=== PATIENT | female | born 1960 | race Caucasian/White ===

== ENCOUNTER → 2019-08-11 13:55 | Outpatient (POV) | payer OTHER, SELFPAY | PROVIDERS: PCP Nurse Practitioner; Referring Provider Surgery; Visit Provider Nurse Practitioner Family | DX: Z00.00 Encounter for general adult medical examination without abnormal findings (principal) ==

== ENCOUNTER 2025-03-25 11:48 | Outpatient (CLI) | payer OTHER, SELFPAY ==
--- NOTE | 2025-03-25 | CA_ITS ---
APPROVED REPORT Exam: Pharmacologic Technologist: Tasha Eaton Stress Test Details Test: Lexiscan HR Resting HR: 73 bpm Max Heart Rate (APMHR): 156 bpm Max HR Achieved: 95 bpm Target HR (85% APMHR): 133 bpm % of APMHR: 61 Recovery HR: 91 bpm BP Resting BP: 181.0/90.0 mmHg Max BP: 182.0/80.0 mmHg Recovery BP: 176.0/77.0 mmHg ECG Stress ECG Conclusion Symptoms: Chest heaviness and shortness of air with Lexiscan. Arrhythmias/Ectopy: PVC noted during Lexiscan ST-T Changes: Unremarkable with Lexiscan Electronically signed by : Jemma Orourke MD 03/26/2025 12:47:51
[2025-03-25] MEDS: SODIUM CHLORIDE 0.9% 10ML SYR (RAD ONLY) 10 ML IV ×2 (12:00→14:00)
--- NOTE | 2025-03-25 12:00 | NM_ITS ---
APPROVED REPORT Exam: Nuclear Stress Test Indication: htn, hyperlipidemia, tob use, sob, palpitations, syncope, abn ekg Patient Location: Outpatient Stress Tech: Tasha Eaton NM Tech:LAURA Terrazas RT (R)(N)(M) Ht: 5 ft 7 in Wt: 220 lbs Bra Size: c HR: 77 bpm BP: 181/90 mmHg BSA: 2.11 m2 TID: 0.93 BMI: 34.4 History: htn, hyperlipidemia, tob use, sob, palpitations, syncope, abn ekg Procedure: Patient received 0.4 mg of intravenous Lexiscan, resting heart rate 77 bpm, resting blood pressure 181/90 mmHg, with Lexiscan maximum heart rate achieved was 98 bpm which is % of the maximum predicted heart rate and blood pressure was 166/78 mmHg. With Lexiscan, patient denied any complaint of chest pain. Cardiac Stress and Resting SPECT Images: Cardiac Stress and Resting SPECT images were obtained using technetium 99m Myoview 29.8 mCi stress and 10.30 mCi at rest. Right imaging demonstrates significant soft tissue overlap with the cardiac borders. This may affect the diagnostic interpretation of the study findings. Resting and stress imaging in supine positions demonstrate a large sized, moderate, fixed perfusion defect in the anterior LV wall. This is no longer visualized with prone stress imaging. Findings are suggestive of soft tissue attenuation. Gated imaging demonstrates normal global and regional LV systolic function. LVEF is calculated at 67%. Conclusion: Soft tissue attenuation is present. There is no evidence of fixed or reversible perfusion defects. Gated imaging demonstrates normal global and regional LV systolic function. LVEF is calculated at 67%. Electronically signed by : Jemma Orourke MD 03/26/2025 12:44:00
--- NOTE | 2025-03-25 12:58 | CA_ITS ---
APPROVED REPORT EXAM: Comprehensive 2D, Doppler, and color-flow Echocardiogram Internet Sales Associate: Alberta Guillory RT(R) Ht: 5 ft 7 in Wt: 219lbs BSA: 2.10 BP: 120/69 mmHg Indications: dyspnea, abn EKG, CAD, hx of CVA, HTN, smoker 2D Dimensions LA Volume 20.00 mL LA Volume Index 9.52 mL/m2 (M/F) 16-34 EF AP2 76.0 % GL Strain -24.5 % M-Mode Dimensions RVDd 2.74 cm (0.9-2.6) LA Diam 3.51 cm (1.9-4.0) LVDd 4.60 cm (3.5-5.7) LVDs 3.53 cm (3.5-5.7) IVSd 1.06 cm (0.6-1.1) PWd 1.06 cm (0.6-1.1) EF (Teich) 46.70% FS 23.30% EDV (Teich) 97.30 mL ESV (Teich) 51.90 mL LV Diastology E Decel Time 150 (160-240 msec) E/A Ratio 0.6 Mitral Valve MV E Max [place]. 65.0 (40-130 cm/s) MV A Velocity 114.0 (40-130 cm/s) E/A Ratio 0.57 MV PHT 44.0 ms Left Ventricle The left ventricle is normal size. The left ventricular systolic function is normal. The left ventricular ejection fraction is within the normal range. There is marked increase in LV wall thickness. IVSD is 1.4 cm. There is no evidence of LVOT obstruction at rest. There is normal LV segmental wall motion. Transmitral Doppler flow pattern suggests impaired LV relaxation. LVEF is 65%. Right Ventricle Right ventricle is mildly dilated. The right ventricular systolic function is normal. Atria Left atrium is mildly dilated. The right atrium size is normal. There is no Doppler evidence of interatrial shunt. Aortic Valve Aortic valve is mildly thickened. There is no aortic valvular stenosis. No aortic regurgitation is present. Mitral Valve The mitral valve is normal in structure. No evidence of mitral valve stenosis. Mild mitral regurgitation. Tricuspid Valve Tricuspid valve is grossly normal in structure and function. Trace tricuspid regurgitation. There is insufficient TR jet to estimate RVSP. Pulmonic Valve The pulmonary valve is normal in structure. Trace pulmonic regurgitation. Great Vessels The aortic root is normal in size. IVC is normal in size and collapses >50% with inspiration. Pericardium There is no pericardial effusion. Other Information Study Quality: Fair Conclusion Normal biventricular systolic function. Marked increase in LV wall thickness. IVSD is 1.4 cm. No evidence of LVOT obstruction at rest. Mild MR. In the setting of marked increased LV wall thickness, further evaluation for infiltrative cardiomyopathy is suggested with cardiac MRI (amyloidosis protocol) + PYP nuclear scan + amyloidosis lab testing. Electronically signed by : Jemma Orourke MD 04/04/2025 00:07:20
[2025-03-25] MEDS: REGADENOSON 0.4MG/5ML SYRINGE 0.4 MG IV (14:00)
[2025-03-25] MEDS: ISOTOPE MYOVIEW (PER STUDY) 1 DOSE IV (14:32)
== END 2025-03-25 23:59 | disposition home or self-care (01) ==
LOC: RAD 11:49
PROVIDERS: PCP Nurse Practitioner Family; Visit Provider Internal Medicine
DX: I25.10 Atherosclerotic heart disease of native coronary artery without angina pectoris (principal); I10 Essential (primary) hypertension; I63.9 Cerebral infarction, unspecified
CPT/HCPCS: 78452; 93017; 93018; 93306; A9502; J2785

== ENCOUNTER 2025-03-27 10:29 | Outpatient (CLI) | payer OTHER, SELFPAY ==
[2025-03-27 10:34] LABS: Anti-Centromere B Antibodies ND; Anti-DNA (DS) Ab Qn ND; Anti-Jo-1 ND; Antichromatin Antibodies ND; Antiscleroderma-70 Antibodies ND; MANUAL DIFFERENTIAL MANUAL DIFFERENTIAL (MANUAL DIFF); RNP Antibodies ND; Sjogren's Anti-SS-A ND; Sjogren's Anti-SS-B ND
[2025-03-27 10:59] LABS: Basophils # 0.1 K/mm3 (0-0.2); Basophils % 1.1 % (0.1-2.0); Eosinophils # 0.1 Kmm3 (0.0-0.4); Eosinophils % 2.1 % (0.1-12.0); Hematocrit 41.6 % (37.0-47.0); Lymphocytes # 1.4 K/mm3 (0.7-4.5); Lymphocytes % 26.6 % (10-50); Mean Corpuscular HGB Conc 33.7 g/dL (31.8-35.4); Mean Corpuscular Hemoglobin 31.3 pg (27.0-31.2); Mean Corpuscular Volume 93.1 fl (81-99); Mean Platelet Volume 9.7 fl (7.4-10.4); Monocytes # 0.4 K/mm3 (0.1-1.0); Monocytes % 7.5 % (1.7-9.3); Neutrophils # 3.3 K/mm3 (1.8-7.8); Neutrophils % 62.5 % (37.0-80.0); Platelet Count 224 K/mm3 (142-424); Red Blood Count 4.47 M/mm3 (4.20-5.40); Red Cell Distribution Width 13.4 % (11.5-17.5); White Blood Count 5.3 K/mm3 (4.8-10.8)
[2025-03-27 11:43] LABS: Alanine Aminotransferase 27 U/L (12-78); Albumin Level 4.6 g/dl (3.5-5.0); Albumin/Globulin Ratio 1.8 (1.1-1.8); Alkaline Phosphatase 139 U/L (38-126); Anion Gap 6.2 mEq/L (5-15); Aspartate Amino Transferase 26 U/L (14-36); Blood Urea Nitrogen 15 mg/dl (7-17); Calcium 9.5 mg/dl (8.4-10.2); Carbon Dioxide 29 mmol/L (22.0-30.0); Chloride 104 mmol/L (98-107); Estimated Glomerular Filt Rate 63 ml/min (>60); GFR (African American) 76 ML/MIN (>60); Globulin 2.5 g/dL (1.3-3.2); Glucose 107 mg/dl (74-100); Potassium 4.2 mmoL/L (3.5-5.1); Sodium 135 mmol/L (136-145); Total Protein,Serum 7.1 g/dl (6.3-8.2)
[2025-03-27 11:50] LABS: Eosinophils % 3 % (0-3); Lymphocytes % 29 % (10-50); Monocytes % 5 % (2-9); Neutrophils % 63 % (42-76); Total Cells Counted 100
[2025-03-27 11:51] LABS: Platelet Estimate Normal; RBC Morphology Normal
[2025-03-27 11:54] LABS: Erythrocyte Sedimentation Rate 14 mm/hr (0-30)
[2025-03-30 14:17] LABS: Antinuclear Antibodies (ANA) Negative (Negative)
== END 2025-03-27 23:59 | disposition home or self-care (01) ==
LOC: LAB 10:29
PROVIDERS: PCP Nurse Practitioner Family; Visit Provider Specialist
DX: I63.9 Cerebral infarction, unspecified (principal); R51.9 Headache, unspecified; G89.29 Other chronic pain
CPT/HCPCS: 36415; 80053; 85007; 85014; 85018; 85048; 85049; 85651

== ENCOUNTER 2025-04-06 12:51 | Outpatient (CLI) | payer OTHER, SELFPAY ==
--- NOTE | 2025-04-06 13:45 | MR_ITS ---
FINAL REPORT CLINICAL HISTORY: stroke 15 yrs ago, new reoccurring headaches COMPARISON: None FINDINGS: Multiplanar MR imaging of the brain was performed without and with contrast. There is no evidence of intracranial hemorrhage or mass. No abnormal extra-axial fluid collection is seen. Nyem-[id number] atrophy. Few tiny scattered foci of abnormal signal in the deep white matter. There is no evidence of shift of the midline structures. No acute ischemia. No area of abnormal restricted diffusion is identified. No abnormal contrast enhancement is seen. Normal major vessel vascular flow voids are noted. 7th and 8th nerve root complexes are intact. There is a lobular mucoperiosteal thickening of the left maxillary sinus. IMPRESSION: Chronic changes without acute intracranial abnormality identified. Reviewed, Interpreted and Dictated by Joey Engle MD Transcribed by Mis Mccoy Authenticated and [facility]
[2025-04-06] MEDS: GADOTERIDOL INJ 20ML SYRINGE 19 ML IV (14:23)
[2025-04-06] MEDS: SODIUM CHLORIDE 0.9% 10ML SYR (RAD ONLY) 10 ML IV (14:23)
== END 2025-04-06 23:59 | disposition home or self-care (01) ==
LOC: RAD 12:51
PROVIDERS: PCP Nurse Practitioner Family; Visit Provider Specialist
DX: R90.89 Other abnormal findings on diagnostic imaging of central nervous system (principal); I25.10 Atherosclerotic heart disease of native coronary artery without angina pectoris; I10 Essential (primary) hypertension; I63.9 Cerebral infarction, unspecified
CPT/HCPCS: 70553; 94762; A9576

== ENCOUNTER 2025-04-14 14:45 | Outpatient (CLI) | payer OTHER, SELFPAY ==
[2025-04-14 15:47] LABS: Anion Gap 10.2 mEq/L (5-15); Blood Urea Nitrogen 17 mg/dl (7-17); Calcium 9.3 mg/dl (8.4-10.2); Carbon Dioxide 29 mmol/L (22.0-30.0); Chloride 102 mmol/L (98-107); Estimated Glomerular Filt Rate 63 ml/min (>60); GFR (African American) 76 ML/MIN (>60); Glucose 107 mg/dl (74-100); Potassium 4.2 mmoL/L (3.5-5.1); Sodium 137 mmol/L (136-145)
[2025-04-15 17:21] LABS: Albumin 3.7 g/dL (2.9-4.4); Alpha-1-Globulin 0.2 g/dL (0.0-0.4); Alpha-2-Globulin 0.9 g/dL (0.4-1.0); Free Kappa Lt Chains 25.9 mg/L (3.3-19.4); Free Lambda Lt Chains 18.8 mg/L (5.7-26.3); Protein, Total 7.1 g/dL (6.0-8.5)
[2025-04-16 17:42] LABS: Albumin, U 22.9 % (.); Alpha-1-Globulin, U 11.6 % (.); Alpha-2-Globulin, U 17.9 % (.); Beta Globulin, U 31.8 % (.); Gamma Globulin, U 15.8 % (.); Immunoglobulin A, Qn 136 mg/dL (87-352); Immunoglobulin G, Qn 1143 mg/dL (586-1602); Immunoglobulin M, Qn 68 mg/dL (26-217); M-Spike, % Not Observed % (Not Observed); Protein,Total,Urine 9.3 mg/dL (Not Estab.)
[2025-04-18 12:31] LABS: PDF SCANNED IMAGE
[2025-04-18 13:44] LABS: PDF: SCANNED IMAGE
== END 2025-04-14 23:59 | disposition home or self-care (01) ==
LOC: LAB 14:45
PROVIDERS: PCP Nurse Practitioner Family; Visit Provider Internal Medicine
DX: I10 Essential (primary) hypertension; I63.9 Cerebral infarction, unspecified; I25.10 Atherosclerotic heart disease of native coronary artery without angina pectoris; R93.1 Abnormal findings on diagnostic imaging of heart and coronary circulation
CPT/HCPCS: 36415; 80048; 82784; 83883; 84155; 84156; 84165; 84166; 86334; 86335

== ENCOUNTER 2025-04-17 11:11 | Outpatient (CLI) | payer OTHER, SELFPAY ==
[2025-04-21 15:17] LABS: Albumin, U 22.8 % (.); Alpha-1-Globulin, U 5.1 % (.); Beta Globulin, U 30.1 % (.); M-Spike, % Not Observed % (Not Observed); Prot,24hr calculated 109 mg/24 hr (30-150); Protein,Total,Urine 10.4 mg/dL (Not Estab.)
== END 2025-04-17 23:59 | disposition home or self-care (01) ==
PROVIDERS: PCP Nurse Practitioner Family; Visit Provider Internal Medicine
DX: I25.10 Atherosclerotic heart disease of native coronary artery without angina pectoris (principal); I10 Essential (primary) hypertension; I63.9 Cerebral infarction, unspecified; R93.1 Abnormal findings on diagnostic imaging of heart and coronary circulation
CPT/HCPCS: 84156; 84166

== ENCOUNTER 2025-04-27 10:01 | Outpatient (CLI) | payer OTHER, SELFPAY ==
--- OUTSIDE RECORDS SUMMARY | 2025-04-27 10:04 | XMS_ITS | Clinical Summary ---
Author Organization [facility] Address [address] [place] [address] Phone Care Team Providers Care Manager Emergency Name Role Phone Unavailable Primary Care Provider Unavailabl e Allergies No known active allergies Medications meloxicam (MOBIC) 15 mg tabletIndication s:Knee strain Take 1 Tab by mouth daily. 30 Tab 0 07/02/2013 Active Active Problems No known active problems Social History Tobacco Use Types Packs/Day Years Used Date Smoking Tobacco: Every Day Smokeless Tobacco: Never Tobacco Cessation:Counseling Given: Yes Alcohol Use Standard Drinks/Week Comments Not Asked 0 (1 standard drink = 0.6 oz pur e alcohol) Comments No Sex and Gender Information Value Date Recorded Sex Assigned at Not on file Legal Sex Female 2:07 AM EDT Gender Identity Not on file Sexual Orientation Not on file Obstetrics History Last Filed Vital Signs Vital Sign Reading Time Taken Comments Blood Pressure 130/84 06/06/2013 11:09 AM EDT Pulse 72 06/06/2013 11:09 AM EDT Temperature 36.8 C (98.2 F) 06/06/2013 11:09 AM EDT Respiratory Rate - - Oxygen Saturation - - Inhaled Oxygen Concentration - - Weight 90.1 kg (198 lb 9.6 oz) 06/06/2013 11:09 AM EDT Height 167.6 cm (5' 6 ) 06/06/2013 11:09 AM EDT Body Mass Index 32.05 06/06/2013 11:09 AM EDT Plan of Treatment Health Maintenance Due Date Last Done Comments Annual Wellness Exam 1963 Hepatitis C Screening 1978 DTaP/TDaP/Td (1 - Tdap) 1979 Cervical Cancer Screening 1981 Pap Smear 1981 HPV/Pap Cotest 1990 Breast Cancer Screening 2000 Cologuard 2005 Colon Cancer Screening 2005 Colonoscopy 2005 FIT 2005 Sigmoidoscopy 2005 Virtual Colonography 2005 Pneumococcal Vaccine 50+ (1 of 1 - PCV) 2010 Zoster (1 of 2) 2010 COVID-19 Vaccine (1 - 2023-2 5 season) 2024 Influenza Vaccine (Season Ended) 2025 Hepatitis B Vaccine Aged Out No longe r eligible based on patient's age to complete this topic Meningococcal B Vaccine Aged Out No l onger eligible based on patient's age to complete this topic Insurance
--- OUTSIDE RECORDS SUMMARY | 2025-04-27 10:04 | XMS_ITS | Encounter Summary ---
Author Organization Healthcare Address [address] [place] [address] Care Team Providers Care Commercial Airplane Pilot Name Role Phone Jessica Mack [employer]W TRUCK DRIVER Primary Care Provider + Reason for Referral * Consultation (Routine) - Authorized Specialty Diagnoses / Procedures Referred By Contac t Referred To Contact Neurology Diagnoses Personal history of TIA (transient ischemic attack) Debra Jackson APRN [address] [place] [address] [place] [address] Phone: tel: fax: Referral ID Status Reason Start Date Expiration Date Visits Requested Visits Authorized [id number] Authorized Specialty Services Required 11/27/2024 05/29/2026 1 1 Encounter Details Date Type Department Care Team (Late st Contact Info) Description 11/27/2024 Community Orders Community [facility] [address] [place] [address] Debra Jackson APRN [address] [place] [address] [place] [address] Personal history of TIA (transient ischemic attack) (Primary Dx) Social History Tobacco Use Types Packs/Day Years Used Date Smoking Tobacco: Never Assessed Comments Unknown Sex and Gender Information Value Date Recorded Sex Assigned at Not on file Legal Sex Female 7:15 PM EDT Gender Identity Not on file Sexual Orientation Not on file documented as of this encounter Plan of Treatment Scheduled Referrals Name Type Priority Associated Diagnoses Order Schedule Ambulatory referral to Neurology Outpatient Referral Routine Personal history of TIA (transient ischemic attack) Ordered: 11/27/2024 documented as of this encounter Visit Diagnoses Diagnosis Personal history of TIA (transient ischemic attack)- Primary Transient ischemic attack (TIA), and cerebral infarction without residual deficits documented in this encounter Care Teams Commercial Airplane Pilot Relationship Specialty Start Date End Date Jessica Mack, CREW TRUCK DRIVER [address] [place] [address] PCP - General 04/01/21 documented as of this encounter
--- OUTSIDE RECORDS SUMMARY | 2025-04-27 10:05 | XMS_ITS | Clinical Summary ---
Author Organization [facility] Address [address] [place] [id number] Care Team Providers Care Planting Material Remover Name Role Phone Unavailable Primary Care Provider Unavailabl e Source Comments This information has been disclosed to you from confidential records protectedfrom disclosure by state law. You shall make no further disclosure of thisinformation without the specific, written, and informed release of theindividual to whom it pertains, or as otherwise permitted by law. A generalauthorization for the release of medical or other information is not sufficientfor the purposes of therelease of HIV test results or diagnoses. [id number] Social History Tobacco Use Types Packs/Day Years Used Date Smoking Tobacco: Never Assessed Comments Unknown Sex and Gender Information Value Date Recorded Sex Assigned at Not on file Legal Sex Female 4:18 PM EST Gender Identity Not on file Sexual Orientation Not on file Plan of Treatment Health Maintenance Due Date Last Done Comments Abnormal Colonoscopy Follow Up 1960 Hepatitis C Screening (MyChart) 1960 Alcohol Misuse Screening 1978 Depression Screening 1978 HIV Screening 1978 Immunization: DTaP/Tdap/Td (1 - Tdap) 1979 Cervical Cancer Screening/Pa p Smear (MyChart) 1990 Mammogram (MyChart) 2000 Cologuard (FIT-DNA) 2005 Colonoscopy 2005 Colorectal Cancer Screening (MyChart) 2005 Stool Testing (gFOBT) 2005 Immunization: Pneumococcal (1 of 1 - PCV) 2010 Immunization: Zoster (1 of 2) 2010 Immunization: COVID-19 ( season) 2024 01/26/2021, 12/24/2020 Immunization: Influenza (MyC brennan) (Season Ended) 2025 Immunization: RSV (Adult) (1 - 1-dose 75+ series) 2035
--- OUTSIDE RECORDS SUMMARY | 2025-04-27 10:05 | XMS_ITS | Continuity of Care Document ---
Author Organization [facility] Address [address] [place] [address] Care Team Providers Care Numerical Control Tool Programmer Name Role Phone ISMAEL GUO Charter Coordinator Unavailable Assessment No assessment recorded. Plan of Treatment Reminders Order Date Submit Date Provider Last Modified By Organization Details Last Modified Time Details Appointments Follow Up 2024 10:00A M Debra Jackson APRN Not available Not available Not available Lab lipid panel, serum 2024 025 [facility], [address], [place], [place], [address], 03/25/2025 09:07:05 CBC w/ auto diff 2024 025 [facility], [address], [place], [place], [address], 03/25/2025 09:07:03 TSH + free T4, serum 2024 025 [facility], [address], [place], [place], [address], 03/25/2025 09:07:02 HbA1c (hemoglob in A1c), blood 2024 025 [facility], [address], [place], [place], [address], 03/25/2025 09:07:07 CMP, serum or plasma 2024 025 [facility], [address], [place], [place], [address], 03/25/2025 09:07:04 vitamin D, 25-hydrox y, total, serum 2024 025 [facility], [address], [place], [place], [address], 03/25/2025 09:07:08 cobalamin and folate panel, serum 2024 025 [facility], [address], [place], [place], [address], 03/25/2025 09:07:06 Referral None recorded. Procedures None recorded. Surgeries None recorded. Imaging MRI, brain, w/wo contrast [email or web address] ([facility]), [address], [place], [address], 04/20/2025 20:02:55 Medication Orders atorvasta tin 80 mg tablet 2024 025 [facility], [address] [place] [address], [place], [address], 03/24/2025 11:42:33 hydrochlo rothiazid e 25 mg tablet 2024 025 [facility], [address] [place] [address], [place], [address], 03/24/2025 11:42:34 isosorbid e mononitra te ER 30 mg tablet,ex tended release 24 hr 2024 025 [facility], [address] [place] [address], [place], [address], 03/24/2025 11:42:34 lisinopri l 20 mg tablet 2024 025 [facility], [address] [place] [address], [place], [address], 03/24/2025 11:42:36 pantopraz ole 40 mg tablet,de layed release [address], [address], 03/24/2025 11:42:32 fluticaso ne propionat e 50 mcg/actua tion nasal spray,du pension [address], [address], 03/24/2025 11:42:35 meclizine 25 mg chewable tablet [address], [address], 03/24/2025 11:42:35 cholecalc iferol (vitamin D3) 50 mcg (2,000 unit) capsule [address], [address], 03/24/2025 11:42:32 melatonin 10 mg tablet [address], [address], 03/24/2025 11:42:35 mirtazapi ne 30 mg tablet [address], [address], 03/24/2025 11:42:33 Patient TargetsNo targets recorded. Patient InstructionsNo instructions recorded. Reason for Referral None Reported. Results Created Date Observation Date Name Description Value Unit Range Abnormal Flag Note LastModifiedBy Organization Detail LastModifiedTime 03/26/20 25 03/25/2025 imagi ng/di agnos tic resul t No observ ation record ed. [email or web address] [facility] [address], [place], [address], 03/26/2025 14:48:22 03/26/20 25 03/25/2025 imagi ng/di agnos tic resul t No observ ation record ed. [email or web address] [place] [address], [place], [address], 03/26/2025 14:48:16 04/04/20 25 03/25/2025 stres s echoc ardio gram No observ ation record ed. [address], [place], [address], 04/08/2025 12:25:16 04/06/20 25 04/06/2025 MRI, brain , w/o contr ast No observ ation record ed. [address], [place], [address], 04/07/2025 15:41:59 Result Notes None recorded. 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 13982662 Active Laurence Vásquez MD [address], [place], [address], [place] - [facility] 12:20:06 Preinfarc tion syndrome 3624859 Active Laurence Vásquez MD [address], [place], [address], [place] - [facility] 12:20:06 Urinary tract infectiou s disease 94215781 Active Laurence Vásquez MD [address], [place], [address], [place] [facility] 12:20:06 Herniated urinary bladder 556795132 Active Laurence Vásquez MD [address], [place], [address], [place] - [facility] 12:20:06 Vaginal hematoma 57908726 Completed 05/07/2019 Laurence Vásquez MD [address], [place], [address], [place] [facility] 12:20:06 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 10910466 Active Laurence Vásquez MD [address], [place], [address], [place] [facility] 12:20:06 Vaginal bleeding 933825297 Completed 05/07/2019 Laurence Vásquez MD [address], [place], [address], [place] [facility] 12:20:06 History of cardiac catheteri zation 451745090995 00 Active Laurence Vásquez MD [address], [place], [address], [place] [facility] 12:20:06 Urinary incontine nce 333800020 Active Laurence Vásquez MD [address], [place], [address], [place] [facility] 12:20:06 Disorder of coronary artery 470696088 Active 2017 Layla Hawth[place] - [facility] 08:37:12 Gastroeso phageal reflux disease 742952625 Active Layla Haw[place] [facility] 08:37:12 Hypertens nicky disorder 85202493 Active Layla [place] [facility] 08:37:12 Vaginal hematoma 33745393 Active Laurence Vásquez MD [address], [place], [address], [place] [facility] 12:20:06 Vaginal bleeding 980238377 Active Laurence Vásquez MD [address], [place], [address], [place] [facility] 12:20:06 Vitamin D deficienc y 54722584 Active 2019 Layla [place] [facility] 08:37:12 Mammogram declined 690996294 Active 2020 Layla [place] [facility] 08:37:12 Prediabet es 351904552 Active 2020 Layla [place] [facility] 08:37:12 Diastolic heart failure 246717414 Active 2020 Layla [place] [facility] 08:37:12 Influenza vaccinati on declined 638559868 Active 2020 Layla Katjash[place]en [place] [facility] 08:37:12 Gastroeso phageal reflux disease without esophagit is 336809042 Active 2020 Layla Hightowershannen [place] [facility] 08:37:12 Disorder of vitamin B12 889575475 Active 2021 Layla [place] [facility] 08:37:12 Mixed hyperlipi demia 488772135 Active 2021 Layla [place] [facility] 08:37:12 History of polyp of colon 792003545 Active 2021 Layla [place] [facility] 08:37:12 Screening for malignant neoplasm of colon Active 2021 Layla [place] [facility] 08:37:12 Internal hemorrhoi ds 44545338 Active 2022 Layla [place] [facility] 08:37:12 Diverticu losis of colon 366470350 Active 2022 Layla Katj[place] [facility] 08:37:12 Heart disease 53755733 Active Layla [place] [facility] 08:37:12 Postmenop ausal state 61111220 Active Layla [place] [facility] 08:37:12 Vitamin deficienc y 28536977 Active Layla [place] [facility] 08:37:12 Persisten t insomnia 759525293 Active 2023 Dbera Jackson, VIDEO OPERATOR [address], [place], [address], [place] [facility] 10:20:01 History of cerebrova scular accident 385427829 Active 2024 Debra Jackson APRN [address], [place], [address], [place] - [facility] 11:04:04 Tinnitus of left ear 258187685190 6 Active 2024 Debra Jackson APRN [address], [place], [address], [place] - [facility] 11:35:22 Problem Notes None recorded. Procedures Surgical History Date Name Laterality Status Provider Name and Address Organization Details Recorded Time 023 Date of Last Colonoscopy completed Jennifer Iverson [place] - [facility] 08/15/2023 13:42:39 019 Colonoscopy completed Renetta Feliciano [place] - [facility] 08/18/2019 10:34:42 018 Cardiac Cath completed Beatriz Dubois [place] - [facility] 05/07/2019 11:40:38 018 Date of Last Mammogram completed Renetta Feliciano [place] - [facility] 03/31/2019 13:16:24 016 Other completed Leigha Stears [place] [facility] 12/04/2016 11:18:33 015 Other completed Leigha Stears [place] [facility] 09/28/2016 10:17:02 015 TVT completed Leigha Stears [place] [facility] 09/28/2016 10:16:50 013 Date of Last Pap Smear completed Leigha Stears [place] [facility] 09/28/2016 10:06:27 Anterior Repair completed Leigha Stears [place] [facility] 09/28/2016 10:14:04 Cystourethroscopy [place] Leigha Ste[place] [facility] 09/28/2016 10:14:44 Unlisted px foot/toes completed Leigha Stears [place] [facility] 09/28/2016 10:15:06 Hysterectomy, Vaginal completed Beatriz Dubois [place] - [facility] 05/07/2019 11:31:05 Imaging Results None recorded. Procedure Notes None recorded. Medical Equipment None Reported. Allergies Allergen ID Allergen Name Allergen Category Reaction Reaction Severity Criticality Documentation Date Start Date Code Code System Note Provider Name and Address Organization Details Recorded Time 29056 Lipitor medicatio n arthralgi a (joint pain) Not available Not available 06/25/2017 [address] 5 [facility] [place] - [facility] 7 13:14:17 Medications Name Sig Start Date Stop Date Status Note LastModified by Organization Details LastModified Time atorvasta tin 80 mg tablet TAKE ONE (1) TABLET BY MOUTH EVERY DAY IN THE EVENING active Not Available Not Available No t Available oxybutyni n chloride ER 15 mg tablet,ex tended release 24 hr 06/25 completed Not Available Not Available Not Available nicotine 14 mg/24 hr daily transderm al patch 08/28 completed DIDN'T PHOTOCOPYING EQUIPMENT MECHANIC Not Available Not Available Not Available nitroglyc joey 400 mcg/spray transling ual aerosol 1 SPRAY UNDER TONGUE AT FIRST SIGN OF AN ATTACK/N O MORE THAN 3 SPRAYS IN [address] 1 spray by translin gual route onto or under the tongue at the first sign of an attack; no more than 3 sprays are recommen ded within a 15 minute period. Not Available Not Available Not Available cetirizin e 10 mg tablet Take 1 tablet every day by oral route for 30 days. 05/24 completed Not Available Not Available Not Available atorvasta tin 10 mg tablet Take 1 tablet every day by oral route. 03/26 completed Not Available Not Available Not Available oxybutyni n chloride ER 10 mg tablet,ex tended release 24 hr Take 1 tablet every day by oral route for 30 days. 07/20 completed Not Available Not Available Not Available azithromy jamal 250 mg tablet 08/14 completed Not Available Not Available Not Available hydrocodo ne 5 mg-acetam inophen 325 mg tablet 10/05 completed Not Available Not Available Not Available lisinopri l 20 mg tablet TAKE ONE (1) TABLET EVERY DAY BY ORAL ROUTE FOR 90 DAYS. active Not Available Not Available No t Available isosorbid e mononitra te ER 30 mg tablet,ex tended release 24 hr TAKE 1 TABLET BY MOUTH EACH MORNING active Not Available Not Available No t Available valsartan 160 mg-hydroc hlorothia zide 12.5 mg tablet TAKE 1 TABLET BY MOUTH EVERY DAY 10/24 completed Not Available Not Available Not Available black cohosh 540 mg capsule take 1 capsule by oral route daily 05/26 completed black cohosh 540 mg oral capsule; Recorded Status: Recorded on: 11/22/19 13 2:07PM;D iscontin ued Status: Disconti nued on: 05/26/20 15 4:42PM;U ser: earlywin ec Not Available Not Available Not Available permethri n 5 % topical cream apply (thoroug hly massage into skin from head to soles of feet) by topical route once leave on for 8-14 hr, then remove by thorough washing 12/18 completed permethr in 5 % topical cream;Re corded Status: Recorded on: 11/22/19 13 2:26PM;D iscontin ued Status: Disconti nued on: 12/18/19 13 2:44PM;U ser: carlee; Printed: 11/22/19 13 Not Available Not Available Not Available Diflucan 150 mg tablet take 1 tablet (150 mg) by oral route for 3 days 12/04 completed Diflucan 150 mg oral tablet;P rescribe Status: Prescrib ed on: 10/26/20 15 10:49AM; Disconti nued Status: Disconti nued on: 12/02/19 16 9:12AM;U ser: [email or web address]; Est. Completi on: 10/28/20 15;Pharm acyVerif ied: 10/26/20 15 10:49AM Not Available Not Available Not Available meclizine 12.5 mg tablet Take 1 tablet 3 times a day by oral route. 08/14 completed Not Available Not Available Not Available amlodipin e 2.5 mg tablet Take 1 tablet PO QD 08/18 completed Not Available Not Available Not Available metronida zole 500 mg tablet take 1 tablet (500 mg) by oral route 2 times per day for 7 days 12/04 completed Not Available Not Available Not Available fexofenad ine 180 mg tablet Take 1 tablet every day by oral route for 30 days. 07/20 completed Not Available Not Available Not Available amlodipin e 5 mg tablet Take 1 tablet every day by oral route. 07/20 completed Not Available Not Available Not Available ciproflox acin 500 mg tablet take 1 tablet (500 mg) by oral route every 12 hours for 10 days 06/20 completed ciproflo xacin HCl 500 mg oral tablet;P rescribe Status: Prescrib ed on: 06/07/20 16 9:21AM;D iscontin ued Status: Disconti nued on: 06/20/20 16 9:10AM;U ser: larsen c;Est. Completi on: 06/17/20 16;Pharm acyVerif ied: 06/07/20 16 9:21AM Not Available Not Available Not Available sulfameth oxazole 800 mg-trimet hoprim 160 mg tablet 10/05 completed Not Available Not Available Not Available aspirin 81 mg tablet,de layed release TAKE ONE (1) TABLET EVERY DAY BY ORAL ROUTE FOR 90 DAYS. active Not Available Not Available No t Available Wellbutri n SR 100 mg tablet, 12 hr sustained -release Take 1 tablet every day by oral route. 03/26 completed Not Available Not Available Not Available triamcino lone acetonide 0.1 % topical cream apply a thin layer to the affected area(s) by topical route 2 times per day 12/18 completed triamcin olone acetonid e 0.1 % topical cream;Re corded Status: Recorded on: 11/25/19 13 5:11PM;D iscontin ued Status: Disconti nued on: 12/18/19 13 2:44PM;U ser: gillisa; Indicati on: Skin Rash - (16.7821 00);Prin juhi: 11/25/19 13 Not Available Not Available Not Available Lipitor 20 mg tablet Take 1 tablet every day by oral route. 10/20 completed Not Available Not Available Not Available oxycodone -acetamin ophen 5 mg-325 mg tablet 12/04 completed Not Available Not Available Not Available Estratest H.S. 0.625 mg-1.25 mg tablet one po qd 05/31 completed Estrates t H.S. 0.625-1. 25 mg oral tablet;R ecorded Status: Recorded on: 05/25/20 10 2:04PM;D iscontin ued Status: Disconti nued on: 05/31/20 11 2:38PM;U ser: oralia;P rinted: 05/25/20 10 Not Available Not Available Not Available amitripty line 10 mg tablet TAKE ONE (1) TABLET BY MOUTH EVERY NIGHT AT BEDTIME FOR 2 WEEKS, MAY INCREASE TO TWO (2) TABLETS IF HEADACHE SYMPTOMS NOT IMPROVED active Not Available Not Available No t Available meclizine 25 mg tablet Take 1 tablet 3 times a day by oral route. 05/07 completed Not Available Not Available Not Available pantopraz ole 40 mg tablet,de layed release TAKE 1 TABLET BY MOUTH EVERY DAY active Not Available Not Available No t Available mirtazapi ne 30 mg tablet TAKE ONE (1) TABLET BY MOUTH EVERY DAY AT BEDTIME active Not Available Not Available No t Available ranitidin e 150 mg tablet Take 1 tablet twice a day by oral route as needed. 05/07 completed Not Available Not Available Not Available lisinopri l 10 mg tablet TAKE ONE (1) TABLET EVERY DAY BY ORAL ROUTE 10/27 completed Not Available Not Available Not Available losartan 25 mg tablet TAKE 1 TABLET BY MOUTH EVERY DAY 04/28 completed Not Available Not Available Not Available metoprolo l tartrate 50 mg tablet TAKE ONE (1) TABLET BY MOUTH TWICE DAILY WITH FOOD 04/28 completed Not Available Not Available Not Available nitroglyc joey 400 mcg/spray transling ual 10/05 completed Not Available Not Available Not Available nitroglyc joey 0.4 mg sublingua l tablet DISSOLVE ONE (1) TABLET UNDER TONGUE EVERY FIVE (5) MINUTES NEEDED FOR CHEST PAIN (DO NOT EXCEED THREE (3) DOSES/EP ISODE) active Not Available Not Available No t Available docusate sodium 100 mg capsule Take 1 capsule twice a day by oral route. 05/07 completed Not Available Not Available Not Available oxybutyni n chloride ER 5 mg tablet,ex tended release 24 hr take 1 tablet (5 mg) by oral route once daily for 30 days 06/07 completed oxybutyn in chloride 5 mg oral tablet extended release 24hr;Pre scribe Status: Prescrib ed on: 10/26/20 15 10:49AM; Disconti nued Status: Disconti nued on: 06/07/20 16 8:54AM;U ser: [email or web address]; Est. Completi on: 12/25/19 16;Indic ation: Urinary Urge Incontin ence - (16.7883 10);Phar Gutierrez fied: 10/26/20 15 10:49AM Not Available Not Available Not Available esterifie d estrogens -methylte stosteron e 1.25 mg-2.5 mg tablet take 1 tablet by oral route daily for 30 days 08/14 completed estrogen s-methyl testoste martha 1.25-2.5 mg oral tablet;R ecorded Status: Recorded on: 02/26/20 15 11:02AM; Disconti nued Status: Disconti nued on: 12/02/19 16 9:12AM;U ser: jose ;Est. Completi on: 08/24/20 15 Not Available Not Available Not Available hydrochlo rothiazid e 25 mg tablet TAKE 1 TABLET BY MOUTH EVERY DAY active Not Available Not Available No t Available furosemid e 20 mg tablet TAKE 1 TABLET BY MOUTH EVERY DAY 10/27 completed Not Available Not Available Not Available mirtazapi ne 15 mg tablet Take 1 tablet every day by oral route. 05/24 completed Not Available Not Available Not Available metoprolo l succinate ER 25 mg tablet,ex tended release 24 hr TAKE ONE (1) TABLET BY MOUTH EVERY DAY active Not Available Not Available No t Available albuterol 90 mcg/actua tion aerosol inhaler 08/14 completed Not Available Not Available Not Available Nasonex 50 mcg/actua tion [place] 2 sprays every day by intranas al route. 05/07 completed Not Available Not Available Not Available ibuprofen 600 mg tablet 12/21 completed Not Available Not Available Not Available Vitamin D2 1,250 mcg (50,000 unit) capsule Take 1 capsule every week by oral route for 84 days. 01/28 completed Not Available Not Available Not Available cefdinir 300 mg capsule TAKE 1 CAPSULE BY MOUTH TWICE DAILY 10/27 completed Not Available Not Available Not Available dexametha sone sodium phosphate 10 mg/mL injection solution Take 1 mL by injectio n route. 2017 active Not Available Not Available Not Avai lable losartan 100 mg tablet TAKE 1 TABLET BY MOUTH EVERY DAY active Not Available Not Available No t Available fluticaso ne propionat e 50 mcg/actua tion nasal spray,du pension INSTILL ONE (1) SPRAY IN EACH NOSTRIL EVERY DAY active Not Available Not Available No t Available Vistaril 50 mg capsule take 1 capsule by oral route 4 times a day as needed 09/09 completed Vistaril 50 mg oral capsule; Recorded Status: Recorded on: 12/18/19 13 3:01PM;D iscontin ued Status: Disconti nued on: 09/09/20 13 1:52PM;U ser: gillisa; Indicati on: Pruritus of Skin - (12.6989 00);Prin juhi: 12/18/19 13 Not Available Not Available Not Available difloraso ne 0.05 % topical ointment 05/07 completed Not Available Not Available Not Available Sudogest 60 mg tablet Take 1 tablet 4 times a day by oral route as needed. 10/20 completed Not Available Not Available Not Available amoxicill in 875 mg-potass ium clavulana te 125 mg tablet TAKE ONE (1) TABLET BY MOUTH TWO (2) TIMES PER DAY 10/27 completed Not Available Not Available Not Available meclizine 25 mg chewable tablet CHEW ONE (1) TABLET(S ) THREE (3) TIMES A DAY BY MOUTH active Not Available Not Available No t Available Fiber-Lax 625 mg tablet TAKE ONE (1) TABLET TWICE A DAY BY ORAL ROUTE FOR 30 DAYS. 10/27 completed Not Available Not Available Not Available Premarin 0.625 mg/gram vaginal cream INSERT 1/2 GRAM VAGINALL Y TWICE WEEKLY 08/14 completed Not Available Not Available Not Available Premarin 0.625 mg tablet take 1 tablet (0.625 mg) by oral route once daily for 30 days 05/25 completed Premarin 0.625 mg oral tablet;R ecorded Status: Recorded on: 10/22/20 08 1:57PM;D iscontin ued Status: Disconti nued on: 05/25/20 10 1:35PM;U ser: oralia;Gio solanoKevan Completi on: 10/17/20 09;Print ed: 10/22/20 08 Not Available Not Available Not Available metoprolo l tartrate 25 mg tablet TAKE 1 TABLET BY MOUTH TWICE DAILY 01/26 completed Not Available Not Available Not Available losartan 100 mg-hydroc hlorothia zide 12.5 mg tablet TAKE ONE (1) TABLET BY MOUTH EVERY DAY 07/11 completed Not Available Not Available Not Available Ventolin HFA 2 PUFFS EVERY 4-6 HOURS NEEDED 05/07 completed Not Available Not Available Not Available ProAir HFA 90 mcg/actua tion aerosol inhaler INHALE ONE PUFF EVERY FOUR (4) HOURS NEEDED active Not Available Not Available No t Available Fish Oil 300 mg-1,000 mg capsule Take 1 capsule every day by oral route. 08/14 completed Not Available Not Available Not Available peg 3350-elec trolytes 236 gram-22.7 4 gram-6.74 gram-5.86 gram solution TAKE DIRECTED 04/28 completed Not Available Not Available Not Available cholecalc iferol (vitamin D3) 50 mcg (2,000 unit) capsule TAKE ONE (1) CAPSULE BY MOUTH EVERY DAY active Not Available Not Available No t Available Gavilax 17 gram/dose oral powder 08/18 completed Not Available Not Available Not Available Citracal Regular 1 tab po qday active Not Available Not Available No t Available Sadaf Back and Body 500 mg-32.5 mg tablet Take 2 tablets every day by oral route. active Not Available Not Available No t Available Chantix Starting Month Box 0.5 mg (11)-1 mg (42) tablets in dose pack Take 1 tablet by oral route. 03/26 completed Not Available Not Available Not Available melatonin 10 mg tablet Take 1 tablet every day by oral route at bedtime for 90 days. 2024 active Not Available Not Available Not Avai lable Myrbetriq 25 mg tablet,ex tended release Take 1 tablet every day by oral route. 01/26 completed Not Available Not Available Not Available melatonin 10 mg capsule TAKE 1 CAPSULE BY MOUTH AT BEDTIME active Not Available Not Available No t Available Nurtec ODT 75 mg disintegr ating tablet DISSOLVE ONE (1) TABLET IN MOUTH ONCE NEEDED FOR HEADACHE active Not Available Not Available No t Available Vitals Date Recorded Body height Body mass index (BMI) Body weight Heart rate Oxygen saturation Oxygen saturation in Arterial blood by Pulse oximetry Respiratory rate Systolic blood pressure Diastolic blood pressure Provider Name and Address Organization Details Last Updated DateTime 5 175.26 cm 32.8 kg/m2 416779. 51 g 82 /min 95 % 95 % 18 /min 136 mm[Hg] 78 mm[Hg] Jaci Cade [place] - [facility] 5 11:29:28 Social History Question Answer Notes LastModified by Organizat ion Details LastModified Time Tobacco Smoking Status Current Every Day Smoker Beatriz [place], [place] - [facility] 10/05/2016 11:02:47 Do You Have An Advance Directive? No Information not available 10/05/2016 Are You Blind Or Do You Have Difficulty Seeing? No Information not available 10/05/2016 Is Blood Transfusion Acceptable In An Emergency? Yes [email or web address] Information not available 10/05/2016 What Is Your Level Of Caffeine Consumption? Occasional [email or web address] Information not available 10/05/2016 How Much Tobacco Do You Chew? None [email or web address] Information not available 10/05/2016 Are You Deaf Or Do You Have Serious Difficulty Hearing? No [email or web address] Information not available 10/05/2016 What Type Of Diet Are You Following? REGULAR [email or web address] Information not available 10/05/2016 Which Illicit Or Recreational Drugs Have You Used? None Information not available 10/05/2016 How Many Days Of Moderate To Strenuous Exercise, Like A Brisk Walk, Did You Do In The Last 7 Days? 1 Information not available 05/07/2019 On Those Days That You Engage In Moderate To Strenuous Exercise, How Many Minutes, On Average, Do You Exercise? 1 [email or web address] Information not available 05/07/2019 How Hard Is It For You To Pay For The Very Basics Like Food, Housing, Medical Care, And Heating? 1 [email or web address] Information not available 05/07/2019 Live Alone Or With Others? With Others [email or web address] Information not available 10/05/2016 Do You Have A Medical Power Of Insurance Application Investigator? No Information not available 04/28/2024 What Was The Date Of Your Most Recent Tobacco Screening? 03/24/2025 [email or web address] Information not available 03/24/2025 How Many Children Do You Have? 3 Information not available 12/21/2016 Performs Monthly Self-breast Exam? Yes Information no t available 10/05/2016 What Is Your Relationship Status? [email or web address] Information not available 10/05/2016 Seat Belts Used Routinely Yes [email or web address] Information not available 10/05/2016 Are You Sexually Active? Yes [email or web address] Information not available 10/05/2016 How Much Tobacco Do You Smoke? 0.5 PPD Information not available 12/21/2016 General Stress Level Medium Information not available 10/05/2016 Do You Use Sunscreen Routinely? Yes [email or web address] Information not available 10/05/2016 Has Tobacco Cessation Counseling Been Provided? Yes Information not available 04/28/2024 On What Date Was Tobacco Cessation Counseling Provided? 04/28/2024 Information not available 04/28/2024 Do You Have Difficulty Walking Or Climbing Stairs? No [email or web address] Information not available 10/05/2016 Sex: Female Functional Status Question Answer Note LastModified by Organizat ion Details LastModified Time Do you use any illicit or recreational drugs? No Information not available 04/28/2024 What is your level of alcohol consumption? None [email or web address] Information not available 10/05/2016 Are you currently employed? No Information not available 12/21/2016 Do you have transportation difficulties? No Information not available 04/28/2024 Are you able to walk? [email or web address] Information not available 05/07/2019 Do you have difficulty doing errands alone? No Information not available 04/28/2024 Are you able to care for yourself? Yes Information not available 12/21/2016 Do you have difficulty dressing or bathing? No [email or web address] Information not available 10/05/2016 What is your exercise level? None [email or web address] Information not available 10/05/2016 Mental Status Question Answer Note LastModified by Organization D etails LastModified Time Do you feel stressed (tense, restless, nervous, or anxious, or unable to sleep at night)? 1 [email or web address] Information not available 05/07/2019 Do you have difficulty concentrating, remembering or making decisions? No [email or web address] Information no t available 10/05/2016 Family History Relationship Description Onset Age of this Age Resolved Age Notes LastModified by Organization Details LastModified Time Father Essential hypertension and uncle [email or web address] Not available 09/28/2016 10:09:03 Father Myocardial infarction and uncle [email or web address] Not available 09/28/2016 10:12:56 Mother Neoplasm of liver 72 [email or web address] Not available 2015 10:12:41 Mother Neoplasm of pancreas 72 [email or web address] Not available 2015 10:13:09 Medical History Condition Response Other Y Hypertension Y Gynecological History Statement/Question Response Last Lipids 06/20/16 Last Annual Exam/Provider 02/25/15 MAR Abnormal Pap N Date of Last Colonoscopy 07/26/2023 Date of Last Mammogram 12/25/2017 Most Recent Bone Density Sexually Active? N Colposcopy Date of Last Pap Smear 09/09/2013 Current Control Method Hysterectom y Hormone Replacement Therapy N Obstetrics History GPAL:G 3 P 3 0 0 3 Type Value Full Term 3 Living 3 Total 3 Immunizations Vaccine Type Date Status Note Provider Nam e and Address Organization Details Recorded Time Tdap 02/17/2017 completed Layla Hawth[place] null, [place] - [facility] 07/27/2023 08:37:23 Hep B, unspecified formulation 01/17/2017 completed Layla Hawth[place] null, [place] - [facility] 07/27/2023 08:37:23 Hep B, unspecified formulation 02/17/2017 completed Layla [place] null, [place] - [facility] 07/27/2023 08:37:23 COVID-19, mRNA, LNP-S, PF, 100 mcg/0.5mL dose or 50 mcg/0.25mL dose 12/24/2020 completed Layla Hawth[place] null, [place] - [facility] 07/27/2023 08:37:23 COVID-19, mRNA, LNP-S, PF, 100 mcg/0.5mL dose or 50 mcg/0.25mL dose 01/26/2021 completed Layla Hightowershannen stinson, [place] - [facility] 07/27/2023 08:37:23 Past Encounters Encounter ID Performer Location Encounter Start Date Encounter Closed Date Diagnosis/Indication Diagnosis SNOMED-CT Code Diagnosis ICD10 Code Diagnosis Note [id number] Debra Jackson APRN [place] [id number] [facility] [place] [id number] 7 03/24/2025 11:16:36 03/24/2025 12:17:50 Gastroesophageal reflux disease 517162309 K21.9 Well-contr olled Mixed hyperlipidemia 267 537843 E78.[address] Carlson History of cerebrovascular accident 633259250 Z86.73 Referred to Neuro previously as requested and has appt. later this month; also new MRI ordered to [facility] also as requested Hypertensive disorder 38 344840 I10 Well-contr olled Vitamin D deficiency 347 47839 E55.9 Well-contr olled Disorder o f vitamin B12 612865158 E53.8 Diastolic heart failure 447475700 I50.30 Follows with Cardiology Prediabetes 835477458 R7 3.03 Will call with results, last A1C 6.3 on 10/27/24 Tinnitus of left ear 702 [id number] 106 H93.12 Well-contr olled Persistent insomnia 1919 11736 G47.09 Well-contr olled Health Concerns Section Related Observation LastModified by Organization Detai ls LastModified Time None Recorded Concern Status LastModified by Organization Details LastModified Time None Recorded Payers Encounter Date Sequence Insurance Name Policy Number Policy Ware Covered Member ID Ware Member ID Guarantor Name 03/24/2025 1 [employer] [facility] (O) Sariah Khloe [id number] 1 Sariah Ledbetter Notes Date Note Type Note Provider Name and Address Organization Details Recorded Time 03/24/2025 text/html Sariah is a 64 year old female who is here for a followup on multiple chronic problems. Chronic conditions reviewed with patient and overall chronic conditions remain stable. She is fasting today. She is scheduled for a stress test tomorrow and has a scheduled appt. with Neurology at a later date this month. She is needing a new order for a MRI to [facility] due to insurance - she states she never got a call from [place] likely due to insurance not accepted there. The continues with dizziness/lighthe adedness, worse with sitting to standing or changing positions quickly, but sometimes happens without cause. She also has persistent headaches and sometimes headaches that come out of nowhere and cause the dizziness, they occur more in back of her head. She is undergoing tests with Cardiology currently and does have upcoming appt. with Neuro to discuss these issues also as well as pending/ordered MRI of brain. Debra Jackson, VIDEO OPERATOR [address], [place], [address], [place] - [facility] 03/24/2025 11:46:17 OBGyn Episode No OBEpisode recorded.
--- OUTSIDE RECORDS SUMMARY | 2025-04-27 10:05 | XMS_ITS | Clinical Summary ---
Author Organization Healthcare Address [address] [place] [address] Care Team Providers Care Grease Monkey Name Role Phone Jessica Mack APRN Primary Care Provider + Encounters Date Type Department Care Team Description 02/06/2025 Telephone [facility] [address] [place] [address] Neurology, Physician, MD from Last 3 Months Social History Tobacco Use Types Packs/Day Years Used Date Smoking Tobacco: Never Assessed Comments Unknown Sex and Gender Information Value Date Recorded Sex Assigned at Not on file Legal Sex Female 7:15 PM EDT Gender Identity Not on file Sexual Orientation Not on file Plan of Treatment Health Maintenance Due Date Last Done Comments [facility]-Depression Screening 1960 [facility]-/Child/Adol SDOH Screenings 1960 [facility]- SDOH Screenings 1978 [facility]-Adult SDOH Screenings 1978 [facility]-DTaP,Tdap,and Td Vaccine s (1 - Tdap) 1979 [facility]-Pap Smear 1981 [facility]-Cervical Cancer Screening 1990 [facility]-HPV/Cotest 1990 CT Colonography 2005 Colonoscopy 2005 FIT-DNA 2005 FIT 2005 FOBT 2005 Sigmoidoscopy 2005 [facility]-Colorectal Cancer Screening 2005 [facility]-Pneumococcal Vaccine: 50 + Years (1 of 1 - PCV) 2010 [facility]-Zoster Vaccines (1 of 2) 2010 [id number] Vaccine (1 - 20 24-25 season) 2024 [facility]-Influenza Vaccine (Seaso n Ended) 2025 [facility]-RSV Vaccine: 60+ Years o r (1 - 1-dose 75+ series) 2035 HPV Vaccines Aged Out No longer eligi ble based on patient's age to complete this topic [facility]-HIB Vaccines Aged Out No longer e ligible based on patient's age to complete this topic [facility]-Hepatitis A Vaccines Aged Out No longer eligible based on patient's age to complete this topic [facility]-IPV Vaccines Aged Out No longer e ligible based on patient's age to complete this topic [facility]-Rotavirus Vaccines Aged Out No lo nger eligible based on patient's age to complete this topic Care Teams Grease Monkey Relationship Specialty Start Date End Date Jessica Mack, BINA [address] [place] [address] PCP - General 04/01/21
--- OUTSIDE RECORDS SUMMARY | 2025-04-27 10:05 | XMS_ITS | Data Portability ---
Author Organization [place] - [facility] - [facility] Address [address] [place] [address] Assessment Encounter Date Assessment Date Assessment LastModified by Organization Details LastModified Time 08/02/2023 08/02/2023 Patient Education was printed, I have reviewed the Past Medical, Family and Social Histories along with ROS and all orders in today's record, and have noted any changes. Medications, charts and records reviewed in full today. blood pressure 120/72, heart rate 64 on examination, weight 204.6 lb. Oxygen saturation is 96% on room air. - LAST ECHO: 12/2020 revealed LVEF of 60% with mild MR. LAST ISCHEMIC EVAL: 01/2020 revealed ischemia. LAST HEART CATH: 02/2020 revealed mild diffuse coronary artery disease. LAST LDL: 07/2020 LDL was 79. LAST CNI: 07/2020 revealed 1% to 39% ICA stenosis bilaterally. CTA neck: 09/2020 revealed 20% stenosis of the bilateral ICAs. - Plan: Echocardiogram. Myoview stress test. Carotid ultrasound. Decrease lisinopril to 10 mg daily. Follow-up in 4 to 6 weeks. - -Continue other current medications. -Continue aggressive risk factor modification. -Recommend LDL less than 70. -Encouraged regular exercise and activity. - This note was dictated using [employer] software. If something is unclear, or does not make sense, please do not hesitate to contact our office at [phone] for clarification. Not available 08/02/2023 15:17:06 09/24/2023 09/24/2023 Patient Education was printed, I have reviewed the Past Medical, Family and Social Histories along with ROS and all orders in today's record, and have noted any changes. Medications, charts and records reviewed in full today. blood pressure 122/80, heart rate 54, weight 202.4 lb. Oxygen saturation 93% on room air. EKG today reveals sinus bradycardia with a rate of 53 beats per minute, poor R-wave progression, nonspecific T-wave abnormality, abnormal EKG. - LAST ECHO: 12/2020 revealed LVEF of 60% with mild MR. LAST ISCHEMIC EVAL: 01/2020 revealed ischemia. LAST HEART CATH: 02/2020 revealed mild diffuse coronary artery disease. LAST LDL: 07/2020 LDL was 79. LAST CNI: 07/2020 revealed 1% to 39% ICA stenosis bilaterally. CTA neck: 09/2020 revealed 20% stenosis of the bilateral ICAs. - Plan: Defer testing due to asymptomatic status and insurance reasons. Patient wishes to defer despite explained risk of delayed evaluation and management. Continue current plan of care. Decrease metoprolol, and switch to succinate ER formulation. Follow-up in three months. - -Continue other current medications. -Continue aggressive risk factor modification. -Recommend LDL less than 70. -Encouraged regular exercise and activity. - This note was dictated using [employer] software. If something is unclear, or does not make sense, please do not hesitate to contact our office at [phone] for clarification. Not available 09/24/2023 18:08:23 01/01/2024 01/01/2024 Patient Education was printed, I have reviewed the Past Medical, Family and Social Histories along with ROS and all orders in today's record, and have noted any changes. Medications, charts and records reviewed in full today. - blood pressure 150/98, repeat blood pressure 142/96, heart rate 89, oxygen saturation 93% on room air. The patient's weight is 209 lb. - LAST ECHO: 12/2020 revealed LVEF of 60% with mild MR. LAST ISCHEMIC EVAL: 01/2020 revealed ischemia. LAST HEART CATH: 02/2020 revealed mild diffuse coronary artery disease. LAST LDL: 07/2020 LDL was 79. LAST CNI: 07/2020 revealed 1% to 39% ICA stenosis bilaterally. CTA neck: 09/2020 revealed 20% stenosis of the bilateral ICAs. - Plan: Continue current plan of care. Follow-up sooner if symptoms recur or worsen. Refill sent to pharmacy. EKG at follow-up. Follow-up in one year. - -Continue other current medications. -Continue aggressive risk factor modification. -Recommend LDL less than 70. -Encouraged regular exercise and activity. - This note was dictated using [employer] software. If something is unclear, or does not make sense, please do not hesitate to contact our office at [phone] for clarification. Not available 01/01/2024 13:08:40 01/05/2025 01/05/2025 Patient Education was printed, I have reviewed the Past Medical, Family and Social Histories along with ROS and all orders in today's record, and have noted any changes. Medications, charts and records reviewed in full today. - blood pressure 158/94, repeat blood pressure 136/82, heart rate 84, weight 125.2 lb. This is an increase of 16 lb since last visit. Oxygen saturation is 95% on room air. EKG today reveals sinus rhythm with a rate of 80 beats per minute, left bundle-branch block, poor R-wave progression, nonspecific T-wave abnormality, abnormal EKG. - LAST ECHO: 12/2020 revealed LVEF of 60% with mild MR. LAST ISCHEMIC EVAL: 01/2020 revealed ischemia. LAST HEART CATH: 02/2020 revealed mild diffuse coronary artery disease. LAST LDL: 07/2020 LDL was 79. LAST CNI: 07/2020 revealed 1% to 39% ICA stenosis bilaterally. CTA neck: 09/2020 revealed 20% stenosis of the bilateral ICAs. - Plan: Carotid ultrasound. Lexiscan nuclear stress test due to left bundle branch block with atypical angina. Echocardiogram. New prescription for nitroglycerin, safety education provided. Follow-up in 4 to 6 weeks. - -Continue other current medications. -Continue aggressive risk factor modification. -Recommend LDL less than 70. -Encouraged regular exercise and activity. - This note was dictated using [employer] software. If something is unclear, or does not make sense, please do not hesitate to contact our office at [phone] for clarification. Not available 01/05/2025 11:17:16 Plan of Treatment Reminders Order Date Submit Date Provider Last Modified By Organization Details Last Modified Time Details Appointments None recorded. Lab None recorded. Referral None recorded. Procedures colonoscop y procedure (PROC) - PHYSICIAN ORDERS1. Ensure patient is NPO and bowel prep complete.0 .9% normal saline @kvo preferably in right arm; IV patent to gravity.3. Verify consent. Colonoscop y with possible biopsy with possible polypectom y.4. On-Call to Endoscopy. 5. If prep not clear, give large volume enema and report results.6. Draw pt/inr if patient on Coumadin Hold 2022 023 [email or web address] Ledbetter (Outpatient Surgery), [address], [place], [address], 3 10:50:59 Surgeries None recorded. Imaging nuclear stress test 2024 025 antonette Ledbetter (Centralized Scheduling), [address], [place], [address], 5 07:56:26 US, duplex, carotid artery 2024 025 antonette Ledbetter (Centralized Scheduling), [address], [place], [address], 5 07:29:45 electrocar diogram 2024 025 [email or web address] [facility], [address], [place], [address], 5 11:02:57 US, echocardio gram, transthora cic, complete, w/ color flow 2024 025 antonette Ledbetter (Centralized Scheduling), [address], [place], [address], 5 07:29:38 electrocar diogram 2022 023 [email or web address] [facility], [address], [place], [address], 3 07:43:10 nuclear stress test 2022 023 [facility] (Centralized Scheduling), [facility], [facility] [address], [place], [address], 3 14:50:35 US, echocardio gram, transthora cic, complete, w/ color flow 2022 023 [facility] (Centralized Scheduling), [facility], [facility] [address], [place], [address], 3 14:50:35 US, duplex, carotid artery 2022 023 [facility] (Centralized Scheduling), [facility], [facility] [address], [place], [address], 3 14:50:35 Medication Orders nitroglyce rin 0.4 mg sublingual tablet 2024 025 [facility], [address] [place] [address], [address], 5 11:04:36 pantoprazo le 40 mg tablet,del ayed release [address], [address], 4 13:08:34 metoprolol succinate ER 25 mg tablet,ext ended release 24 hr [address], [address], 4 13:08:33 lisinopril 10 mg tablet 2023 024 [email or web address] [facility], [address] [place] [address], [address], 5 10:25:52 nitroglyce rin 0.4 mg sublingual tablet [address], [address], 4 13:08:32 isosorbide mononitrat e ER 30 mg tablet,ext ended release 24 hr [address], [address], 4 13:08:36 hydrochlor othiazide 25 mg tablet [address], [address], 4 13:08:31 atorvastat in 80 mg tablet [address], [address], 4 13:08:34 aspirin 81 mg tablet,del ayed release [address], [address], 4 13:08:31 metoprolol succinate ER 25 mg tablet,ext ended release 24 hr [address], [address], 3 18:30:21 lisinopril 10 mg tablet [email or web address], [address], 5 10:25:52 Golytely 236 gram-22.74 gram-6.74 gram-5.86 gram oral solution 2022 023 [email or web address] [facility] [place], [facility], [place], [address], 14:19:40 Patient TargetsNo targets recorded. Patient InstructionsNo instructions recorded. Reason for Referral None Reported. Results Created Date Observation Date Name Description Value Unit Range Abnormal Flag Note LastModifiedBy Organization Detail LastModifiedTime 09/24/2009/24/2023 elect rocar diogr am No observ ation record ed. [email or web address] Not Available 2022 08:47:17 09/24/2009/25/2023 elect rocar diogr am No observ ation record ed. ALFREDITO Perla [address], [place], [address], 09/25/2023 07:43:10 10/16/20 elect rocar diogr am No observ ation record ed. Not Available 2022 08:25:47 05/26/20 24 05/13/2024 LDCT, chest , for lung cance r scree gume No observ ation record ed. [email or web address] [address] [place] [address] , [place], [address], 08/04/2024 08:41:32 01/05/20 elect rocar diogr am No observ ation record ed. ALFREDITO Perla [address], [place], [address], 01/05/2025 10:34:15 01/05/20 25 01/05/2025 elect rocar diogr am No observ ation record ed. [email or web address] Not Available 12:12:03 02/10/20 25 02/09/2025 elect rocar diogr am inter preta tion* No observ ation record ed. [email or web address] Not Available 2024 12:42:56 Result Notes None recorded. Problems Name Problem SNOMED Code Status Onset Date Resolution Date Notes Provider Name and Address Organization Details Recorded Time Left bundle branch block 33819621 Active 2024 BROOKS MORFIN NP, S [address] [place] [address],[address], [address] , [place] - [facility] [place] & [place] 5 11:06:09 Heart disease 38077399 Active Jennifer stinson, [place] [facility] [place] & [place] 3 14:17:57 Disorder of coronary artery 511755266 Active 2017 Jennifer Jimenez null, [place] [facility] [place] 3 14:17:56 Prediabet es 644429517 Active 2020 Jennifer stinson, [place] [facility] [place] & [place] 3 14:17:57 Mixed hyperlipi demia 317901163 Active 2021 Jennifer Jimenez null[place] [facility] [place] 3 14:17:56 Vitamin D deficienc y 09337195 Active 2019 Jennifer Jimenez null[place] [facility] [place] & [place] 3 14:17:56 Disorder of vitamin B12 555986977 Active 2021 Jennifer stinson[place] [facility] [place] 3 14:17:56 Gastroeso phageal reflux disease without esophagit is 031605721 Active 2020 Jennifer Jimenez null[place] [facility] [place] 3 14:17:56 History of cardiac catheteri zation 12531836315 100 Active Jennifer Jimenez null[place] [facility] [place] 3 14:17:57 Palpitati ons 35780865 Active 2017 Palpitati ons Jennifer Jimenez null[place] [facility] [place] 3 14:17:57 Hypertens nicky disorder 46296535 Active 2014 Hypertens ion Hyper tension Jennifer Barbara [place] [facility] [place] /14/202 3 14:17:56 Tobacco user 284279831 Active 2015 Jennifer stinson[place] [facility] [place] & [place] 3 14:17:56 Retention of urine 188750384 Active 2015 Jennifer stinson, [place] [facility] [place] & [place] 3 14:17:56 Diastolic heart failure 041808871 Active 2020 Jennifer stinson, [facility] - [facility] - & [place] 3 14:17:57 Disorder of carotid artery 098559673 Active 2019 Jennifer stinson[place] [facility] [place] & [place] 3 14:17:56 History of surgery 111599460 Active 2015 AJIT Modi - [facility] - & [place] 3 14:17:56 Second degree atriovent ricular block 918942919 Active 2019 Second degree atriovent ricular block Jennifer stinson, [place] [facility] [place] & [place] 3 14:17:56 Preinfarc tion syndrome 7851487 Active 2017 Not Available [facility] 2 23:32:21 Dizziness 883813541 Active 2017 Dizziness Jennifer stinson, [place] [facility] [place] & [place] 3 14:17:56 Centriaci mary emphysema 32283698 Active 2019 Centrilob ular emphysema Jennifer stinson[place] [facility] [place] & [place] 3 14:17:57 Abnormal results of cardiovas cular function studies 995578665 Active 2019 Jennifer stinson[place] [facility] [place] & [place] 3 14:17:56 Tympanosc lerosis involving tympanic membrane only 24824351 Active 2019 Jennifer stinson[place] [facility] [place] & [place] 3 14:17:56 Urinary tract infectiou s disease 38346983 Active 2015 Urinary tract infectiou s disease Not Available [facility] 2 23:32:21 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 34108711 Active 2014 Not Available [facility] 2 23:32:21 Gastroeso phageal reflux disease 772788557 Active 2019 Gastroeso phageal reflux disease Jennifer stinson, [place] [facility] [place] [facility] & [place] 3 14:17:56 Electroca rdiogram abnormal 910320281 Active 2015 Jennifer Barbara [place] [facility] [place] & [place] 3 14:17:56 Mild intermitt ent asthma 885635830 Active 2019 Mild intermitt ent asthma Jennifer Barbara [place] [facility] [place] & [place] 3 14:17:57 Angina pectoris 729032231 Active 2015 Jennifer stinson[place] [facility] [place] & [place] 3 14:17:56 Smoker 82516888 Active 2019 Smoker Jennifer Barbara [place] [facility] [place] & [place] 3 14:17:57 Chest pain 08088425 Active 2017 Chest pain Jennifer Barbara [place] [facility] [place] & [place] 3 14:17:56 Urethral stenosis 331522064 Active 2014 Jennifer stinson[place] [facility] [place] & [place] 3 14:17:56 Bilateral carotid artery occlusion 619022732 Active 2019 Jennifer stinson[place] [facility] [place] & [place] 3 14:17:57 Dyspnea 837781241 Active 2019 Jennifer Jimenez null[place] [facility] [place] 3 14:17:56 Cystocele 218523094 Active 2014 Jennifer stinson[place] [facility] [place] 3 14:17:56 Acute cystitis 03278685 Active 2015 Jennifer [place] [facility] [place] & [place] 3 14:17:57 Ventricul ar premature beats 68320573 Active 2017 Jennifer [place]inson[place] [facility] [place] & [place] 3 14:17:56 Coronary arteriosc lerosis in [employer] artery 84243782472 07 Active 2018 Jennifer stinson[place] [facility] [place] & [place] 3 14:17:56 Ventricul ar tachycard ia 68369260 Active 2019 Ventricul ar tachycard ia Jennifer [place]inson[place] [facility] - & 3 14:17:56 Hyperlipi demia 69510544 Active 2016 Jennifer stinson[place] [facility] [place] & [place] 3 14:17:57 Urge incontine nce of urine 08591679 Active 2014 Jennifer [place] [facility] [place] & [place] 3 14:17:57 Hypertens nicky heart disease 90421304 Active 2019 Jennifer [place]inson[place] [facility] [place] & [place] 3 14:17:57 Rectal hemorrhag e 60897018 Active 2022 Jennifer [place]inson[place] [facility] - & 3 14:17:56 Chronic constipat ion 961788478 Active 2022 Jennifer [place]inson[place] [facility] - & 3 14:17:56 Essential hypertens ion 11865669 Active 2022 Jennifer stinson[place] [facility] [place] & [place] 3 14:17:57 Urinary incontine nce 469642793 Active Jennifer Jimenez null[place] [facility] - & 3 14:17:56 Vaginal bleeding 970108165 Active Jennifer [place]inson[place] [facility] - & 3 14:17:56 Herniated urinary bladder 810261950 Active Jennifer Jimenez null[place] [facility] - & 3 14:17:56 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 Procedures Surgical History Date Name Laterality Status Provider Name and Address Organization Details Recorded Time 023 Colonoscopy completed Mckenna Vergara [place] [facility] [place] 09/24/2023 08:41:04 020 cardiac catheterization completed Beatriz FONG - [facility] - [place] & [place] 07/12/2023 08:22:00 019 Colonoscopy completed Beatriz FONG - [facility] - [place] & [place] 07/11/2023 14:33:56 018 mammography completed Beatriz FONG - [facility] - [place] & [place] 07/11/2023 14:33:01 016 perineorrhaphy completed [facility] - [facility] [place] 07/11/2023 14:26:00 013 sampling of vagina for Papanicolaou smear completed Beatriz FONG - [facility] - [place] & [place] 07/11/2023 14:33:36 002 Other completed bhavna beck [place] - [facility] [place] & [place] 07/11/2023 16:49:54 997 Other completed bhavna FONG - [facility] & [place] 07/11/2023 16:49:54 Cystourethroscopy completed Beatriz FONG - [facility] - [place] & [place] 07/11/2023 14:25:32 hysterectomy completed Marcos FONG - [facility] - [place] & [place] 08/17/2022 15:24:53 Carpal tunnel surgery completed Marcos FONG - [facility] - [place] & [place] 08/17/2022 15:25:02 Imaging Results None recorded. Procedure Notes None recorded. Medical Equipment None Reported. Allergies Allergen ID Allergen Name Allergen Category Reaction Reaction Severity Criticality Documentation Date Start Date Code Code System Note Provider Name and Address Organization Details Recorded Time 45574 Lipitor medicatio n Not available Not available Not available 07/10/2023 15198 5 RxNorm Beatriz Orourke [facility], [place] - [facility] - [place] & [place] 3 12:44:06 Medications Name Sig Start Date Stop Date Status Note LastModified by Organization Details LastModified Time atorvastati n 80 mg tablet TAKE 1 TABLET BY MOUTH EVERY EVENING active Not Available Not Available No t Available prednisone 10 mg tablet 10 mg by oral route. 02/24 completed Not Available Not Available Not Available nicotine 14 mg/24 hr daily transdermal patch 14 mg by transderm . route. 02/24 completed Not Available Not Available Not Available lisinopril 20 mg tablet TAKE ONE (1) TABLET EVERY DAY BY ORAL ROUTE FOR 30 DAYS. active Not Available Not Available No t Available isosorbide mononitrate ER 30 mg tablet,exte nded release 24 hr TAKE 1 TABLET BY MOUTH EACH MORNING active Not Available Not Available No t Available valsartan 160 mg-hydrochl orothiazide 12.5 mg tablet TAKE 1 TABLET BY MOUTH EVERY DAY 02/13 completed Not Available Not Available Not Available metronidazo le 500 mg tablet 500 mg by oral route. 06/21 completed Not Available Not Available Not Available aspirin 81 mg tablet,mariusz yed release TAKE ONE (1) TABLET EVERY DAY BY ORAL ROUTE FOR 90 DAYS. active Not Available Not Available No t Available bupropion HCl SR 100 mg tablet,12 hr sustained-r elease 100 mg by oral route. 07/31 completed Not Available Not Available Not Available oxycodone-a cetaminophe n 5 mg-325 mg tablet 07/31 completed Not Available Not Available Not Available meclizine 25 mg tablet 1 tablet as needed Orally every 8 hours prn for 30 days 02/13 completed Not Available Not Available Not Available pantoprazol e 40 mg tablet,mariusz yed release TAKE 1 TABLET BY MOUTH EVERY DAY active Not Available Not Available No t Available mirtazapine 30 mg tablet TAKE 1 TABLET BY MOUTH AT BEDTIME active Not Available Not Available No t Available lisinopril 10 mg tablet TAKE ONE (1) TABLET EVERY DAY BY ORAL ROUTE 01/05 completed Not Available Not Available Not Available losartan 25 mg tablet Take 1 tablet every day by oral route. 07/12 completed Not Available Not Available Not Available metoprolol tartrate 50 mg tablet TAKE ONE (1) TABLET BY MOUTH TWICE DAILY WITH FOOD 09/24 completed Not Available Not Available Not Available nitroglycer in 0.4 mg sublingual tablet DISSOLVE ONE (1) TABLET UNDER TONGUE EVERY FIVE (5) MINUTES NEEDED FOR CHEST PAIN (DO NOT EXCEED THREE (3) DOSES/EPI SODE) active Not Available Not Available No t Available docusate sodium 100 mg capsule 100 mg by oral route. 02/24 completed Not Available Not Available Not Available esterified estrogens-m ethyltestos terone 1.25 mg-2.5 mg tablet 10/18 completed Not Available Not Available Not Available hydrochloro thiazide 25 mg tablet TAKE ONE (1) TABLET EVERY DAY BY ORAL ROUTE active Not Available Not Available No t Available furosemide 20 mg tablet 1 tablet Orally Once a day as needed for swelling for 90 days 02/13 completed Not Available Not Available Not Available metoprolol succinate ER 25 mg tablet,exte nded release 24 hr TAKE ONE (1) TABLET BY MOUTH EVERY DAY active Not Available Not Available No t Available albuterol 90 mcg/actuati on aerosol inhaler 2017 active Not Available Not Available Not Avai lable ergocalcife rol (vitamin D2) 1,250 mcg (50,000 unit) capsule 07/31 completed Not Available Not Available Not Available cefdinir 300 mg capsule TAKE 1 CAPSULE BY MOUTH TWICE DAILY 01/05 completed Not Available Not Available Not Available fluticasone propionate 50 mcg/actuati on nasal spray,suspe nsion SPRAY ONE (1) SPRAY EVERY DAY BY INTRANASA L ROUTE. active Not Available Not Available No t Available Fiber-Tabs 625 mg tablet Take 1 tablet twice a day by oral route. 07/12 completed Not Available Not Available Not Available amoxicillin 875 mg-potassiu m clavulanate 125 mg tablet TAKE ONE (1) TABLET BY MOUTH TWO (2) TIMES PER DAY 01/05 completed Not Available Not Available Not Available meclizine 25 mg chewable tablet TAKE ONE (1) TABLET ORAL ROUTE EVERY 8 HOURS NEEDED FOR DIZZINESS active Not Available Not Available No t Available losartan 100 mg-hydrochl orothiazide 12.5 mg tablet 07/25 completed Not Available Not Available Not Available ProAir HFA 90 mcg/actuati on aerosol inhaler Inhale 1 puff every 4 hours by inhalatio n route as needed. 08/02 completed Not Available Not Available Not Available cholecalcif janel (vitamin D3) 25 mcg (1,000 unit) tablet 08/02 completed Not Available Not Available Not Available peg 3350-electr olytes 236 gram-22.74 gram-6.74 gram-5.86 gram solution TAKE DIRECTED 08/02 completed Not Available Not Available Not Available cholecalcif janel (vitamin D3) 1,250 mcg (50,000 unit) capsule 07/12 completed Not Available Not Available Not Available melatonin 5 mg tablet Take 5 mg by oral route. 08/02 completed Not Available Not Available Not Available cholecalcif janel (vitamin D3) 50 mcg (2,000 unit) capsule TAKE ONE (1) CAPSULE BY MOUTH EVERY DAY active Not Available Not Available No t Available Sadaf Back and Body 500 mg-32.5 mg tablet Take 2 tablets every day by oral route. active Not Available Not Available No t Available melatonin 10 mg tablet Take 1 tablet every day by oral route at bedtime. active Not Available Not Available No t Available mirabegron ER 25 mg tablet,exte nded release 24 hr 25 mg by oral route. 07/31 completed Not Available Not Available Not Available melatonin 10 mg capsule TAKE 1 CAPSULE BY MOUTH AT BEDTIME 01/05 completed Not Available Not Available Not Available Vitals Date Recorded Body height Body mass index (BMI) Body weight Oxygen saturation Oxygen saturation in Arterial blood by Pulse oximetry Heart rate Systolic blood pressure Diastolic blood pressure Provider Name and Address Organization Details Last Updated DateTime 4 167.64 cm 33.7 kg/m2 19857.8 1 g 93 % 93 % 89 /min 150 mm[Hg] 98 mm[Hg] Mckenna FONG - [place] - [place] & [place] 4 10:14:57 Date Recorded Body height Body mass index (BMI) Body weight Oxygen saturation Oxygen saturation in Arterial blood by Pulse oximetry Heart rate Systolic blood pressure Diastolic blood pressure Provider Name and Address Organization Details Last Updated DateTime 5 167.64 cm 36.3 kg/m2 609060 g 95 % 95 % 84 /min 158 mm[Hg] 94 mm[Hg] Alla [facility] & [place] 5 10:23:00 Date Recorded Body height Body mass index (BMI) Body weight Body temperature Heart rate Respiratory rate Systolic blood pressure Diastolic blood pressure Provider Name and Address Organization Details Last Updated DateTime 3 167.64 cm 33.4 kg/m2 10714.6 2 g 97.6 [degF] 63 /min 20 /min 180 mm[Hg] 104 mm[Hg] Beatriz [facility]our[facility] [place] [facility] [place] 3 12:55:35 Date Recorded Body height Body mass index (BMI) Body weight Oxygen saturation Oxygen saturation in Arterial blood by Pulse oximetry Heart rate Systolic blood pressure Diastolic blood pressure Provider Name and Address Organization Details Last Updated DateTime 3 167.64 cm 33 kg/m2 96254 g 96 % 96 % 57 /min 120 mm[Hg] 72 mm[Hg] Jennifer Barbara [facility] [place] [facility] [place] 3 14:17:17 Date Recorded Body height Body mass index (BMI) Body weight Oxygen saturation Oxygen saturation in Arterial blood by Pulse oximetry Heart rate Systolic blood pressure Diastolic blood pressure Provider Name and Address Organization Details Last Updated DateTime 3 167.64 cm 32.7 kg/m2 11769.1 g 93 % 93 % 54 /min 122 mm[Hg] 80 mm[Hg] Mckenna Vergara [facility] [place] [facility] [place] 3 08:40:35 Social History Question Answer Notes LastModified by Organizat ion Details LastModified Time Tobacco Smoking Status Current Every Day Smoker Not Available [facility] 07/26/2022 23:33:09 Do You Have An Advance Directive? No Information not available 01/01/2024 Are You Blind Or Do You Have Difficulty Seeing? No Information not available 01/01/2024 What Is Your Level Of Caffeine Consumption? Occasional Information not available 01/01/2024 What Type Of Diet Are You Following? REGULAR Information not available 01/01/2024 What Was The Date Of Your Most Recent Tobacco Screening? 07/30/2023 Information not available 09/24/2023 At What Age Did You Start Smoking Tobacco? 18 Information not available 01/01/2024 Are You Passively Exposed To Smoke? Yes [email or web address] Information not available 02/13/2023 How Much Tobacco Do You Smoke? 0.5 PPD [email or web address] Information not available 02/13/2023 How Many Years Have You Smoked Tobacco? 40 Information not available 09/24/2023 Sex: Unknown Functional Status Question Answer Note LastModified by Organizat ion Details LastModified Time Do you use any illicit or recreational drugs? No Information not available 07/11/2023 What is your level of alcohol consumption? None [email or web address] Information not available 07/11/2023 Do you or have you ever used smokeless tobacco? Never used smokeless tobacco Information not available 07/11/2023 What is your exercise level? Occasional Information not available 07/11/2023 Mental Status None recorded. Family History Relationship Description Onset Age of this Age Resolved Age Notes LastModified by Organization Details LastModified Time Father Myocardial infarction pt. added direct ly (08/15) API-13 Not available 08/15/2022 00:57:16 Father Hypercholest erolemia pt. added direct ly (08/15) API-13 Not available 08/15/2022 00:58:14 Father Hypertensive disorder pt. added direct ly (08/15) API-13 Not available 08/15/2022 00:58:57 Father Cerebrovascu lar accident pt. added direct ly (08/15) API-13 Not available 08/15/2022 00:59:51 Daughter Hypertensive disorder pt. added direct ly (08/15) API-13 Not available 08/15/2022 00:58:57 Maternal Grandmother Disorder of endocrine system pt. added direct ly (08/15) API-13 Not available 08/15/2022 01:01:18 Mother Neoplasm of pancreas [email or web address] Not available 2024 10:14:10 Medical History Condition Response Coronary Artery Disease Y Weight loss or gain Y None N Gout N Colon Cancer N Kidney Stones N Hyperthyroidism N Depression N COPD N Hypothyroidism N Swelling Y Osteoporosis/Osteopenia N Anemia Y Chest Pain Y Diverticulitis/Diverticulosis Y Colon Polyps Y Anxiety Disorder N Diabetes N Bleeding Disorder Y Arthritis N Seizures/Epilepsy N Tuberculosis N Hyperlipidemia Y Cancer N Back Problems Y Stroke Y Low Blood Pressure Y Asthma N Shortness of Breath Y Dizziness or Fainting Y Sleep Apnea N GERD/Reflux Y High Cholesterol Y Hepatitis N Cirrhosis N Liver Disease N Heart Disease Y Arrhythmia Y Hypertension Y Kidney Disease N Gynecological History Statement/Question Response Menses Monthly N Abnormal Pap N Sexually Active? N Obstetrics History GPAL:G 0 P 0 0 0 0 Immunizations Vaccine Type Date Status Note Provider Nam e and Address Organization Details Recorded Time COVID-19, mRNA, LNP-S, PF, 100 mcg/0.5mL dose or 50 mcg/0.25mL dose 12/24/2020 completed Jennifer Jimenez null, [place] [facility] [place] [facility] [place] 08/02/2023 14:18:09 COVID-19, mRNA, LNP-S, PF, 100 mcg/0.5mL dose or 50 mcg/0.25mL dose 01/26/2021 completed Jennifer Jimenez null, [place] [facility] [place] [facility] [place] 08/02/2023 14:18:09 Tdap 02/17/2017 completed Jennifer Jimenez null, [place] [facility] [place] [facility] [place] 08/02/2023 14:18:09 Hep B, unspecified formulation 01/17/2017 completed Jennifernorma Jimenez null, [place] [facility] [place] [facility] [place] 08/02/2023 14:18:09 Hep B, unspecified formulation 02/17/2017 completed Jennifer stinson, [place] [facility] [place] [facility] [place] 08/02/2023 14:18:09 Past Encounters Encounter ID Performer Location Encounter Start Date Encounter Closed Date Diagnosis/Indication Diagnosis SNOMED-CT Code Diagnosis ICD10 Code Diagnosis Note [id number] BROOKS MORFIN NP, S [address] CRUZ [address] [place] [address] [id number] 6 08/17/2022 12:56:01 08/17/2022 13:22:35 Coronary arteriosclerosis 29329226 I25.10 Essential hypertension 84125741 I10 Hyperlipidemia 62604929 E78.5 Ventricula r premature complex 525490977 I49.3 Carotid ar alyson stenosis 40599559 I65.23 Mitral clare ve regurgitation 42134379 I34.0 [id number] BROOKS MORFIN, KAYLEIGH, S [address] CRUZ [address] [place] [address] [id number] 6 02/13/2023 12:51:37 02/13/2023 13:40:07 Coronary arteriosclerosis 77357212 I25.10 Essential hypertension 21350380 I10 Hyperlipidemia 44413285 E78.5 Ventricula r premature complex 116961585 I49.3 Carotid ar alyson stenosis 29107020 I65.23 Mitral clare ve regurgitation 01791692 I34.0 Angina pectoris 31520389 0 I20.9 Dyspnea on exertion 6084 5006 R06.09 [id number] Haris Carlson MD [address] CRUZ [address] [place] [address] [id number] 6 03/08/2023 08:27:49 03/08/2023 08:28:21 Essential hypertension 07197981 I10 EKG INTERPRETA TION: EKG dated 02/13/23 revealed sinus bradycardi a with heart rate 58. Nonspecifi c ST abnormalit y. Abnormal ECG. [id number] Micah Figueroa MD [facility] [address] [place] [address],[facility] [address] [place] [address] 07/12/2023 12:19:51 07/12/2023 14:05:55 History of polyp of colon 354433402 Z86.010 Patient with history of colonic polyps, most recent colonoscop y in 2019 [facility] ed poor prep. Clearly overdue for surveillan ce purposes schedule colonoscop y, with GoLYTELY prep given last prep was suboptimal . Rectal hemorrhage 193531 02 K62.5 The patient's rectal bleeding certainly could be associated with the hemorrhoid al disease the patient had described at her last colonoscop y, however given the patient's prep at that time was poor and there was a inflammat ory appearing mass again pathology is not been received yet other source of blood loss certainly can not be excluded. Chronic constipation 236 133215 K59.09 we have instructed the patient to take fiber supplement ation on a scheduled basis we recommend 2 capsules once a day continue on this regimen at till her colonoscop y so we can see how this either helps or does not help with her constipati on [id number] BROOKS MORFIN NP, S [address] CRUZ [address] [place] [address] [id number] 6 08/02/2023 13:41:05 08/02/2023 14:43:59 Essential hypertension 12822781 I10 Coronary arteriosclerosis 60553841 I25.10 Hyperlipidemia 77397836 E78.5 Ventricula r premature complex 837107643 I49.3 Carotid ar alyson stenosis 77977363 I65.23 Mitral clare ve regurgitation 16054979 I34.0 Angina pectoris 26236489 0 I20.9 Dyspnea on exertion 6084 5006 R06.09 [id number] BROOKS MORFIN NP, S [address] CRUZ [address] [place] [address] [id number] 6 09/24/2023 08:18:06 09/24/2023 09:27:18 Essential hypertension 08364476 I10 Coronary arteriosclerosis 53804570 I25.10 Hyperlipidemia 99347252 E78.5 Ventricula r premature complex 348043093 I49.3 Carotid ar alyson stenosis 64071073 I65.23 Mitral clare ve regurgitation 67493086 I34.0 [id number] BROOKS MORFIN NP, S [place] [address] CRUZ [address] [place] [address] [id number] 6 01/01/2024 09:42:47 01/01/2024 10:37:56 Essential hypertension 90636427 I10 Coronary arteriosclerosis 39653037 I25.10 Hyperlipidemia 53223201 E78.5 Ventricula r premature complex 253797528 I49.3 Carotid ar alyson stenosis 14668780 I65.23 Mitral clare ve regurgitation 14188676 I34.0 Gastroesop hageal reflux disease 555093942 K21.9 [id number] BROOKS MORFIN NP, S [place] [address] CRUZ [address] [place] [address] [id number] 6 01/05/2025 10:09:51 01/05/2025 11:04:28 Essential hypertension 76962847 I10 Dyspnea on exertion 6084 5006 R06.09 Atypical angina 07151324 2 I20.89 Left bundl e branch block 00935795 I44.7 Dizziness 509167931 R42 Coronary arteriosclerosis 22006824 I25.10 Cigarette smoker 9462903 7 F17.210 Hyperlipidemia 91273319 E78.5 Ventricula r premature complex 823238819 I49.3 Carotid ar alyson stenosis 16274641 I65.23 Mitral clare ve regurgitation 97733231 I34.0 Gastroesop hageal reflux disease 315588229 K21.9 Health Concerns Section Related Observation LastModified by Organization Detai ls LastModified Time None Recorded Concern Status LastModified by Organization Details LastModified Time None Recorded Advance Directives Directive N: Payers Insurance Date Sequence Insurance Name Policy Number Policy Ware Covered Member ID Ware Member ID Guarantor Name 01/05/2025 1 *SELF PAY* Chris Ledbetter 07/26/2023 1 *SELF PAY* Chris Ledbetter 09/24/2023 1 [employer] HIX[place]IT Ledbetter [id number] Sariah Ledbetter 09/24/2023 1 [facility]ICA[facility] HEALTH CHOICES - FFS/TRADITION AL Sariah Ledbetter [id number] Sariah Ledbetter 09/24/2023 1 [employer] [place] - HMO[place] DIDIER Ledbetter [id number] Sariah Ledbetter 01/05/2025 1 *SELF PAY* Chris Ledbetter 07/26/2023 1 [employer] Ledbetter [id number] Sariah Ledbetter 09/24/2023 1 [facility] (MEDICAID REPLACEMENT - HMO) [id number] Sariah Ledbetter [id number] Sariah Ledbetter 09/24/2023 1 [place] [id number] Sariah Ledbetter [id number] Sariah Ledbetter 01/01/2024 1 [employer] [facility] [id number] Sariah Ledbetter [id number] Sariah Ledbetter 09/24/2023 [place] [facility] HEALTH CHOICES - FFS/TRADITION AL Sariah Ledbetter [id number] Sariah Ledbetter 01/05/2025 1 [place] [id number] Sariah Ledbetter [id number] Sariah Ledbetter 09/24/2023 1 [facility] Sariah Ledbetter [id number] Sariah Ledbetter 01/05/2025 1 [place] [id number] Sariah Ledbetter [id number] Sariah Ledbetter 09/24/2023 2 [facility] Sariah Ledbetter [id number] Sariah Ledbetter 09/24/2023 1 [facility] Sariah Ledbetter [id number] Sariah Ledbetter Notes Date Note Type Note Provider Name and Address Organization Details Recorded Time 07/12/2023 text/html this is a 62-yea r-old female who presents today referred for evaluation of internal hemorrhoids . The patient however reports that she thought she was here to schedule a colonoscopy, the patient notes that she is been having colonoscopies at 5 year intervals, the last colonoscopy however in 2019 was notable for polyps (pathology has not been acquired yet) but also was notable for and inflammatory appearing lesion/mass and a poor prep. The patient notes that she has a tendency towards primarily constipation, she notes perhaps 2 days a month she will have diarrhea the rest of the time her stools are either very hard to pass or she does not go at all she is on a fiber supplement which she is not taking currently, she drinks 1 glass of water a day. She has bleeding on a fairly regular basis several times per week. The patient has had minimal abdominal pain typically crampy proceeding defecation. Has known diverticulosis. Micah Figueroa MD [address] [place] [address],[address], [place], [address], [place] [facility] [place] [facility] [place] 07/12/2023 13:25:29 08/02/2023 text/html Mame is a 62-year -old female who presents today in follow-up. The patient has a history significant for coronary artery disease, hypertension, hyperlipidemia, ventricular ectopy, seasonal allergies, anemia, gastroesophageal reflux disease, carotid artery stenosis, anxiety, and past CVA. Since our last visit, the patient reports that she is been experiencing stabbing, intermittent, substernal and left-sided chest pains which are moderate to severe in severity, and progressively worsening in frequency. The patient reports that these have worsened with exertion and generally improved with rest. The patient has had associated shortness of breath, worsened with exertion, and improved with rest. The patient has also had some dizziness at times. The patient did not complete her echocardiogram, Myoview stress test, or carotid ultrasound earlier this year. The prior authorizations and orders have , the patient needs new testing orders. The patient was also recently started on lisinopril 20 mg once daily. Her home blood pressures have ranged from 104 to 138 systolic, 56 to 80 diastolic. BROOKS MORFIN NP, S [address] [place] [address],[address], [place], [address], [facility] 08/02/2023 15:17:40 09/24/2023 text/html Mame is a 63-year -old female who presents today in follow-up. The patient has a history significant for coronary artery disease, hypertension, hyperlipidemia, ventricular ectopy, seasonal allergies, anemia, gastroesophageal reflux disease, carotid artery stenosis, anxiety, and past CVA. At our last visit, we had ordered a carotid ultrasound, Myoview stress test, and echocardiogram. The patient was unable to complete these tests for insurance reasons. The patient is now entirely asymptomatic apart from some mild fatigue that she experiences is chronically. The patient still has rare, mild, intermittent dizziness. Otherwise she is completely asymptomatic. The patient feels well overall. The patient feels better than she did at our last visit. BROOKS MORFIN NP, S [address] [place] [address],[address], [place], [address], [facility] 09/24/2023 18:30:39 01/01/2024 text/html Mame is a 63-year -old female who presents today in follow-up. The patient has a history significant for coronary artery disease, hypertension, hyperlipidemia, ventricular ectopy, seasonal allergies, anemia, gastroesophageal reflux disease, carotid artery stenosis, anxiety, and past CVA. Since our last visit, the patient reports that she has been doing reasonably well. The patient recently lost her job and subsequently lost her insurance. The patient is working to get new insurance. The patient has no cardiovascular or cardiopulmonary complaints. The patient did not take her blood pressure today. The patient's home blood pressure readings have been less than 140/90 generally speaking per her report. No complaints or concerns. BROOKS MORFIN NP, S [address] [place] [address],[address], [place], [address], [place] [facility] [place] 01/01/2024 13:10:37 01/05/2025 text/html Mame is a 64-year -old female who presents today in follow-up. The patient has a history significant for coronary artery disease, hypertension, hyperlipidemia, ventricular ectopy, seasonal allergies, anemia, gastroesophageal reflux disease, carotid artery stenosis, anxiety, and past CVA. - Palpitations: intermittent, worse with stress/excitement- Shortness of breath with exertion- Orthopnea: reports episodes of waking at night, having to sit up- Neck pain with associated headaches- Reports feeling hot and flushed- Dizziness - Neck Pain and Headaches Ongoing neck pain with associated headaches MRI scan planned Neurologist referral previously arranged with PCP. BROOKS MORFIN NP, S [address] [place] [address],[address], [place], [address], [place] [facility] [place] 01/05/2025 16:39:25 OBGyn Episode No OBEpisode recorded.
--- OUTSIDE RECORDS SUMMARY | 2025-04-27 10:05 | XMS_ITS | Data Portability ---
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 Plan of Treatment Reminders Order Date Submit Date Provider Last Modified By Organization Details Last Modified Time Details Appointments Follow Up 2024 10:00A M Debra Jackson APRN Not available Not available Not available Lab lipid panel, serum 2024 025 ALFR[facility]O [facility], [address], [place] [address], [place], [address], 03/25/2025 09:07:05 CBC w/ auto diff 2024 025 ALFREDITO [facility], [address], [address], [place], [address], 03/25/2025 09:07:03 TSH + free T4, serum 2024 025 ALFREDITO [facility], [address], [address], [place], [address], 03/25/2025 09:07:02 HbA1c (hemoglob in A1c), blood 2024 025 ALFREDITO [facility], [address], [place] [address], [place], [address], 03/25/2025 09:07:07 CMP, serum or plasma 2024 025 [facility]O [facility], [address], [place] [address], [place], [address], 03/25/2025 09:07:04 vitamin D, 25-hydrox y, total, serum 2024 025 ALFREDITO [facility], [address], [place] [address], [place], [address], 03/25/2025 09:07:08 cobalamin and folate panel, serum 2024 025 ALFREDITO [facility], [address], [address], [place], [address], 03/25/2025 09:07:06 lipid panel, serum 2023 024 ALFREDITO [facility], [address], [place] [address], [place], [address], 10/28/2024 07:14:28 CMP, serum or plasma 2023 024 ALFREDITO [facility], [address], [place] [address], [place], [address], 10/28/2024 07:14:27 HbA1c (hemoglob in A1c), blood 2023 024 ALFREDITO [facility], [address], [address], [place], [address], 10/28/2024 07:14:30 vitamin D, 25-hydrox y, total, serum 2023 024 ALFREDITO [facility], [address], [place] [address], [place], [address], 10/28/2024 07:14:31 cobalamin and folate panel, serum 2023 024 ALFREDITO [facility], [address], [place] [address], [place], [address], 10/28/2024 07:14:29 HbA1c (hemoglob in A1c), blood 2023 024 ALFREDITO [facility], [address], [address], [place], [address], 04/29/2024 08:23:04 CMP, serum or plasma 2023 024 ALFREDITO [facility], [address], [place] [address], [place], [address], 04/29/2024 08:23:01 CBC w/ auto diff 2023 024 ALFREDITO [facility], [address], [place] [address], [place], [address], 04/29/2024 08:23:00 TSH + free T4, serum 2023 024 ALFREDITO [facility], [address], [place] [address], [place], [address], 04/29/2024 08:22:59 lipid panel, serum 2023 024 ALFREDITO Smith, [address], [address], [place], [address], 04/29/2024 08:23:02 vitamin D, 25-hydrox y, total, serum 2023 024 ALFREDITO Smith, [address], [address], [place], [address], 04/29/2024 08:23:05 vitamin B12 + folate, serum or blood 2023 024 ALFREDITO mSith, [address], [place], [place], [address], 04/29/2024 08:23:03 lipid panel, serum 2022 023 AL[facility]O [facility], [address], [address], [place], [address], 03/07/2023 06:16:18 TSH + free T4, serum 2022 023 ALFR[facility]O [facility], [address], [place] [address], [place], [address], 03/07/2023 06:16:16 CBC w/ auto diff 2022 023 [facility]O [facility], [address], [address], [place], [address], 03/07/2023 06:16:17 CMP, serum or plasma 2022 023 [facility]O [facility], [address], [address], [place], [address], 03/07/2023 06:16:18 HbA1c (hemoglob in A1c), blood 2022 023 [facility]O [facility], [address], [address], [place], [address], 03/07/2023 06:16:[address] [facility] [address] [facility], [address] [facility] [place], [address], 04/02/2025 07:51:42 podiatris t referral 2023 024 ALFREDITO Louie DP, [address] [place], [address], 05/21/2024 12:29:32 gastroent erologist referral 2022 023 ALFRDEITO Figueroa MD, [address] [place] [address] , [address], [address], 10/26/2023 13:52:34 Procedures None recorded. Surgeries None recorded. Imaging MRI, brain, w/wo contrast 2024 025 abbi [facility] ([facility]), [address], [place], [address], 04/20/2025 20:02:55 MRI, brain, w/o contrast - approved auth # [id number] [facility] 12/09/24- 01/07/252024 025 [facility], [address] [place], [address], 03/09/2025 01:02:17 MAMMO, screening , digital, bilateral 2023 024 FLORENCE Anatoly (Centralized Scheduling), [address] [place], [address], 12/12/2024 08:31:02 LDCT, chest, for lung cancer screening - Pa is done and loaded in chart approved 2023 024 [facility], [address] [facility], [place], [address], 05/14/2024 08:01:11 Medication Orders atorvasta tin 80 mg tablet [address], [address], 03/24/2025 11:42:33 hydrochlo rothiazid e 25 mg tablet [address], [address], 03/24/2025 11:42:34 isosorbid e mononitra te ER 30 mg tablet,ex tended release 24 hr [address], [address], 03/24/2025 11:42:34 lisinopri l 20 mg tablet [address], [address], 03/24/2025 11:42:36 pantopraz ole 40 mg tablet,de layed release [address], [place], [address], 03/24/2025 11:42:32 fluticaso ne propionat e 50 mcg/actua tion nasal spray,du pension [address], [place], [address], 03/24/2025 11:42:35 meclizine 25 mg chewable tablet [address], [place], [address], 03/24/2025 11:42:35 cholecalc iferol (vitamin D3) 50 mcg (2,000 unit) capsule [address], [address], 03/24/2025 11:42:32 melatonin 10 mg tablet [address], [place], [address], 03/24/2025 11:42:35 mirtazapi ne 30 mg tablet [address], [address], 03/24/2025 11:42:33 atorvasta tin 80 mg tablet [address], [address], 10/27/2024 11:51:28 isosorbid e mononitra te ER 30 mg tablet,ex tended release 24 hr [address], [place], [address], 10/27/2024 11:51:29 hydrochlo rothiazid e 25 mg tablet 2023 024 [facility], [address] [place] [address], [place], [address], 10/27/2024 11:51:25 lisinopri l 20 mg tablet [address], [place], [address], 10/27/2024 11:51:29 pantopraz ole 40 mg tablet,de layed release [address], [place], [address], 10/27/2024 11:51:28 fluticaso ne propionat e 50 mcg/actua tion nasal spray,du pension [address], [place], [address], 10/27/2024 11:51:27 cholecalc iferol (vitamin D3) 50 mcg (2,000 unit) capsule [address], [place], [address], 10/27/2024 11:51:26 melatonin 10 mg tablet [address], [place], [address], 10/27/2024 11:51:25 mirtazapi ne 30 mg tablet [address], [address], 10/27/2024 11:51:27 cholecalc iferol (vitamin D3) 50 mcg (2,000 unit) capsule [address], [address], 04/28/2024 10:21:18 mirtazapi ne 30 mg tablet [address], [place], [address], 04/28/2024 10:21:18 Fiber-Tab s 625 mg tablet 2022 [email or web address], [address], 10/27/2024 11:31:54 Patient TargetsNo targets recorded. Patient Instructions Encounter Date Encounter Id Patient Instructions Last Modified By Organization Details Last Modified Time 04/28/2024 [id number] learning about healthy weight Not available 04/28/2024 10:31:40 body mass index: care instructions Not available 04/28/2024 10:31:41 learning about lung cancer screening Not available 04/28/2024 10:21:16 eating healthy foods: care instructions Not available 04/28/2024 10:31:14 smoking cessatio n counseling, greater than 3 minutes up to 10 minutes Not available 04/28/2024 10:21:16 walking for exercise: care instructions Not available 04/28/2024 10:31:14 10/27/2024 [id number] learning about healthy weight Not available 10/27/2024 11:52:20 body mass index: care instructions Not available 10/27/2024 11:52:20 Reason for Referral 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 Referral for Internal hemorrhoids Referring Physician: Laurence Vásquez, Family Medicine, Encounter Date: 03/06/2023 [employer] Referral for Abno rmality of nail of toe Referring Physician: Debra Jackson [facility], Encounter Date: 04/28/2024 Neurologist Referral for His tory of cerebrovascular accident Referring Physician: Debra Jackson [facility], Encounter Date: 11/27/2024 Results Created Date Observation Date Name Description Value Unit Range Abnormal Flag Note LastModifiedBy Organization Detail LastModifiedTime 03/06/2003/07/2023 TSH+F REE T4 TSH 1.630 uIU/m L 0.450- 4.500 Not Available [facility] ([facility]) [address] [place], [address], 03/07/2023 06:16:16 03/06/2003/07/2023 TSH+F REE T4 T4,free(dire ct) 1.38 NG/dL 0.82-1 .77 Not Available [facility] ([facility]) [address] [place], [address], 03/07/2023 06:16:16 03/06/2003/07/2023 CBC WITH DIFFE RENTI AL/PL ATELE T WBC 6.3 x10e3 /uL 3.4-10 .8 Not Available [facility] ([facility]) [address] [place], [address], 03/07/2023 06:16:17 03/06/2003/07/2023 CBC WITH DIFFE RENTI AL/PL ATELE T RBC 4.23 x10e6 /uL 3.77-5 .28 Not Available [facility] ([facility]) [address] [place], [address], 03/07/2023 06:16:17 03/06/2003/07/2023 CBC WITH DIFFE RENTI AL/PL ATELE T hemoglobin 13.4 g/dL 11.1-1 5.9 Not Available [facility] ([facility]) [address] [place], [address], 03/07/2023 06:16:17 03/06/20 23 03/07/2023 CBC WITH DIFFE RENTI AL/PL ATELE T hematocrit 38.9 % 34.0-4 6.6 Not Available [facility] ([facility]) [address] [facility], [place], [address], 03/07/2023 06:16:17 03/06/20 23 03/07/2023 CBC WITH DIFFE RENTI AL/PL ATELE T MCV 92 fL 79-97 Not Available [facility] ([facility]) [address] [place], [address], 03/07/2023 06:16:17 03/06/20 23 03/07/2023 CBC WITH DIFFE RENTI AL/PL ATELE T MCH 31.7 pg 26.6-3 3.0 Not Available [facility] ([facility]) [address] [facility], [place], [address], 03/07/2023 06:16:17 03/06/20 23 03/07/2023 CBC WITH DIFFE RENTI AL/PL ATELE T MCHC 34.4 g/dL 31.5-3 5.7 Not Available [facility] ([facility]) [address] [place], [address], 03/07/2023 06:16:17 03/06/2003/07/2023 CBC WITH DIFFE RENTI AL/PL ATELE T RDW 13.3 % 11.7-1 5.4 Not Available [facility] ([facility]) [address] [place], [address], 03/07/2023 06:16:17 03/06/2003/07/2023 CBC WITH DIFFE RENTI AL/PL ATELE T platelets 230 x10e3 /uL 150-45 0 Not Available [facility] ([facility]) [address] [place], [address], 03/07/2023 06:16:17 03/06/20 23 03/07/2023 CBC WITH DIFFE RENTI AL/PL ATELE T neutrophils 69 % not estab. Not Available [facility] ([facility]) [address] [facility], [place], [address], 03/07/2023 06:16:17 03/06/20 23 03/07/2023 CBC WITH DIFFE RENTI AL/PL ATELE T lymphs 21 % not estab. Not Available [facility] ([facility]) [address] [facility], [place], [address], 03/07/2023 06:16:17 03/06/20 23 03/07/2023 CBC WITH DIFFE RENTI AL/PL ATELE T monocytes 7 % not estab. Not Available [facility] ([facility]) [address] [facility], [place], [address], 03/07/2023 06:16:17 03/06/20 23 03/07/2023 CBC WITH DIFFE RENTI AL/PL ATELE T eos 2 % not estab. Not Available [facility] ([facility]) [address] [facility], [place], [address], 03/07/2023 06:16:17 03/06/20 23 03/07/2023 CBC WITH DIFFE RENTI AL/PL ATELE T basos 1 % not estab. Not Available [facility] ([facility]) [address] [facility], [place], [address], 03/07/2023 06:16:17 03/06/20 23 03/07/2023 CBC WITH DIFFE RENTI AL/PL ATELE T immature cells TERRAZZO LABORER Not Available [facility] ([facility]) [address] [facility], [place], [address], 03/07/2023 06:16:17 03/06/20 23 03/07/2023 CBC WITH DIFFE RENTI AL/PL ATELE T neutrophils (absolute) 4.4 x10e3 /uL 1.4-7. 0 Not Available [facility] ([facility]) [address] [facility], [place], [address], 03/07/2023 06:16:17 03/06/20 23 03/07/2023 CBC WITH DIFFE RENTI AL/PL ATELE T lymphs (absolute) 1.3 x10e3 /uL 0.7-3. 1 Not Available [facility] ([facility]) [address] [facility], [place], [address], 03/07/2023 06:16:17 03/06/2003/07/2023 CBC WITH DIFFE RENTI AL/PL ATELE T monocytes(ab solute) 0.5 x10e3 /uL 0.1-0. 9 Not Available [facility] ([facility]) [address] [facility], [place], [address], 03/07/2023 06:16:17 03/06/20 23 03/07/2023 CBC WITH DIFFE RENTI AL/PL ATELE T eos (absolute) 0.1 x10e3 /uL 0.0-0. 4 Not Available [facility] ([facility]) [address] [facility], [place], [address], 03/07/2023 06:16:17 03/06/2003/07/2023 CBC WITH DIFFE RENTI AL/PL ATELE T baso (absolute) 0.1 x10e3 /uL 0.0-0. 2 Not Available [facility] ([facility]) [address] [place], [address], 03/07/2023 06:16:17 03/06/2003/07/2023 CBC WITH DIFFE RENTI AL/PL ATELE T immature granulocytes 0 % not estab. Not Available [facility] ([facility]) [address] [place], [address], 03/07/2023 06:16:17 03/06/20 23 03/07/2023 CBC WITH DIFFE RENTI AL/PL ATELE T immature grans (abs) 0.0 x10e3 /uL 0.0-0. 1 Not Available [facility] ([facility]) [address] [facility], [place], [address], 03/07/2023 06:16:17 03/06/20 23 03/07/2023 CBC WITH DIFFE RENTI AL/PL ATELE T NRBC TERRAZZO LABORER Not Available [facility] ([facility]) [address] [facility], [place], [address], 03/07/2023 06:16:17 03/06/20 23 03/07/2023 CBC WITH DIFFE RENTI AL/PL ATELE T hematology comments: TERRAZZO LABORER Not Available [facility] ([facility]) [address] [facility], [place], [address], 03/07/2023 06:16:17 03/06/20 23 03/07/2023 COMP. METAB OLIC PANEL (14) glucose 106 mg/dL 70-99 above high normal Not Available [facility] ([facility]) [address] [facility], [place], [address], 03/07/2023 06:16:18 03/06/20 23 03/07/2023 COMP. METAB OLIC PANEL (14) BUN 15 mg/dL 8-27 Not Available [facility] ([facility]) [address] [facility], [place], [address], 03/07/2023 06:16:18 03/06/20 23 03/07/2023 COMP. METAB OLIC PANEL (14) creatinine 0.79 mg/dL 0.57-1 .00 Not Available [facility] ([facility]) [address] [place], [address], 03/07/2023 06:16:18 03/06/20 23 03/07/2023 COMP. METAB OLIC PANEL (14) eGFR 85 mL/mi n/1.7 3 >59 Not Available [facility] ([facility]) [address] [facility], [place], [address], 03/07/2023 06:16:18 03/06/20 23 03/07/2023 COMP. METAB OLIC PANEL (14) BUN/creatini ne ratio 19 12-28 Not Available [facility] ([facility]) [address] [facility], [place], [address], 03/07/2023 06:16:18 03/06/20 23 03/07/2023 COMP. METAB OLIC PANEL (14) sodium 140 mmol/ L 134-14 4 Not Available [facility] ([facility]) [address] [facility], [place], [address], 03/07/2023 06:16:18 03/06/20 23 03/07/2023 COMP. METAB OLIC PANEL (14) potassium 3.8 mmol/ L 3.5-5. 2 Not Available [facility] ([facility]) [address] [facility], [place], [address], 03/07/2023 06:16:18 03/06/20 23 03/07/2023 COMP. METAB OLIC PANEL (14) chloride 98 mmol/ L 96-106 Not Available [facility] ([facility]) [address] [facility] [place], [address], 03/07/2023 06:16:18 03/06/20 23 03/07/2023 COMP. METAB OLIC PANEL (14) carbon dioxide, total 26 mmol/ L 20-29 Not Available [facility] ([facility]) [address] [facility] [place], [address], 03/07/2023 06:16:18 03/06/20 23 03/07/2023 COMP. METAB OLIC PANEL (14) calcium 9.3 mg/dL 8.7-10 .3 Not Available [facility] ([facility]) [address] [place], [address], 03/07/2023 06:16:18 03/06/20 23 03/07/2023 COMP. METAB OLIC PANEL (14) protein, total 6.7 g/dL 6.0-8. 5 Not Available [facility] ([facility]) [address] [place], [address], 03/07/2023 06:16:18 03/06/20 23 03/07/2023 COMP. METAB OLIC PANEL (14) albumin 4.1 g/dL 3.8-4. 8 Not Available [facility] ([facility]) [address] [place], [address], 03/07/2023 06:16:18 03/06/20 23 03/07/2023 COMP. METAB OLIC PANEL (14) globulin, total 2.6 g/dL 1.5-4. 5 Not Available [facility] ([facility]) [address] [place], [address], 03/07/2023 06:16:18 03/06/20 23 03/07/2023 COMP. METAB OLIC PANEL (14) A/G ratio 1.6 1.2-2. 2 Not Available [facility] ([facility]) [address] [place], [address], 03/07/2023 06:16:18 03/06/20 23 03/07/2023 COMP. METAB OLIC PANEL (14) bilirubin, total 0.4 mg/dL 0.0-1. 2 Not Available [facility] ([facility]) [address] [place], [address], 03/07/2023 06:16:18 03/06/20 23 03/07/2023 COMP. METAB OLIC PANEL (14) alkaline phosphatase 141 IU/L 44-121 above high normal Not Available [facility] ([facility]) [address] [place], [address], 03/07/2023 06:16:18 03/06/20 23 03/07/2023 COMP. METAB OLIC PANEL (14) AST (SGOT) 20 IU/L 0-40 Not Available [facility] ([facility]) [address] [place], [address], 03/07/2023 06:16:18 03/06/20 23 03/07/2023 COMP. METAB OLIC PANEL (14) ALT (SGPT) 19 IU/L 0-32 Not Available [facility] ([facility]) [address] [place], [address], 03/07/2023 06:16:18 03/06/20 23 03/07/2023 LIPID PANEL cholesterol, total 159 mg/dL 100-19 9 Not Available [facility] ([facility]) [address] [place], [address], 03/07/2023 06:16:18 03/06/20 23 03/07/2023 LIPID PANEL triglyceride s 185 mg/dL 0-149 above high normal Not Available [facility] ([facility]) [address] [place], [address], 03/07/2023 06:16:18 03/06/20 23 03/07/2023 LIPID PANEL HDL cholesterol 40 mg/dL >39 Not Available [facility] ([facility]) [address] [place], [address], 03/07/2023 06:16:18 03/06/20 23 03/07/2023 LIPID PANEL VLDL cholesterol mark 32 mg/dL 5-40 Not Available [facility] ([facility]) [address] [place], [address], 03/07/2023 06:16:18 03/06/20 23 03/07/2023 LIPID PANEL LDL chol calc (nih) 87 mg/dL 0-99 Not Available [facility] ([facility]) [address] [place], [address], 03/07/2023 06:16:18 03/06/20 23 03/07/2023 LIPID PANEL comment: TERRAZZO LABORER Not Available [facility] ([facility]) [address] [place], [address], 03/07/2023 06:16:18 03/06/20 23 03/07/2023 HEMOG LOBIN A1C hemoglobin A1C 6.2 % 4.8-5. 6 above high normal Predi abete s: 5.7 - 6.4 Diabe nigel: >6.4 Glyce judy contr ol for adult s with diabe nigel: <7.0 Not Available [facility] ([facility]) [address] [facility], [place], [address], 03/07/2023 06:16:19 04/28/20 24 04/29/2024 TSH+F REE T4 TSH 1.820 uIU/m L 0.450- 4.500 Not Available [facility] ([facility]) [address] [place], [address], 04/29/2024 08:22:59 04/28/20 24 04/29/2024 TSH+F REE T4 T4,free(dire ct) 1.32 NG/dL 0.82-1 .77 Not Available [facility] ([facility]) [address] [place], [address], 04/29/2024 08:22:59 04/28/20 24 04/29/2024 CBC WITH DIFFE RENTI AL/PL ATELE T WBC 5.3 x10e3 /uL 3.4-10 .8 Not Available [facility] ([facility]) [address] [place], [address], 04/29/2024 08:23:00 04/28/20 24 04/29/2024 CBC WITH DIFFE RENTI AL/PL ATELE T RBC 4.68 x10e6 /uL 3.77-5 .28 Not Available [facility] ([facility]) [address] [facility], [place], [address], 04/29/2024 08:23:00 04/28/20 24 04/29/2024 CBC WITH DIFFE RENTI AL/PL ATELE T hemoglobin 14.8 g/dL 11.1-1 5.9 Not Available [facility] ([facility]) [address] [facility], [place], [address], 04/29/2024 08:23:00 04/28/20 24 04/29/2024 CBC WITH DIFFE RENTI AL/PL ATELE T hematocrit 43.4 % 34.0-4 6.6 Not Available [facility] ([facility]) [address] [facility], [place], [address], 04/29/2024 08:23:00 04/28/20 24 04/29/2024 CBC WITH DIFFE RENTI AL/PL ATELE T MCV 93 fL 79-97 Not Available [facility] ([facility]) [address] [facility], [place], [address], 04/29/2024 08:23:00 04/28/20 24 04/29/2024 CBC WITH DIFFE RENTI AL/PL ATELE T MCH 31.6 pg 26.6-3 3.0 Not Available [facility] ([facility]) [address] [place], [address], 04/29/2024 08:23:00 04/28/20 24 04/29/2024 CBC WITH DIFFE RENTI AL/PL ATELE T MCHC 34.1 g/dL 31.5-3 5.7 Not Available [facility] ([facility]) [address] [place], [address], 04/29/2024 08:23:00 04/28/20 24 04/29/2024 CBC WITH DIFFE RENTI AL/PL ATELE T RDW 13.3 % 11.7-1 5.4 Not Available [facility] ([facility]) [address] [facility], [place], [address], 04/29/2024 08:23:00 04/28/20 24 04/29/2024 CBC WITH DIFFE RENTI AL/PL ATELE T platelets 221 x10e3 /uL 150-45 0 Not Available [facility] ([facility]) [address] [facility], [place], [address], 04/29/2024 08:23:00 04/28/20 24 04/29/2024 CBC WITH DIFFE RENTI AL/PL ATELE T neutrophils 67 % not estab. Not Available [facility] ([facility]) [address] [facility], [place], [address], 04/29/2024 08:23:00 04/28/20 24 04/29/2024 CBC WITH DIFFE RENTI AL/PL ATELE T lymphs 24 % not estab. Not Available [facility] ([facility]) [address] [facility], [place], [address], 04/29/2024 08:23:00 04/28/20 24 04/29/2024 CBC WITH DIFFE RENTI AL/PL ATELE T monocytes 6 % not estab. Not Available [facility] ([facility]) [address] [facility], [place], [address], 04/29/2024 08:23:00 04/28/20 24 04/29/2024 CBC WITH DIFFE RENTI AL/PL ATELE T eos 2 % not estab. Not Available [facility] ([facility]) [address] [facility], [place], [address], 04/29/2024 08:23:00 04/28/20 24 04/29/2024 CBC WITH DIFFE RENTI AL/PL ATELE T basos 1 % not estab. Not Available [facility] ([facility]) [address] [facility], [place], [address], 04/29/2024 08:23:00 04/28/20 24 04/29/2024 CBC WITH DIFFE RENTI AL/PL ATELE T immature cells TERRAZZO LABORER Not Available [facility] ([facility]) [address] [place], [address], 04/29/2024 08:23:00 04/28/20 24 04/29/2024 CBC WITH DIFFE RENTI AL/PL ATELE T neutrophils (absolute) 3.5 x10e3 /uL 1.4-7. 0 Not Available [facility] ([facility]) [address] [place], [address], 04/29/2024 08:23:00 04/28/20 24 04/29/2024 CBC WITH DIFFE RENTI AL/PL ATELE T lymphs (absolute) 1.3 x10e3 /uL 0.7-3. 1 Not Available [facility] ([facility]) [address] [place], [address], 04/29/2024 08:23:00 04/28/20 24 04/29/2024 CBC WITH DIFFE RENTI AL/PL ATELE T monocytes(ab solute) 0.3 x10e3 /uL 0.1-0. 9 Not Available [facility] ([facility]) [address] [place], [address], 04/29/2024 08:23:00 04/28/20 24 04/29/2024 CBC WITH DIFFE RENTI AL/PL ATELE T eos (absolute) 0.1 x10e3 /uL 0.0-0. 4 Not Available [facility] ([facility]) [address] [place], [address], 04/29/2024 08:23:00 04/28/20 24 04/29/2024 CBC WITH DIFFE RENTI AL/PL ATELE T baso (absolute) 0.1 x10e3 /uL 0.0-0. 2 Not Available [facility] ([facility]) [address] [place], [address], 04/29/2024 08:23:00 04/28/20 24 04/29/2024 CBC WITH DIFFE RENTI AL/PL ATELE T immature granulocytes 0 % not estab. Not Available [facility] ([facility]) [address] [facility], [place], [address], 04/29/2024 08:23:00 04/28/20 24 04/29/2024 CBC WITH DIFFE RENTI AL/PL ATELE T immature grans (abs) 0.0 x10e3 /uL 0.0-0. 1 Not Available [facility] ([facility]) [address] [facility], [place], [address], 04/29/2024 08:23:00 04/28/20 24 04/29/2024 CBC WITH DIFFE RENTI AL/PL ATELE T NRBC [employer] Not Available [facility] ([facility]) [address] [facility], [place], [address], 04/29/2024 08:23:00 04/28/20 24 04/29/2024 CBC WITH DIFFE RENTI AL/PL ATELE T hematology comments: TER[employer]ER Not Available [facility] ([facility]) [address] [facility], [place], [address], 04/29/2024 08:23:00 04/28/20 24 04/29/2024 COMP. METAB OLIC PANEL (14) glucose 110 mg/dL 70-99 above high normal Not Available [facility] ([facility]) [address] [facility], [place], [address], 04/29/2024 08:23:01 04/28/20 24 04/29/2024 COMP. METAB OLIC PANEL (14) BUN 20 mg/dL 8-27 Not Available [facility] ([facility]) [address] [facility], [place], [address], 04/29/2024 08:23:01 04/28/20 24 04/29/2024 COMP. METAB OLIC PANEL (14) creatinine 1.01 mg/dL 0.57-1 .00 above high normal Not Available [facility] ([facility]) [address] [facility], [place], [address], 04/29/2024 08:23:01 04/28/20 24 04/29/2024 COMP. METAB OLIC PANEL (14) eGFR 63 mL/mi n/1.7 3 >59 Not Available [facility] ([facility]) [address] [facility], [place], [address], 04/29/2024 08:23:01 04/28/20 24 04/29/2024 COMP. METAB OLIC PANEL (14) BUN/creatini ne ratio 20 12-28 Not Available [facility] ([facility]) [address] [facility], [place], [address], 04/29/2024 08:23:01 04/28/20 24 04/29/2024 COMP. METAB OLIC PANEL (14) sodium 137 mmol/ L 134-14 4 Not Available [facility] ([facility]) [address] [place], [address], 04/29/2024 08:23:01 04/28/20 24 04/29/2024 COMP. METAB OLIC PANEL (14) potassium 4.6 mmol/ L 3.5-5. 2 Not Available [facility] ([facility]) [address] [facility], [place], [address], 04/29/2024 08:23:01 04/28/20 24 04/29/2024 COMP. METAB OLIC PANEL (14) chloride 97 mmol/ L 96-106 Not Available [facility] ([facility]) [address] [place], [address], 04/29/2024 08:23:01 04/28/20 24 04/29/2024 COMP. METAB OLIC PANEL (14) carbon dioxide, total 25 mmol/ L 20-29 Not Available [facility] ([facility]) [address] [place], [id number], 04/29/2024 08:23:01 04/28/20 24 04/29/2024 COMP. METAB OLIC PANEL (14) calcium 10.0 mg/dL 8.7-10 .3 Not Available [facility] ([facility]) [address] [place], [id number], 04/29/2024 08:23:01 04/28/20 24 04/29/2024 COMP. METAB OLIC PANEL (14) protein, total 7.2 g/dL 6.0-8. 5 Not Available [facility] ([facility]) [address] [place], [id number], 04/29/2024 08:23:01 04/28/20 24 04/29/2024 COMP. METAB OLIC PANEL (14) albumin 4.5 g/dL 3.9-4. 9 Not Available [facility] ([facility]) [address] [place], [id number], 04/29/2024 08:23:01 04/28/20 24 04/29/2024 COMP. METAB OLIC PANEL (14) globulin, total 2.7 g/dL 1.5-4. 5 Not Available [facility] ([facility]) [address] [facility] [place], [id number], 04/29/2024 08:23:01 04/28/20 24 04/29/2024 COMP. METAB OLIC PANEL (14) A/G ratio 1.7 Not Available [facility] ([facility]) [address] [facility] [place], [id number], 04/29/2024 08:23:01 04/28/20 24 04/29/2024 COMP. METAB OLIC PANEL (14) bilirubin, total 0.4 mg/dL 0.0-1. 2 Not Available [facility] ([facility]) [address] [facility] [place], [id number], 04/29/2024 08:23:01 04/28/20 24 04/29/2024 COMP. METAB OLIC PANEL (14) alkaline phosphatase 153 IU/L 44-121 above high normal Not Available [facility] ([facility]) [address] [place], [id number], 04/29/2024 08:23:01 04/28/20 24 04/29/2024 COMP. METAB OLIC PANEL (14) AST (SGOT) 16 IU/L 0-40 Not Available [facility] ([facility]) [address] [facility] [place], [id number], 04/29/2024 08:23:01 04/28/20 24 04/29/2024 COMP. METAB OLIC PANEL (14) ALT (SGPT) 20 IU/L 0-32 Not Available [facility] ([facility]) [address] [facility] [place], [address], 04/29/2024 08:23:01 04/28/20 24 04/29/2024 LIPID PANEL cholesterol, total 170 mg/dL 100-19 9 Not Available [facility] ([facility]) [address] [facility] [place], [address], 04/29/2024 08:23:02 04/28/20 24 04/29/2024 LIPID PANEL triglyceride s 194 mg/dL 0-149 above high normal Not Available [facility] ([facility]) [address] [facility] [place], [address], 04/29/2024 08:23:02 04/28/20 24 04/29/2024 LIPID PANEL HDL cholesterol 43 mg/dL >39 Not Available [facility] ([facility]) [address] [facility] [place], [address], 04/29/2024 08:23:02 04/28/20 24 04/29/2024 LIPID PANEL VLDL cholesterol mark 33 mg/dL 5-40 Not Available [facility] ([facility]) [address] [place], [address], 04/29/2024 08:23:02 04/28/20 24 04/29/2024 LIPID PANEL LDL chol calc ([facility]) 94 mg/dL 0-99 Not Available [facility] ([facility]) [address] [facility], [place], [address], 04/29/2024 08:23:02 04/28/20 24 04/29/2024 LIPID PANEL LDL calc comment: TNP Test not perfo rmed Not Available [facility] ([facility]) [address] [facility], [place], [address], 04/29/2024 08:23:02 04/28/20 24 04/29/2024 VITAM IN B12 AND FOLAT E vitamin B12 482 pg/mL 232-12 45 Not Available [facility] ([facility]) [address] [facility], [place], [address], 04/29/2024 08:23:03 04/28/20 24 04/29/2024 VITAM IN B12 AND FOLAT E folate (folic acid), serum 4.6 NG/mL >3.0 A serum folat e becky ntrat ion of less than 3.1 ng/mL is consi dered to repre sent clini mark defic iency . Not Available [facility] ([facility]) [address] [facility], [place], [address], 04/29/2024 08:23:03 04/28/20 24 04/29/2024 HEMOG LOBIN A1C hemoglobin A1C 6.2 % 4.8-5. 6 above high normal Predi abete s: 5.7 - 6.4 Diabe nigel: >6.4 Glyce judy contr ol for adult s with diabe nigel: <7.0 Not Available [facility] ([facility]) [address] [facility], [place], [address], 04/29/2024 08:23:04 04/28/20 24 04/29/2024 VITAM IN D, 25-HY DROXY vitamin D, 25-hydroxy 47.9 NG/mL 30.0-1 00.0 Vitam in D defic iency has been defin ed by the Insti tute of Medic ine and an Endoc rine Socie ty pract ice guide line as a level of serum 25-OH vitam in D less than 20 ng/mL (1,2) . The Endoc rine Socie ty went on to furth er defin e vitam in D insuf ficie ncy as a level betwe en 21 and 29 ng/mL (2). 1. IOM (Inst itute of Medic ine). 2009. Jea ry refer ence caron es for calci um and D. Daniela brooks [place]: [facility] . 2. Ulises kaminski MF, Tahir camacho [place], Shakila off-F errar i JOE, et al. Evalu ation , treat ment, and preve ntion of vitam in D defic iency : an Endoc rine Socie ty clini mark pract ice guide line. JCEM. 2010; 96(7) :1911 -30. Not Available [facility] ([facility]) [address] [place], [address], 04/29/2024 08:23:05 10/27/20 24 10/28/2024 COMP. METAB OLIC PANEL (14) glucose 104 mg/dL 70-99 above high normal Not Available [facility] ([facility]) [address] [place], [address], 10/28/2024 07:14:27 10/27/20 24 10/28/2024 COMP. METAB OLIC PANEL (14) BUN 15 mg/dL 8-27 normal Not Available [facility] ([facility]) [address] [place], [address], 10/28/2024 07:14:27 10/27/20 24 10/28/2024 COMP. METAB OLIC PANEL (14) creatinine 0.72 mg/dL 0.57-1 .00 normal Not Available [facility] ([facility]) [address] [facility] [place], [address], 10/28/2024 07:14:27 10/27/20 24 10/28/2024 COMP. METAB OLIC PANEL (14) eGFR 93 mL/mi n/1.7 3 >59 normal Not Available [facility] ([facility]) [address] [facility] [place], [address], 10/28/2024 07:14:27 10/27/20 24 10/28/2024 COMP. METAB OLIC PANEL (14) BUN/creatini ne ratio 21 12-28 normal Not Available [facility] ([facility]) [address] [facility] [place], [address], 10/28/2024 07:14:27 10/27/20 24 10/28/2024 COMP. METAB OLIC PANEL (14) sodium 140 mmol/ L 134-14 4 normal Not Available [facility] ([facility]) [address] [facility] [place], [address], 10/28/2024 07:14:27 10/27/20 24 10/28/2024 COMP. METAB OLIC PANEL (14) potassium 4.0 mmol/ L 3.5-5. 2 normal Not Available [facility] ([facility]) [address] [facility] [place], [address], 10/28/2024 07:14:27 10/27/20 24 10/28/2024 COMP. METAB OLIC PANEL (14) chloride 103 mmol/ L 96-106 normal Not Available [facility] ([facility]) [address] [facility] [place], [address], 10/28/2024 07:14:27 10/27/20 24 10/28/2024 COMP. METAB OLIC PANEL (14) carbon dioxide, total 23 mmol/ L 20-29 normal Not Available [facility] ([facility]) [address] [place], [id number], 10/28/2024 07:14:27 10/27/20 24 10/28/2024 COMP. METAB OLIC PANEL (14) calcium 8.9 mg/dL 8.7-10 .3 normal Not Available [facility] ([facility]) [address] [place], [id number], 10/28/2024 07:14:27 10/27/20 24 10/28/2024 COMP. METAB OLIC PANEL (14) protein, total 6.6 g/dL 6.0-8. 5 normal Not Available [facility] ([facility]) [address] [place], [id number], 10/28/2024 07:14:27 10/27/20 24 10/28/2024 COMP. METAB OLIC PANEL (14) albumin 4.0 g/dL 3.9-4. 9 normal Not Available [facility] ([facility]) [address] [place], [id number], 10/28/2024 07:14:27 10/27/20 24 10/28/2024 COMP. METAB OLIC PANEL (14) globulin, total 2.6 g/dL 1.5-4. 5 Not Available [facility] ([facility]) [address] [facility] [place], [id number], 10/28/2024 07:14:27 10/27/20 24 10/28/2024 COMP. METAB OLIC PANEL (14) bilirubin, total 0.5 mg/dL 0.0-1. 2 normal Not Available [facility] ([facility]) [address] [facility] [place], [id number], 10/28/2024 07:14:27 10/27/20 24 10/28/2024 COMP. METAB OLIC PANEL (14) alkaline phosphatase 152 IU/L 44-121 above high normal Not Available [facility] ([facility]) [address] [facility], [place], [address], 10/28/2024 07:14:27 10/27/20 24 10/28/2024 COMP. METAB OLIC PANEL (14) AST (SGOT) 16 IU/L 0-40 normal Not Available [facility] ([facility]) [address] [facility], [place], [address], 10/28/2024 07:14:27 10/27/20 24 10/28/2024 COMP. METAB OLIC PANEL (14) ALT (SGPT) 19 IU/L 0-32 normal Not Available [facility] ([facility]) [address] [facility] [place], [address], 10/28/2024 07:14:27 10/27/20 24 10/28/2024 LIPID PANEL cholesterol, total 156 mg/dL 100-19 9 normal Not Available [facility] ([facility]) [address] [place], [address], 10/28/2024 07:14:28 10/27/20 24 10/28/2024 LIPID PANEL triglyceride s 160 mg/dL 0-149 above high normal Not Available [facility] ([facility]) [address] [facility], [place], [address], 10/28/2024 07:14:28 10/27/20 24 10/28/2024 LIPID PANEL HDL cholesterol 42 mg/dL >39 normal Not Available [facility] ([facility]) [address] [place], [address], 10/28/2024 07:14:28 10/27/20 24 10/28/2024 LIPID PANEL VLDL cholesterol mark 28 mg/dL 5-40 Not Available [facility] ([facility]) [address] [place], [address], 10/28/2024 07:14:28 10/27/20 24 10/28/2024 LIPID PANEL LDL chol calc ([facility]) 86 mg/dL 0-99 Not Available [facility] ([facility]) [address] [facility], [place], [address], 10/28/2024 07:14:28 10/27/2010/28/2024 LIPID PANEL LDL calc comment: TERRAZZO LABORER Not Available [facility] ([facility]) [address] [facility], [place], [address], 10/28/2024 07:14:28 10/27/20 24 10/28/2024 VITAM IN B12 AND FOLAT E vitamin B12 399 pg/mL 232-12 45 normal Not Available [facility] ([facility]) [address] [facility] [place], [address], 10/28/2024 07:14:29 10/27/2010/28/2024 VITAM IN B12 AND FOLAT E folate (folic acid), serum 6.5 NG/mL >3.0 normal A serum folat e becky ntrat ion of less than 3.1 ng/mL is consi dered to repre sent clini mark defic iency . Not Available [facility] ([facility]) [address] [facility], [place], [address], 10/28/2024 07:14:29 10/27/20 24 10/28/2024 HEMOG LOBIN A1C hemoglobin A1C 6.3 % 4.8-5. 6 above high normal Predi abete s: 5.7 - 6.4 Diabe nigel: >6.4 Glyce judy contr ol for adult s with diabe nigel: <7.0 Not Available [facility] ([facility]) [address] [facility], [place], [address], 10/28/2024 07:14:30 10/27/20 24 10/28/2024 VITAM IN D, 25-HY DROXY vitamin D, 25-hydroxy 43.2 NG/mL 30.0-1 00.0 Vitam in D defic iency has been defin ed by the Insti tute of Medic ine and an Endoc rine Socie ty pract ice guide line as a level of serum 25-OH vitam in D less than 20 ng/mL (1,2) . The Endoc rine Socie ty went on to furth er defin e vitam in D insuf ficie ncy as a level betwe en 21 and 29 ng/mL (2). 1. IOM (Inst itute of Medic ine). 2010. Dieta ry refer ence intak es for calci um and D. Daniela brooks [place]: [facility] . 2. Ulises kaminski MF, Tahir camacho [place], Shakila off-F errar i JOE, et al. Evalu ation , treat ment, and preve ntion of vitam in D defic iency : an Endoc rine Socie ty clini mark pract ice guide line. JCEM. 2010; 96(7) :1911 -30. Not Available [facility] ([facility]) [address] [place], [address], 10/28/2024 07:14:31 03/24/20 25 03/25/2025 TSH+F REE T4 TSH 1.800 uIU/m L 0.450- 4.500 normal Not Available [facility] ([facility]) [address] [place], [address], 03/25/2025 09:07:02 03/24/20 25 03/25/2025 TSH+F REE T4 T4,free(dire ct) 1.28 NG/dL 0.82-1 .77 normal Not Available [facility] ([facility]) [address] [place], [address], 03/25/2025 09:07:02 03/24/20 25 03/25/2025 CBC WITH DIFFE RENTI AL/PL ATELE T WBC 5.5 x10e3 /uL 3.4-10 .8 normal Not Available [facility] ([facility]) [address] [place], [address], 03/25/2025 09:07:03 03/24/20 25 03/25/2025 CBC WITH DIFFE RENTI AL/PL ATELE T RBC 4.51 x10e6 /uL 3.77-5 .28 normal Not Available [facility] ([facility]) [address] [place], [address], 03/25/2025 09:07:03 03/24/20 25 03/25/2025 CBC WITH DIFFE RENTI AL/PL ATELE T hemoglobin 14.4 g/dL 11.1-1 5.9 normal Not Available [facility] ([facility]) [address] [place], [address], 03/25/2025 09:07:03 03/24/2003/25/2025 CBC WITH DIFFE RENTI AL/PL ATELE T hematocrit 42.3 % 34.0-4 6.6 normal Not Available [facility] ([facility]) [address] [place], [address], 03/25/2025 09:07:03 03/24/2003/25/2025 CBC WITH DIFFE RENTI AL/PL ATELE T MCV 94 fL 79-97 normal Not Available [facility] ([facility]) [address] [place], [address], 03/25/2025 09:07:03 03/24/20 25 03/25/2025 CBC WITH DIFFE RENTI AL/PL ATELE T MCH 31.9 pg 26.6-3 3.0 normal Not Available [facility] ([facility]) [address] [place], [address], 03/25/2025 09:07:03 03/24/20 25 03/25/2025 CBC WITH DIFFE RENTI AL/PL ATELE T MCHC 34.0 g/dL 31.5-3 5.7 normal Not Available [facility] ([facility]) [address] [place], [address], 03/25/2025 09:07:03 03/24/20 25 03/25/2025 CBC WITH DIFFE RENTI AL/PL ATELE T RDW 13.4 % 11.7-1 5.4 Not Available [facility] ([facility]) [address] [facility], [place], [address], 03/25/2025 09:07:03 03/24/20 25 03/25/2025 CBC WITH DIFFE RENTI AL/PL ATELE T platelets 234 x10e3 /uL 150-45 0 normal Not Available [facility] ([facility]) [address] [facility], [place], [address], 03/25/2025 09:07:03 03/24/20 25 03/25/2025 CBC WITH DIFFE RENTI AL/PL ATELE T neutrophils 62 % not estab. normal Not Available [facility] ([facility]) [address] [facility], [place], [address], 03/25/2025 09:07:03 03/24/20 25 03/25/2025 CBC WITH DIFFE RENTI AL/PL ATELE T lymphs 28 % not estab. normal Not Available [facility] ([facility]) [address] [facility], [place], [address], 03/25/2025 09:07:03 03/24/20 25 03/25/2025 CBC WITH DIFFE RENTI AL/PL ATELE T monocytes 7 % not estab. normal Not Available [facility] ([facility]) [address] [facility], [place], [address], 03/25/2025 09:07:03 03/24/20 25 03/25/2025 CBC WITH DIFFE RENTI AL/PL ATELE T eos 2 % not estab. normal Not Available [facility] ([facility]) [address] [facility], [place], [address], 03/25/2025 09:07:03 03/24/20 25 03/25/2025 CBC WITH DIFFE RENTI AL/PL ATELE T basos 1 % not estab. normal Not Available [facility] ([facility]) [address] [facility], [place], [address], 03/25/2025 09:07:03 03/24/20 25 03/25/2025 CBC WITH DIFFE RENTI AL/PL ATELE T immature cells TERRAZZO LABORER Not Available [facility] ([facility]) [address] [facility], [place], [address], 03/25/2025 09:07:03 03/24/20 25 03/25/2025 CBC WITH DIFFE RENTI AL/PL ATELE T neutrophils (absolute) 3.4 x10e3 /uL 1.4-7. 0 normal Not Available [facility] ([facility]) [address] [facility], [place], [address], 03/25/2025 09:07:03 03/24/20 25 03/25/2025 CBC WITH DIFFE RENTI AL/PL ATELE T lymphs (absolute) 1.5 x10e3 /uL 0.7-3. 1 normal Not Available [facility] ([facility]) [address] [facility], [place], [address], 03/25/2025 09:07:03 03/24/20 25 03/25/2025 CBC WITH DIFFE RENTI AL/PL ATELE T monocytes(ab solute) 0.4 x10e3 /uL 0.1-0. 9 normal Not Available [facility] ([facility]) [address] [facility], [place], [address], 03/25/2025 09:07:03 03/24/20 25 03/25/2025 CBC WITH DIFFE RENTI AL/PL ATELE T eos (absolute) 0.1 x10e3 /uL 0.0-0. 4 normal Not Available [facility] ([facility]) [address] [facility], [place], [address], 03/25/2025 09:07:03 03/24/20 25 03/25/2025 CBC WITH DIFFE RENTI AL/PL ATELE T baso (absolute) 0.1 x10e3 /uL 0.0-0. 2 normal Not Available [facility] ([facility]) [address] [facility], [place], [address], 03/25/2025 09:07:03 03/24/20 25 03/25/2025 CBC WITH DIFFE RENTI AL/PL ATELE T immature granulocytes 0 % not estab. Not Available [facility] ([facility]) [address] [facility], [place], [address], 03/25/2025 09:07:03 03/24/20 25 03/25/2025 CBC WITH DIFFE RENTI AL/PL ATELE T immature grans (abs) 0.0 x10e3 /uL 0.0-0. 1 Not Available [facility] ([facility]) [address] [facility], [place], [address], 03/25/2025 09:07:03 03/24/20 25 03/25/2025 CBC WITH DIFFE RENTI AL/PL ATELE T NRBC TERRAZZO LABORER Not Available [facility] ([facility]) [address] [facility], [place], [address], 03/25/2025 09:07:03 03/24/20 25 03/25/2025 CBC WITH DIFFE RENTI AL/PL ATELE T hematology comments: TERRAZZO LABORER Not Available [facility] ([facility]) [address] [facility], [place], [address], 03/25/2025 09:07:03 03/24/20 25 03/25/2025 COMP. METAB OLIC PANEL (14) glucose 100 mg/dL 70-99 above high normal Not Available [facility] ([facility]) [address] [place], [address], 03/25/2025 09:07:04 03/24/20 25 03/25/2025 COMP. METAB OLIC PANEL (14) BUN 14 mg/dL 8-27 normal Not Available [facility] ([facility]) [address] [place], [id number], 03/25/2025 09:07:04 03/24/20 25 03/25/2025 COMP. METAB OLIC PANEL (14) creatinine 0.87 mg/dL 0.57-1 .00 normal Not Available [facility] ([facility]) [address] [place], [id number], 03/25/2025 09:07:04 03/24/20 25 03/25/2025 COMP. METAB OLIC PANEL (14) eGFR 74 mL/mi n/1.7 3 >59 normal Not Available [facility] ([facility]) [address] [place], [id number], 03/25/2025 09:07:04 03/24/20 25 03/25/2025 COMP. METAB OLIC PANEL (14) BUN/creatini ne ratio 16 12-28 normal Not Available [facility] ([facility]) [address] [place], [id number], 03/25/2025 09:07:04 03/24/20 25 03/25/2025 COMP. METAB OLIC PANEL (14) sodium 137 mmol/ L 134-14 4 normal Not Available [facility] ([facility]) [address] [place], [id number], 03/25/2025 09:07:04 03/24/20 25 03/25/2025 COMP. METAB OLIC PANEL (14) potassium 4.5 mmol/ L 3.5-5. 2 normal Not Available [facility] ([facility]) [address] [place], [id number], 03/25/2025 09:07:04 03/24/20 25 03/25/2025 COMP. METAB OLIC PANEL (14) chloride 101 mmol/ L 96-106 normal Not Available [facility] ([facility]) [address] [place], [id number], 03/25/2025 09:07:04 03/24/20 25 03/25/2025 COMP. METAB OLIC PANEL (14) carbon dioxide, total 22 mmol/ L 20-29 normal Not Available [facility] ([facility]) [address] [place], [id number], 03/25/2025 09:07:04 03/24/20 25 03/25/2025 COMP. METAB OLIC PANEL (14) calcium 9.2 mg/dL 8.7-10 .3 normal Not Available [facility] ([facility]) [address] [place], [id number], 03/25/2025 09:07:04 03/24/20 25 03/25/2025 COMP. METAB OLIC PANEL (14) protein, total 6.9 g/dL 6.0-8. 5 normal Not Available [facility] ([facility]) [address] [place], [id number], 03/25/2025 09:07:04 03/24/20 25 03/25/2025 COMP. METAB OLIC PANEL (14) albumin 4.4 g/dL 3.9-4. 9 normal Not Available [facility] ([facility] [address] [facility] [place], [id number], 03/25/2025 09:07:04 03/24/20 25 03/25/2025 COMP. METAB OLIC PANEL (14) globulin, total 2.5 g/dL 1.5-4. 5 Not Available [facility] ([facility]) [address] [facility] [place], [id number], 03/25/2025 09:07:04 03/24/20 25 03/25/2025 COMP. METAB OLIC PANEL (14) bilirubin, total 0.5 mg/dL 0.0-1. 2 normal Not Available [facility] ([facility] [address] [facility] [place], [id number], 03/25/2025 09:07:04 03/24/20 25 03/25/2025 COMP. METAB OLIC PANEL (14) alkaline phosphatase 154 IU/L 44-121 above high normal Not Available [facility] ([facility]) [address] [place], [address], 03/25/2025 09:07:04 03/24/20 25 03/25/2025 COMP. METAB OLIC PANEL (14) AST (SGOT) 17 IU/L 0-40 normal Not Available [facility] ([facility]) [address] [place], [address], 03/25/2025 09:07:04 03/24/20 25 03/25/2025 COMP. METAB OLIC PANEL (14) ALT (SGPT) 22 IU/L 0-32 normal Not Available [facility] ([facility]) [address] [place], [address], 03/25/2025 09:07:04 03/24/20 25 03/25/2025 LIPID PANEL cholesterol, total 156 mg/dL 100-19 9 normal Not Available [facility] ([facility]) [address] [place], [address], 03/25/2025 09:07:05 03/24/20 25 03/25/2025 LIPID PANEL triglyceride s 182 mg/dL 0-149 above high normal Not Available [facility] ([facility]) [address] [place], [address], 03/25/2025 09:07:05 03/24/20 25 03/25/2025 LIPID PANEL HDL cholesterol 41 mg/dL >39 normal Not Available [facility] ([facility]) [address] [place], [address], 03/25/2025 09:07:05 03/24/20 25 03/25/2025 LIPID PANEL VLDL cholesterol mark 31 mg/dL 5-40 Not Available [facility] ([facility]) [address] [facility] [place], [address], 03/25/2025 09:07:05 03/24/20 25 03/25/2025 LIPID PANEL LDL chol calc ([facility]) 84 mg/dL 0-99 Not Available [facility] ([facility]) [address] [facility] [place], [address], 03/25/2025 09:07:05 03/24/20 25 03/25/2025 LIPID PANEL LDL calc comment: TERRAZZO LABORER Not Available [facility] ([facility]) [address] [facility], [place], [address], 03/25/2025 09:07:05 03/24/20 25 03/25/2025 VITAM IN B12 AND FOLAT E vitamin B12 413 pg/mL 232-12 45 normal Not Available [facility] ([facility]) [address] [place], [address], 03/25/2025 09:07:06 03/24/20 25 03/25/2025 VITAM IN B12 AND FOLAT E folate (folic acid), serum 5.4 NG/mL >3.0 normal A serum folat e becky ntrat ion of less than 3.1 ng/mL is consi dered to repre sent clini mark defic iency . Not Available [facility] ([facility]) [address] [facility], [place], [address], 03/25/2025 09:07:06 03/24/20 25 03/25/2025 HEMOG LOBIN A1C hemoglobin A1C 6.2 % 4.8-5. 6 above high normal Predi abete s: 5.7 - 6.4 Diabe nigel: >6.4 Glyce judy contr ol for adult s with diabe nigel: <7.0 Not Available [facility] ([facility]) [address] [place], [address], 03/25/2025 09:07:07 03/24/20 25 03/25/2025 VITAM IN D, 25-HY DROXY vitamin D, 25-hydroxy 41.3 NG/mL 30.0-1 00.0 Vitam in D defic iency has been defin ed by the [facility] and an [facility] r[facility] ty pract ice guide line as a level of serum 25-OH vitam in D less than 20 ng/mL (1,2) . The [facility] rine Socie ty went on to furth er defin e vitam in D insuf ficie ncy as a level betwe en 21 and 29 ng/mL (2). 1. [facility] (Inst itute of Medic ine). 2010. Dieta ry refer ence intak es for calci um and D. Daniela brooks [place]: [facility] . 2. Ulises kaminski MF, Tahir camacho NC, Shakila off-F errar i JOE, et al. Evalu ation , treat ment, and preve ntion of vitam in D defic iency : an Endoc rine Socie ty clini mark pract ice guide line. JCEM. 2010; 96(7) :1911 -30. Not Available [facility] ([facility]) [address] [facility], [place], [address], 03/25/2025 09:07:08 05/14/20 24 LDCT, chest , for lung cance r scree gume No observ ation record ed. [email or web address] [facility] [address] [facility], [place], [address], 05/26/2024 17:00:55 12/12/19 25 12/11/2024 MAMMO , scree gume, digit al, bilat eral No observ ation record ed. [email or web address] , [place], [address], 12/16/2024 15:33:28 12/12/19 25 12/12/2024 - scn dig breas t tomos yn nicki [facility] Medica l Ce Name: ANTON LEDBETTER [address] [place] [address] [facility] Phys: [place] [address] : 1959 Age: 64 Sex: F Acct: [id number] Loc: Gayatri.MAMM PHONE #: Exam Date: 2024 Status : DEP CLI FAX #: Rad# [id number] Unit# [id number] Admit Date: 2024 EXAMS: CPT CODE: [id number] SCN DIG BREAST TOMOSY N NICKI 57637 BILATE RAL DIGITA L SCREEN ING MAMMOG YESSY WITH CAD AND 3 D Tomosy nthesi s Person al histor y of Breast Cancer : None Family histor y of Breast Cancer : None Compla ints: None Compar marbella: Multip le prior studie s, the most recent of which is from 018 TECHNI QUE: Bilate ral digita l mammog sybil and CAD screen ing were perfor med by Tatianna cullen RTM. 3-D Tomosy nthesi s imagin g was also perfor med. FINDIN GS: These images demons trate a type III breast parenc hymal patter n indica ting the breast s are hetero geneou sly dense which may lower the sensit ivity of mammog sybil. No worris ome lesion s are identi fied in either breast . IMPRES DMITRI: Negati ve. Recomm end annual screen ing, regula r self breast examin ation and regula r clinic al breast exam. (CAT1) - CATEGO RY 1, NEGATI VE (1 YR) -1 YEAR -In the patien t with a palpab le abnorm ality, unexpl ained by breast imagin g, the palpab le abnorm ality should be manage d on a clinic al basis by the attend ing clinic amanda. -Karlos cullen imagin g as a false negati ve rate of approx imatel y 15%. -Patie nt was notifi ed by mail of the result s of this examin ation. Patien t may be called if furthe r workup is indica juhi. -The patien t's inform ation was entere d into a remind er system with a target due date for the next mammog yessy. -This mammog yessy was review ed by a radiol ogist and CAD. This report is genera juhi using voice recogn ition comput er softwa re. Inadve rtent errors may have occurr ed while dictat ing report . Common sense approa ch is apprec iated and do not hesita te to call for murphy cortes n when necess vijaya. PAGE 1 Signed Report (MARY NUED) [facility]: [facility] LED[facility] [address] [place] [address] Phys: Landre th CLINICAL QUALITY ASSURANCE SPECIALIST, [place] [address] : 1959 Age: 64 Sex: F Acct: [id number] Loc: Gayatri.MAMM PHONE #: Exam Date: 2024 Status : DEP CLI FAX #: [phone] Rad# [id number] Unit# [id number] Admit Date: 2024 EXAMS: CPT CODE: [id number] [id number] SCN DIG BREAST TOMOSY N NICKI 10762 Electr onical ly Signed by Perla Avalos on 2024 at 0827 Report ed and signed by: DEB Avalos M.D. CC: Clemente avalos Landre th CLINICAL QUALITY ASSURANCE SPECIALIST Dictat ed Date/T ezekiel: 2024 (826) Techno logist : TATIANNA BECKET T Transc ribed Date/T ezekiel: 2024 (826) Transc riptio nist: DR.HAR MIKALA Duckworth onic Signat ure Date/T ezekiel: 2024 (826) Printe d Date/T ezekiel: 2024 (0829) BATCH NO: N/A PAGE 2 Signed Report CC'ed Logic: Orderi ng Provid er: LANDRE TH ALLISO N Attend ing Provid er: LANDRE TH ALLISO N Referr ing Provid er: LANDRE TH ALLISO N Consul ting Provid er: LANDRE TH ALLISO N [email or web address] [address] [place], [address], 12/17/2024 09:43:49 03/26/20 25 03/25/2025 imagi ng/di agnos tic resul t No observ ation record ed. [address], [place], [address], 03/26/2025 14:48:22 03/26/20 25 03/25/2025 imagi ng/di agnos tic resul t No observ ation record ed. [address], [place], [address], 03/26/2025 14:48:16 04/04/20 25 03/25/2025 stres s echoc ardio gram No observ ation record ed. [address], [place], [address], 04/08/2025 12:25:16 04/06/20 25 04/06/2025 MRI, brain , w/o contr ast No observ ation record ed. [address], [place], [address], 04/07/2025 15:41:59 Result Notes Documentation Provider Name and Address Organization Details Recorded Time Mammo, Screening, Digital, Bilateral : Mammogram Mammogram Context: mammogram date: (12/11/24) Right: normal Left: normal Conclusion: Conclusions: Bi-Rads 1 - Negative Debra Jackson APRN [address], [place], [address], [place] [facility] 12/16/2024 15:33:28 Problems Name Problem SNOMED Code Status Onset Date Resolution Date Notes Provider Name and Address Organization Details Recorded Time Hyperlipi demia 65919718 Active 2016 Layla stinson, [place] - [facility] 3 08:37:12 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 84406294 Active Laurence Vásquez MD [address], [place], [address], [place] - [facility] 2 12:20:06 Preinfarc tion syndrome 4363157 Active Laurence Vásquez MD [address], [place], [address], [place] - [facility] 2 12:20:06 Urinary tract infectiou s disease 26435337 Active Laurence Vásquez MD [address], [place], [address], [place] [facility] 2 12:20:06 Herniated urinary bladder 481125834 Active Laurence Vásquez MD [address], [place], [address], [place] [facility] 2 12:20:06 Vaginal hematoma 47066148 Completed 05/07/2019 Laurence Vásquez MD [address], [place], [address], [place] [facility] 2 12:20:06 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 95777297 Active Laurence Vásquez MD [address], [place], [address], [place] [facility] 2 12:20:06 Vaginal bleeding 146486775 Completed 05/07/2019 Laurence Vásquez MD [address], [place], [address], [place] [facility] 2 12:20:06 History of cardiac catheteri zation 866104471676 00 Active Laurence Vásquez MD [address], [place], [address], [place] [facility] 2 12:20:06 Urinary incontine nce 697671405 Active Laurence Vásquez MD [address], [place], [address], [place] [facility] 2 12:20:06 Disorder of coronary artery 240500118 Active 2017 Layla Hawthorne null, [place] - [facility] 3 08:37:12 Gastroeso phageal reflux disease 498050771 Active Layla [place] - [facility] 3 08:37:12 Hypertens nicky disorder 98852574 Active Layla [place] - [facility] 3 08:37:12 Vaginal hematoma 40400405 Active Laurence Vásquez MD [address], [place], [address], [place] [facility] 2 12:20:06 Vaginal bleeding 936613386 Active Laurence Vásquez MD [address], [place], [address], [place] [facility] 2 12:20:06 Vitamin D deficienc y 59330065 Active 2019 Layla Hawth[place] - [facility] 3 08:37:12 Mammogram declined 143973304 Active 2020 Layla [place] - [facility] 3 08:37:12 Prediabet es 166946069 Active 2020 Layla [place] - [facility] 3 08:37:12 Diastolic heart failure 347090108 Active 2020 Layla [place] - [facility] 3 08:37:12 Influenza vaccinati on declined 003276729 Active 2020 Layla [place] - [facility] 3 08:37:12 Gastroeso phageal reflux disease without esophagit is 312954384 Active 2020 Layla [place] [facility] 3 08:37:12 Disorder of vitamin B12 467599615 Active 2021 Layla [place] - [facility] 3 08:37:12 Mixed hyperlipi demia 562038923 Active 2021 Layla [place] [facility] 3 08:37:12 History of polyp of colon 703932812 Active 2021 Layla [place] - [facility] 3 08:37:12 Screening for malignant neoplasm of colon Active 2021 Layla [place] [facility] 3 08:37:12 Internal hemorrhoi ds 78091334 Active 2022 Layla [place] [facility] 3 08:37:12 Diverticu losis of colon 427536517 Active 2022 Layla [place] [facility] 3 08:37:12 Heart disease 71398334 Active Layla [place] [facility] 3 08:37:12 Postmenop ausmo state 65589998 Active Layla [place] [facility] 3 08:37:12 Vitamin deficienc y 89953555 Active Layla [place] - [facility] 3 08:37:12 Persisten t insomnia 511084949 Active 2023 Debra Jackson, CLINICAL QUALITY ASSURANCE SPECIALIST [address], [place], [address], [place] [facility] 4 10:20:01 History of cerebrova scular accident 309811588 Active 2024 Debra Jackson, CLINICAL QUALITY ASSURANCE SPECIALIST [address], [place], [address], [place] [facility] 5 11:04:04 Tinnitus of left ear 756285647739 6 Active 2024 Debra Jackson, CLINICAL QUALITY ASSURANCE SPECIALIST [address], [place], [address], [place] [facility] 5 11:35:22 Problem Notes [...] Date of Last Pap Smear completed Leigha Angeles [place] - [facility] 09/28/2016 10:06:27 Anterior Repair completed Leigha [place] [facility] 09/28/2016 10:14:04 Cystourethroscopy completed Leigha [place] [facility] 09/28/2016 10:14:44 Unlisted px foot/toes completed Leigha [place] [facility] 09/28/2016 10:15:06 Hysterectomy, Vaginal completed Beatriz Dubois [place] - [facility] 05/07/2019 11:31:05 Imaging Results None recorded. Procedure Notes None recorded. Medical Equipment None Reported. 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 Completi on: 10/28/20 15;Pharm acyVerif ied: [...] Disconti nued on: 06/20/20 16 9:10AM;U ser: suzie peterson;Est. Completi on: 06/17/20 16;Pharm acCele ied: 06/07/20 16 9:21AM Not Available Not [...] ser: gillisa; Indicati on: Skin Rash - (71.2415 92);Prin juhi: 11/25/19 13 Not Available Not Available [...] Disconti nued on: 05/31/20 11 2:38PM;U ser: [email or web address];P rinted: 05/25/20 10 Not Available Not Available [...] Urinary Urge Incontin ence - (16.7883 10);Phar [email or web address] fied: 10/26/20 15 10:49AM Not Available Not [...] Available Not Available Nasonex 50 mcg/actua tion [place] 2 sprays every day by intranas al [...] Disconti nued on: 05/25/20 10 1:35PM;U ser: oralia;E st. Completi on: 10/17/20 09;Print ed: 10/22/20 08 [...] Details Last Updated DateTime 5 175.26 cm 32.5 kg/m2 88974.3 2 g 82 /min 98 % 98 % 16 /min 142 mm[Hg] 76 mm[Hg] Jaci Cade [facility] 5 10:58:58 Date Recorded Body height Body mass index (BMI) Body weight Heart rate Oxygen saturation Oxygen saturation in Arterial blood by Pulse oximetry Respiratory rate Systolic blood pressure Diastolic blood pressure Provider Name and Address Organization Details Last Updated DateTime 3 175.26 cm 30.4 kg/m2 72107.0 3 g 60 /min 95 % 95 % 18 /min 140 mm[Hg] 78 mm[Hg] Aarti Lees in [facility] 3 12:16:07 Date Recorded Body height Body mass index (BMI) Body weight Heart rate Oxygen saturation Oxygen saturation in Arterial blood by Pulse oximetry Respiratory rate Systolic blood pressure Diastolic blood pressure Provider Name and Address Organization Details Last Updated DateTime 5 175.26 cm 32.8 kg/m2 859716. 51 g 82 /min 95 % 95 % 18 /min 136 mm[Hg] 78 mm[Hg] Jaci FONG - [facility] 5 11:29:28 Date Recorded Body height Body mass index (BMI) Body weight Body temperature Heart rate Oxygen saturation Oxygen saturation in Arterial blood by Pulse oximetry Respiratory rate Provider Name and Address Organization Details Last Updated DateTime 4 175.26 cm 31.6 kg/m2 06747.7 7 g 98.1 [degF] 76 /min 93 % 93 % 20 /min Vonnie FONG - [facility] 4 10:07:17 Date Recorded Body height Body mass index (BMI) Body weight Heart rate Oxygen saturation Oxygen saturation in Arterial blood by Pulse oximetry Respiratory rate Systolic blood pressure Diastolic blood pressure Provider Name and Address Organization Details Last Updated DateTime 4 175.26 cm 32 kg/m2 56190.5 4 g 80 /min 96 % 96 % 18 /min 144 mm[Hg] 80 mm[Hg] Jaci FONG - [facility] 4 11:35:17 Social History Question Answer Notes LastModified by Organizat ion Details LastModified Time Tobacco Smoking Status Current Every Day Smoker Beatriz stinson [place] - [facility] 10/05/2016 11:02:47 Do You Have An Advance Directive? No [email or web address] Information not available 10/05/2016 Are You Blind Or Do You Have Difficulty Seeing? No [email or web address] Information not available 10/05/2016 Is Blood Transfusion Acceptable In An Emergency? Yes [email or web address] Information not available 10/05/2016 What Is Your Level Of Caffeine Consumption? Occasional [email or web address] Information not available 10/05/2016 How Much Tobacco Do You Chew? None [email or web address] Information not available 10/05/2016 Are You Deaf Or Do You Have Serious Difficulty Hearing? No [email or web address] Information not available 10/05/2016 What Type Of Diet Are You Following? REGULAR [email or web address] Information not available 10/05/2016 Which Illicit Or Recreational Drugs Have You Used? None [email or web address] Information not available 10/05/2016 How Many Days Of Moderate To Strenuous Exercise, Like A Brisk Walk, Did You Do In The Last 7 Days? 1 [email or web address] Information not available 05/07/2019 On Those Days That You Engage In Moderate To Strenuous Exercise, How Many Minutes, On Average, Do You Exercise? 1 [email or web address] Information not available 05/07/2019 How Hard Is It For You To Pay For The Very Basics Like Food, Housing, Medical Care, And Heating? 1 [email or web address] Information not available 05/07/2019 Live Alone Or With Others? With Others [email or web address] Information not available 10/05/2016 Do You Have A Medical Power Of Messenger Copy? No Information not available 04/28/2024 What Was The Date Of Your Most Recent Tobacco Screening? 03/24/2025 [email or web address] Information not available 03/24/2025 How Many Children Do You Have? 3 Information not available 12/21/2016 Performs Monthly Self-breast Exam? Yes [email or web address] Information no t available 10/05/2016 What Is Your Relationship Status? [email or web address] Information not available 10/05/2016 Seat Belts Used Routinely Yes [email or web address] Information not available 10/05/2016 Are You Sexually Active? Yes Information not available 10/05/2016 How Much Tobacco Do You Smoke? 0.5 PPD Information not available 12/21/2016 General Stress Level Medium [email or web address] Information not available 10/05/2016 Do You Use Sunscreen Routinely? Yes Information not available 10/05/2016 Has Tobacco Cessation Counseling Been Provided? Yes Information not available 04/28/2024 On What Date Was Tobacco Cessation Counseling Provided? 04/28/2024 Information not available 04/28/2024 Do You Have Difficulty Walking Or Climbing Stairs? No [email or web address] Information not available 10/05/2016 Sex: Female Functional Status Question Answer Note LastModified by Organizat ion Details LastModified Time Do you use any illicit or recreational drugs? No Information not available 04/28/2024 What is your level of alcohol consumption? None [email or web address] Information not available 10/05/2016 Are you currently employed? No Information not available 12/21/2016 Do you have transportation difficulties? No Information not available 04/28/2024 Are you able to walk? YESWOREST [email or web address] Information not available 05/07/2019 Do you have difficulty doing errands alone? No Information not available 04/28/2024 Are you able to care for yourself? Yes Information not available 12/21/2016 Do you have difficulty dressing or bathing? No [email or web address] Information not available 10/05/2016 What is your exercise level? None Information not available 10/05/2016 Mental Status Question Answer Note LastModified by Organization D etails LastModified Time Do you feel stressed (tense, restless, nervous, or anxious, or unable to sleep at night)? 1 Information not available 05/07/2019 Do you have difficulty concentrating, remembering or making decisions? No Information no t available 10/05/2016 Family History [...] or 50 mcg/0.25mL dose 12/24/2020 completed Layla Katjashannen st[place], [place] - [facility] 07/27/2023 08:37:23 COVID-19, mRNA, LNP-S, PF, 100 mcg/0.5mL dose or 50 mcg/0.25mL dose 01/26/2021 completed Layla Katjashannen stinson, [place] - [facility] 07/27/2023 08:37:23 Past Encounters Encounter ID Performer Location Encounter Start Date Encounter Closed Date Diagnosis/Indication Diagnosis SNOMED-CT Code Diagnosis ICD10 Code Diagnosis Note [id number] [facility] [address] [place] [address] 08/20/2007 00:00:00 [id number] [facility] [address] [place] [address] 10/22/2008 00:00:00 [id number] [facility] [address] [place] [address] 05/25/2010 00:00:00 [id number] [facility] [address] [place] [address] 05/25/2010 00:00:00 [id number] [facility] [address] [place] [address] 05/31/2011 00:00:00 [id number] [facility] [address] [place] [address] 09/21/2011 00:00:00 [id number] [facility] [address] [place] [address] 07/12/2012 00:00:00 [id number] [facility] [address] [place] [address] 11/22/2012 00:00:00 [id number] [facility] [address] [place] [address] 12/18/2012 00:00:00 [id number] [facility] [address] [place] [address] 09/29/2015 00:00:00 [id number] [facility] [address] [place] [address] 10/11/2015 00:00:00 [id number] [facility] [address] [place] [address] 10/26/2015 00:00:00 [id number] [facility] [address] [place] [address] 12/02/2015 00:00:00 [id number] [facility] [address] [place] [address] 06/07/2016 00:00:00 [id number] [facility] [address] [place] [address] 06/20/2016 00:00:00 [id number] [facility] [address] [place] [address] 09/09/2013 00:00:00 [id number] [facility] [address] [place] [address] 02/25/2015 00:00:00 [id number] [facility] [address] [place] [address] 05/26/2015 00:00:00 [id number] [facility] [address] [place] [address] 06/16/2015 00:00:00 [id number] [facility] [address] [place] [address] 07/21/2015 00:00:00 [id number] [facility] [address] [place] [address] 09/08/2015 00:00:00 [id number] [facility] [address] [place] [address] 2015 00:00:00 [id number] [facility] [address] [place] [address] 09/27/2015 00:00:00 [id number] [facility] [address] [place] [address] 09/29/2015 00:00:00 [id number] DO Itz Nguyễn LOW PRESSURE KETTLE OPERATOR [address] [place] [address] [place] [address] 10/05/2016 10:25:47 10/05/2016 11:19:22 Midline cystocele 189842320 N81.11 Urge incon tinence of urine 61278546 N39.41 Smoker 56363107 F17.102 [id number] DO Itz Nguyễn LOW PRESSURE KETTLE OPERATOR [address] [place] [address] [place] [address] 10/26/2016 09:04:55 10/26/2016 09:47:57 Postoperative visit 157021443 Z09 Body mass index 25-29 - overweight 681338347 Z68.27 Postoperat nicky retention of urine 498629974 R33.8 [id number] DO Itz Nguyễn LOW PRESSURE KETTLE OPERATOR [address] [place] [address] [place] [address] 10/30/2016 09:51:00 10/30/2016 10:29:27 Postoperative retention of urine 863257478 R33.8 [id number] DO Itz Nguyễn LOW PRESSURE KETTLE OPERATOR [address] [place] [address] [place] [address] 11/09/2016 13:51:08 11/09/2016 15:19:04 Surgical follow-up 799979543 Z09 Body mass index 25-29 - overweight 188141383 Z68.27 Vaginal discharge 140796 006 N89.8 [id number] DO Itz Nguyễn LOW PRESSURE KETTLE OPERATOR [address] [place] [address] [place] [address] 11/15/2016 10:24:55 11/15/2016 11:44:29 Surgical follow-up 687326449 Z09 Body mass index 25-29 - overweight 468679339 Z68.27 [id number] DO Itz Nguyễn LOW PRESSURE KETTLE OPERATOR [address] [place] [address] [place] [address] 12/04/2016 10:59:13 12/04/2016 11:44:48 Surgical follow-up 331264962 Z09 released from pelvic rest Body mass index 25-29 - overweight 818338905 Z68.27 [id number] Jessica Mack [address] [place] [address] 12/21/2016 09:03:24 12/21/2016 10:45:42 Vitamin deficiency 85045594 E56.9 Heart disease 54229807 I 51.9 Tobacco user 073215822 Z 72.0 Vitamin D deficiency 347 95443 E55.9 Fatigue 75003797 R53.83 [id number] Jessica Mack CLINICAL QUALITY ASSURANCE SPECIALIST [address] [place] [address] 03/26/2017 09:27:44 03/26/2017 10:22:33 Vitamin deficiency 50795022 E56.9 Body mass index 25-29 - overweight 389090688 Z68.29 Long-term drug therapy 731904649 Z79.899 Postmenopausal state 764 50710 Z78.0 Heart disease 19568113 I 51.9 Fatigue 40437000 R53.83 [id number] Jessica Mack CLINICAL QUALITY ASSURANCE SPECIALIST [address] [place] [address] 06/25/2017 13:03:56 06/25/2017 13:23:29 Heart disease 12454575 I51.9 Vitamin D deficiency 347 87191 E55.9 Nicotine dependence 5629 4008 F17.200 Vitamin deficiency 84311 002 E56.9 Hyperlipidemia 11033642 E78.5 Essential hypertension 85832400 I10 [id number] Jessica Mack APRN [address] [place] [address] 09/25/2017 08:54:48 09/25/2017 10:26:01 Heart disease 49983781 I51.9 Screening for malignant neoplasm of breast 005970806 Z12.31 Hypothyroidism 38756657 E03.9 Vitamin D deficiency 347 44989 E55.9 [id number] Jessica Mack CLINICAL QUALITY ASSURANCE SPECIALIST [address] [place] [address] 07/03/2018 13:19:36 07/03/2018 14:23:31 Vitamin D deficiency 71500982 E55.9 Essential hypertension 60426456 I10 Fatigue 15310253 R53.83 Dysfunctio n of eustachian tube 87308174 H69.90 [id number] Jessica Mack APRN [address] [place] [address] 08/14/2018 12:37:47 08/14/2018 13:36:42 Essential hypertension 85361353 I10 [id number] Jessica Mack CLINICAL QUALITY ASSURANCE SPECIALIST [address] [place] [address] 08/28/2018 13:25:54 08/28/2018 14:32:17 Essential hypertension 48301179 I10 Dysfunctio n of eustachian tube 12291939 H69.90 [id number] Jessica Mack APRN [address] [place] [address] 09/16/2018 09:57:48 09/16/2018 12:22:55 Vertigo 150131996 R42 Headache 05712195 R51 Lightheadedness 58104373 8 R42 Numbness of hand 3959913 04 R20.0 Dizzy spells 516133424 R 42 [id number] Jessica Mack APRN [address] [place] [address] 02/04/2019 15:25:52 02/04/2019 16:19:17 Hyperlipidemia 88440115 E78.5 Essential hypertension 61764231 I10 Vertigo 571911154 R42 Disorder o f coronary artery 937963392 I77.9 Heart disease 56436315 I 51.9 Gastroesop hageal reflux disease 118814041 K21.9 [id number] Jessica Mack APRN [address] [place] [address] 03/31/2019 13:01:21 03/31/2019 13:38:58 Basal ganglia degeneration with calcification 731783544 G23.8 Essential hypertension 61241604 I10 [id number] Avis Pollock DO [place] LOW PRESSURE KETTLE OPERATOR [address] [place] [address] [place] [address] 05/07/2019 11:25:15 05/07/2019 12:08:45 Routine gynecologic examination done 2795106704 9101 Z01.419 Depression screening 171 058079 Z13.89 Diet education 53204593 Z71.3 Counseling 833706015 Z71 .82 Exercise counselerendira gallo Patient encouraged to exercise 30 minutes 5 days a week. Examinatio n of blood pressure 689101582 Z01.30 History of total hysterectomy 409948264 Z90.710 Body mass index 25-29 - overweight 679171830 Z68.29 [id number] Jessica Mack APRN [address] [place] [address] 08/18/2019 10:24:45 08/18/2019 11:17:41 Persistent insomnia 850879905 G47.09 Heart disease 36933213 I 51.9 Hypertensive disorder 38 417562 I10 Hyperlipidemia 11684160 E78.5 [id number] Jessica Mack APRN [address] [place] [address] 09/02/2019 11:35:28 09/02/2019 14:05:08 Disorder of coronary artery 226574411 I77.9 Heart disease 52516198 I 51.9 [id number] Jessica Mack APRN [address] [place] [address] 12/08/2019 15:27:36 12/08/2019 15:51:36 Essential hypertension 93774445 I10 Hyperlipidemia 30979521 E78.5 Persistent insomnia 1919 87513 G47.09 Finger joint locking 299 001851 M24.487 [id number] Laurence Vásquez MD [address] [place] [address] 03/01/2020 09:45:29 03/01/2020 10:20:03 Dysfunction of bilateral eustachian tubes 1631074103 642066 H69.93 [id number] Laurence Vásquez MD [address] [place] [address] 03/15/2020 14:22:58 03/15/2020 15:12:52 Dysfunction of bilateral eustachian tubes 5419433337 425055 H69.93 [id number] DO [place] LOW PRESSURE KETTLE OPERATOR [address] [place] [address] [place] [address] 05/24/2020 14:47:24 05/24/2020 15:40:13 Routine gynecologic examination done 0885646729 9101 Z01.419 Depression screening 171 972395 Z13.89 Diet education 80454327 Z71.3 Counseling 167986576 Z71 .82 Exercise counselerendira gallo Patient encouraged to exercise 30 minutes 5 days a week. Examinatio n of blood pressure 370551654 Z01.30 Vaccine de clined by patient 3003657772 02 Z28.21 Screening mammography 24 759869 Z12.31 Mixed urin vijaya incontinence 800618877 N39.46 Discussed possible side effects of medication , questions answered. [id number] DO [place] LOW PRESSURE KETTLE OPERATOR [address] [place] [address] [place] [address] 07/20/2020 11:48:01 07/20/2020 12:17:05 Increased frequency of urination 780281473 R35.0 Nocturia 700217416 R35.1 [id number] Laurence Vásquez MD [address] [place] [address] 10/20/2020 15:54:43 10/20/2020 17:26:44 Persistent insomnia 761287223 G47.09 Unintentio nal weight gain 6655768731 77091 R63.5 Fatigue 76458499 R53.83 Vitamin D deficiency 347 91526 E55.9 [id number] Laurence Vásquez MD [address] [place] [address] 01/26/2021 13:37:58 01/26/2021 14:23:58 Mammogram declined 555652114 Z53.20 Vitamin D deficiency 347 81722 E55.9 Blood gluc ose outside reference range 113178488 R73.09 [id number] Laurence Vásquez MD [address] [place] [address] 04/27/2021 13:51:49 04/27/2021 14:21:38 Gastroesophageal reflux disease 544262833 K21.9 Vitamin D deficiency 347 53882 E55.9 Hypertensive disorder 38 652785 I10 Hyperlipidemia 18003003 E78.5 Mammogram declined 60060 5004 Z53.20 Prediabetes 788446274 R7 3.03 Hypertensi ve heart disease 50278550 I11.9 Persistent insomnia 1919 25324 G47.09 Body mass index 30+ - obesity 576313196 Z68.31 [id number] Laurence Vásquez MD [address] [place] [address] 08/10/2021 11:23:41 08/10/2021 12:16:06 Diastolic heart failure 853875821 I50.30 Hypertensive disorder 38 540416 I10 Disorder o f coronary artery 870975616 I77.9 Hyperlipidemia 39985472 E78.5 Prediabetes 161686733 R7 3.03 Influenza vaccination declined 746412108 Z28.21 Blood gluc ose outside reference range 909947892 R73.09 Vitamin D deficiency 347 76267 E55.9 Gastroesop hageal reflux disease without esophagitis 646426530 K21.9 [id number] Laurence Vásquez MD [address] [place] [address] 07/11/2022 11:37:52 07/11/2022 12:45:30 Vitamin D deficiency 16358117 E55.9 Persistent insomnia 1919 11715 G47.09 Blood gluc ose outside reference range 247247612 R73.09 Mixed hyperlipidemia 267 777358 E78.2 Disorder o f vitamin B12 534260821 E53.8 Prediabetes 703517921 R7 3.03 Gastroesop hageal reflux disease without esophagitis 466001175 K21.9 Hypertensive disorder 38 958173 I10 Hemorrhoids 96922384 K64 .9 discussed fiber and hydration History of polyp of colon 745767140 Z86.061 [id number] Laurence Vásquez MD [address] [place] [address] 03/06/2023 11:56:17 03/06/2023 12:50:53 Internal hemorrhoids 77969539 K64.8 Diverticul osis of colon 607148328 K57.30 Painless r ectal bleeding 084651620 K62.5 Hypertensive disorder 38 643954 I10 Mixed hyperlipidemia 267 591559 E78.2 Vitamin D deficiency 347 74309 E55.9 Blood gluc ose outside reference range 461445001 R73.09 Prediabetes 640622776 R7 3.03 [id number] Debra Jackson APRN [address] [place] [address] 04/28/2024 09:51:23 04/28/2024 10:36:07 Persistent insomnia 613918825 G47.09 Well-contr olled Vitamin D deficiency 347 91551 E55.9 Well-contr olled Gastroesop hageal reflux disease 759199536 K21.9 Well-contr olled Hypertensive disorder 38 947535 I10 Well-contr olled Disorder o f vitamin B12 853684026 E53.8 Hyperlipidemia 74386948 E78.5 Prediabetes 314122703 R7 3.03 Screening for malignant neoplasm of respiratory tract 441416164 Z12.2 30+ pack year history Nicotine d ependence with current use 614450497 F17.210 Current tobacco user Screening mammography 24 223133 Z12.31 Abnormalit y of nail of toe 388181799 L60.8 Referred General ex amination of patient 707152871 Z00.00 Exercises education, guidance, and counseling 047418905 Z71.82 The patient was advised to continue a healthy diet and exercise regularly. Dietary ma nagement surveillance 437591206 Z71.3 Body mass index 30+ - obesity 256696112 Z68.31 Obesity 103711335 E66.9 [id number] Debra Jackson APRN [address] [place] [address] 10/27/2024 11:22:18 10/27/2024 13:05:57 Gastroesophageal reflux disease 137099700 K21.9 Well-contr olled Mixed hyperlipidemia 267 409933 E78.[address] Carlson Vitamin D deficiency 347 40701 E55.9 Well-contr olled Hypertensive disorder 38 828625 I10 Uncontroll ed, increase Lisinopril to 20mg until gets in to see Cardiology . Disorder o f vitamin B12 023599670 E53.8 History of polyp of colon 694999480 Z86.0100 Heart disease 65850371 I 51.9 Persistent insomnia 1919 04969 G47.09 Well-contr olled Tinnitus of left ear 920 2338205 106 H93.12 Try Flonase - discussed referral to Audiologis t for hearing test or ENT if no improvemen t Prediabetes 107465897 R7 3.03 Will call with results, last A1C 6.2 Body mass index 30+ - obesity 210461164 Z68.32 Obesity 034104272 E66.9 [id number] Debra Jackson APRN [address] [place] [address] 11/27/2024 10:50:38 11/27/2024 11:09:26 History of cerebrovascular accident 972101927 Z86.73 Referred to Neuro as requested Headache 53790482 G44.52 MRI ordered for further evaluation due to previous CVA and new onset of daily headaches [id number] Debra Jackson APRN [address] [place] [address] 03/24/2025 11:16:36 03/24/2025 12:17:50 Gastroesophageal reflux disease 638853497 K21.9 Well-contr olled Mixed hyperlipidemia 267 229942 E78[address] Carlson History of cerebrovascular accident 614222893 Z86.73 Referred to Neuro previously as requested and has appt. later this month; also new MRI ordered to [facility] also as requested Hypertensive disorder 38 431439 I10 Well-contr olled Vitamin D deficiency 347 44301 E55.9 Well-contr olled Disorder o f vitamin B12 116120996 E53.8 Diastolic heart failure 374217175 I50.30 Follows with Cardiology Prediabetes 850931846 R7 3.03 Will call with results, last A1C 6.3 on 10/27/24 Tinnitus of left ear 482 5716908 106 H93.12 Well-contr olled Persistent insomnia 1919 43160 G47.09 Well-contr olled Health Concerns Section Related Observation LastModified by Organization Detai ls LastModified Time None Recorded Concern Status LastModified by Organization Details LastModified Time None Recorded Advance Directives Directive N: Payers Insurance Date Sequence Insurance Name Policy Number Policy Ware Covered Member ID Ware Member ID Guarantor Name 04/24/2025 [place] DIDIER Ledbetter [id number] Sariah Ledbetter 04/28/2024 1 [place] [id number] Sariah Ledbetter [id number] Sariah Ledbetter 11/01/2016 1 [place] [id number] Inder Ledbetter [id number] Sariah Ledbetter 07/02/2018 1 [place] [id number] Inder Ledbetter [id number] Sariah Ledbetter 04/28/2024 1 [employer] [facility] Sariah Ledbetter [id number] Sariah Ledbetter 08/12/2018 1 [employer] (POS) Inder Ledbetter [id number] Sariah Ledbetter 04/28/2024 1 [employer] [place] [employer] [place]MEDICA[place] - HMO[place] DIDIER Ledbetter [id number] Sariah Ledbetter 04/24/2025 1 [employer] [place] Sariah Ledbetter [id number] Sariah Ledbetter 04/28/2024 1 [employer] DIDIER Ledbetter [id number] Sariah Ledbetter 01/23/2025 1 [place] [id number] Sariah Ledbetter [id number] Sariah Ledbetter 03/04/2021 1 [employer] DIDIER Ledbetter [id number] Sariah Ledbetter 04/28/2024 2 [place] [id number] Sariah Ledbetter [id number] Sariah Ledbetter 04/28/2024 1 [employer] [facility] (PPO) Sariah Ledbetter [id number] Sariah Ledbetter 08/28/2018 1 *SELF PAY* Chris Ledbetter 04/24/2025 [place] LORENZO Ledbetter [id number] Sariah Ledbetter 04/28/2024 1 [facility] [facility] LORENZO Ledbetter [id number] Sariah Ledbetter Notes Date Note Type Note Provider Name and Address Organization Details Recorded Time 03/06/2023 text/html problem with hemorrhoidshas 6-10 bm's in a row sometimes and then her internal hemorrhoids start bleedinglast colonoscopy may 2019, Dr Alex Nesbitt diverticulosisgave up corn, popcorn, and beans when she found out used to take fiber tabsdoes not like citrucel hypertensioncardiolo gy visit dr carlson february 13, 2023ordered echo, myoview, carotid uswill follow up after testingshe did not hear from scheduling yet smoker last a1c was 6.3 Laurence Vásquez MD [address], [place], [address], [email or web address] - [facility] 03/08/2023 14:12:36 04/28/2024 text/html Sariah is a 63 y ear old female who presents today as a new patient to me for annual wellness exam and follow-up on multiple chronic conditions. Chronic conditions reviewed with patient and chronic conditions remain stable. She is needing some medication refills. She is fasting for labs and is due (has been over 1 year). Last A1C was 6.2 - she does not check glucose regularly. She is seeking a referral to podiatry as she states her toenails are hard/brittle and she is having difficulty cutting them on her own. She states there is some yellowing/discolorat ion also. She is due for Mammo and LDCT - has been over 1 year since she has had either (last Mammo 2017). Debra Jackson APRN [address], [place], [address], [place] [facility] 04/28/2024 10:32:43 10/27/2024 text/html Sariah is a 64 y ear old female who is here for a 6 month follow-up on multiple chronic problems. She does have slightly elevated BP in office today - states she had ER visit for this in May 2024 but they told her it was arthritis in her neck and treated her for dizziness with meclizine. She has not been checking BP at home to see if it's been elevated. She admits to headache when she went to ER in May but none recently - if she does have one states it is dull and doesn't last long. She denies chest pain or shortness of breath or edema. She does continue to follow-up with Cardiology and has appt. next month. She is not fasting today. She complains of ringing in her left ear. She states it is intermittent. She reports it has been ongoing for several months. She states it is not painful and doesn't last long when she does have the episodes. She states it does not cause dizziness. Debra Jackson, CLINICAL QUALITY ASSURANCE SPECIALIST [address], [place], [address], [place] [facility] 10/27/2024 11:52:56 11/27/2024 text/html Sariah is a 64 y ear old female who is here for a referral to Neurology. She had CVA approx 20 yrs ago. She is needing a MRI since it has been several years - she called Neuro to make appt. but they said she needs new referral. She complains of frequent headaches and pain in the back of her head. Debra Jackson, BINA [address], [place], [address], [place] [facility] 11/27/2024 11:07:58 03/24/2025 text/html Sariah is a 64 y ear old female who is here for a followup on multiple chronic problems. Chronic conditions reviewed with patient and overall chronic conditions remain stable. She is fasting today. She is scheduled for a stress test tomorrow and has a scheduled appt. with Neurology at a later date this month. She is needing a new order for a MRI to [facility] due to insurance - she states she never got a call from [facility] likely due to insurance not accepted there. The continues with dizziness/lightheade dness, worse with sitting to standing or changing [...] as pending/ordered MRI of brain. Debra Jackson, CLINICAL QUALITY ASSURANCE SPECIALIST [address], [place], [address], [facility] - [facility] 03/24/2025 11:46:17 OBGyn Episode No OBEpisode recorded.
--- NOTE | 2025-04-27 10:30 | MR_ITS ---
APPROVED REPORT Press Department Manager: CLINICAL INDICATION Increased LV wall thickness, evaluation for infiltrative cardiomyopathy TECHNIQUE Image Acquisition: Cardiac magnetic resonance (CMR) was performed on Siemens Espree MRI 1.5T scanner. Software platform sequences were performed using the Siemens letsmote.com MR B19 platform. A set of three-plane, low-resolution, large [id number] localizers were initially acquired. Then axial, coronal, sagittal TrueFISP, as well as axial HASTE images, were obtained. These were followed by gated TrueFISP breathold cinematic sequences obtained in the short axis with 8 mm slices and 2 mm gaps, 2-chamber (vertical long axis), 3-chamber, 4-chamber (horizontal long axis). A bolus of contrast was injected intravenously with first-pass sequences obtained in the short axis and four-chamber planes. After approximately 10 minutes, a TI flap maker sequence was performed to determine the optimal TI time. Using the optimized TI time, delayed contrast enhancement segmented inversion???recovery TurboFLASH sequences were obtained in the short axis, 2-chamber, 3-chamber, and 4-chamber projections. 2D-velocity phase mapping was performed. Functional parameters were calculated by offline analysis on an independent workstation ([employer] Imaging Platform, [employer]). Contrast: ProHance??? (Gadoteridol) FINDINGS MORPHOLOGY AND FUNCTION Left ventricle: The left ventricle is normal in size. The indexed left ventricular end-diastolic volume (LVEDVi) is 60 ml/m2 (reference range 57-105 ml/m2 in males, 56-96 ml/m2 in females). Normal left ventricular systolic function is present. There is mild increase in left ventricular wall thickness, up to 11.2 mm. The septum is asynchronous. There are no regional wall motion abnormalities noted. LVEF is calculated at 55.4% (reference range 52-77%). Right ventricle: The right ventricle is normal in size. The indexed right ventricular end-diastolic volume (RVEDVi) is 44 ml/m2 (reference range 61-121 ml/m2 in males, 48-112 ml/m2 in females). Normal right ventricular systolic function is present. RVEF is calculated at 52.4% (reference range 52-72% in males, 51-71% in females). Atria: The left atrium is normal in size. The maximum indexed left atrial volume is 32 ml/m2 (reference range 26-52 ml/m2 in males, 27-53 ml/m2 in females). The right atrium is normal in size. The maximum indexed right atrial volume is 18 ml/m2 (reference range 18-90 ml/m2). Aorta: The diameter of the aortic annulus is normal, measuring 23 mm (coronal view reference range 21-30 mm in males, 19-27 mm in females). The diameter of the aortic sinus is normal, measuring 28 mm (coronal view reference range 25-42 mm in males, 24-36 mm in females). The diameter of the sinotubular junction is normal, measuring 23 mm (coronal view reference range 18-32 mm in males, 18-28 mm in females). The diameters of the ascending and descending thoracic aorta are normal. Main pulmonary artery: The main pulmonary artery diameter is mildly increased, measuring 31 mm in diameter. Pericardium: The pericardial thickness is normal. The pericardial thickness measures 1.7 mm (normal < 4.0 mm). There is no pericardial effusion. VALVES Mild mitral regurgitation is present. Systolic anterior motion of the mitral valve is not visualized. Ratio of pulmonary to systemic flow, Qp:Qs ratio = 1.3 (normal < or = 1.2, hemodynamically significant shunt > 1.5), demonstrating no evidence of hemodynamically significant shunt. TISSUE CHARACTERIZATION Resting Perfusion: Normal myocardial blood flow at rest. No evidence of resting hypoperfusion. Myocardial Fibrosis and/or edema: Normal gadolinium kinetics are present. No evidence of late gadolinium enhancement is noted, consistent with absence of myocardial scarring, infarction, or necrosis. T2-weighted imaging demonstrates no evidence of myocardial edema or inflammation. OTHER No other significant findings are noted. However, this exam is focused on the cardiac structure and function. IMPRESSION Normal LV size with normal LV systolic function. LVEDVi= 60 ml/m2 and LVEF= 55.4%. Mild increase in left ventricular wall thickness, up to 11.2 mm. Asynchronous septum. Normal RV size with normal RV systolic function. RVEDVi= 44 ml/m2 and RVEF= 52.4%. No atrial enlargement. No CMR evidence of myocardial scarring, infarction, or necrosis. No evidence of myocardial edema or inflammation. Perfusion analysis demonstrates normal blood flow at rest with no evidence of resting hypoperfusion. Ratio of pulmonary to systemic flow, Qp:Qs ratio = 1.3 (normal < or = 1.2, hemodynamically significant shunt > 1.5), demonstrating no evidence of hemodynamically significant shunt. The main pulmonary artery diameter is mildly increased, measuring 31 mm in diameter. The above findings demonstrate normal biventricular size and systolic function. There is no evidence of myocardial scarring, necrosis, or prior infarct. No CMR evidence of infiltrative or hypertrophic cardiomyopathy. COMPARISON None CRITICAL RESULT None COMMUNICATION Per this report. The findings of this cardiac MR were reviewed, reported, and signed by Sam Orourke MD (Broaching Machine Operator). Conclusion Electronically signed by : Jemma Orourke MD 05/11/2025 23:48:14
[2025-04-27] MEDS: 0.9 % SODIUM CHLORIDE 50 ML VIAL IV (12:35)
[2025-04-27] MEDS: GADOTERIDOL INJ 20ML SYRINGE 21 ML IV (12:35)
== END 2025-04-27 23:59 | disposition home or self-care (01) ==
LOC: RAD 10:02
PROVIDERS: PCP Nurse Practitioner Family; Visit Provider Internal Medicine
DX: I34.0 Nonrheumatic mitral (valve) insufficiency (principal); I28.1 Aneurysm of pulmonary artery; I11.9 Hypertensive heart disease without heart failure; I63.9 Cerebral infarction, unspecified; I25.10 Atherosclerotic heart disease of native coronary artery without angina pectoris
CPT/HCPCS: 75561; A9576

== ENCOUNTER → 2025-05-13 19:52 | Outpatient (CLI) | payer OTHER, SELFPAY ==
--- OUTSIDE RECORDS SUMMARY | 2025-05-13 19:56 | XMS_ITS | Data Portability ---
Author Organization [facility] Address [address] [place] [address] Care Team Providers Care Reporting Lead Name Role Phone ISMAEL GUO Casino Controller Unavailable TITA AVILA Regulatory Assistant Assessment Encounter Date Assessment Date Assessment LastModified by Organization Details LastModified Time 04/28/2025 04/28/2025 The patient was advised to continue a healthy diet and exercise regularly. Labs will be sent to evaluate blood count, renal function lipids and vitamin D. [email or web address] Not available 04/28/2025 10:21:39 Plan of Treatment Reminders Order Date Submit Date Provider Last Modified By Organization Details Last Modified Time Details Appointments None recorded. Lab lipid panel, serum 2024 025 ALFREDITO [facility], [address], Anthony F, [place], [address], 09:07:05 CBC w/ auto diff 2024 025 ALFREDITO [facility], [address], [place] [address], [place], [address], 5 09:07:03 TSH + free T4, serum 2024 025 ALFREDITO [facility], [address], [place] [address], [place], [address], 5 09:07:02 HbA1c (hemoglobin A1c), blood 2024 025 ALFREDITO [facility], [address], [place] [address], [place], [address], 5 09:07:07 CMP, serum or plasma 2024 025 ALFREDITO [facility], [address], [place] [address], [place], [address], 5 09:07:04 vitamin D, 25-hydroxy, total, serum 2024 025 ALFREDITO [facility], [address], [place], [place], [address], 5 09:07:08 cobalamin and folate panel, serum 2024 025 ALFREDITO [facility], [address], [place] [address], [place], [address], 5 09:07:06 lipid panel, serum 2023 024 ALFREDITO [facility], [address], [place] [address], [place], [address], 4 07:14:28 CMP, serum or plasma 2023 024 AL[facility]EDITO [facility], [address], [place] [address], [place], [address], 4 07:14:27 HbA1c (hemoglobin A1c), blood 2023 024 AL[facility]EDITO [facility], [address], [place] [address], [place], [address], 4 07:14:30 vitamin D, 25-hydroxy, total, serum 2023 024 ALFREDITO [facility], [address], [place] [address], [place], [address], 4 07:14:31 cobalamin and folate panel, serum 2023 024 AL[facility]EDITO [facility], [address], [place] [address], [place], [address], 4 07:14:29 HbA1c (hemoglobin A1c), blood 2023 024 AL[facility]EDITO [facility], [address], [place] [address], [place], [address], 4 08:23:04 CMP, serum or plasma 2023 024 AL[facility]EDITO [facility], [address], [place] [address], [place], [address], 4 08:23:01 CBC w/ auto diff 2023 024 ALFREDITO [facility], [address], [place] [address], [place], [address], 4 08:23:00 TSH + free T4, serum 2023 024 AL[facility]EDITO [facility], [address], [place] [address], [place], [address], 4 08:22:59 lipid panel, serum 2023 024 ALFREDITO [facility], [address], [place] [address], [place], [address], 4 08:23:02 vitamin D, 25-hydroxy, total, serum 2023 024 AL[facility]O [facility], [address], [place] [address], [place], [address], 4 08:23:05 vitamin B12 + folate, serum or blood 2023 024 AL[facility]EDITO [facility], [address], [place] [address], [place], [address], 4 08:23:03 Referral neurologist referral 2024 025 [email or web address] Neurology Updated, [address] [facility], [address] [facility], [place], [address], 5 08:38:07 pot maker referral 2023 024 ALFREDITO Louie DPM, [address] [place], [address], 4 12:29:32 Procedures None recorded. Surgeries None recorded. Imaging LDCT, chest, for lung cancer screening [email or web address] [place] [address], [address] [place] [address], [id number], 5 07:31:06 MRI, brain, w/wo contrast [address] (Scheduling), [address], [place], [address], 5 20:02:55 MRI, brain, w/o contrast - approved auth # [id number] good 12/09/24-[email or web address] [facility], [address] [facility] [place], [address], 5 01:02:17 MAMMO, screening, digital, bilateral 2023 024 ALFREDITO Ledbetter (Centralized Scheduling), [address] [place] [address] [place], [address], 5 08:31:02 LDCT, chest, for lung cancer screening - Pa is done and loaded in chart approved 2023 024 [facility] hospital, [address] [place] [address], [id number], 4 08:01:11 Medication Orders Symbicort 160 mcg-4.5 mcg/actuati on HFA aerosol inhaler 2024 025 ALFREDITO [facility], [address] [place] [address], [address], 5 10:28:24 atorvastati n 80 mg tablet 2024 025 [facility], [address] [place] [address], [address], 5 11:42:33 hydrochloro thiazide 25 mg tablet 2024 025 [facility], [address] [place] [address], [address], 5 11:42:34 isosorbide mononitrate ER 30 mg tablet,exte nded release 24 hr [address], [address], 5 11:42:34 lisinopril 20 mg tablet 2024 025 [facility], [address] [place] [address], [address], 5 14:37:16 pantoprazol e 40 mg tablet,mariusz yed release [address], [address], 5 11:42:32 fluticasone propionate 50 mcg/actuati on nasal spray,suspe nsion [address], [address], 5 11:42:35 meclizine 25 mg chewable tablet [address], [address], 5 10:44:14 cholecalcif janel (vitamin D3) 50 mcg (2,000 unit) capsule 2024 025 [facility], [address] [place] [address], [place], [address], 5 11:42:32 melatonin 10 mg tablet 2024 025 [facility], [address] [place] [address], [address], 5 11:42:35 mirtazapine 30 mg tablet 2024 025 [facility], [address] [place] [address], [address], 5 11:42:33 atorvastati n 80 mg tablet 2023 024 [facility], [address] [place] [address], [place], [address], 4 11:51:28 isosorbide mononitrate ER 30 mg tablet,exte nded release 24 hr [address], [place], [address], 4 11:51:29 hydrochloro thiazide 25 mg tablet [address], [place], [address], 4 11:51:25 lisinopril 20 mg tablet 2023 [email or web address], [place], [address], 5 09:59:57 pantoprazol e 40 mg tablet,mariusz yed release 2023 [facility], [address] [place] [address], [address], 4 11:51:28 fluticasone propionate 50 mcg/actuati on nasal spray,suspe nsion [address], [place], [address], 4 11:51:27 cholecalcif janel (vitamin D3) 50 mcg (2,000 unit) capsule [address], [address], 4 11:51:26 melatonin 10 mg tablet [address], [address], 4 11:51:25 mirtazapine 30 mg tablet [address], [address], 4 11:51:27 cholecalcif janel (vitamin D3) 50 mcg (2,000 unit) capsule [address], [address], 4 10:21:18 mirtazapine 30 mg tablet [address], [address], 4 10:21:18 Patient TargetsNo targets recorded. Patient Instructions Encounter Date Encounter Id Patient Instructions Last Modified By Organization Details Last Modified Time 04/28/2024 [id number] learning about healthy weight Not available 04/28/2024 10:31:40 body mass index: care instructions Not available 04/28/2024 10:31:41 learning about lung cancer screening Not available 04/28/2024 10:21:16 eating healthy foods: care instructions Not available 04/28/2024 10:31:14 smoking cessatio n counseling, greater than 3 minutes up to 10 minutes Not available 04/28/2024 10:21:16 walking for exercise: care instructions Not available 04/28/2024 10:31:14 10/27/2024 [id number] learning about healthy weight Not available 10/27/2024 11:52:20 body mass index: care instructions Not available 10/27/2024 11:52:20 04/28/2025 [id number] Well Visit, Ages 18 to 65: Care Instructions Not available 04/28/2025 10:28:22 eating healthy foods: care instructions Not available 04/28/2025 10:28:23 smoking cessatio n counseling, greater than 3 minutes up to 10 minutes Not available 04/28/2025 10:31:01 learning about healthy weight Not available 04/28/2025 10:29:06 body mass index: care instructions Not available 04/28/2025 10:29:06 walking for exercise: care instructions Not available 04/28/2025 10:28:22 learning about lung cancer screening Not available 04/28/2025 10:31:01 Reason for Referral Registered Nurse Ambulatory Referral for Abno rmality of nail of toe Referring Physician: Family Paige Medicine, Encounter Date: 04/28/2024 Neurologist Referral for His tory of cerebrovascular accident Referring Physician: Family Ian Gibson, Encounter Date: 11/27/2024 Results Created Date Observation Date Name Description Value Unit Range Abnormal Flag Note LastModifiedBy Organization Detail LastModifiedTime 04/28/20 24 04/29/2024 TSH+F REE T4 TSH 1.820 uIU/m L 0.450- 4.500 Not Available [facility] ([facility]) [address] [facility], [place], [address], 04/29/2024 08:22:59 04/28/20 24 04/29/2024 TSH+F REE T4 T4,free(dire ct) 1.32 NG/dL 0.82-1 .77 Not Available [facility] ([facility]) [address] [place], [address], 04/29/2024 08:22:59 04/28/20 24 04/29/2024 CBC WITH DIFFE RENTI AL/PL ATELE T WBC 5.3 x10e3 /uL 3.4-10 .8 Not Available [facility] ([facility]) [address] [place], [address], 04/29/2024 08:23:00 04/28/20 24 04/29/2024 CBC WITH DIFFE RENTI AL/PL ATELE T RBC 4.68 x10e6 /uL 3.77-5 .28 Not Available [facility] ([facility]) [address] [place], [address], 04/29/2024 08:23:00 04/28/20 24 04/29/2024 CBC WITH DIFFE RENTI AL/PL ATELE T hemoglobin 14.8 g/dL 11.1-1 5.9 Not Available [facility] ([facility]) [address] [place], [address], 04/29/2024 08:23:00 04/28/20 24 04/29/2024 CBC WITH DIFFE RENTI AL/PL ATELE T hematocrit 43.4 % 34.0-4 6.6 Not Available [facility] ([facility]) [address] [place], [address], 04/29/2024 08:23:00 04/28/20 24 04/29/2024 CBC WITH DIFFE RENTI AL/PL ATELE T MCV 93 fL 79-97 Not Available [facility] ([facility]) [address] [facility], [place], [address], 04/29/2024 08:23:00 04/28/20 24 04/29/2024 CBC WITH DIFFE RENTI AL/PL ATELE T MCH 31.6 pg 26.6-3 3.0 Not Available [facility] ([facility]) [address] [facility], [place], [address], 04/29/2024 08:23:00 04/28/20 24 04/29/2024 CBC WITH DIFFE RENTI AL/PL ATELE T MCHC 34.1 g/dL 31.5-3 5.7 Not Available [facility] ([facility]) [address] [facility], [place], [address], 04/29/2024 08:23:00 04/28/20 24 04/29/2024 CBC WITH DIFFE RENTI AL/PL ATELE T RDW 13.3 % 11.7-1 5.4 Not Available [facility] ([facility]) [address] [facility], [place], [address], 04/29/2024 08:23:00 04/28/20 24 04/29/2024 CBC WITH DIFFE RENTI AL/PL ATELE T platelets 221 x10e3 /uL 150-45 0 Not Available [facility] ([facility]) [address] [facility], [place], [address], 04/29/2024 08:23:00 04/28/20 24 04/29/2024 CBC WITH DIFFE RENTI AL/PL ATELE T neutrophils 67 % not estab. Not Available [facility] ([facility]) [address] [place], [address], 04/29/2024 08:23:00 04/28/20 24 04/29/2024 CBC WITH DIFFE RENTI AL/PL ATELE T lymphs 24 % not estab. Not Available [facility] ([facility]) [address] [place], [address], 04/29/2024 08:23:00 04/28/20 24 04/29/2024 CBC WITH DIFFE RENTI AL/PL ATELE T monocytes 6 % not estab. Not Available [facility] ([facility]) [address] [facility], [place], [address], 04/29/2024 08:23:00 04/28/20 24 04/29/2024 CBC WITH DIFFE RENTI AL/PL ATELE T eos 2 % not estab. Not Available [facility] ([facility]) [address] [facility], [place], [address], 04/29/2024 08:23:00 04/28/20 24 04/29/2024 CBC WITH DIFFE RENTI AL/PL ATELE T basos 1 % not estab. Not Available [facility] ([facility]) [address] [place], [address], 04/29/2024 08:23:00 04/28/20 24 04/29/2024 CBC WITH DIFFE RENTI AL/PL ATELE T immature cells HEALTH ADMINISTRATION TEACHER Not Available [facility] ([facility]) [address] [place], [address], 04/29/2024 08:23:00 04/28/20 24 04/29/2024 CBC WITH DIFFE RENTI AL/PL ATELE T neutrophils (absolute) 3.5 x10e3 /uL 1.4-7. 0 Not Available [facility] ([facility]) [address] [place], [address], 04/29/2024 08:23:00 04/28/20 24 04/29/2024 CBC WITH DIFFE RENTI AL/PL ATELE T lymphs (absolute) 1.3 x10e3 /uL 0.7-3. 1 Not Available [facility] ([facility]) [address] [facility], [place], [address], 04/29/2024 08:23:00 04/28/20 24 04/29/2024 CBC WITH DIFFE RENTI AL/PL ATELE T monocytes(ab solute) 0.3 x10e3 /uL 0.1-0. 9 Not Available [facility] ([facility]) [address] [facility], [place], [address], 04/29/2024 08:23:00 04/28/20 24 04/29/2024 CBC WITH DIFFE RENTI AL/PL ATELE T eos (absolute) 0.1 x10e3 /uL 0.0-0. 4 Not Available [facility] ([facility]) [address] [facility], [place], [address], 04/29/2024 08:23:00 04/28/20 24 04/29/2024 CBC WITH DIFFE RENTI AL/PL ATELE T baso (absolute) 0.1 x10e3 /uL 0.0-0. 2 Not Available [facility] ([facility]) [address] [facility], [place], [address], 04/29/2024 08:23:00 04/28/20 24 04/29/2024 CBC WITH DIFFE RENTI AL/PL ATELE T immature granulocytes 0 % not estab. Not Available [facility] ([facility]) [address] [facility], [place], [address], 04/29/2024 08:23:00 04/28/20 24 04/29/2024 CBC WITH DIFFE RENTI AL/PL ATELE T immature grans (abs) 0.0 x10e3 /uL 0.0-0. 1 Not Available [facility] ([facility]) [address] [facility], [place], [address], 04/29/2024 08:23:00 04/28/20 24 04/29/2024 CBC WITH DIFFE RENTI AL/PL ATELE T NRBC HEALTH ADMINISTRATION TEACHER Not Available [facility] ([facility]) [address] [facility], [place], [address], 04/29/2024 08:23:00 04/28/20 24 04/29/2024 CBC WITH DIFFE RENTI AL/PL ATELE T hematology comments: HEALTH ADMINISTRATION TEACHER Not Available [facility] ([facility]) [address] [facility], [place], [address], 04/29/2024 08:23:00 04/28/20 24 04/29/2024 COMP. METAB OLIC PANEL (14) glucose 110 mg/dL 70-99 above high normal Not Available [facility] ([facility]) [address] [facility], [place], [address], 04/29/2024 08:23:01 04/28/20 24 04/29/2024 COMP. METAB OLIC PANEL (14) BUN 20 mg/dL 8-27 Not Available [facility] ([facility]) [address] [facility] [place], [address], 04/29/2024 08:23:01 04/28/20 24 04/29/2024 COMP. METAB OLIC PANEL (14) creatinine 1.01 mg/dL 0.57-1 .00 above high normal Not Available [facility] ([facility]) [address] [facility], [place], [address], 04/29/2024 08:23:01 04/28/20 24 04/29/2024 COMP. METAB OLIC PANEL (14) eGFR 63 mL/mi n/1.7 3 >59 Not Available [facility] ([facility]) [address] [facility] [place], [address], 04/29/2024 08:23:01 04/28/20 24 04/29/2024 COMP. METAB OLIC PANEL (14) BUN/creatini ne ratio 20 12-28 Not Available [facility] ([facility]) [address], [place], [address], 04/29/2024 08:23:01 04/28/20 24 04/29/2024 COMP. METAB OLIC PANEL (14) sodium 137 mmol/ L 134-14 4 Not Available [facility] ([facility]) [address] [place], [address], 04/29/2024 08:23:01 04/28/20 24 04/29/2024 COMP. METAB OLIC PANEL (14) potassium 4.6 mmol/ L 3.5-5. 2 Not Available [facility] ([facility]) [address] [place], [address], 04/29/2024 08:23:01 04/28/20 24 04/29/2024 COMP. METAB OLIC PANEL (14) chloride 97 mmol/ L 96-106 Not Available [facility] ([facility]) [address] [place], [address], 04/29/2024 08:23:01 04/28/20 24 04/29/2024 COMP. METAB OLIC PANEL (14) carbon dioxide, total 25 mmol/ L 20-29 Not Available [facility] ([facility]) [address] [place], [address], 04/29/2024 08:23:01 04/28/20 24 04/29/2024 COMP. METAB OLIC PANEL (14) calcium 10.0 mg/dL 8.7-10 .3 Not Available [facility] ([facility]) [address] [place], [address], 04/29/2024 08:23:01 04/28/20 24 04/29/2024 COMP. METAB OLIC PANEL (14) protein, total 7.2 g/dL 6.0-8. 5 Not Available [facility] ([facility]) [address] [place], [address], 04/29/2024 08:23:01 04/28/20 24 04/29/2024 COMP. METAB OLIC PANEL (14) albumin 4.5 g/dL 3.9-4. 9 Not Available [facility] ([facility]) [address] [place], [address], 04/29/2024 08:23:01 04/28/20 24 04/29/2024 COMP. METAB OLIC PANEL (14) globulin, total 2.7 g/dL 1.5-4. 5 Not Available [facility] ([facility]) [address] [place], [address], 04/29/2024 08:23:01 04/28/20 24 04/29/2024 COMP. METAB OLIC PANEL (14) A/G ratio 1.7 Not Available [facility] ([facility]) [address] [facility] [place], [address], 04/29/2024 08:23:01 04/28/20 24 04/29/2024 COMP. METAB OLIC PANEL (14) bilirubin, total 0.4 mg/dL 0.0-1. 2 Not Available [facility] ([facility]) [address] [facility] [place], [address], 04/29/2024 08:23:01 04/28/20 24 04/29/2024 COMP. METAB OLIC PANEL (14) alkaline phosphatase 153 IU/L 44-121 above high normal Not Available [facility] ([facility]) [address] [facility] [place], [address], 04/29/2024 08:23:01 04/28/20 24 04/29/2024 COMP. METAB OLIC PANEL (14) AST (SGOT) 16 IU/L 0-40 Not Available [facility] ([facility]) [address] [facility] [place], [address], 04/29/2024 08:23:01 04/28/20 24 04/29/2024 COMP. METAB OLIC PANEL (14) ALT (SGPT) 20 IU/L 0-32 Not Available [facility] ([facility]) [address] [facility], [place], [address], 04/29/2024 08:23:01 04/28/20 24 04/29/2024 LIPID PANEL cholesterol, total 170 mg/dL 100-19 9 Not Available [facility] ([facility]) [address] [place], [address], 04/29/2024 08:23:02 04/28/20 24 04/29/2024 LIPID PANEL triglyceride s 194 mg/dL 0-149 above high normal Not Available [facility] ([facility]) [address] [place], [address], 04/29/2024 08:23:02 04/28/20 24 04/29/2024 LIPID PANEL HDL cholesterol 43 mg/dL >39 Not Available [facility] ([facility]) [address] [place], [address], 04/29/2024 08:23:02 04/28/20 24 04/29/2024 LIPID PANEL VLDL cholesterol mark 33 mg/dL 5-40 Not Available [facility] ([facility]) [address] [place], [address], 04/29/2024 08:23:02 04/28/20 24 04/29/2024 LIPID PANEL LDL chol calc ([facility]) 94 mg/dL 0-99 Not Available [facility] ([facility]) [address] [facility], [place], [address], 04/29/2024 08:23:02 04/28/20 24 04/29/2024 LIPID PANEL LDL calc comment: TNP Test not perfo rmed Not Available [facility] ([facility]) [address] [place], [address], 04/29/2024 08:23:02 04/28/20 24 04/29/2024 VITAM IN B12 AND FOLAT E vitamin B12 482 pg/mL 232-12 45 Not Available [facility] ([facility]) [address] [facility], [place], [address], 04/29/2024 08:23:03 04/28/20 24 04/29/2024 VITAM IN B12 AND FOLAT E folate (folic acid), serum 4.6 NG/mL >3.0 A serum folat e becky ntrat ion of less than 3.1 ng/mL is consi dered to repre sent clini mark defic iency . Not Available [facility] ([facility]) [address] [facility], [place], [address], 04/29/2024 08:23:03 04/28/20 24 04/29/2024 HEMOG LOBIN A1C hemoglobin A1C 6.2 % 4.8-5. 6 above high normal Predi abete s: 5.7 - 6.4 Diabe nigel: >6.4 Glyce judy contr ol for adult s with diabe nigel: <7.0 Not Available [facility] ([facility]) [address] [facility], [place], [address], 04/29/2024 08:23:04 04/28/20 24 04/29/2024 VITAM IN [...] Medic ine). 2010. Dieta ry refer ence caron es for calci um and D. Daniela brooks [place]: [employer] . 2. Ulises kaminski MF, Tahir camacho [place], Shakila off-F errar i JOE, et al. Evalu ation , treat ment, and preve ntion of vitam in D defic iency : an Endoc rine Socie ty clini mark pract ice guide line. JCEM. 2010; 96(7) :1911 -30. Not Available [facility] ([facility]) [address] [place], [address], 04/29/2024 08:23:05 10/27/20 24 10/28/2024 COMP. METAB OLIC PANEL (14) glucose 104 mg/dL 70-99 above high normal Not Available [facility] ([facility]) [address] [place], [address], 10/28/2024 07:14:27 10/27/20 24 10/28/2024 COMP. METAB OLIC PANEL (14) BUN 15 mg/dL 8-27 normal Not Available [facility] ([facility]) [address] [facility], [place], [address], 10/28/2024 07:14:27 10/27/20 24 10/28/2024 COMP. METAB OLIC PANEL (14) creatinine 0.72 mg/dL 0.57-1 .00 normal Not Available [facility] ([facility]) [address] [place], [address], 10/28/2024 07:14:27 10/27/20 24 10/28/2024 COMP. METAB OLIC PANEL (14) eGFR 93 mL/mi n/1.7 3 >59 normal Not Available [facility] ([facility]) [address] [place], [address], 10/28/2024 07:14:27 10/27/20 24 10/28/2024 COMP. METAB OLIC PANEL (14) BUN/creatini ne ratio 21 12-28 normal Not Available [facility] ([facility]) [address] [place], [address], 10/28/2024 07:14:27 10/27/20 24 10/28/2024 COMP. METAB OLIC PANEL (14) sodium 140 mmol/ L 134-14 4 normal Not Available [facility] ([facility]) [address] [facility] [place], [address], 10/28/2024 07:14:27 10/27/20 24 10/28/2024 COMP. METAB OLIC PANEL (14) potassium 4.0 mmol/ L 3.5-5. 2 normal Not Available [facility] ([facility]) [address] [facility] [place], [address], 10/28/2024 07:14:27 10/27/20 24 10/28/2024 COMP. METAB OLIC PANEL (14) chloride 103 mmol/ L 96-106 normal Not Available [facility] ([facility]) [address] [facility] [place], [address], 10/28/2024 07:14:27 10/27/20 24 10/28/2024 COMP. METAB OLIC PANEL (14) carbon dioxide, total 23 mmol/ L 20-29 normal Not Available [facility] ([facility]) [address] [facility] [place], [address], 10/28/2024 07:14:27 10/27/20 24 10/28/2024 COMP. METAB OLIC PANEL (14) calcium 8.9 mg/dL 8.7-10 .3 normal Not Available [facility] ([facility]) [address] [facility] [place], [address], 10/28/2024 07:14:27 10/27/20 24 10/28/2024 COMP. METAB OLIC PANEL (14) protein, total 6.6 g/dL 6.0-8. 5 normal Not Available [facility] ([facility]) [address] [facility] [place], [address], 10/28/2024 07:14:27 10/27/20 24 10/28/2024 COMP. METAB OLIC PANEL (14) albumin 4.0 g/dL 3.9-4. 9 normal Not Available [facility] ([facility]) [address] [facility] [place], [address], 10/28/2024 07:14:27 10/27/20 24 10/28/2024 COMP. METAB OLIC PANEL (14) globulin, total 2.6 g/dL 1.5-4. 5 Not Available [facility] ([facility]) [address] [facility] [place], [address], 10/28/2024 07:14:27 10/27/20 24 10/28/2024 COMP. METAB OLIC PANEL (14) bilirubin, total 0.5 mg/dL 0.0-1. 2 normal Not Available [facility] ([facility]) [address] [facility] [place], [address], 10/28/2024 07:14:27 10/27/20 24 10/28/2024 COMP. METAB OLIC PANEL (14) alkaline phosphatase 152 IU/L 44-121 above high normal Not Available [facility] ([facility]) [address] [facility] [place], [address], 10/28/2024 07:14:27 10/27/20 24 10/28/2024 COMP. METAB OLIC PANEL (14) AST (SGOT) 16 IU/L 0-40 normal Not Available [facility] ([facility]) [address] [facility] [place], [address], 10/28/2024 07:14:27 10/27/20 24 10/28/2024 COMP. METAB OLIC PANEL (14) ALT (SGPT) 19 IU/L 0-32 normal Not Available [facility] ([facility]) [address] [facility] [place], [address], 10/28/2024 07:14:27 10/27/20 24 10/28/2024 LIPID PANEL cholesterol, total 156 mg/dL 100-19 9 normal Not Available [facility] ([facility]) [address] [facility], [place], [address], 10/28/2024 07:14:28 10/27/20 24 10/28/2024 LIPID PANEL triglyceride s 160 mg/dL 0-149 above high normal Not Available [facility] ([facility]) [address] [facility], [place], [address], 10/28/2024 07:14:28 10/27/20 24 10/28/2024 LIPID PANEL HDL cholesterol 42 mg/dL >39 normal Not Available [facility] ([facility]) [address] [facility], [place], [address], 10/28/2024 07:14:28 10/27/20 24 10/28/2024 LIPID PANEL VLDL cholesterol mark 28 mg/dL 5-40 Not Available [facility] ([facility]) [address] [facility], [place], [address], 10/28/2024 07:14:28 10/27/20 24 10/28/2024 LIPID PANEL LDL chol calc ([facility]) 86 mg/dL 0-99 Not Available [facility] ([facility]) [address] [facility], [place], [address], 10/28/2024 07:14:28 10/27/20 24 10/28/2024 LIPID PANEL LDL calc comment: HEALTH ADMINISTRATION TEACHER Not Available [facility] ([facility]) [address] [facility], [place], [address], 10/28/2024 07:14:28 10/27/20 24 10/28/2024 VITAM IN B12 AND FOLAT E vitamin B12 399 pg/mL 232-12 45 normal Not Available [facility] ([facility]) [address] [facility], [place], [address], 10/28/2024 07:14:29 10/27/20 24 10/28/2024 VITAM IN B12 AND FOLAT E folate (folic acid), serum 6.5 NG/mL >3.0 normal A serum folat e becky ntrat ion of less than 3.1 ng/mL is consi dered to repre sent clini mark defic iency . Not Available [facility] ([facility]) [address] [facility], [place], [address], 10/28/2024 07:14:29 10/27/20 24 10/28/2024 HEMOG LOBIN A1C hemoglobin A1C 6.3 % 4.8-5. 6 above high normal Predi abete s: 5.7 - 6.4 Diabe nigel: >6.4 Glyce judy contr ol for adult s with diabe nigel: <7.0 Not Available [facility] ([facility]) [address] [facility], [place], [address], 10/28/2024 07:14:30 10/27/20 24 10/28/2024 VITAM IN [...] Endoc rine Socie ty went on to [facility] defin e vitam in D insuf ficie ncy as a level betwe en 21 and 29 ng/mL (2). 1. IOM (Inst itute of Medic ine). 2009. Dieta ry refer ence intak es for calci um and D. Daniela brooks DC: The Natio nal [facility] Press . 2. Ulises kaminski MF, Tahir camacho NC, Shakila off-F arlene i JOE, et al. Evalu ation , treat ment, and preve ntion of vitam in D defic iency : an Endoc rine Socie ty clini mark pract ice guide line. JCEM. 2010; 96(7) :1911 -30. Not Available [facility] ([facility]) [address] [place], [address], 10/28/2024 07:14:31 03/24/2003/25/2025 TSH+F REE T4 TSH 1.800 uIU/m L 0.450- 4.500 normal Not Available [facility] ([facility]) [address] [place], [address], 03/25/2025 09:07:02 03/24/2003/25/2025 TSH+F REE T4 T4,free(dire ct) 1.28 NG/dL 0.82-1 .77 normal Not Available [facility] ([facility]) [address] [place], [address], 03/25/2025 09:07:02 03/24/20 25 03/25/2025 CBC WITH DIFFE RENTI AL/PL ATELE T WBC 5.5 x10e3 /uL 3.4-10 .8 normal Not Available [facility] ([facility]) [address] [place], [address], 03/25/2025 09:07:03 03/24/2003/25/2025 CBC WITH DIFFE RENTI AL/PL ATELE T RBC 4.51 x10e6 /uL 3.77-5 .28 normal Not Available [facility] ([facility]) [address] [place], [address], 03/25/2025 09:07:03 03/24/2003/25/2025 CBC WITH DIFFE RENTI AL/PL ATELE T hemoglobin 14.4 g/dL 11.1-1 5.9 normal Not Available [facility] ([facility]) [address] [place], [address], 03/25/2025 09:07:03 03/24/20 25 03/25/2025 CBC WITH DIFFE RENTI AL/PL ATELE T hematocrit 42.3 % 34.0-4 6.6 normal Not Available [facility] ([facility]) [address] [facility], [place], [address], 03/25/2025 09:07:03 03/24/2003/25/2025 CBC WITH DIFFE RENTI AL/PL ATELE T MCV 94 fL 79-97 normal Not Available [facility] ([facility]) [address] [facility], [place], [address], 03/25/2025 09:07:03 03/24/20 25 03/25/2025 CBC WITH DIFFE RENTI AL/PL ATELE T MCH 31.9 pg 26.6-3 3.0 normal Not Available [facility] ([facility]) [address] [facility], [place], [address], 03/25/2025 09:07:03 03/24/20 25 03/25/2025 CBC WITH DIFFE RENTI AL/PL ATELE T MCHC 34.0 g/dL 31.5-3 5.7 normal Not Available [facility] ([facility]) [address] [facility], [place], [address], 03/25/2025 09:07:03 03/24/20 25 03/25/2025 CBC WITH DIFFE RENTI AL/PL ATELE T RDW 13.4 % 11.7-1 5.4 Not Available [facility] ([facility]) [address] [place], [address], 03/25/2025 09:07:03 03/24/2003/25/2025 CBC WITH DIFFE RENTI AL/PL ATELE T platelets 234 x10e3 /uL 150-45 0 normal Not Available [facility] ([facility]) [address] [facility], [place], [address], 03/25/2025 09:07:03 03/24/20 25 03/25/2025 CBC WITH DIFFE RENTI AL/PL ATELE T neutrophils 62 % not estab. normal Not Available [facility] ([facility]) [address] [facility], [place], [address], 03/25/2025 09:07:03 03/24/20 25 03/25/2025 CBC WITH DIFFE RENTI AL/PL ATELE T lymphs 28 % not estab. normal Not Available [facility] ([facility]) [address] [facility], [place], [address], 03/25/2025 09:07:03 03/24/20 25 03/25/2025 CBC WITH DIFFE RENTI AL/PL ATELE T monocytes 7 % not estab. normal Not Available [facility] ([facility]) [address] [facility], [place], [address], 03/25/2025 09:07:03 03/24/20 25 03/25/2025 CBC WITH DIFFE RENTI AL/PL ATELE T eos 2 % not estab. normal Not Available [facility] ([facility]) [address] [facility], [place], [address], 03/25/2025 09:07:03 03/24/20 25 03/25/2025 CBC WITH DIFFE RENTI AL/PL ATELE T basos 1 % not estab. 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 0 normal Not Available [facility] ([facility]) [address] [place], [address], 03/25/2025 09:07:03 03/24/20 25 03/25/2025 CBC WITH DIFFE RENTI AL/PL ATELE T lymphs (absolute) 1.5 x10e3 /uL 0.7-3. 1 normal Not Available [facility] ([facility]) [address] [facility], [place], [address], 03/25/2025 09:07:03 03/24/20 25 03/25/2025 CBC WITH DIFFE RENTI AL/PL ATELE T monocytes(ab solute) 0.4 x10e3 /uL 0.1-0. 9 normal Not Available [facility] ([facility]) [address] [facility], [place], [address], 03/25/2025 09:07:03 03/24/20 25 03/25/2025 CBC WITH DIFFE RENTI AL/PL ATELE T eos (absolute) 0.1 x10e3 /uL 0.0-0. 4 normal Not Available [facility] ([facility]) [address] [facility], [place], [address], 03/25/2025 09:07:03 03/24/2003/25/2025 CBC WITH DIFFE RENTI AL/PL ATELE T baso (absolute) 0.1 x10e3 /uL 0.0-0. 2 normal Not Available [facility] ([facility]) [address] [facility], [place], [address], 03/25/2025 09:07:03 03/24/2003/25/2025 CBC WITH DIFFE RENTI AL/PL ATELE T immature granulocytes 0 % not estab. Not Available [facility] ([facility]) [address] [facility], [place], [address], 03/25/2025 09:07:03 03/24/20 25 03/25/2025 CBC WITH DIFFE RENTI AL/PL ATELE T immature grans (abs) 0.0 x10e3 /uL 0.0-0. 1 Not Available [facility] ([facility]) [address], [place], [address], 03/25/2025 09:07:03 03/24/20 25 03/25/2025 CBC WITH DIFFE RENTI AL/PL ATELE T NRBC HEALTH ADMINISTRATION TEACHER Not Available [facility] ([facility]) [address], [place], [address], 03/25/2025 09:07:03 03/24/20 25 03/25/2025 CBC WITH DIFFE RENTI AL/PL ATELE T hematology comments: HEALTH ADMINISTRATION TEACHER Not Available [facility] ([facility]) [address], [place], [address], 03/25/2025 09:07:03 03/24/20 25 03/25/2025 COMP. METAB OLIC PANEL (14) glucose 100 mg/dL 70-99 above high normal Not Available [facility] ([facility]) [address], [place], [address], 03/25/2025 09:07:04 03/24/20 25 03/25/2025 COMP. METAB OLIC PANEL (14) BUN 14 mg/dL 8-27 normal Not Available [facility] ([facility]) [address] [place], [address], 03/25/2025 09:07:04 03/24/20 25 03/25/2025 COMP. METAB OLIC PANEL (14) creatinine 0.87 mg/dL 0.57-1 .00 normal Not Available [facility] ([facility]) [address] [place], [address], 03/25/2025 09:07:04 03/24/20 25 03/25/2025 COMP. METAB OLIC PANEL (14) eGFR 74 mL/mi n/1.7 3 >59 normal Not Available [facility] ([facility]) [address] [place], [address], 03/25/2025 09:07:04 03/24/20 25 03/25/2025 COMP. METAB OLIC PANEL (14) BUN/creatini ne ratio 16 12-28 normal Not Available [facility] ([facility]) [address] [facility] [place], [address], 03/25/2025 09:07:04 03/24/20 25 03/25/2025 COMP. METAB OLIC PANEL (14) sodium 137 mmol/ L 134-14 4 normal Not Available [facility] ([facility]) [address] [facility] [place], [address], 03/25/2025 09:07:04 03/24/20 25 03/25/2025 COMP. METAB OLIC PANEL (14) potassium 4.5 mmol/ L 3.5-5. 2 normal Not Available [facility] ([facility]) [address] [facility] [place], [address], 03/25/2025 09:07:04 03/24/20 25 03/25/2025 COMP. METAB OLIC PANEL (14) chloride 101 mmol/ L 96-106 normal Not Available [facility] ([facility]) [address] [facility] [place], [address], 03/25/2025 09:07:04 03/24/20 25 03/25/2025 COMP. METAB OLIC PANEL (14) carbon dioxide, total 22 mmol/ L 20-29 normal Not Available [facility] ([facility]) [address] [facility] [place], [address], 03/25/2025 09:07:04 03/24/20 25 03/25/2025 COMP. METAB OLIC PANEL (14) calcium 9.2 mg/dL 8.7-10 .3 normal Not Available [facility] ([facility]) [address] [facility] [place], [address], 03/25/2025 09:07:04 03/24/20 25 03/25/2025 COMP. METAB OLIC PANEL (14) protein, total 6.9 g/dL 6.0-8. 5 normal Not Available [facility] ([facility]) [address] [facility] [place], [address], 03/25/2025 09:07:04 03/24/20 25 03/25/2025 COMP. METAB OLIC PANEL (14) albumin 4.4 g/dL 3.9-4. 9 normal Not Available [facility] ([facility]) [address] [facility] [place], [address], 03/25/2025 09:07:04 03/24/20 25 03/25/2025 COMP. METAB OLIC PANEL (14) globulin, total 2.5 g/dL 1.5-4. 5 Not Available [facility] ([facility]) [address] [facility] [place], [address], 03/25/2025 09:07:04 03/24/20 25 03/25/2025 COMP. METAB OLIC PANEL (14) bilirubin, total 0.5 mg/dL 0.0-1. 2 normal Not Available [facility] ([facility]) [address] [facility] [place], [address], 03/25/2025 09:07:04 03/24/20 25 03/25/2025 COMP. METAB OLIC PANEL (14) alkaline phosphatase 154 IU/L 44-121 above high normal Not Available [facility] ([facility]) [address] [facility] [place], [address], 03/25/2025 09:07:04 03/24/20 25 03/25/2025 COMP. METAB OLIC PANEL (14) AST (SGOT) 17 IU/L 0-40 normal Not Available [facility] ([facility]) [address] [facility] [place], [address], 03/25/2025 09:07:04 03/24/20 25 03/25/2025 COMP. METAB OLIC PANEL (14) ALT (SGPT) 22 IU/L 0-32 normal Not Available [facility] ([facility]) [address] [facility] [place], [address], 03/25/2025 09:07:04 03/24/20 25 03/25/2025 LIPID PANEL cholesterol, total 156 mg/dL 100-19 9 normal Not Available [facility] ([facility]) [address] [facility] [place], [address], 03/25/2025 09:07:05 03/24/20 25 03/25/2025 LIPID PANEL triglyceride s 182 mg/dL 0-149 above high normal Not Available [facility] ([facility]) [address] [facility] [place], [address], 03/25/2025 09:07:05 03/24/20 25 03/25/2025 LIPID PANEL HDL cholesterol 41 mg/dL >39 normal Not Available [facility] ([facility]) [address] [place], [address], 03/25/2025 09:07:05 03/24/20 25 03/25/2025 LIPID PANEL VLDL cholesterol mark 31 mg/dL 5-40 Not Available [facility] ([facility]) [address] [place], [address], 03/25/2025 09:07:05 03/24/20 25 03/25/2025 LIPID PANEL LDL chol calc ([facility]) 84 mg/dL 0-99 Not Available [facility] ([facility]) [address] [place], [address], 03/25/2025 09:07:05 03/24/20 25 03/25/2025 LIPID PANEL LDL calc comment: 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 Not Available [facility] ([facility]) [address] [facility], [place], [address], 03/25/2025 09:07:06 03/24/2003/25/2025 HEMOG LOBIN A1C hemoglobin A1C 6.2 % 4.8-5. 6 above high normal Predi abete s: 5.7 - 6.4 Diabe nigel: >6.4 Glyce judy contr ol for adult s with diabe nigel: <7.0 Not Available [facility] ([facility]) [address] [facility], [place], [address], 03/25/2025 09:07:07 03/24/20 25 03/25/2025 VITAM IN [...] um and D. Daniela brooks DC: The Natio formerly [facility] [facility] . 2. Ulises MARTEL, Tahir camacho [place], Shakila off-F errar i JOE, et al. Evalu ation , treat ment, and preve ntion of vitam in D defic iency : an Endoc rine Socie ty clini mark pract ice guide line. JCEM. 2010; 96(7) :1911 -30. Not Available [facility] ([facility]) [address], [place], [address], 03/25/2025 09:07:08 05/14/20 24 LDCT, chest , for lung cance r scree gume No observ ation record ed. [email or web address] [facility] [address] [facility], [place], [address], 05/26/2024 17:00:55 12/12/19 25 12/11/2024 MAMMO , scree gume, digit al, bilat eral No observ ation record ed. [email or web address], [place], [address], 12/16/2024 15:33:28 12/12/19 25 12/12/2024 - scn dig breas t tomos yn nicki [facility] Name: ANTON LEDBETTER [address] [place], [place] [address]a [facility] Phys: Iveth lima APRN, [place] [address] : 1959 Age: 64 Sex: F Acct: [id number] Loc: G.MAMM PHONE #: [phone] Exam Date: 2024 Status : DEP CLI FAX #: Rad# [id number] Unit# [id number] Admit Date: 2024 EXAMS: CPT CODE: [id number] SCN DIG BREAST TOMOSY N NICKI 33369 BILATE RAL DIGITA L SCREEN ING MAMMOG [...] basis by the attend ing clinic amanda. -Breas t imagin g as a false negati ve [...] do not hesita te to call for clarif icatio n when necess vijaya. PAGE 1 Signed Report (MARY NUED) [facility] Name: ANTON LEDBETTER [employer] Phys: Iveth lima APRN, [place] [address] : 1959 Age: 64 Sex: F Acct: [id number] Loc: G.MAMM PHONE #: [phone] Exam Date: 2024 Status : DEP CLI FAX #: [phone] Rad# [id number] Unit# [id number] Admit Date: 2024 EXAMS: CPT CODE: [id number] SCN DIG BREAST TOMOSY N NICKI 06313 Electr onical ly Signed by Perla Small on 2024 at 0827 Report ed and signed by: DEB Small M.D. CC: Alliso n Landre th [employer] Dictat ed Date/T ezekiel: 2024 (826) Techno logist : TATIANNA BECKET T Transc ribed Date/T ezekiel: 2024 (826) Transc riptio nist: DR.HAR MIKALA Duckworth onic Signat ure Date/T ezekiel: 2024 (826) Printe d Date/T ezekiel: 2024 (828) BATCH NO: N/A PAGE 2 Signed Report CC'ed Logic: Orderi ng Provid er: LANDRE TH ALLISO N Attend ing Provid er: LANDRE TH ALLISO N Referr ing Provid er: LANDRE TH ALLISO N Consul ting Provid er: LANDRE TH ALLISO N [email or web address] , [place], [address], 12/17/2024 09:43:49 03/26/20 25 03/25/2025 imagi ng/di agnos tic resul t No observ ation record ed. [address], [place], [address], 03/26/2025 14:48:22 03/26/20 25 03/25/2025 imagi ng/di agnos tic resul t No observ ation record ed. [address], [place], [address], 03/26/2025 14:48:16 04/04/20 25 03/25/2025 stres s echoc ardio gram No observ ation record ed. [email or web address], [place], [address], 04/08/2025 12:25:16 04/06/20 25 04/06/2025 MRI, brain , w/o contr ast No observ ation record ed. [address], [place], [address], 04/07/2025 15:41:59 05/11/20 25 04/27/2025 MRI, heart funct ion and morph ology , w/wo contr ast No observ ation record ed. [address], [place], [address], 05/12/2025 14:04:08 Result Notes Documentation Provider Name and Address Organization Details Recorded Time Mammo, Screening, Digital, Bilateral : Mammogram Mammogram Context: mammogram date: (12/11/24) Right: normal Left: normal Conclusion: Conclusions: Bi-Rads 1 - Negative Debra Jackson, BINA [address], [place], [address], [place] - [facility] 12/16/2024 15:33:28 Problems Name Problem SNOMED Code Status Onset Date Resolution Date Notes Provider Name and Address Organization Details Recorded Time Hyperlipi demia 19886316 Active 2016 Layla stinson, [place] - [facility] 3 08:37:12 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 70854893 Active Laurence Vásquez MD [address], [place], [address], [place] - [facility] 2 12:20:06 Preinfarc tion syndrome 9484100 Active Laurence Vásquez MD [address], [place], [address], [place] [facility] 2 12:20:06 Urinary tract infectiou s disease 66485577 Active Laurence Vásquez MD [address], [place], [address], [place] [facility] 2 12:20:06 Herniated urinary bladder 011187769 Active Laurence Vásquez MD [address], [place], [address], [place] [facility] 2 12:20:06 Vaginal hematoma 35278650 Completed 05/07/2019 Laurence Vásquez MD [address], [place], [address], [place] [facility] 2 12:20:06 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 20205543 Active Laurence Vásquez MD [address], [place], [address], [place] [facility] 2 12:20:06 Vaginal bleeding 938135273 Completed 05/07/2019 Laurence Vásquze MD [address], [place], [address], [place] [facility] 2 12:20:06 History of cardiac catheteri zation 166403697836 00 Active Laurence Vásquez MD [address], [place], [address], [place] [facility] 2 12:20:06 Urinary incontine nce 450467694 Active Laurence Vásquez MD [address], [place], [address], [place] [facility] 2 12:20:06 Disorder of coronary artery 607039840 Active 2017 Layla Hawthorne null, [place] - [facility] 3 08:37:12 Gastroeso phageal reflux disease 397814101 Active Layla Hawthorne [place], [place] - [facility] 3 08:37:12 Hypertens nicky disorder 66570761 Active Layla Dummitt null, [place] - [facility] 3 08:37:12 Vaginal hematoma 60015480 Active Laurence Vásquez MD [address], [place], [address], [place] [facility] 2 12:20:06 Vaginal bleeding 919299708 Active Laurence Vásquez MD [address], [place], [address], [place] [facility] 2 12:20:06 Vitamin D deficienc y 75906494 Active 2019 Layla Hawthorne null, [place] - [facility] 3 08:37:12 Mammogram declined 437906597 Active 2020 Layla Hawthorne null, [place] - [facility] 3 08:37:12 Prediabet es 744164112 Active 2020 Layla Hawthorne null, [place] - [facility] 3 08:37:12 Diastolic heart failure 315986851 Active 2020 Layla Hawthorne null, [place] - [facility] 3 08:37:12 Influenza vaccinati on declined 441328198 Active 2020 Layla Hawthorne null, [place] - [facility] 3 08:37:12 Gastroeso phageal reflux disease without esophagit is 777367146 Active 2020 Layla Hawthorne null, [place] - [facility] 3 08:37:12 Disorder of vitamin B12 036514207 Active 2021 Layla Hawthorne [place] - [facility] 3 08:37:12 Mixed hyperlipi demia 604422175 Active 2021 Layla Hawthorne [place] - [facility] 3 08:37:12 History of polyp of colon 009570505 Active 2021 Layla Hawthorne [place] - [facility] 3 08:37:12 Screening for malignant neoplasm of colon Active 2021 Layla Hawthorne [place] - [facility] 3 08:37:12 Internal hemorrhoi ds 76033262 Active 2022 Layla Hawthorne [place] - [facility] 3 08:37:12 Diverticu losis of colon 124208508 Active 2022 Layla Hawthorne [place] - [facility] 3 08:37:12 Heart disease 91846902 Active Layla Hawthorne [place] - [facility] 3 08:37:12 Postmenop ausal state 55826670 Active Layla Hawthorne [place] - [facility] 3 08:37:12 Vitamin deficienc y 73997959 Active Layla Hawthorne [place] - [facility] 3 08:37:12 Persisten t insomnia 236753516 Active 2023 Debra Jackson, [employer] [address], [place], [address], [place] [facility] 4 10:20:01 History of cerebrova scular accident 547285640 Active 2024 Debra Jackson, [employer] [address], [place], [address], [place] [facility] 5 11:04:04 Tinnitus of left ear 954076964260 6 Active 2024 Debra Jackson, [employer] [address], [place], [address], [place] - [facility] 5 11:35:22 Problem Notes None recorded. Procedures Surgical History Date Name Laterality Status Provider Name and Address Organization Details Recorded Time 023 Date of Last Colonoscopy completed Jennifer Iverson [place] - [facility] 08/15/2023 13:42:39 019 Colonoscopy completed Renetta Wiggins [place] - [facility] 08/18/2019 10:34:42 018 Cardiac [...] Name and Address Organization Details Recorded Time 21507 Lipitor medicatio n arthralgi a (joint pain) Not available Not available 06/25/2017 [address]67 5 RxNorm Renetta Kenyonp null, [place] - [facility] 7 13:14:17 Medications Name [...] daily transderm al patch 08/28 completed DIDN'T [employer] Not Available Not Available Not Available nitroglyc joey 400 mcg/spray transling ual aerosol 1 SPRAY UNDER TONGUE AT FIRST SIGN OF AN ATTACK/N O MORE THAN 3 SPRAYS IN 15 MINUTES 04/[address] 1 spray by translin gual route [...] DAY BY ORAL ROUTE FOR 90 DAYS. 04/28 completed cardiolo gist Not Available Not Available Not Available isosorbid e mononitra te ER 30 [...] ser: suzie peterson;Est. Completi on: 06/17/20 16;Pharm acyVerif ied: 06/07/20 [...] Disconti nued on: 12/18/19 13 2:44PM;U ser: patricia Sagastumeti on: Skin Rash - ([phone]);Prin juhi: [...] Disconti nued on: 05/31/20 11 2:38PM;U ser: [facility];P rinted: 05/25/20 10 Not Available Not Available [...] Disconti nued on: 06/07/20 16 8:54AM;U ser: [email or web address]; Est. Completi on: 12/25/19 16;Indic ation: Urinary Urge Incontin ence - ([phone] 10);Phar Veronaeri fied: 10/26/20 15 10:49AM Not Available Not [...] hr TAKE ONE (1) TABLET BY MOUTH ONCE DAILY active Not Available Not Available No t Available albuterol 90 mcg/actua tion aerosol inhaler 08/14 completed Not Available Not Available Not Available Nasonex 50 mcg/actua tion [facility] 2 sprays every day by intranas al [...] THREE (3) TIMES A DAY BY MOUTH 04/28 completed Not Available Not Available Not Available Fiber-Lax 625 mg tablet TAKE ONE [...] Disconti nued on: 05/25/20 10 1:35PM;U ser: [facility];E st. Completi on: 10/17/20 09;Print ed: 10/22/20 [...] completed Not Available Not Available Not Available budesonid e-formote rol HFA 160 mcg-4.5 mcg/actua tion aerosol inhaler INHALE TWO (2) PUFFS TWICE A DAY BY INHALATI ON ROUTE. active Not Available Not Available No t Available peg 3350-elec trolytes 236 gram-22.7 4 [...] 2 tablets every day by oral route. 04/28 completed cardiolo gist stopped Not Available Not Available Not Available Chantix Starting Month Box 0.5 mg [...] TAKE 1 CAPSULE BY MOUTH AT BEDTIME 04/28 completed Not Available Not Available Not Available Nurtec ODT 75 mg disintegr ating [...] Updated DateTime 5 175.26 cm 32.5 kg/m2 65788.3 2 g 82 /min 98 % 98 % 16 /min 142 mm[Hg] 76 mm[Hg] [facility] 10:58:58 Date Recorded Body height Body mass index (BMI) Body weight Heart rate Oxygen saturation Oxygen saturation in Arterial blood by Pulse oximetry Respiratory rate Systolic blood pressure Diastolic blood pressure Provider Name and Address Organization Details Last Updated DateTime 5 175.26 cm 32.8 kg/m2 009254. 51 g 82 /min 95 % 95 % 18 /min 136 mm[Hg] 78 mm[Hg] [facility] 5 11:29:28 Date Recorded Body height Body mass index (BMI) Body weight Body temperature Heart rate Oxygen saturation Oxygen saturation in Arterial blood by Pulse oximetry Respiratory rate Provider Name and Address Organization Details Last Updated DateTime 4 175.26 cm 31.6 kg/m2 13115.7 7 g 98.1 [degF] 76 /min 93 % 93 % 20 /min Vonnie Luke [place] - [facility] 4 10:07:17 Date Recorded Body height Body mass index (BMI) Body weight Heart rate Oxygen saturation Oxygen saturation in Arterial blood by Pulse oximetry Respiratory rate Systolic blood pressure Diastolic blood pressure Provider Name and Address Organization Details Last Updated DateTime 5 175.26 cm 33.4 kg/m2 006520. 88 g 80 /min 95 % 95 % 18 /min 164 mm[Hg] 90 mm[Hg] Jaci FONG - [facility] 5 10:07:49 Date Recorded Body height Body mass index (BMI) Body weight Heart rate Oxygen saturation Oxygen saturation in Arterial blood by Pulse oximetry Respiratory rate Systolic blood pressure Diastolic blood pressure Provider Name and Address Organization Details Last Updated DateTime 4 175.26 cm 32 kg/m2 23426.5 4 g 80 /min 96 % 96 % 18 /min 144 mm[Hg] 80 mm[Hg] Jaci FONG - [facility] 4 11:35:17 Social History Question Answer Notes LastModified by Organizat ion Details LastModified Time Tobacco Smoking Status Current Every Day Smoker Beatriz stinson [facility] 10/05/2016 11:02:47 Do You Have An Advance Directive? No [email or web address] Information not available 10/05/2016 Are You Blind Or Do You Have Difficulty Seeing? No [email or web address] Information not available 10/05/2016 Is Blood Transfusion Acceptable In An Emergency? Yes [email or web address] Information not available 10/05/2016 What Is Your Level Of Caffeine Consumption? Occasional [email or web address] Information not available 10/05/2016 How Much Tobacco Do You Chew? None [email or web address] Information not available 10/05/2016 Are You Deaf Or Do You Have Serious Difficulty Hearing? No [email or web address] Information not available 10/05/2016 What Type Of Diet Are You Following? REGULAR [email or web address] Information not available 10/05/2016 Which Illicit Or Recreational Drugs Have You Used? None [email or web address] Information not available 10/05/2016 How Many Days Of Moderate To Strenuous Exercise, Like A Brisk Walk, Did You Do In The Last 7 Days? 1 Information not available 05/07/2019 On Those Days That You Engage In Moderate To Strenuous Exercise, How Many Minutes, On Average, Do You Exercise? 1 [email or web address] Information not available 05/07/2019 How Hard Is It For You To Pay For The Very Basics Like Food, Housing, Medical Care, And Heating? 1 [email or web address] Information not available 05/07/2019 Live Alone Or With Others? 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 04/28/2025 [email or web address] Information not available 04/28/2025 How Many Children Do You Have? 3 Information not available 12/21/2016 Performs Monthly Self-breast Exam? Yes [email or web address] Information no t available 10/05/2016 What Is Your Relationship Status? [email or web address] Information not available 10/05/2016 Seat Belts Used Routinely Yes [email or web address] Information not available 10/05/2016 Are You Sexually Active? Yes [email or web address] Information not available 10/05/2016 How Much Tobacco Do You Smoke? 0.5 PPD Information not available 12/21/2016 General Stress Level Medium [email or web address] Information not available 10/05/2016 Do You Use Sunscreen Routinely? Yes [email or web address] Information not available 10/05/2016 Has Tobacco Cessation Counseling Been Provided? Yes Information not available 04/28/2024 On What Date Was Tobacco Cessation Counseling Provided? 04/28/2024 Information not available 04/28/2024 Do You Have Difficulty Walking Or Climbing Stairs? No [email or web address] Information not available 10/05/2016 Sex: Female Functional Status Question Answer Note LastModified by Organizat ion Details LastModified Time Do you use any illicit or recreational drugs? No Information not available 04/28/2024 What is your level of alcohol consumption? None [email or web address] Information not available 10/05/2016 Are you currently employed? No Information not available 12/21/2016 Do you have transportation difficulties? No Information not available 04/28/2024 Are you able to walk? YESWOREST [email or web address] Information not available 05/07/2019 Do you have difficulty doing errands alone? No Information not available 04/28/2024 Are you able to care for yourself? Yes Information not available 12/21/2016 Do you have difficulty dressing or bathing? No [email or web address] Information not available 10/05/2016 What is your exercise level? None [email or web address] Information not available 10/05/2016 Mental Status Question Answer Note LastModified by Organization D etails LastModified Time Do you feel stressed (tense, restless, nervous, or anxious, or unable to sleep at night)? 1 Information not available 05/07/2019 Do you have difficulty concentrating, remembering or making decisions? No [email or web address] Information no t available 10/05/2016 Family History [...] Vaccine Type Date Status Note Provider Nam rupesh and Address Organization Details Recorded Time Tdap [...] or 50 mcg/0.25mL dose 01/26/2021 completed Layla Hawthorne [facility] st[facility] - [facility] 07/27/2023 08:37:23 Past Encounters Encounter ID Performer Location Encounter Start Date Encounter Closed Date Diagnosis/Indication Diagnosis SNOMED-CT Code Diagnosis ICD10 Code Diagnosis Note [id number] [facility] [address] [place] [address] 08/20/2007 00:00:00 [id number] [facility] [address] [place] [address] 10/22/2008 00:00:00 [id number] [facility] [address] [place] [address] 05/25/2010 00:00:00 [id number] [facility] [address] [address] 05/25/2010 00:00:00 [id number] [facility] [address] [place] [address] 05/31/2011 00:00:00 [id number] [facility] [address] [place] [address] 09/21/2011 00:00:00 [id number] [facility] [address] [place] [address] 07/12/2012 00:00:00 [id number] [facility] [address] [place] [address] 11/22/2012 00:00:00 [id number] [facility] [address] [place] [address] 12/18/2012 00:00:00 [id number] [facility] [address] [place] [address] 09/29/2015 00:00:00 [id number] [facility] [address] [place] [address] 10/11/2015 00:00:00 [id number] [facility] [address] [place] [address] 10/26/2015 00:00:00 [id number] [facility] [address] [place] [address] 12/02/2015 00:00:00 [id number] [facility] [address] [place] [address] 06/07/2016 00:00:00 [id number] [facility] [address] [place] [address] 06/20/2016 00:00:00 [id number] [facility] [address] [address] 09/09/2013 00:00:00 [id number] [facility] [address] [place] [address] 02/25/2015 00:00:00 [id number] [facility] [address] [place] [address] 05/26/2015 00:00:00 [id number] [facility] [address] [place] [address] 06/16/2015 00:00:00 [id number] [facility] [address] [address] 07/21/2015 00:00:00 [id number] [facility] [address] [address] 09/08/2015 00:00:00 [id number] [facility] [address] [place] [address] 2015 00:00:00 [id number] [facility] [address] [place] [address] 09/27/2015 00:00:00 [id number] [facility] [address] [place] [address] 09/29/2015 00:00:00 [id number] DO Itz Nguyễn [employer] [address] [place] [address] AJ[facility] Swann [address] 10/05/2016 10:25:47 10/05/2016 11:19:22 Midline cystocele 851320818 N81.11 Urge incon tinence of urine 85183555 N39.41 Smoker 55237299 F17.570 [id number] DO Itz Nguyễn [employer] [address] [place] [address] [facility] [place] [address] 10/26/2016 09:04:55 10/26/2016 09:47:57 Postoperative visit 591555253 Z09 Body mass index 25-29 - overweight 741204300 Z68.27 Postoperat nicky retention of urine 853846716 R33.8 [id number] DO Grecia [place] [employer] [address] [place] [address] [facility] [address] 10/30/2016 09:51:00 10/30/2016 10:29:27 Postoperative retention of urine 989648943 R33.8 [id number] DO Itz Nguyễn [employer] [address] [place] [address] [facility] [place] [address] 11/09/2016 13:51:08 11/09/2016 15:19:04 Surgical follow-up 794716115 Z09 Body mass index 25-29 - overweight 389523005 Z68.27 Vaginal discharge 970495 006 N89.8 [id number] DO Itz Nguyễn [employer] [address] [place] [address] [facility] [address] 11/15/2016 10:24:55 11/15/2016 11:44:29 Surgical follow-up 335607468 Z09 Body mass index 25-29 - overweight 247760351 Z68.27 [id number] DO Itz Nguyễn [employer] [address] [place] [address] [facility] [place] [address] 12/04/2016 10:59:13 12/04/2016 11:44:48 Surgical follow-up 560136789 Z09 released from pelvic rest Body mass index 25-29 - overweight 335911948 Z68.27 [id number] Jessica Mack [address] [place] [address] 12/21/2016 09:03:24 12/21/2016 10:45:42 Vitamin deficiency 15712388 E56.9 Heart disease 58059402 I 51.9 Tobacco user 825921649 Z 72.0 Vitamin D deficiency 347 30401 E55.9 Fatigue 03881762 R53.83 [id number] Jessica Mack [address] [place] [address] 03/26/2017 09:27:44 03/26/2017 10:22:33 Vitamin deficiency 81020255 E56.9 Body mass index 25-29 - overweight 001409388 Z68.29 Long-term drug therapy 276162165 Z79.899 Postmenopausal state 764 17057 Z78.0 Heart disease 87198933 I 51.9 Fatigue 10103219 R53.83 [id number] Jessica Mack [employer] [address] [place] [address] 06/25/2017 13:03:56 06/25/2017 13:23:29 Heart disease 11748354 I51.9 Vitamin D deficiency 347 73967 E55.9 Nicotine dependence 5629 4008 F17.200 Vitamin deficiency 61694 002 E56.9 Hyperlipidemia 74756022 E78.5 Essential hypertension 53422113 I10 [id number] Jessica Mack [employer] [address] [place] [address] 09/25/2017 08:54:48 09/25/2017 10:26:01 Heart disease 12520723 I51.9 Screening for malignant neoplasm of breast 739353500 Z12.31 Hypothyroidism 86971797 E03.9 Vitamin D deficiency 347 90801 E55.9 [id number] Jessica Mack [address] [place] [address] 07/03/2018 13:19:36 07/03/2018 14:23:31 Vitamin D deficiency 86917349 E55.9 Essential hypertension 94277053 I10 Fatigue 29397974 R53.83 Dysfunctio n of eustachian tube 98081066 H69.90 [id number] Jessica Mack APRN [address] [place] [address] 08/14/2018 12:37:47 08/14/2018 13:36:42 Essential hypertension 07874732 I10 [id number] Jessica Mack APRN [address] [place] [address] 08/28/2018 13:25:54 08/28/2018 14:32:17 Essential hypertension 32688375 I10 Dysfunctio n of eustachian tube 13889813 H69.90 [id number] Jessica Mack APRN [address] [place] [address] 09/16/2018 09:57:48 09/16/2018 12:22:55 Vertigo 501724208 R42 Headache 68427025 R51 Lightheadedness 32777750 8 R42 Numbness of hand 1155153 04 R20.0 Dizzy spells 079110698 R 42 [id number] Jessica Mack APRN [address] [place] [address] 02/04/2019 15:25:52 02/04/2019 16:19:17 Hyperlipidemia 45280298 E78.5 Essential hypertension 93543050 I10 Vertigo 276714799 R42 Disorder o f coronary artery 274404663 I77.9 Heart disease 67794529 I 51.9 Gastroesop hageal reflux disease 832118835 K21.9 [id number] Jessica Mack APRN [address] [place] [address] 03/31/2019 13:01:21 03/31/2019 13:38:58 Basal ganglia degeneration with calcification 563402116 G23.8 Essential hypertension 04901377 I10 [id number] DO Grecia [place] [employer] [address] [place] [address] [facility] [address] 05/07/2019 11:25:15 05/07/2019 12:08:45 Routine gynecologic examination done 4014136544 9101 Z01.419 Depression screening 171 519465 Z13.89 Diet education 78826951 Z71.3 Counseling 073616710 Z71 .82 Exercise counselerendira gallo Patient encouraged to exercise 30 minutes 5 days a week. Examinatio n of blood pressure 213966731 Z01.30 History of total hysterectomy 406974337 Z90.710 Body mass index 25-29 - overweight 917853899 Z68.29 [id number] Jessica Mack [address] [place] [address] 08/18/2019 10:24:45 08/18/2019 11:17:41 Persistent insomnia 737340958 G47.09 Heart disease 43955732 I 51.9 Hypertensive disorder 38 268850 I10 Hyperlipidemia 04443313 E78.5 [id number] Jessica Mack [employer] [address] [place] [address] 09/02/2019 11:35:28 09/02/2019 14:05:08 Disorder of coronary artery 145381390 I77.9 Heart disease 20341316 I 51.9 [id number] Jessica Mack [employer] [address] [place] [address] 12/08/2019 15:27:36 12/08/2019 15:51:36 Essential hypertension 47196285 I10 Hyperlipidemia 04142699 E78.5 Persistent insomnia 1919 06687 G47.09 Finger joint locking 299 536698 M24.429 [id number] Laurence Vásquez MD [place] [address] [place] [address] 03/01/2020 09:45:29 03/01/2020 10:20:03 Dysfunction of bilateral eustachian tubes 1457113061 012775 H69.93 [id number] Laurence Vásquez MD [address] [place] [address] 03/15/2020 14:22:58 03/15/2020 15:12:52 Dysfunction of bilateral eustachian tubes 5090966140 994545 H69.93 [id number] DO Itz Nguyễn [employer] [address] [place] [address] [facility] [address] 05/24/2020 14:47:24 05/24/2020 15:40:13 Routine gynecologic examination done 5937378267 9101 Z01.419 Depression screening 171 361396 Z13.89 Diet education 44430466 Z71.3 Counseling 210097009 Z71 .82 Exercise counselerendira gallo Patient encouraged to exercise 30 minutes 5 days a week. Examinatio n of blood pressure 912404010 Z01.30 Vaccine de clined by patient 8669052674 02 Z28.21 Screening mammography 24 613205 Z12.31 Mixed urin ivjaya incontinence 284399877 N39.46 Discussed possible side effects of medication , questions answered. [id number] DO Itz Nguyễn [employer] [address] [place] [address] [facility] [address] 07/20/2020 11:48:01 07/20/2020 12:17:05 Increased frequency of urination 193884188 R35.0 Nocturia 128694884 R35.1 [id number] Laurence Vásquez MD [address] [place] [address] 10/20/2020 15:54:43 10/20/2020 17:26:44 Persistent insomnia 448654910 G47.09 Unintentio nal weight gain 7837088428 26568 R63.5 Fatigue 26668939 R53.83 Vitamin D deficiency 347 72748 E55.9 [id number] Laurence Vásquez MD [address] [place] [address] 01/26/2021 13:37:58 01/26/2021 14:23:58 Mammogram declined 322036293 Z53.20 Vitamin D deficiency 347 83526 E55.9 Blood gluc ose outside reference range 407964528 R73.09 [id number] Laurence Vásquez MD [address] [place] [address] 04/27/2021 13:51:49 04/27/2021 14:21:38 Gastroesophageal reflux disease 665561485 K21.9 Vitamin D deficiency 347 37588 E55.9 Hypertensive disorder 38 459292 I10 Hyperlipidemia 96855361 E78.5 Mammogram declined 29004 5004 Z53.20 Prediabetes 881287075 R7 3.03 Hypertensi ve heart disease 37739255 I11.9 Persistent insomnia 1919 41606 G47.09 Body mass index 30+ - obesity 863905546 Z68.31 [id number] Laurence Vásquez MD [address] [place] [address] 08/10/2021 11:23:41 08/10/2021 12:16:06 Diastolic heart failure 401867465 I50.30 Hypertensive disorder 38 504666 I10 Disorder o f coronary artery 698402403 I77.9 Hyperlipidemia 75686229 E78.5 Prediabetes 773411026 R7 3.03 Influenza vaccination declined 404007331 Z28.21 Blood gluc ose outside reference range 555978188 R73.09 Vitamin D deficiency 347 71140 E55.9 Gastroesop hageal reflux disease without esophagitis 369046364 K21.9 [id number] Laurence Vásquez MD [address] [place] [address] 07/11/2022 11:37:52 07/11/2022 12:45:30 Vitamin D deficiency 34886172 E55.9 Persistent insomnia 1919 23392 G47.09 Blood gluc ose outside reference range 611047530 R73.09 Mixed hyperlipidemia 267 937901 E78.2 Disorder o f vitamin B12 197263766 E53.8 Prediabetes 873607856 R7 3.03 Gastroesop hageal reflux disease without esophagitis 303931018 K21.9 Hypertensive disorder 38 767978 I10 Hemorrhoids 04678304 K64 .9 discussed fiber and hydration History of polyp of colon 695427045 Z86.872 [id number] Laurence Vásquez MD [address] [place] [address] 03/06/2023 11:56:17 03/06/2023 12:50:53 Internal hemorrhoids 46030810 K64.8 Diverticul osis of colon 098606756 K57.30 Painless r ectal bleeding 109402413 K62.5 Hypertensive disorder 38 502679 I10 Mixed hyperlipidemia 267 427323 E78.2 Vitamin D deficiency 347 10350 E55.9 Blood gluc ose outside reference range 045149822 R73.09 Prediabetes 922738308 R7 3.03 [id number] Debra Jackson APRN [address] [place] [address] 04/28/2024 09:51:23 04/28/2024 10:36:07 Persistent insomnia 369931386 G47.09 Well-contr olled Vitamin D deficiency 347 53670 E55.9 Well-contr olled Gastroesop hageal reflux disease 128002772 K21.9 Well-contr olled Hypertensive disorder 38 161238 I10 Well-contr olled Disorder o f vitamin B12 173942387 E53.8 Hyperlipidemia 41707926 E78.5 Prediabetes 957527823 R7 3.03 Screening for malignant neoplasm of respiratory tract 487752146 Z12.2 30+ pack year history Nicotine d ependence with current use 457510380 F17.210 Current tobacco user Screening mammography 24 755973 Z12.31 Abnormalit y of nail of toe 626509618 L60.8 Referred General ex amination of patient 928513875 Z00.00 Exercises education, guidance, and counseling 656652144 Z71.82 The patient was advised to continue a healthy diet and exercise regularly. Dietary ma nagement surveillance 852839823 Z71.3 Body mass index 30+ - obesity 253878311 Z68.31 Obesity 870445228 E66.9 [id number] Debra Jackson APRN [address] [place] [address] 10/27/2024 11:22:18 10/27/2024 13:05:57 Gastroesophageal reflux disease 698383050 K21.9 Well-contr olled Mixed hyperlipidemia 267 761727 E78.[address] Carlson Vitamin D deficiency 347 51990 E55.9 Well-contr olled Hypertensive disorder 38 087512 I10 Uncontroll ed, increase Lisinopril to 20mg until gets in to see Cardiology . Disorder o f vitamin B12 023119361 E53.8 History of polyp of colon 959834749 Z86.0100 Heart disease 33330769 I 51.9 Persistent insomnia 1918 14526 G47.09 Well-contr olled Tinnitus of left ear 498 8650446 106 H93.12 Try Flonase - discussed referral to Audiologis t for hearing test or ENT if no improvemen t Prediabetes 264192411 R7 3.03 Will call with results, last A1C 6.2 Body mass index 30+ - obesity 374052289 Z68.32 Obesity 173009734 E66.9 [id number] Debra Jackson APRN [address] [place] [address] 11/27/2024 10:50:38 11/27/2024 11:09:26 History of cerebrovascular accident 557916817 Z86.73 Referred to Neuro as requested Headache 89538232 G44.52 MRI ordered for further evaluation due to previous CVA and new onset of daily headaches [id number] Debra Jackson APRN [address] [place] [address] 03/24/2025 11:16:36 03/24/2025 12:17:50 Gastroesophageal reflux disease 474661332 K21.9 Well-contr olled Mixed hyperlipidemia 267 927789 E78[address] Carlson History of cerebrovascular accident 078989685 Z86.73 Referred to Neuro previously as requested and has appt. later this month; also new MRI ordered to [facility] also as requested Hypertensive disorder 38 148487 I10 Well-contr olled Vitamin D deficiency 347 13087 E55.9 Well-contr olled Disorder o f vitamin B12 425956624 E53.8 Diastolic heart failure 398805103 I50.30 Follows with Cardiology Prediabetes 757743755 R7 3.03 Will call with results, last A1C 6.3 on 10/27/24 Tinnitus of left ear 556 8078172 106 H93.12 Well-contr olled Persistent insomnia 1918 31440 G47.09 Well-contr olled [id number] BINA Gibson [place] [id number] [facility] [place] [address] 04/28/2025 09:44:40 04/28/2025 10:44:52 General examination of patient 797989047 Z00.00 Screening for cardiovascular system disease 353107908 Z13.6 Endocrine/ metabolic screening 006279708 Z13.228 Well-contr olled Screening mammography 24 293228 Z12.31 Last Mammo 12/11/24 Exercises education, guidance, and counseling 612962691 Z71.82 The patient was advised to continue a healthy diet and exercise regularly. Dietary ma nagement surveillance 952251941 Z71.3 Chronic cough 60204770 R 05.3 Discussed needs CXR/PFT to evaluate for COPD - refuses both at this time but willing to trial using inhaler and have LDCT that is due end of April 2025 Chronic ob structive pulmonary disease 32461491 J44.9 Start Symbicort for maintenanc e - refuses PFT - advised due for LDCT 05/14/25 - will order LDCT today Hypertensive disorder 38 888499 I10 Uncontroll ed, advised on trying 1/2 of Losartan 50mg until follow-up with Cardiology Body mass index 30+ - obesity 291305908 Z68.33 Obesity 631531536 E66.9 Screening for malignant neoplasm of respiratory tract 860963924 Z12.2 30+ pack year history Nicotine d ependence with current use 186826439 F17.210 Current tobacco user Health Concerns Section Related Observation LastModified by Organization Detai ls LastModified Time None Recorded Concern Status LastModified by Organization Details LastModified Time None Recorded Advance Directives Directive N: Payers Insurance Date Sequence Insurance Name Policy Number Policy Ware Covered Member ID Ware Member ID Guarantor Name 04/28/2025 [place] [id number] Sariah Ledbetter [id number] Sariah Ledbetter 04/28/2025 1 [place] [id number] Sariah Ledbetter [id number] Sariah Ledbetter 11/01/2016 1 [place] [id number] Inder Ledbetter [id number] Sariah Ledbetter 07/02/2018 1 [place] [id number] Inder Ledbetter [id number] Sariah Ledbetter 04/28/2025 1 [employer] [facility] Sariah Ledbetter [id number] Sariah Ledbetter 08/12/2018 1 HUMANA (POS) Inder Ledbetter [id number] Sariah Ledbetter 04/28/2025 1 [employer] [employer] [place] (MED[place]PLAC[place] - HMO) HIXAJIT Ledbetter [id number] Sariah Ledbetter 05/05/2025 1 [place] [employer] [facility] [employer] [place] (H[place]) Sariah Ledbetter [id number] Sariah Ledbetter 04/28/2025 1 [place] [id number] Sariah Ledbetter 04/28/2025 1 [place] [id number] Sariah Ledbetter [id number] Sariah Ledbetter 03/04/2021 1 [place] [id number] Sariah Ledbetter 04/28/2025 2 [place] [id number] Sariah Ledbetter [id number] Sariah Ledbetter 04/28/2025 1 [facility] (PPO) Sariah Ledbetter [id number] Sariah Ledbetter 08/28/2018 1 *SELF PAY* Chris Ledbetter 04/28/2025 [id number] Sariah Ledbetter [id number] Sariah Ledbetter 04/28/[address] [facility] [id number] Sariah Ledbetter [id number] Sariah Ledbetter Notes Date Note Type Note Provider Name and Address Organization Details Recorded Time 04/28/2024 text/html Sariah is a 63 y [...] her own. She states there is some yellowing/discoloratio n also. She is due for Mammo and LDCT - has been over 1 year since she has had either (last Mammo 2017). Debra Jackson APRN [address], [place], [address], [place] [facility] 04/28/2024 10:32:43 10/27/2024 text/html [...] states it does not cause dizziness. Debra Jackson APRN [address], [place], [address], [facility] - [facility] 10/27/2024 11:52:56 11/27/2024 text/html Sariah [...] in the back of her head. Debra Jackson BINA [address], [place], [address], [facility] - [facility] 11/27/2024 11:07:58 03/24/2025 text/html Sariah [...] a new order for a MRI to [facility] due to insurance - she states she never got a call from [facility] likely due to insurance not accepted there. The continues with dizziness/lightheadedn ess, worse with sitting to standing or changing [...] as pending/ordered MRI of brain. Debra Jackson, BINA [address], [place], [address], [facility] - [facility] 03/24/2025 11:46:17 04/28/2025 text/html Annual WellnessReported bypatient.Diet and Nutrition:healthy diet Fracture Risk:no history of fractures; no recent explained fracture; no sudden unexplained fractures; no previous musculoskeletal injuries Physical Activity:good physical condition Additional Lifestyle Factors:no alcohol intake;tobacco use Depression Risk:never feels sad, empty, or tearful; no loss of interest in activities; no significant changes in weight; no sleep disturbances or insomnia; no agitation; no loss of energy; no feelings of worthlessness or guilt; no thoughts of suicide; no history of depression; no history of mood disorders Hearing:no loss of hearing Vision:wears corrective lens- last eye exam 4-5 years ago Sariah is a 64 year old female who is here for a routine check up and fasting labs. She reports that she had a Cardiac MRI yesterday with a follow-up with Cardiology on 05/14/25. Previously, she had MRI of head with Neurology and has been placed on medications for migraines as she feels that is what her headaches are related to. She has also been ordered sleep study by Neurology. She reports she is not taking the Losartan at this time and will discuss this with the Regulatory Assistant at that appt. She states she did take it once and got very lightheaded/dizzy feels the dose may be too high. She complains of a cough. The Regulatory Assistant stopped the Lisinopril due to the cough. She is a smoker. Her BP is high in the office today - discussed risks of cardiac event (heart attack/stroke) due to this. She states she continues with a cough even with being off the Lisinopril. She states when she smokes a cigarette it will cause her to cough. Debra Jackson, [employer] SAWYER [address], [place], [address], [facility] - [facility] 04/28/2025 10:31:57 OBGyn Episode No OBEpisode recorded.
--- OUTSIDE RECORDS SUMMARY | 2025-05-13 19:56 | XMS_ITS | Encounter Summary ---
Author Organization Healthcare Address [address] [place] [address] Care Team Providers Care Ski Top Trimmer Name Role Phone Jessica Mack UNIVERSITY COUNSELOR Primary Care Provider + Reason for Referral * Consultation (Routine) - Authorized Specialty Diagnoses / Procedures Referred By Contac t Referred To Contact Neurology Diagnoses Personal history of TIA (transient ischemic attack) Debra Jackson APRN [address] [place] [address] [place] [address] Phone: tel: fax: Referral ID Status Reason Start Date Expiration Date Visits Requested Visits Authorized [id number] Authorized Specialty Services Required 11/27/2024 05/29/2026 1 1 Encounter Details Date Type Department Care Team (Late st Contact Info) Description 11/27/2024 Community Orders Community Practice [address] [place] [address] Debra Jackson APRN [address] [place] [address] [place] [address] Personal history of TIA (transient [...] deficits documented in this encounter Care Teams Ski Top Trimmer Relationship Specialty Start Date End Date Jessica Mack, UNIVERSITY COUNSELOR [address] [place] [address] PCP - General 04/01/21 documented as of this encounter
--- OUTSIDE RECORDS SUMMARY | 2025-05-13 19:56 | XMS_ITS | Clinical Summary ---
Author Organization Healthcare Address [address] [id number] Care Team Providers Care Bench Molder Name Role Phone Jessica Mack APRN Primary Care Provider + Social History Tobacco Use Types Packs/Day Years [...] 2010 UKY-Zoster Vaccines (1 of 2) 2010 [id number] Vaccine (1 - 20 24-25 season) 2024 [...] age to complete this topic Care Teams Bench Molder Relationship Specialty Start Date End Date Jessica Mack, WRINGER AND SETTER [address] [place] [address] PCP - General 04/01/21
--- OUTSIDE RECORDS SUMMARY | 2025-05-13 19:56 | XMS_ITS | Continuity of Care Document ---
Author Organization [facility] Address [address] [place] [address] Care Team Providers Care Nuclear Plant Instrument Technician Name Role Phone ISMAEL GUO Heat Treating Bluer Unavailable TITA AVILA Associate Artistic Director Assessment No assessment recorded. Plan of Treatment Reminders Order Date Submit Date Provider Last Modified By Organization Details Last Modified Time Details Appointments None recorded. Lab lipid panel, serum 2024 025 ALFREDITO [facility], [address], [place], [place], [address], 5 09:07:05 CBC w/ auto diff 2024 025 ALFREDITO [facility], [address], [place], [place], [address], 5 09:07:03 TSH + free T4, serum 2024 025 ALFREDITO [facility], [address], [place] [address], [place], [address], 5 09:07:02 HbA1c (hemoglobin A1c), blood 2024 025 ALFREDITO [facility], [address], [place] [address], [place], [address], 5 09:07:07 CMP, serum or plasma 2024 025 ALFREDITO [facility], [address], [place] [address], [place], [address], 5 09:07:04 vitamin D, 25-hydroxy, total, serum 2024 025 ALFREDITO [facility], [address], [place] [address], [place], [address], 5 09:07:08 cobalamin and folate panel, serum 2024 025 ALFREDITO [facility], [address], [address], [place], [address], 5 09:07:06 Referral None recorded. Procedures None recorded. Surgeries None recorded. Imaging MRI, brain, w/wo contrast [email or web address] ([facility]), [address], [place], [address], 5 20:02:55 Medication Orders atorvastati n 80 mg tablet 2024 025 [facility], [address] [place] [address], [place], [address], 5 11:42:33 hydrochloro thiazide 25 mg tablet 2024 025 [facility], [address] [place] [address], [place], [address], 5 11:42:34 isosorbide mononitrate ER 30 mg tablet,exte nded release 24 hr [address], [place], [address], 5 11:42:34 lisinopril 20 mg tablet [address], [place], [address], 5 14:37:16 pantoprazol e 40 mg tablet,mariusz yed release [address], [place], [address], 5 11:42:32 fluticasone propionate 50 mcg/actuati on nasal spray,suspe nsion [address], [place], [address], 5 11:42:35 meclizine 25 mg chewable tablet [address], [place], [address], 5 10:44:14 cholecalcif janel (vitamin D3) 50 mcg (2,000 unit) capsule [address], [place], [address], 5 11:42:32 melatonin 10 mg tablet [address], [place], [address], 5 11:42:35 mirtazapine 30 mg tablet [address], [place], [address], 5 11:42:33 Patient TargetsNo targets recorded. Patient InstructionsNo instructions recorded. Reason for Referral None Reported. Results Created Date Observation Date Name Description Value Unit Range Abnormal Flag Note LastModifiedBy Organization Detail LastModifiedTime 03/26/20 25 03/25/2025 imagi ng/thiago agnos tic resul t No observ ation record ed. [email or web address] [facility] [address], [place], [address], 03/26/2025 14:48:22 03/26/20 25 03/25/2025 imagi ng/di agnos tic resul t No observ ation record ed. [email or web address] [facility] [address], [place], [address], 03/26/2025 14:48:16 04/04/20 25 03/25/2025 stres s echoc ardio gram No observ ation record ed. [address], [place], [address], 04/08/2025 12:25:16 04/06/20 25 04/06/2025 MRI, brain , w/o contr ast No observ ation record ed. [address], [place], [address], 04/07/2025 15:41:59 05/11/20 25 04/27/2025 MRI, heart funct ion and morph ology , w/wo contr ast No observ ation record ed. [address], [place], [address], 05/12/2025 14:04:08 Result Notes None recorded. 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 55811409 Active Laurence Vásquez MD [address], [place], [address], [place] [facility] 2 12:20:06 Preinfarc tion syndrome 8815967 Active Laurence Vásquez MD [address], [place], [address], [place] [facility] 2 12:20:06 Urinary tract infectiou s disease 95333087 Active Laurence Vásquez MD [address], [place], [address], [place] - [facility] 2 12:20:06 Herniated urinary bladder 418469429 Active Laurence Vásquez MD [address], [place], [address], [place] [facility] 2 12:20:06 Vaginal hematoma 47212613 Completed 05/07/2019 Laurence Vásquez MD [address], [place], [address], [place] [facility] 2 12:20:06 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 67601381 Active Laurence Vásquez MD [address], [place], [address], [place] [facility] 2 12:20:06 Vaginal bleeding 531144974 Completed 05/07/2019 Laurence Vásquez MD [address], [place], [address], [place] [facility] 2 12:20:06 History of cardiac catheteri zation 028406586872 00 Active Laurence Vásquez MD [address], [place], [address], [place] [facility] 2 12:20:06 Urinary incontine nce 577340855 Active Laurence Vásquez MD [address], [place], [address], [place] [facility] 2 12:20:06 Disorder of coronary artery 873272779 Active 2017 Layla Dummitt [place], [place] - [facility] 3 08:37:12 Gastroeso phageal reflux disease 727578351 Active Layla Dumshannen [place] - [facility] 3 08:37:12 Hypertens nicky disorder 88449339 Active Layla Dumshannen [place] - [facility] 3 08:37:12 Vaginal hematoma 69492855 Active Laurence Vásquez MD [address], [place], [address], [place] [facility] 2 12:20:06 Vaginal bleeding 272779681 Active Laurence Vásquez MD [address], [place], [address], [place] [facility] 2 12:20:06 Vitamin D deficienc y 40804387 Active 2019 Layla Hawthorne [place], [place] - [facility] 3 08:37:12 Mammogram declined 626838185 Active 2020 Layla Hawthorne [place] - [facility] 3 08:37:12 Prediabet es 680819191 Active 2020 Layla Hawthorne [place] - [facility] 3 08:37:12 Diastolic heart failure 451103975 Active 2020 Layla Hawthorne [place] - [facility] 3 08:37:12 Influenza vaccinati on declined 311412042 Active 2020 Layla Hawthorne [place] - [facility] 3 08:37:12 Gastroeso phageal reflux disease without esophagit is 851417367 Active 2020 Layla Hawthorne [place] - [facility] 3 08:37:12 Disorder of vitamin B12 768094461 Active 2021 Layla Hawthorne [place] - [facility] 3 08:37:12 Mixed hyperlipi demia 785604829 Active 2021 Layla Hawthorne [place] - [facility] 3 08:37:12 History of polyp of colon 415155321 Active 2021 Layla Hawthorne [place] - [facility] 3 08:37:12 Screening for malignant neoplasm of colon Active 2021 Layla Hawthorne [place] [facility] 3 08:37:12 Internal hemorrhoi ds 34537103 Active 2022 Layla Hawthorne [place] - [facility] 3 08:37:12 Diverticu losis of colon 630324607 Active 2022 Layla Hawthorne [place] [facility] 3 08:37:12 Heart disease 95508663 Active Layla Hawthorne [place] [facility] 3 08:37:12 Postmenop ausal state 33408572 Active Layla Hawthorne [place] [facility] 3 08:37:12 Vitamin deficienc y 48046279 Active Layla stinson, [place] - [facility] 3 08:37:12 Persisten t insomnia 929757983 Active 2023 Debra Jackson, AUTOMOBILE CLUB TRAVEL COUNSELOR [address], [place], [address], [place] [facility] 4 10:20:01 History of cerebrova scular accident 327402792 Active 2024 Debra Jackson, AUTOMOBILE CLUB TRAVEL COUNSELOR [address], [place], [address], [place] - [facility] 5 11:04:04 Tinnitus of left ear 239403969444 6 Active 2024 Debra Jackson APRN [address], [place], [address], [place] [facility] 5 11:35:22 Problem [...] Name and Address Organization Details Recorded Time 53363 Lipitor medicatio n arthralgi a (joint pain) Not available Not available 06/25/2017 45720 5 RxNorm Renetta Feliciano null, [place] - [facility] 7 13:14:17 Medications [...] daily transderm al patch 08/28 completed DIDN'T API PRODUCT MANAGER Not Available Not Available Not Available nitroglyc [...] nued on: 12/18/19 13 2:44PM;U ser: carlee; Miteshti on: Skin Rash - (16.7821 00);Prin juhi: [...] Disconti nued on: 05/31/20 11 2:38PM;U ser: [facility];P rinted: 05/25/20 10 Not Available Not Available [...] Disconti nued on: 12/02/19 16 9:12AM;U ser: [email or web address] ;Est. Completi on: 08/24/20 15 Not Available [...] Available Not Available Nasonex 50 mcg/actua tion [place] 2 sprays every day by intranas al [...] Disconti nued on: 05/25/20 10 1:35PM;U ser: grant;E st. Completi on: 10/17/20 09;Print ed: 10/22/20 [...] Updated DateTime 5 175.26 cm 32.8 kg/m2 268318. 51 g 82 /min 95 % 95 % 18 /min 136 mm[Hg] 78 mm[Hg] Jaci Cade [place] - [facility] 5 11:29:28 Social History Question Answer Notes LastModified by Organizat ion Details LastModified Time Tobacco Smoking Status Current Every Day Smoker Beatriz Dubois null, [place] - [facility] 10/05/2016 11:02:47 Do You Have An Advance Directive? No [email or web address] Information not available 10/05/2016 Are You Blind Or Do You Have Difficulty Seeing? No [email or web address] Information not available 10/05/2016 Is Blood Transfusion Acceptable In An Emergency? Yes Information not available 10/05/2016 What Is Your Level Of Caffeine Consumption? Occasional [email or web address] Information not available 10/05/2016 How Much Tobacco Do You Chew? None Information not available 10/05/2016 Are You Deaf Or Do You Have Serious Difficulty Hearing? No [email or web address] Information not available 10/05/2016 What Type Of Diet Are You Following? REGULAR [email or web address] Information not available 10/05/2016 Which Illicit Or Recreational Drugs Have You Used? None [email or web address] Information not available 10/05/2016 How Many Days Of Moderate To Strenuous Exercise, Like A Brisk Walk, Did You Do In The Last 7 Days? 1 [email or web address] Information not available 05/07/2019 On Those Days That You Engage In Moderate To Strenuous Exercise, How Many Minutes, On Average, Do You Exercise? 1 [email or web address] Information not available 05/07/2019 How Hard Is It For You To Pay For The Very Basics Like Food, Housing, Medical Care, And Heating? 1 [email or web address] Information not available 05/07/2019 Live Alone Or With Others? With Others [email or web address] Information not available 10/05/2016 Do You Have A Medical Power Of Child Care Coordinator? No Information not available 04/28/2024 What Was The Date Of Your Most Recent Tobacco Screening? 04/28/2025 [email or web address] Information not available 04/28/2025 How Many Children Do You Have? 3 Information not available 12/21/2016 Performs Monthly Self-breast Exam? Yes [email or web address] Information no t available 10/05/2016 What Is Your Relationship Status? [email or web address] Information not available 10/05/2016 Seat Belts Used Routinely Yes [email or web address] Information not available 10/05/2016 Are You Sexually Active? Yes Information not available 10/05/2016 How Much Tobacco Do You Smoke? 0.5 PPD Information not available 12/21/2016 General Stress Level Medium [email or web address] Information not available 10/05/2016 Do You Use Sunscreen Routinely? Yes [email or web address] Information not available 10/05/2016 Has Tobacco Cessation Counseling Been Provided? Yes Information not available 04/28/2024 On What Date Was Tobacco Cessation Counseling Provided? 04/28/2024 Information not available 04/28/2024 Do You Have Difficulty Walking Or Climbing Stairs? No Information not available 10/05/2016 Sex: Female Functional Status Question Answer Note LastModified by Organizat ion Details LastModified Time Do you use any illicit or recreational drugs? No Information not available 04/28/2024 What is your level of alcohol consumption? None [email or web address] Information not available 10/05/2016 Are you currently employed? No Information not available 12/21/2016 Do you have transportation difficulties? No Information not available 04/28/2024 Are you able to walk? YESWOREST [email or web address] Information not available 05/07/2019 Do you have difficulty doing errands alone? No Information not available 04/28/2024 Are you able to care for yourself? Yes Information not available 12/21/2016 Do you have difficulty dressing or bathing? No [email or web address] Information not available 10/05/2016 What is your exercise level? None [email or web address] Information not available 10/05/2016 Mental Status Question Answer Note LastModified by Organization D etails LastModified Time Do you feel stressed (tense, restless, nervous, or anxious, or unable to sleep at night)? 1 [email or web address] Information not available 05/07/2019 Do you have difficulty concentrating, remembering or making decisions? No [email or web address] Information no t available 10/05/2016 Family History [...] Immunizations Vaccine Type Date Status Note Provider Frankie goddard and Address Organization Details Recorded Time Tdap 02/17/2017 completed Layla [place], [place] - [facility] 07/27/2023 08:37:23 Hep B, unspecified formulation 01/17/2017 completed Layla Hawthorne [place], [place] - [facility] 07/27/2023 08:37:23 Hep B, unspecified formulation 02/17/2017 completed Layla Hawthorne [place], [place] - [facility] 07/27/2023 08:37:23 COVID-19, mRNA, LNP-S, PF, 100 mcg/0.5mL dose or 50 mcg/0.25mL dose 12/24/2020 completed Layla Hawthorne null, [place] - [facility] 07/27/2023 08:37:23 COVID-19, mRNA, LNP-S, PF, 100 mcg/0.5mL dose or 50 mcg/0.25mL dose 01/26/2021 completed Layla [place], [place] - [facility] 07/27/2023 08:37:23 Past Encounters Encounter ID Performer Location Encounter Start Date Encounter Closed Date Diagnosis/Indication Diagnosis SNOMED-CT Code Diagnosis ICD10 Code Diagnosis Note [id number] Debra Jackson APRN [address] [place] [address] 03/24/2025 11:16:36 03/24/2025 12:17:50 Gastroesophageal reflux disease 415467634 K21.9 Well-contr olled Mixed hyperlipidemia 267 557384 E78.[address] Carlson History of cerebrovascular accident 588473998 Z86.73 Referred to Neuro previously as requested and has appt. later this month; also new MRI ordered to [facility] also as requested Hypertensive disorder 38 312189 I10 Well-contr olled Vitamin D deficiency 347 33868 E55.9 Well-contr olled Disorder o f vitamin B12 712901578 E53.8 Diastolic heart failure 896989185 I50.30 Follows with Cardiology Prediabetes 368309413 R7 3.03 Will call with results, last A1C 6.3 on 10/27/24 Tinnitus of left ear 546 2216270 106 H93.12 Well-contr olled Persistent insomnia 1919 82568 G47.09 Well-contr olled Health Concerns Section Related Observation LastModified by Organization Detai ls LastModified Time None Recorded Concern Status LastModified by Organization Details LastModified Time None Recorded Payers Encounter Date Sequence Insurance Name Policy Number Policy Ware Covered Member ID Ware Member ID Guarantor Name 03/24/2025 1 [employer] [facility] [employer] [facility] (O) Sariah Ledbetter [id number] Sariah Ledbetter Notes Date Note Type [...] a new order for a MRI to [facility] due to insurance - she states she never got a call from [facility] likely due to insurance not accepted there. [...] as pending/ordered MRI of brain. Debra Jackson, AUTOMOBILE CLUB TRAVEL COUNSELOR [address], [place], [address], [facility] - [facility] 03/24/2025 11:46:17 OBGyn Episode No OBEpisode recorded.
--- OUTSIDE RECORDS SUMMARY | 2025-05-13 19:56 | XMS_ITS | Continuity of Care Document ---
Author Organization [facility] Address [address] [place] [address] Care Team Providers Care Tin Roofer Name Role Phone ISMAEL GUO Moth Proofer Unavailable TITA AVILA Health Counselor Assessment Encounter Date Assessment Date Assessment LastModified by Organization Details LastModified Time 04/28/2025 04/28/2025 The patient was advised to continue a healthy diet and exercise regularly. Labs will be sent to evaluate blood count, renal function lipids and vitamin D. [email or web address] Not available 04/28/2025 10:21:39 Plan of Treatment Reminders Order Date Submit Date Provider Last Modified By Organization Details Last Modified Time Details Appointments None recorded. Lab None recorded. Referral None recorded. Procedures None recorded. Surgeries None recorded. Imaging LDCT, chest, for lung cancer screening 2024 025 [email or web address] [facility], [address] [place] [address], [id number], 07:31:06 Medication Orders Symbicort 160 mcg-4.5 mcg/actuat ion HFA aerosol inhaler 2024 025 [facility] [place], [address] [place] [address], [place], [address], 10:28:24 Patient TargetsNo targets recorded. Patient Instructions Encounter Date Encounter Id Patient Instructions Last Modified By Organization Details Last Modified Time 04/28/2025 [id number] Well Visit, Ages 18 to 65: Care Instructions Not available 04/28/2025 10:28:22 eating healthy foods: care [email or web address] Not available 04/28/2025 10:28:23 smoking cessatio n counseling, greater than 3 minutes up to 10 minutes Not available 04/28/2025 10:31:01 learning about healthy weight Not available 04/28/2025 10:29:06 body mass index: care instructions Not available 04/28/2025 10:29:06 walking for exercise: care instructions Not available 04/28/2025 10:28:22 learning about lung cancer screening Not available 04/28/2025 10:31:01 Reason for Referral None Reported. Results Created Date Observation Date Name Description Value Unit Range Abnormal Flag Note LastModifiedBy Organization Detail LastModifiedTime 04/04/20 25 03/25/2025 stres s echoc ardio gram No observ ation record ed. [address], [place], [id number], 04/08/2025 12:25:16 04/06/20 25 04/06/2025 MRI, brain , w/o contr ast No observ ation record ed. [address], [place], [id number], 04/07/2025 15:41:59 05/11/20 25 04/27/2025 MRI, heart funct ion and morph ology , w/wo contr ast No observ ation record ed. [address], [place], [id number], 05/12/2025 14:04:08 Result Notes None recorded. Problems Name Problem SNOMED Code Status Onset Date Resolution Date Notes Provider Name and Address Organization Details Recorded Time Hyperlipi demia 64996086 Active 2016 Layla stinson, [place] - [facility] 08:37:12 Female stress incontine dee 86485419 Active Laurence Vásquez MD [address], [place], [address], [place] - [facility] 12:20:06 Preinfarc tion syndrome 5575957 Active Laurence Vásquez MD [address], [place], [address], [place] [facility] 12:20:06 Urinary tract infectiou s disease 40775783 Active Laurence Vásquez MD [address], [place], [address], [place] [facility] 12:20:06 Herniated urinary bladder 451110655 Active Laurence Vásquez MD [address], [place], [address], [place] [facility] 12:20:06 Vaginal hematoma 16505014 Completed 05/07/2019 Laurence Vásquez MD [address], [place], [address], [place] [facility] 12:20:06 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 31185761 Active Laurence Vásquez MD [address], [place], [address], [place] [facility] 12:20:06 Vaginal bleeding 133204660 Completed 05/07/2019 Laurence Vásquez MD [address], [place], [address], [place] [facility] 12:20:06 History of cardiac catheteri zation 688518414219 00 Active Laurence Vásquez MD [address], [place], [address], [place] [facility] 12:20:06 Urinary incontine nce 037643513 Active Laurence Vásquez MD [address], [place], [address], [place] [facility] 12:20:06 Disorder of coronary artery 914063121 Active 2017 Layla Hawthorne [place] - [facility] 08:37:12 Gastroeso phageal reflux disease 471866796 Active Layla Hawth[place] - [facility] 08:37:12 Hypertens nicky disorder 56905771 Active Layla Hawth[place] - [facility] 08:37:12 Vaginal hematoma 27590269 Active Laurence Vásquez MD [address], [place], [address], [place] [facility] 12:20:06 Vaginal bleeding 093436047 Active Laurence Vásquez MD [address], [place], [address], [place] [facility] 12:20:06 Vitamin D deficienc y 66670861 Active 2019 Layla Hawth[place] - [facility] 08:37:12 Mammogram declined 691264749 Active 2020 Layla Hawth[place] [facility] 08:37:12 Prediabet es 094391998 Active 2020 Layla [place]th[place] - [facility] 08:37:12 Diastolic heart failure 336783006 Active 2020 Layla [place]th[place] - [facility] 08:37:12 Influenza vaccinati on declined 635811084 Active 2020 Layla [place] - [facility] 08:37:12 Gastroeso phageal reflux disease without esophagit is 012514253 Active 2020 Layla [place]th[place] [facility] 08:37:12 Disorder of vitamin B12 209705956 Active 2021 Layla Hawth[place] [facility] 08:37:12 Mixed hyperlipi demia 287620700 Active 2021 Layla [place]th[place] [facility] 08:37:12 History of polyp of colon 849081617 Active 2021 Layla [place] [facility] 08:37:12 Screening for malignant neoplasm of colon Active 2021 Layla [place] [facility] 08:37:12 Internal hemorrhoi ds 11913954 Active 2022 Layla [place] [facility] 08:37:12 Diverticu losis of colon 236851352 Active 2022 Layla [place] [facility] 08:37:12 Heart disease 79852615 Active Layla [place] [facility] 08:37:12 Postmenop auspa state 87078822 Active Layla [place] [facility] 08:37:12 Vitamin deficienc y 13709141 Active Layla [place]th[place] - [facility] 08:37:12 Persisten t insomnia 418693281 Active 2023 Debra Jackson, INJECTION SPECIALIST [address], [place], [address], [place] [facility] 10:20:01 History of cerebrova scular accident 664685545 Active 2024 Debra Jackson, INJECTION SPECIALIST [address], [place], [address], [place] [facility] 11:04:04 Tinnitus of left ear 182029804051 6 Active 2024 Debra Jackson, INJECTION SPECIALIST [address], [place], [address], [place] [facility] 11:35:22 [...] Name and Address Organization Details Recorded Time 90049 Lipitor medicatio n arthralgi a (joint pain) Not available Not available 06/25/2017 [address] 5 RxNorm Renetta stinson [place] - [facility] 13:14:17 Medications Name [...] daily transderm al patch 08/28 completed 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 Completi on: 10/28/20 15;Pharm acyVerif ied: [...] ser: carlee; Miteshti on: Skin Rash - ([id number]);Prin juhi: 11/25/19 13 Not Available Not [...] Available Not Available Nasonex 50 mcg/actua tion Cameron Cameron 2 sprays every day by intranas al [...] Disconti nued on: 05/25/20 10 1:35PM;U ser: [facility];E st. Completi on: 10/17/20 09;Print ed: 10/22/20 [...] completed Not Available Not Available Not Available Nurte ODT 75 mg disintegr ating tablet DISSOLVE [...] Updated DateTime 5 175.26 cm 33.4 kg/m2 602030. 88 g 80 /min 95 % 95 % 18 /min 164 mm[Hg] 90 mm[Hg] Jaci Cade [place] - [facility] 10:07:49 Social History Question Answer Notes LastModified by Organizat ion Details LastModified Time Tobacco Smoking Status Current Every Day Smoker Beatriz stinson [place] - [facility] 10/05/2016 11:02:47 Do You Have An Advance Directive? No [email or web address] Information not available 10/05/2016 Are You Blind Or Do You Have Difficulty Seeing? No [email or web address] Information not available 10/05/2016 Is Blood Transfusion Acceptable In An Emergency? Yes [email or web address] Information not available 10/05/2016 What Is Your Level Of Caffeine Consumption? Occasional [email or web address] Information not available 10/05/2016 How Much Tobacco Do You Chew? None [email or web address] Information not available 10/05/2016 Are You Deaf Or Do You Have Serious Difficulty Hearing? No [email or web address] Information not available 10/05/2016 What Type Of Diet Are You Following? REGULAR [email or web address] Information not available 10/05/2016 Which Illicit Or Recreational Drugs Have You Used? None [email or web address] Information not available 10/05/2016 How Many Days Of Moderate To Strenuous Exercise, Like A Brisk Walk, Did You Do In The Last 7 Days? 1 [email or web address] Information not available 05/07/2019 On Those Days That You Engage In Moderate To Strenuous Exercise, How Many Minutes, On Average, Do You Exercise? 1 [email or web address] Information not available 05/07/2019 How Hard Is It For You To Pay For The Very Basics Like Food, Housing, Medical Care, And Heating? 1 [email or web address] Information not available 05/07/2019 Live Alone Or With Others? With Others [email or web address] Information not available 10/05/2016 Do You Have A Medical Power Of Take Down Sorter? No Information not available 04/28/2024 What Was The Date Of Your Most Recent Tobacco Screening? 04/28/2025 [email or web address] Information not available 04/28/2025 How Many Children Do You Have? 3 Information not available 12/21/2016 Performs Monthly Self-breast Exam? Yes [email or web address] Information no t available 10/05/2016 What Is Your Relationship Status? [email or web address] Information not available 10/05/2016 Seat Belts Used Routinely Yes [email or web address] Information not available 10/05/2016 Are You Sexually Active? Yes [email or web address] Information not available 10/05/2016 How Much Tobacco Do You Smoke? 0.5 PPD Information not available 12/21/2016 General Stress Level Medium [email or web address] Information not available 10/05/2016 Do You Use [...] is your level of alcohol consumption? None [email or web address] Information not available 10/05/2016 Are you currently employed? No Information not available 12/21/2016 Do you have transportation difficulties? No Information not available 04/28/2024 Are you able to walk? YESWOREST [email or web address] Information not available 05/07/2019 Do you have difficulty doing errands alone? No Information not available 04/28/2024 Are you able to care for yourself? Yes Information not available 12/21/2016 Do you have difficulty dressing or bathing? No Information not available 10/05/2016 What is your exercise level? None [email or web address] Information not available 10/05/2016 Mental Status Question Answer Note LastModified by Organization D etails LastModified Time Do you feel stressed (tense, restless, nervous, or anxious, or unable to sleep at night)? 1 [email or web address] Information not available 05/07/2019 Do you have difficulty concentrating, remembering or making decisions? No [email or web address] Information no t available 10/05/2016 Family History [...] Recorded Time Tdap 02/17/2017 completed Layla Hawthorne [place], [place] - [facility] 07/27/2023 08:37:23 Hep B, unspecified formulation 01/17/2017 completed Layla Hawthorne null, [place] - [facility] 07/27/2023 08:37:23 Hep B, unspecified formulation 02/17/2017 completed Layla Hawthorne null, [place] - [facility] 07/27/2023 08:37:23 COVID-19, mRNA, LNP-S, PF, 100 mcg/0.5mL dose or 50 mcg/0.25mL dose 12/24/2020 completed Layla Hawthorne [place], [place] - [facility] 07/27/2023 08:37:23 COVID-19, mRNA, LNP-S, PF, 100 mcg/0.5mL dose or 50 mcg/0.25mL dose 01/26/2021 completed Layla Hawthorne [place], [place] - [facility] 07/27/2023 08:37:23 Past Encounters Encounter ID Performer Location Encounter Start Date Encounter Closed Date Diagnosis/Indication Diagnosis SNOMED-CT Code Diagnosis ICD10 Code Diagnosis Note [id number] Debra Jackson APRN [address] [place] [address] 04/28/2025 09:44:40 04/28/2025 10:44:52 General examination of patient 772160657 Z00.00 Screening for cardiovascular system disease 580531633 Z13.6 Endocrine/ metabolic screening 679138823 Z13.228 Well-contr olled Screening mammography 24 776850 Z12.31 Last Mammo 12/11/24 Exercises education, guidance, and counseling 528927985 Z71.82 The patient was advised to continue a healthy diet and exercise regularly. Dietary sue hercules surveillance 447305550 Z71.3 Chronic cough 89666504 R 05.3 Discussed needs CXR/PFT to evaluate for COPD - refuses both at this time but willing to trial using inhaler and have LDCT that is due end of April 2025 Chronic ob structive pulmonary disease 38576544 J44.9 Start Symbicort for maintenanc e - refuses PFT - advised due for LDCT 05/14/25 - will order LDCT today Hypertensive disorder 38 125325 I10 Uncontroll ed, advised on trying 1/2 of Losartan 50mg until follow-up with Cardiology Body mass index 30+ - obesity 438883578 Z68.33 Obesity 591433256 E66.9 Screening for malignant neoplasm of respiratory tract 483434249 Z12.2 30+ pack year history Nicotine d ependence with current use 068313649 F17.210 Current tobacco user Health Concerns Section Related Observation LastModified by Organization Detai ls LastModified Time None Recorded Concern Status LastModified by Organization Details LastModified Time None Recorded Payers Encounter Date Sequence Insurance Name Policy Number Policy Ware Covered Member ID Ware Member ID Guarantor Name 04/28/2025 1 [place] - [place] [employer]: turn off [place] lights [facility] [place] [place] Sariah Ledbetter [id number] Sariah Ledbetter Notes Date Note Type Note Provider Name and Address Organization Details Recorded Time 04/28/2025 text/html Annual WellnessReported bypatient.Diet and Nutrition:healthy [...] time and will discuss this with the Health Counselor at that appt. She states she did take it once and got very lightheaded/dizzy feels the dose may be too high. She complains of a cough. The Health Counselor stopped the Lisinopril due to the cough. She is a smoker. Her BP is high in the office today - discussed risks of cardiac event (heart attack/stroke) due to this. She states she continues with a cough even with being off the Lisinopril. She states when she smokes a cigarette it will cause her to cough. Debra Jackson, INJECTION SPECIALIST [address], [place], [address], [facility] - [facility] 04/28/2025 10:31:57 OBGyn Episode No OBEpisode recorded.
--- OUTSIDE RECORDS SUMMARY | 2025-05-13 19:56 | XMS_ITS | Clinical Summary ---
Author Organization [facility] Address [address] [place] [address] Care Team Providers Care Foster Care Worker Name Role Phone Unavailable Primary Care Provider [...] therelease of HIV test results or diagnoses. [id number] Social History Tobacco Use Types Packs/Day [...] (1 of 2) 2010 Immunization: COVID-19 ( - season) 2024 01/26/2021, 12/24/2020 Immunization: Influenza (MyC brennan) (Season Ended) 2025 Immunization: RSV (Adult) (1 - 1-dose 75+ series) 2035
--- OUTSIDE RECORDS SUMMARY | 2025-05-13 19:56 | XMS_ITS | Clinical Summary ---
Author Organization [facility] Address [address] [place] [address] Phone Care Team Providers Care Sheep Clipper Name Role Phone Unavailable Primary Care Provider [...]
--- OUTSIDE RECORDS SUMMARY | 2025-05-13 19:56 | XMS_ITS | Data Portability ---
Author Organization [place] - [facility] Address [address] [place] [address] Assessment Encounter Date Assessment Date Assessment LastModified [...] activity. - This note was dictated using Black Drumm software. If something is unclear, or does not make sense, please do not hesitate to contact our office at [phone] for clarification. Not available 08/02/2023 15:17:06 09/24/2023 [...] activity. - This note was dictated using Black Drumm software. If something is unclear, or does not make sense, please do not hesitate to contact our office at [phone] for clarification. Not available 09/24/2023 18:08:23 01/01/2024 [...] activity. - This note was dictated using Black Drumm software. If something is unclear, or does not make sense, please do not hesitate to contact our office at [phone] for clarification. Not available 01/01/2024 13:08:40 01/05/2025 [...] activity. - This note was dictated using Black Drumm software. If something is unclear, or does not make sense, please do not hesitate to contact our office at [phone] for clarification. Not available 01/05/2025 11:17:16 Plan [...] if patient on Coumadin Hold 2022 023 erin Ledbetter (Outpatient Surgery), [address], [place], [address], 3 10:50:59 Surgeries None recorded. Imaging nuclear stress test 2024 025 antonette Ledbetter (Centralized Scheduling), [address], [place], [address], 5 07:56:26 US, duplex, carotid artery 2024 025 antonette Ledbetter (Centralized Scheduling), [address], [place], [address], 5 07:29:45 electrocar diogram 2024 025 [email or web address] [facility], [address], [place], [address], 5 11:02:57 US, echocardio gram, transthora cic, complete, w/ color flow 2024 025 antonette Ledbetter (Centralized Scheduling), [address], [place], [address], 5 07:29:38 electrocar diogram 2022 023 ALFREDITO [facility], [address], [place], [address], 3 07:43:10 nuclear stress test 2022 023 [facility] (Centralized Scheduling), [address] [place] [address] Gabrielle Arteaga, [place], [address], 3 14:50:35 US, echocardio gram, transthora cic, complete, w/ color flow 2022 023 [facility] (Centralized Scheduling), [address] [place] [address] Gabrielle Arteaga, [place], [address], 3 14:50:35 US, duplex, carotid artery 2022 023 [facility] (Centralized Scheduling), [address] [place] [address] Gabrielle Arteaga, [place], [address], 3 14:50:35 Medication Orders nitroglyce rin 0.4 mg sublingual tablet [address] [facility] [place], [address] [place] [address], [address], 5 11:04:36 pantoprazo le 40 mg tablet,del ayed release [address] [facility] - [address], [address], 4 13:08:34 metoprolol succinate ER 25 mg tablet,ext ended release [address] [facility], [address] [place] [address], [address], 4 13:08:33 lisinopril 10 mg tablet 2023 024 [email or web address] - [address], [address], 17/202 5 10:25:52 nitroglyce rin 0.4 mg sublingual tablet 2023 024 [facility], [address] [place] [address], [address], 4 13:08:32 isosorbide mononitrat e ER 30 mg tablet,ext ended release 24 hr [address], [address], 4 13:08:36 hydrochlor othiazide 25 mg tablet [address], [address], 4 13:08:31 atorvastat in 80 mg tablet [address], [address], 4 13:08:34 aspirin 81 mg tablet,del ayed release [address], [address], 4 13:08:31 metoprolol succinate ER 25 mg tablet,ext ended release 24 hr [address], [address], 3 18:30:21 lisinopril 10 mg tablet [email or web address] [place] [address], [address], 5 10:25:52 Golytely 236 gram-22.74 gram-6.74 gram-5.86 gram oral solution 2022 023 [email or web address] [facility] [place], [address] [place] [address], [place], [address], 14:19:40 Patient TargetsNo targets recorded. Patient InstructionsNo instructions recorded. Reason for Referral None Reported. Results Created Date Observation Date Name Description Value Unit Range Abnormal Flag Note LastModifiedBy Organization Detail LastModifiedTime 09/24/2009/24/2023 elect rocar diogr am No observ ation record ed. [email or web address] Not Available 2022 08:47:17 09/24/2009/25/2023 elect rocar diogr am No observ ation record ed. ALFREDITO Perla [address] [place], [place], [address], 09/25/2023 07:43:10 10/16/20 elect rocar diogr am No observ ation record ed. Not Available 2022 08:25:47 05/26/20 24 05/13/2024 LDCT, chest , for lung cance r scree gume No observ ation record ed. [facility]) [address] [place] [address] , [place], [address], 08/04/2024 08:41:32 01/05/20 elect rocar diogr am No observ ation record ed. ALFREDITO Perla [address], [place], [address], 01/05/2025 10:34:15 01/05/20 25 01/05/2025 elect rocar diogr am No observ ation record ed. [email or web address] Not Available 12:12:03 02/10/20 25 02/09/2025 elect rocar diogr am inter preta tion* No observ ation record ed. [email or web address] Not Available 2024 12:42:56 Result Notes None recorded. Problems Name Problem SNOMED Code Status Onset Date Resolution Date Notes Provider Name and Address Organization Details Recorded Time Left bundle branch block 19451717 Active 2024 BROOKS MORFIN NP, S [address] [place] [address],[address], [address] , [place] - [place] - & [place] 5 11:06:09 Heart disease 29807539 Active Jennifer stinson, [place] & [place] 3 14:17:57 Disorder of coronary artery 046188366 Active 2017 Jennifer stinson[place] & [place] 3 14:17:56 Prediabet es 283879420 Active 2020 Jennifer stinson[place] 3 14:17:57 Mixed hyperlipi demia 661491431 Active 2021 Jennifer stinson[place] & [place] 3 14:17:56 Vitamin D deficienc y 13978643 Active 2019 Jennifer stinson[place] 3 14:17:56 Disorder of vitamin B12 350762148 Active 2021 Jennifer stinson[place] 3 14:17:56 Gastroeso phageal reflux disease without esophagit is 199957760 Active 2020 Jennifer stinson[place] & [place] 3 14:17:56 History of cardiac catheteri zation 62429526435 100 Active Jennifer stinson[place] & [place] 3 14:17:57 Palpitati ons 97200130 Active 2017 Palpitati ons Jennifer stinson[place] & [place] 3 14:17:57 Hypertens nicky disorder 39431536 Active 2014 Hypertens ion Hyper tension Jennifer stinson, [place] [facility] & [place] 3 14:17:56 Tobacco user 774440989 Active 2015 Jennifer stinson, [place] - [facility] - [facility] & [place] 3 14:17:56 Retention of urine 319793960 Active 2015 Jennifer stinson, [place] - [place] - & [place] 3 14:17:56 Diastolic heart failure 117298083 Active 2020 Jennifer stinson, [place] - [facility] - & [place] 3 14:17:57 Disorder of carotid artery 917624977 Active 2019 Jennifer stinson, [place] - [facility] - & [place] 3 14:17:56 History of surgery 050640099 Active 2015 Jennifer stinson, [place] - [facility] - [facility] & [place] 3 14:17:56 Second degree atriovent ricular block 235575470 Active 2019 Second degree atriovent ricular block Jennifer stinson[place] 3 14:17:56 Preinfarc tion syndrome 7768081 Active 2017 Not Available [facility] 2 23:32:21 Dizziness 250131978 Active 2017 Dizziness Jennifer stinson, [place] - [facility] - [facility] & [place] 3 14:17:56 Centriaci mary emphysema 82399413 Active 2019 Centrilob ular emphysema Jennifer stinson, [place] [facility] & [place] 3 14:17:57 Abnormal results of cardiovas cular function studies 954212807 Active 2019 Jennifer stinson, [place] [facility] & [place] 3 14:17:56 Tympanosc lerosis involving tympanic membrane only 25296184 Active 2019 Jennifer stinson[place] 3 14:17:56 Urinary tract infectiou s disease 23632753 Active 2015 Urinary tract infectiou s disease Not Available [facility] 2 23:32:21 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 28491370 Active 2014 Not Available [facility] 2 23:32:21 Gastroeso phageal reflux disease 164698359 Active 2019 Gastroeso phageal reflux disease Jennifer stinson, [place] [facility] & [place] 3 14:17:56 Electroca rdiogram abnormal 378397015 Active 2015 Jennifer stinson, [place] [facility] & [place] 3 14:17:56 Mild intermitt ent asthma 222648253 Active 2019 Mild intermitt ent asthma Jennifer stinson, [place] [facility] & [place] 3 14:17:57 Angina pectoris 118183468 Active 2015 Jennifer stinson[place] [facility] & [place] 3 14:17:56 Smoker 35149304 Active 2019 Smoker Jennifer stinson[place] [facility] & [place] 3 14:17:57 Chest pain 59301656 Active 2017 Chest pain Jennifer stinson, [place] [facility] & [place] 3 14:17:56 Urethral stenosis 936903217 Active 2014 Jennifer stinson[place] [facility] & [place] 3 14:17:56 Bilateral carotid artery occlusion 872204796 Active 2019 Jennifer stinson[place] [facility] & [place] 3 14:17:57 Dyspnea 186095658 Active 2019 Jennifer Jimenez null, [place] [facility] & [place] 3 14:17:56 Cystocele 143203351 Active 2014 Jennifer Barbara stinson[place] [facility] & [place] 3 14:17:56 Acute cystitis 80880352 Active 2015 Jennifer stinson[place] [facility] & [place] 3 14:17:57 Ventricul ar premature beats 91083771 Active 2017 Jennifer stinson[place] & 3 14:17:56 Coronary arteriosc lerosis in [place] artery 87228111272 07 Active 2018 Jennifer stinson[place] 3 14:17:56 Ventricul ar tachycard ia 16300677 Active 2019 Ventricul ar tachycard ia Jennifer stinson[place] & [place] 3 14:17:56 Hyperlipi demia 74494717 Active 2016 Jennifer stinson[place] 3 14:17:57 Urge incontine nce of urine 18765884 Active 2014 Jennifer stinson[place] 3 14:17:57 Hypertens nicky heart disease 37363044 Active 2019 Jennifer stinson[place] & [place] 3 14:17:57 Rectal hemorrhag e 84272493 Active 2022 Jennifer stinson[place] 3 14:17:56 Chronic constipat ion 336714814 Active 2022 Jennifer sitnson[place] 3 14:17:56 Essential hypertens ion 93775733 Active 2022 Jennifer stinson[place] 3 14:17:57 Urinary incontine nce 068708571 Active [place]inson[place] & 3 14:17:56 Vaginal bleeding 315729429 Active Jennifer stinson[place] & [place] 3 14:17:56 Herniated urinary bladder 147964448 Active Jennifer stinson[place] 3 14:17:56 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 Procedures Surgical History Date Name Laterality Status Provider Name and Address Organization Details Recorded Time 023 Colonoscopy completed Mckenna Vergara [place] & [place] 09/24/2023 08:41:04 020 cardiac catheterization completed Beatriz Orourke [place] & [place] 07/12/2023 08:22:00 019 Colonoscopy completed Beatriz Oorurke [place] - [place] & [place] 07/11/2023 14:33:56 018 mammography completed Beatriz FONG - [facility] - [place] & [place] 07/11/2023 14:33:01 016 perineorrhaphy completed Beatriz FONG - [facility] - [place] & [place] 07/11/2023 14:26:00 013 sampling of vagina for Papanicolaou smear completed Beatriz FONG - [facility] - [place] & [place] 07/11/2023 14:33:36 002 Other completed bhavna beck [place] & [place] 07/11/2023 16:49:54 997 Other completed bhavna beck [place] & [place] 07/11/2023 16:49:54 Cystourethroscopy completed Beatriz FONG - [facility] - [place] & [place] 07/11/2023 14:25:32 hysterectomy completed Marcos FONG - [facility] - [place] & [place] 08/17/2022 15:24:53 Carpal tunnel surgery completed Marcos FONG - [facility] - [place] & [place] 08/17/2022 15:25:02 Imaging Results None recorded. Procedure Notes None recorded. Medical Equipment None Reported. Allergies Allergen ID Allergen Name Allergen Category Reaction Reaction Severity Criticality Documentation Date Start Date Code Code System Note Provider Name and Address Organization Details Recorded Time 44736 Lipitor medicatio n Not available Not available Not available 07/10/2023 60766 5 RxNorm Beatriz Orourke [facility], [place] - [facility] - [place] & [place] 3 12:44:06 Medications Name Sig Start Date [...] Updated DateTime 4 167.64 cm 33.7 kg/m2 13520.8 1 g 93 % 93 % 89 /min 150 mm[Hg] 98 mm[Hg] [facility] [place] [facility] [place] 4 10:14:57 Date Recorded Body height Body mass index (BMI) Body weight Oxygen saturation Oxygen saturation in Arterial blood by Pulse oximetry Heart rate Systolic blood pressure Diastolic blood pressure Provider Name and Address Organization Details Last Updated DateTime 5 167.64 cm 36.3 kg/m2 057038 g 95 % 95 % 84 /min 158 mm[Hg] 94 mm[Hg] Alla Witt [facility] & [place] 5 10:23:00 Date Recorded Body height Body mass index (BMI) Body weight Body temperature Heart rate Respiratory rate Systolic blood pressure Diastolic blood pressure Provider Name and Address Organization Details Last Updated DateTime 3 167.64 cm 33.4 kg/m2 98630.6 2 g 97.6 [degF] 63 /min 20 /min 180 mm[Hg] 104 mm[Hg] Beatriz Orourke [facility] & [place] 3 12:55:35 Date Recorded Body height Body mass index (BMI) Body weight Oxygen saturation Oxygen saturation in Arterial blood by Pulse oximetry Heart rate Systolic blood pressure Diastolic blood pressure Provider Name and Address Organization Details Last Updated DateTime 3 167.64 cm 33 kg/m2 80003 g 96 % 96 % 57 /min 120 mm[Hg] 72 mm[Hg] Jennifer Barbara [facility] & [place] 3 14:17:17 Date Recorded Body height Body mass index (BMI) Body weight Oxygen saturation Oxygen saturation in Arterial blood by Pulse oximetry Heart rate Systolic blood pressure Diastolic blood pressure Provider Name and Address Organization Details Last Updated DateTime 3 167.64 cm 32.7 kg/m2 52823.1 g 93 % 93 % 54 /min 122 mm[Hg] 80 mm[Hg] Mckenna Jai [facility] & [place] 3 08:40:35 Social History Question Answer Notes LastModified by Organizat ion Details LastModified Time Tobacco Smoking Status Current Every Day Smoker Not Available [facility] 07/26/2022 23:33:09 Do You Have An Advance [...] Are You Passively Exposed To Smoke? Yes [email or web address] Information not available 02/13/2023 How Much Tobacco Do You Smoke? 0.5 PPD [email or web address] Information not available 02/13/2023 How Many Years Have You Smoked Tobacco? 40 Information not available 09/24/2023 Sex: Unknown Functional Status Question Answer Note LastModified by Organizat ion Details LastModified Time Do you use any illicit or recreational drugs? No Information not available 07/11/2023 What is your level of alcohol consumption? None [email or web address] Information not available 07/11/2023 Do you or [...] History Condition Response Coronary Artery Disease Y Gout N None N Weight loss or gain Y Colon Cancer N Kidney Stones N Hyperthyroidism [...] Jennifer Jimenez null, [place] & [place] 08/02/2023 14:18:09 COVID-19, mRNA, LNP-S, PF, 100 mcg/0.5mL dose or 50 mcg/0.25mL dose 01/26/2021 completed Jennifer Jimenez null, [place] & [place] 08/02/2023 14:18:09 Tdap 02/17/2017 completed Jennifer Jimenez null[place] 08/02/2023 14:18:09 Hep B, unspecified formulation 01/17/2017 completed Jennifer Jimenez null[place] 08/02/2023 14:18:09 Hep B, unspecified formulation 02/17/2017 completed Jennifer Jimenez null[place] & [place] 08/02/2023 14:18:09 Past Encounters Encounter ID Performer Location Encounter Start Date Encounter Closed Date Diagnosis/Indication Diagnosis SNOMED-CT Code Diagnosis ICD10 Code Diagnosis Note [id number] BROOKS MORFIN NP, S [place] [address] [place] [id number] 08/17/2022 12:56:01 08/17/2022 13:22:35 Coronary arteriosclerosis 77798292 I25.10 Essential hypertension 57379032 I10 Hyperlipidemia 45429366 E78.5 Ventricula r premature complex 331681877 I49.3 Carotid ar alyson stenosis 61739443 I65.23 Mitral clare ve regurgitation 16149022 I34.0 [id number] BROOKS MORFIN NP, S [address]Z [address] [place] [id number] 02/13/2023 12:51:37 02/13/2023 13:40:07 Coronary arteriosclerosis 96959066 I25.10 Essential hypertension 04785702 I10 Hyperlipidemia 50851259 E78.5 Ventricula r premature complex 506200641 I49.3 Carotid ar alyson stenosis 71213809 I65.23 Mitral clare ve regurgitation 29517588 I34.0 Angina pectoris 33575333 0 I20.9 Dyspnea on exertion 6084 5006 R06.09 [id number] Haris Carlson MD [address]Z [address] [place] [id number] 03/08/2023 08:27:49 03/08/2023 08:28:21 Essential hypertension 14785748 I10 EKG INTERPRETA TION: EKG dated 02/13/23 revealed sinus bradycardi a with heart rate 58. Nonspecifi c ST abnormalit y. Abnormal ECG. [id number] Micah Figueroa MD [facility] [address] [place] [address],[facility] [address] [place] [address] 07/12/2023 12:19:51 07/12/2023 14:05:55 History of polyp of colon 824793724 Z86.010 Patient with history of colonic polyps, most recent colonoscop y in 2019 demonstrat ed poor prep. Clearly overdue for surveillan ce purposes schedule colonoscop y, with GoLYTELY prep given last prep was suboptimal . Rectal hemorrhage 284471 02 K62.5 The patient's rectal bleeding certainly could be associated with the hemorrhoid al disease the patient had described at her last colonoscop y, however given the patient's prep at that time was poor and there was a inflammat ory appearing mass again pathology is not been received yet other source of blood loss certainly can not be excluded. Chronic constipation 236 690497 K59.09 we have instructed the patient to take fiber supplement ation on a scheduled basis we recommend 2 capsules once a day continue on this regimen at till her colonoscop y so we can see how this either helps or does not help with her constipati on [id number] BROOKS MORFIN NP, S [address]Z [address] [place] [id number] 08/02/2023 13:41:05 08/02/2023 14:43:59 Essential hypertension 73536916 I10 Coronary arteriosclerosis 41773555 I25.10 Hyperlipidemia 92981232 E78.5 Ventricula r premature complex 485817322 I49.3 Carotid ar alyson stenosis 86765157 I65.23 Mitral clare ve regurgitation 64206609 I34.0 Angina pectoris 33812566 0 I20.9 Dyspnea on exertion 6084 5006 R06.09 [id number] BROOKS MORFIN NP, S [place] [address]Z [address] [place] [id number] 09/24/2023 08:18:06 09/24/2023 09:27:18 Essential hypertension 60829822 I10 Coronary arteriosclerosis 04792754 I25.10 Hyperlipidemia 17542464 E78.5 Ventricula r premature complex 753101751 I49.3 Carotid ar alyson stenosis 47188900 I65.23 Mitral clare ve regurgitation 03096252 I34.0 [id number] BROOKS MORFIN NP, S [address]Z [address] [place] [id number] 01/01/2024 09:42:47 01/01/2024 10:37:56 Essential hypertension 33686350 I10 Coronary arteriosclerosis 05003535 I25.10 Hyperlipidemia 16343846 E78.5 Ventricula r premature complex 192147187 I49.3 Carotid ar alyson stenosis 90911424 I65.23 Mitral clare ve regurgitation 00681692 I34.0 Gastroesop hageal reflux disease 786455991 K21.9 [id number] BROOKS MORFIN NP, S [place] [address]Z [address] [place] [id number] 01/05/2025 10:09:51 01/05/2025 11:04:28 Essential hypertension 93123445 I10 Dyspnea on exertion 6084 5006 R06.09 Atypical angina 24495537 2 I20.89 Left bundl e branch block 16726162 I44.7 Dizziness 999459412 R42 Coronary arteriosclerosis 29198510 I25.10 Cigarette smoker 8800484 7 F17.210 Hyperlipidemia 05792401 E78.5 Ventricula r premature complex 703300768 I49.3 Carotid ar alyson stenosis 31646291 I65.23 Mitral clare ve regurgitation 63238613 I34.0 Gastroesop hageal reflux disease 473532181 K21.9 Health Concerns Section Related Observation LastModified [...] Ledbetter 09/24/2023 1 [employer] HIX[place] Ledbetter [id number] Sariah Ledbetter 09/24/2023 1 [place] [facility] HEALTH CHOICES - FFS/TRADITION AL Sariah Ledbetter [id number] Sariah Ledbetter 09/24/2023 1 [employer] [place] [employer] [place] (MEDICA[place]AC[place] - HMO) DIDIER Ledbetter [id number] Sariah Ledbetter 01/05/2025 1 *SELF PAY* Chris Ledbetter 07/26/2023 1 [employer] DIDIER Ledbetter [id number] Sariah Ledbetter 09/24/2023 1 [facility] PLAN (MEDICAID REPLACEMENT - HMO) [id number] Sariah Ledbetter [id number] Sariah Ledbetter 09/24/2023 1 [place] [id number] Sariah Ledbetter [id number] Sariah Ledbetter 01/01/2024 1 [employer] [facility] HEALTH NETWORK [id number] Sariah Ledbetter [id number] Sariah Ledbetter 09/24/2023 [place] [facility] HEALTH CHOICES - FFS/TRADITION AL Sariah Ledbetter [id number] Sariah Ledbetter 01/05/2025 1 [place] [id number] Sariah Ledbetter [id number] Sariah Ledbetter 09/24/2023 1 [facility] Sariah Ledbetter [id number] Sariah Ledbetter 01/05/2025 1 [place] [id number] Sariah Ledbetter [id number] Sariah Ledbetter 09/24/2023 2 [facility] Sariah Ledbetter [id number] Sariah Ledbetter 09/24/2023 1 [facility] ([facility]) Sariah Ledbetter [id number] Sariah Ledbetter Notes Date Note Type Note [...] defecation. Has known diverticulosis. Micah Figueroa MD [address] [place] [address],[address], [place], [address], [facility] - [place] - [place] & [place] 07/12/2023 13:25:29 08/02/2023 text/html Mame is a [...] to 80 diastolic. BROOKS MORFIN NP, S [address] [place] [address],[address], [place], [address], [facility] 08/02/2023 15:17:40 09/24/2023 text/html Mame is [...] our last visit. BROOKS MORFIN NP, S [address] [place] [address],[address], [place], [address], [facility] & [place] 09/24/2023 18:30:39 01/01/2024 text/html Mame is a [...] complaints or concerns. BROOKS MORFIN NP, S [address] [place] [address],[address], [place], [address], [place] [facility] [facility] & [place] 01/01/2024 13:10:37 01/05/2025 text/html Mame is a [...] arranged with PCP. BROOKS MORFIN NP, S [address] [facility],[address], [place], [address], [place] [facility] & [place] 01/05/2025 16:39:25 OBGyn Episode No OBEpisode recorded.
== END ==
LOC: SL 19:54
PROVIDERS: PCP Nurse Practitioner Family; Visit Provider Specialist
DX: G47.33 Obstructive sleep apnea (adult) (pediatric) (principal); G47.34 Idiopathic sleep related nonobstructive alveolar hypoventilation; G47.36 Sleep related hypoventilation in conditions classified elsewhere
CPT/HCPCS: 95810

== ENCOUNTER 2025-05-18 07:44 | Outpatient (CLI) | payer OTHER, SELFPAY ==
--- OUTSIDE RECORDS SUMMARY | 2025-05-18 07:47 | XMS_ITS | Data Portability ---
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 Assessment Encounter Date Assessment Date Assessment LastModified [...] ALFREDITO [facility], [address], [place] [address], [place], [address], 09:07:05 CBC w/ auto diff 2024 025 ALFREDITO [facility], [address], [place] [address], [place], [address], 5 09:07:03 TSH + free T4, serum 2024 025 ALFREDITO [facility], [address], [place] [address], [place], [address], 5 09:07:02 HbA1c (hemoglobin A1c), blood 2024 025 ALFREDITO [facility], [address], [place] [address], [place], [address], 5 09:07:07 CMP, serum or plasma 2024 025 ALFREDITO [facility], [address], [place] [address], [place], [address], 5 09:07:04 vitamin D, 25-hydroxy, total, serum 2024 025 ALFREDITO [facility], [address], [place] [address], [place], [address], 5 09:07:08 cobalamin and folate panel, serum 2024 025 ALFREDITO [facility], [address], [place] [address], [place], [address], 5 09:07:06 lipid panel, serum 2023 024 ALFREDITO [facility], [address], [place] [address], [place], [address], 4 07:14:28 CMP, serum or plasma 2023 024 ALFREDITO [facility], [address], [place] [address], [place], [address], 4 07:14:27 HbA1c (hemoglobin A1c), blood 2023 024 ALFREDITO [facility], [address], [place] [address], [place], [address], 4 07:14:30 vitamin D, 25-hydroxy, total, serum 2023 024 ALFREDITO [facility], [address], [place] [address], [place], [address], 4 07:14:31 cobalamin and folate panel, serum 2023 024 ALFREDITO [facility], [address], [place] [address], [place], [address], 4 07:14:29 HbA1c (hemoglobin A1c), blood 2023 024 ALFREDITO [facility], [address], [place] [address], [place], [address], 4 08:23:04 CMP, serum or plasma 2023 024 ALFREDITO [facility], [address], [place] [address], [place], [address], 4 08:23:01 CBC w/ auto diff 2023 024 ALFREDITO [facility], [address], [place] [address], [place], [address], 4 08:23:00 TSH + free T4, serum 2023 024 ALFREDITO [facility], [address], [place] [address], [place], [address], 4 08:22:59 lipid panel, serum 2023 024 ALFREDITO [facility], [address], [place] [address], [place], [address], 4 08:23:02 vitamin D, 25-hydroxy, total, serum 2023 024 ALFREDITO [facility], [address], [place] [address], [place], [address], 4 08:23:05 vitamin B12 + folate, serum or blood 2023 024 ALFREDITO [facility], [address], [place] [address], [place], [address], 4 08:23:03 Referral neurologist referral 2024 025 [email or web address] Neurology Updated, [address] [facility], [address] [facility], [place], [address], 5 08:38:07 screening specialist referral 2023 024 ALFREDITO Louie DPM, [address] [place], [address], 4 12:29:32 Procedures None recorded. Surgeries None recorded. Imaging LDCT, chest, for lung cancer screening [email or web address] [place] [address], [address] [place] [address], [id number], 5 07:31:06 MRI, brain, w/wo contrast [address] (Scheduling), [address], [place], [address], 5 20:02:55 MRI, brain, w/o contrast - approved auth # [id number] good 12/09/24-[email or web address] - Imaging, [address] [facility] [place], [address], 5 01:02:17 MAMMO, screening, digital, bilateral 2023 024 ALFREDITO Ledbetter (Centralized Scheduling), [address] [place] [address] [place], [address], 5 08:31:02 LDCT, chest, for lung cancer screening - Pa is done and loaded in chart approved 2023 024 [facility], [address] [place] [address], [id number], 4 08:01:11 Medication Orders Symbicort 160 mcg-4.5 mcg/actuati on HFA aerosol inhaler 2024 025 ALFREDITO [facility], [address] [place] [address], [address], 5 10:28:24 atorvastati n 80 mg tablet 2024 025 [facility], [address] [place] [address], [address], 5 11:42:33 hydrochloro thiazide 25 mg tablet 2024 025 [facility], [address] [place] [address], [address], 5 11:42:34 isosorbide mononitrate ER 30 mg tablet,exte nded release 24 hr [address], [address], 5 11:42:34 lisinopril 20 mg tablet 2024 025 [facility], [address] [place] [address], [address], 5 14:37:16 pantoprazol e 40 mg tablet,mariusz yed release [address], [address], 5 11:42:32 fluticasone propionate 50 mcg/actuati on nasal spray,suspe nsion [address], [address], 5 11:42:35 meclizine 25 mg chewable tablet [address], [address], 5 10:44:14 cholecalcif janel (vitamin D3) 50 mcg (2,000 unit) capsule 2024 025 [facility], [address] [place] [address], [place], [address], 5 11:42:32 melatonin 10 mg tablet 2024 025 [facility], [address] [place] [address], [address], 5 11:42:35 mirtazapine 30 mg tablet 2024 025 [facility], [address] [place] [address], [address], 5 11:42:33 atorvastati n 80 mg tablet 2023 024 [facility], [address] [place] [address], [place], [address], 4 11:51:28 isosorbide mononitrate ER 30 mg tablet,exte nded release 24 hr [address], [place], [address], 4 11:51:29 hydrochloro thiazide 25 mg tablet [address], [place], [address], 4 11:51:25 lisinopril 20 mg tablet 2023 [email or web address], [place], [address], 5 09:59:57 pantoprazol e 40 mg tablet,mariusz yed release 2023 [facility], [address] [place] [address], [address], 4 11:51:28 fluticasone propionate 50 mcg/actuati on nasal spray,suspe nsion [address], [place], [address], 4 11:51:27 cholecalcif janel (vitamin D3) 50 mcg (2,000 unit) capsule [address], [address], 4 11:51:26 melatonin 10 mg tablet [address], [address], 4 11:51:25 mirtazapine 30 mg tablet [address], [address], 4 11:51:27 cholecalcif janel (vitamin D3) 50 mcg (2,000 unit) capsule [address], [address], 4 10:21:18 mirtazapine 30 mg tablet [address], [address], 4 10:21:18 Patient TargetsNo targets recorded. Patient Instructions Encounter Date Encounter Id Patient Instructions Last Modified By Organization Details Last Modified Time 04/28/2024 [id number] learning about healthy weight Not available 04/28/2024 10:31:40 body mass index: care instructions Not available 04/28/2024 10:31:41 learning about lung cancer screening Not available 04/28/2024 10:21:16 eating healthy foods: care instructions Not available 04/28/2024 10:31:14 smoking cessatio n counseling, greater than 3 minutes up to 10 minutes Not available 04/28/2024 10:21:16 walking for exercise: care instructions Not available 04/28/2024 10:31:14 10/27/2024 [id number] learning about healthy weight Not available 10/27/2024 11:52:20 body mass index: care instructions Not available 10/27/2024 11:52:20 04/28/2025 [id number] Well Visit, Ages 18 to 65: Care [...] Not available 04/28/2025 10:31:01 Reason for Referral Systems Analysis Manager Referral for Abno rmality of nail of [...] uIU/m L 0.450- 4.500 Not Available [facility] ([facility]) [address] [facility], [place], [address], 04/29/2024 08:22:59 04/28/20 24 04/29/2024 TSH+F REE T4 T4,free(dire ct) 1.32 NG/dL 0.82-1 .77 Not Available [facility] ([facility]) [address] [place], [address], 04/29/2024 08:22:59 04/28/20 24 04/29/2024 CBC WITH DIFFE RENTI AL/PL ATELE T WBC 5.3 x10e3 /uL 3.4-10 .8 Not Available [facility] ([facility]) [address] [place], [address], 04/29/2024 08:23:00 04/28/20 24 04/29/2024 CBC WITH DIFFE RENTI AL/PL ATELE T RBC 4.68 x10e6 /uL 3.77-5 .28 Not Available [facility] ([facility]) [address] [place], [address], 04/29/2024 08:23:00 04/28/20 24 04/29/2024 CBC WITH DIFFE RENTI AL/PL ATELE T hemoglobin 14.8 g/dL 11.1-1 5.9 Not Available [facility] ([facility]) [address] [place], [address], 04/29/2024 08:23:00 04/28/20 24 04/29/2024 CBC WITH DIFFE RENTI AL/PL ATELE T hematocrit 43.4 % 34.0-4 6.6 Not Available [facility] ([facility]) [address] [place], [address], 04/29/2024 08:23:00 04/28/20 24 04/29/2024 CBC WITH DIFFE RENTI AL/PL ATELE T MCV 93 fL 79-97 Not Available [facility] ([facility]) [address] [facility], [place], [address], 04/29/2024 08:23:00 04/28/20 24 04/29/2024 CBC WITH DIFFE RENTI AL/PL ATELE T MCH 31.6 pg 26.6-3 3.0 Not Available [facility] ([facility]) [address] [facility], [place], [address], 04/29/2024 08:23:00 04/28/20 24 04/29/2024 CBC WITH DIFFE RENTI AL/PL ATELE T MCHC 34.1 g/dL 31.5-3 5.7 Not Available [facility] ([facility]) [address] [facility], [place], [address], 04/29/2024 08:23:00 04/28/20 24 04/29/2024 CBC WITH DIFFE RENTI AL/PL ATELE T RDW 13.3 % 11.7-1 5.4 Not Available [facility] ([facility]) [address] [facility], [place], [address], 04/29/2024 08:23:00 04/28/20 24 04/29/2024 CBC WITH DIFFE RENTI AL/PL ATELE T platelets 221 x10e3 /uL 150-45 0 Not Available [facility] ([facility]) [address] [facility], [place], [address], 04/29/2024 08:23:00 04/28/20 24 04/29/2024 CBC WITH DIFFE RENTI AL/PL ATELE T neutrophils 67 % not estab. Not Available [facility] ([facility]) [address] [place], [address], 04/29/2024 08:23:00 04/28/20 24 04/29/2024 CBC WITH DIFFE RENTI AL/PL ATELE T lymphs 24 % not estab. Not Available [facility] ([facility]) [address] [place], [address], 04/29/2024 08:23:00 04/28/20 24 04/29/2024 CBC WITH DIFFE RENTI AL/PL ATELE T monocytes 6 % not estab. Not Available [facility] ([facility]) [address] [facility], [place], [address], 04/29/2024 08:23:00 04/28/20 24 04/29/2024 CBC WITH DIFFE RENTI AL/PL ATELE T eos 2 % not estab. Not Available [facility] ([facility]) [address] [facility], [place], [address], 04/29/2024 08:23:00 04/28/20 24 04/29/2024 CBC WITH DIFFE RENTI AL/PL ATELE T basos 1 % not estab. Not Available [facility] ([facility]) [address] [place], [address], 04/29/2024 08:23:00 04/28/20 24 04/29/2024 CBC WITH DIFFE RENTI AL/PL ATELE T immature cells B2B SALES PROFESSIONAL Not Available [facility] ([facility]) [address] [place], [address], 04/29/2024 08:23:00 04/28/20 24 04/29/2024 CBC WITH DIFFE RENTI AL/PL ATELE T neutrophils (absolute) 3.5 x10e3 /uL 1.4-7. 0 Not Available [facility] ([facility]) [address] [place], [address], 04/29/2024 08:23:00 04/28/20 24 04/29/2024 CBC WITH DIFFE RENTI AL/PL ATELE T lymphs (absolute) 1.3 x10e3 /uL 0.7-3. 1 Not Available [facility] ([facility]) [address] [facility], [place], [address], 04/29/2024 08:23:00 04/28/20 24 04/29/2024 CBC WITH DIFFE RENTI AL/PL ATELE T monocytes(ab solute) 0.3 x10e3 /uL 0.1-0. 9 Not Available [facility] ([facility]) [address] [facility], [place], [address], 04/29/2024 08:23:00 04/28/20 24 04/29/2024 CBC WITH DIFFE RENTI AL/PL ATELE T eos (absolute) 0.1 x10e3 /uL 0.0-0. 4 Not Available [facility] ([facility]) [address] [facility], [place], [address], 04/29/2024 08:23:00 04/28/20 24 04/29/2024 CBC WITH DIFFE RENTI AL/PL ATELE T baso (absolute) 0.1 x10e3 /uL 0.0-0. 2 Not Available [facility] ([facility]) [address] [facility], [place], [address], 04/29/2024 08:23:00 04/28/20 24 04/29/2024 CBC WITH DIFFE RENTI AL/PL ATELE T immature granulocytes 0 % not estab. Not Available [facility] ([facility]) [address] [facility], [place], [address], 04/29/2024 08:23:00 04/28/20 24 04/29/2024 CBC WITH DIFFE RENTI AL/PL ATELE T immature grans (abs) 0.0 x10e3 /uL 0.0-0. 1 Not Available [facility] ([facility]) [address] [facility], [place], [address], 04/29/2024 08:23:00 04/28/20 24 04/29/2024 CBC WITH DIFFE RENTI AL/PL ATELE T NRBC B2B SALES PROFESSIONAL Not Available [facility] ([facility]) [address] [facility], [place], [address], 04/29/2024 08:23:00 04/28/20 24 04/29/2024 CBC WITH DIFFE RENTI AL/PL ATELE T hematology comments: B2B SALES PROFESSIONAL Not Available [facility] ([facility]) [address] [facility], [place], [address], 04/29/2024 08:23:00 04/28/20 24 04/29/2024 COMP. METAB OLIC PANEL (14) glucose 110 mg/dL 70-99 above high normal Not Available [facility] ([facility]) [address] [facility], [place], [address], 04/29/2024 08:23:01 04/28/20 24 04/29/2024 COMP. METAB OLIC PANEL (14) BUN 20 mg/dL 8-27 Not Available [facility] ([facility]) [address] [place], [address], 04/29/2024 08:23:01 04/28/20 24 04/29/2024 COMP. METAB OLIC PANEL (14) creatinine 1.01 mg/dL 0.57-1 .00 above high normal Not Available [facility] ([facility]) [address] [facility], [place], [address], 04/29/2024 08:23:01 04/28/20 24 04/29/2024 COMP. METAB OLIC PANEL (14) eGFR 63 mL/mi n/1.7 3 >59 Not Available [facility] ([facility]) [address] [place], [address], 04/29/2024 08:23:01 04/28/20 24 04/29/2024 COMP. METAB OLIC PANEL (14) BUN/creatini ne ratio 20 12-28 Not Available [facility] ([facility]) [address], [place], [address], 04/29/2024 08:23:01 04/28/20 24 04/29/2024 COMP. METAB OLIC PANEL (14) sodium 137 mmol/ L 134-14 4 Not Available [facility] ([facility]) [address] [place], [address], 04/29/2024 08:23:01 04/28/20 24 04/29/2024 COMP. METAB OLIC PANEL (14) potassium 4.6 mmol/ L 3.5-5. 2 Not Available [facility] ([facility]) [address] [place], [address], 04/29/2024 08:23:01 04/28/20 24 04/29/2024 COMP. METAB OLIC PANEL (14) chloride 97 mmol/ L 96-106 Not Available [facility] ([facility]) [address] [place], [address], 04/29/2024 08:23:01 04/28/20 24 04/29/2024 COMP. METAB OLIC PANEL (14) carbon dioxide, total 25 mmol/ L 20-29 Not Available [facility] ([facility]) [address] [place], [address], 04/29/2024 08:23:01 04/28/20 24 04/29/2024 COMP. METAB OLIC PANEL (14) calcium 10.0 mg/dL 8.7-10 .3 Not Available [facility] ([facility]) [address] [place], [address], 04/29/2024 08:23:01 04/28/20 24 04/29/2024 COMP. METAB OLIC PANEL (14) protein, total 7.2 g/dL 6.0-8. 5 Not Available [facility] ([facility]) [address] [place], [address], 04/29/2024 08:23:01 04/28/20 24 04/29/2024 COMP. METAB OLIC PANEL (14) albumin 4.5 g/dL 3.9-4. 9 Not Available [facility] ([facility]) [address] [place], [address], 04/29/2024 08:23:01 04/28/20 24 04/29/2024 COMP. METAB OLIC PANEL (14) globulin, total 2.7 g/dL 1.5-4. 5 Not Available [facility] ([facility]) [address] [place], [address], 04/29/2024 08:23:01 04/28/20 24 04/29/2024 COMP. METAB OLIC PANEL (14) A/G ratio 1.7 Not Available [facility] ([facility]) [address] [place], [address], 04/29/2024 08:23:01 04/28/20 24 04/29/2024 COMP. METAB OLIC PANEL (14) bilirubin, total 0.4 mg/dL 0.0-1. 2 Not Available [facility] ([facility]) [address] [place], [address], 04/29/2024 08:23:01 04/28/20 24 04/29/2024 COMP. METAB OLIC PANEL (14) alkaline phosphatase 153 IU/L 44-121 above high normal Not Available [facility] ([facility]) [address] [place], [address], 04/29/2024 08:23:01 04/28/20 24 04/29/2024 COMP. METAB OLIC PANEL (14) AST (SGOT) 16 IU/L 0-40 Not Available [facility] ([facility]) [address] [place], [address], 04/29/2024 08:23:01 04/28/20 24 04/29/2024 COMP. METAB OLIC PANEL (14) ALT (SGPT) 20 IU/L 0-32 Not Available [facility] ([facility]) [address] [facility], [place], [address], 04/29/2024 08:23:01 04/28/20 24 04/29/2024 LIPID PANEL cholesterol, total 170 mg/dL 100-19 9 Not Available [facility] ([facility]) [address] [place], [address], 04/29/2024 08:23:02 04/28/20 24 04/29/2024 LIPID PANEL triglyceride s 194 mg/dL 0-149 above high normal Not Available [facility] ([facility]) [address] [place], [address], 04/29/2024 08:23:02 04/28/20 24 04/29/2024 LIPID PANEL HDL cholesterol 43 mg/dL >39 Not Available [facility]) [address] [place], [address], 04/29/2024 08:23:02 04/28/20 24 04/29/2024 LIPID PANEL VLDL cholesterol mark 33 mg/dL 5-40 Not Available [facility] ([facility]) [address] [place], [address], 04/29/2024 08:23:02 04/28/20 24 04/29/2024 LIPID PANEL LDL chol calc ([facility]) 94 mg/dL 0-99 Not Available [facility] ([facility]) [address] [facility], [place], [address], 04/29/2024 08:23:02 04/28/20 24 04/29/2024 LIPID PANEL LDL calc comment: TNP Test not perfo rmed Not Available [facility] ([facility]) [address] [place], [address], 04/29/2024 08:23:02 04/28/20 24 04/29/2024 VITAM IN B12 AND FOLAT E vitamin B12 482 pg/mL 232-12 45 Not Available [facility] ([facility]) [address] [facility], [place], [address], 04/29/2024 08:23:03 04/28/20 24 04/29/2024 VITAM IN B12 AND FOLAT E folate (folic acid), serum 4.6 NG/mL >3.0 A serum folat e becky ntrat ion of less than 3.1 ng/mL is consi dered to repre sent clini mark defic iency . Not Available [facility] ([facility]) [address] [facility], [place], [address], 04/29/2024 08:23:03 04/28/20 24 04/29/2024 HEMOG LOBIN A1C hemoglobin A1C 6.2 % 4.8-5. 6 above high normal Predi abete s: 5.7 - 6.4 Diabe nigel: >6.4 Glyce judy contr ol for adult s with diabe nigel: <7.0 Not Available [facility] ([facility]) [address] [facility], [place], [address], 04/29/2024 08:23:04 04/28/20 24 04/29/2024 VITAM IN [...] 2010; 96(7) :1911 -30. Not Available [facility] ([facility]) [address] [place], [address], 04/29/2024 08:23:05 10/27/20 24 10/28/2024 COMP. METAB OLIC PANEL (14) glucose 104 mg/dL 70-99 above high normal Not Available [facility] ([facility]) [address] [place], [address], 10/28/2024 07:14:27 10/27/20 24 10/28/2024 COMP. METAB OLIC PANEL (14) BUN 15 mg/dL 8-27 normal Not Available [facility] ([facility]) [address] [facility], [place], [address], 10/28/2024 07:14:27 10/27/20 24 10/28/2024 COMP. METAB OLIC PANEL (14) creatinine 0.72 mg/dL 0.57-1 .00 normal Not Available [facility] ([facility]) [address] [place], [address], 10/28/2024 07:14:27 10/27/20 24 10/28/2024 COMP. METAB OLIC PANEL (14) eGFR 93 mL/mi n/1.7 3 >59 normal Not Available [facility] ([facility]) [address] [place], [address], 10/28/2024 07:14:27 10/27/20 24 10/28/2024 COMP. METAB OLIC PANEL (14) BUN/creatini ne ratio 21 12-28 normal Not Available [facility] ([facility]) [address] [place], [address], 10/28/2024 07:14:27 10/27/20 24 10/28/2024 COMP. METAB OLIC PANEL (14) sodium 140 mmol/ L 134-14 4 normal Not Available [facility] ([facility]) [address] [place], [address], 10/28/2024 07:14:27 10/27/20 24 10/28/2024 COMP. METAB OLIC PANEL (14) potassium 4.0 mmol/ L 3.5-5. 2 normal Not Available [facility] ([facility]) [address] [place], [address], 10/28/2024 07:14:27 10/27/20 24 10/28/2024 COMP. METAB OLIC PANEL (14) chloride 103 mmol/ L 96-106 normal Not Available [facility] ([facility]) [address] [place], [address], 10/28/2024 07:14:27 10/27/20 24 10/28/2024 COMP. METAB OLIC PANEL (14) carbon dioxide, total 23 mmol/ L 20-29 normal Not Available [facility] ([facility]) [address] [place], [address], 10/28/2024 07:14:27 10/27/20 24 10/28/2024 COMP. METAB OLIC PANEL (14) calcium 8.9 mg/dL 8.7-10 .3 normal Not Available [facility] ([facility]) [address] [place], [address], 10/28/2024 07:14:27 10/27/20 24 10/28/2024 COMP. METAB OLIC PANEL (14) protein, total 6.6 g/dL 6.0-8. 5 normal Not Available [facility] ([facility]) [address] [place], [address], 10/28/2024 07:14:27 10/27/20 24 10/28/2024 COMP. METAB OLIC PANEL (14) albumin 4.0 g/dL 3.9-4. 9 normal Not Available [facility] ([facility]) [address] [place], [address], 10/28/2024 07:14:27 10/27/20 24 10/28/2024 COMP. METAB OLIC PANEL (14) globulin, total 2.6 g/dL 1.5-4. 5 Not Available [facility] ([facility]) [address] [place], [address], 10/28/2024 07:14:27 10/27/20 24 10/28/2024 COMP. METAB OLIC PANEL (14) bilirubin, total 0.5 mg/dL 0.0-1. 2 normal Not Available [facility] ([facility]) [address] [place], [address], 10/28/2024 07:14:27 10/27/20 24 10/28/2024 COMP. METAB OLIC PANEL (14) alkaline phosphatase 152 IU/L 44-121 above high normal Not Available [facility] ([facility]) [address] [place], [address], 10/28/2024 07:14:27 10/27/20 24 10/28/2024 COMP. METAB OLIC PANEL (14) AST (SGOT) 16 IU/L 0-40 normal Not Available [facility] ([facility]) [address] [place], [address], 10/28/2024 07:14:27 10/27/20 24 10/28/2024 COMP. METAB OLIC PANEL (14) ALT (SGPT) 19 IU/L 0-32 normal Not Available [facility] ([facility]) [address] [place], [address], 10/28/2024 07:14:27 10/27/20 24 10/28/2024 LIPID PANEL cholesterol, total 156 mg/dL 100-19 9 normal Not Available [facility] ([facility]) [address] [facility], [place], [address], 10/28/2024 07:14:28 10/27/20 24 10/28/2024 LIPID PANEL triglyceride s 160 mg/dL 0-149 above high normal Not Available [facility] ([facility]) [address] [facility], [place], [address], 10/28/2024 07:14:28 10/27/20 24 10/28/2024 LIPID PANEL HDL cholesterol 42 mg/dL >39 normal Not Available [facility] ([facility]) [address] [facility], [place], [address], 10/28/2024 07:14:28 10/27/20 24 10/28/2024 LIPID PANEL VLDL cholesterol mark 28 mg/dL 5-40 Not Available [facility] ([facility]) [address] [facility], [place], [address], 10/28/2024 07:14:28 10/27/20 24 10/28/2024 LIPID PANEL LDL chol calc ([facility]) 86 mg/dL 0-99 Not Available [facility] ([facility]) [address] [facility], [place], [address], 10/28/2024 07:14:28 10/27/20 24 10/28/2024 LIPID PANEL LDL calc comment: B2B SALES PROFESSIONAL Not Available [facility] ([facility]) [address] [facility], [place], [address], 10/28/2024 07:14:28 10/27/20 24 10/28/2024 VITAM IN B12 AND FOLAT E vitamin B12 399 pg/mL 232-12 45 normal Not Available [facility] ([facility]) [address] [facility], [place], [address], 10/28/2024 07:14:29 10/27/20 24 10/28/2024 VITAM IN B12 AND FOLAT E folate (folic acid), serum 6.5 NG/mL >3.0 normal A serum folat e becky ntrat ion of less than 3.1 ng/mL is consi dered to repre sent clini mark defic iency . Not Available [facility] ([facility]) [address], [place], [address], 10/28/2024 07:14:29 10/27/20 24 10/28/2024 HEMOG LOBIN A1C hemoglobin A1C 6.3 % 4.8-5. 6 above high normal Predi abete s: 5.7 - 6.4 Diabe nigel: >6.4 Glyce judy contr ol for adult s with diabe nigel: <7.0 Not Available [facility] ([facility]) [address], [place], [address], 10/28/2024 07:14:30 10/27/20 24 10/28/2024 VITAM IN [...] Endoc rine Socie ty went on to [facility] er defin e vitam in D insuf ficie ncy as a level betwe en 21 and 29 ng/mL (2). 1. IOM (Inst itute of Medic ine). 2009. Dieta ry refer ence intak es for calci um and D. Daniela brooks [place]: [facility] . 2. Ulises kaminski MF, Tahir camacho [place], [place] off-F arlene i JOE, et al. Evalu ation , treat ment, and preve ntion of vitam in D defic iency : an Endoc rine Socie ty clini mark pract ice guide line. JCEM. 2010; 96(7) :1911 -30. Not Available [facility] [facility] [address] [place], [address], 10/28/2024 07:14:31 03/24/2003/25/2025 TSH+F REE T4 TSH 1.800 uIU/m L 0.450- 4.500 normal Not Available [facility] ([facility]) [address] [place], [address], 03/25/2025 09:07:02 03/24/2003/25/2025 TSH+F REE T4 T4,free(dire ct) 1.28 NG/dL 0.82-1 .77 normal Not Available [facility] ([facility]) [address] [place], [address], 03/25/2025 09:07:02 03/24/20 25 03/25/2025 CBC WITH DIFFE RENTI AL/PL ATELE T WBC 5.5 x10e3 /uL 3.4-10 .8 normal Not Available [facility] ([facility]) [address] [place], [address], 03/25/2025 09:07:03 03/24/2003/25/2025 CBC WITH DIFFE RENTI AL/PL ATELE T RBC 4.51 x10e6 /uL 3.77-5 .28 normal Not Available [facility] ([facility]) [address] [place], [address], 03/25/2025 09:07:03 03/24/2003/25/2025 CBC WITH DIFFE RENTI AL/PL ATELE T hemoglobin 14.4 g/dL 11.1-1 5.9 normal Not Available [facility] ([facility]) [address] [place], [address], 03/25/2025 09:07:03 03/24/20 25 03/25/2025 CBC WITH DIFFE RENTI AL/PL ATELE T hematocrit 42.3 % 34.0-4 6.6 normal Not Available [facility] ([facility]) [address] [facility], [place], [address], 03/25/2025 09:07:03 03/24/2003/25/2025 CBC WITH DIFFE RENTI AL/PL ATELE T MCV 94 fL 79-97 normal Not Available [facility] ([facility]) [address] [facility], [place], [address], 03/25/2025 09:07:03 03/24/20 25 03/25/2025 CBC WITH DIFFE RENTI AL/PL ATELE T MCH 31.9 pg 26.6-3 3.0 normal Not Available [facility] ([facility]) [address] [facility], [place], [address], 03/25/2025 09:07:03 03/24/20 25 03/25/2025 CBC WITH DIFFE RENTI AL/PL ATELE T MCHC 34.0 g/dL 31.5-3 5.7 normal Not Available [facility] ([facility]) [address] [facility], [place], [address], 03/25/2025 09:07:03 03/24/20 25 03/25/2025 CBC WITH DIFFE RENTI AL/PL ATELE T RDW 13.4 % 11.7-1 5.4 Not Available [facility] ([facility]) [address] [place], [address], 03/25/2025 09:07:03 03/24/2003/25/2025 CBC WITH DIFFE RENTI AL/PL ATELE T platelets 234 x10e3 /uL 150-45 0 normal Not Available [facility] ([facility]) [address] [facility], [place], [address], 03/25/2025 09:07:03 03/24/20 25 03/25/2025 CBC WITH DIFFE RENTI AL/PL ATELE T neutrophils 62 % not estab. normal Not Available [facility] ([facility]) [address] [facility], [place], [address], 03/25/2025 09:07:03 03/24/20 25 03/25/2025 CBC WITH DIFFE RENTI AL/PL ATELE T lymphs 28 % not estab. normal Not Available [facility] ([facility]) [address] [facility], [place], [address], 03/25/2025 09:07:03 03/24/20 25 03/25/2025 CBC WITH DIFFE RENTI AL/PL ATELE T monocytes 7 % not estab. normal Not Available [facility] ([facility]) [address] [facility], [place], [address], 03/25/2025 09:07:03 03/24/20 25 03/25/2025 CBC WITH DIFFE RENTI AL/PL ATELE T eos 2 % not estab. normal Not Available [facility] ([facility]) [address] [facility], [place], [address], 03/25/2025 09:07:03 03/24/20 25 03/25/2025 CBC WITH DIFFE RENTI AL/PL ATELE T basos 1 % not estab. normal Not Available [facility] ([facility]) [address] [facility], [place], [address], 03/25/2025 09:07:03 03/24/20 25 03/25/2025 CBC WITH DIFFE RENTI AL/PL ATELE T immature cells B2B SALES PROFESSIONAL Not Available [facility] ([facility]) [address] [place], [address], 03/25/2025 09:07:03 03/24/20 25 03/25/2025 CBC WITH DIFFE RENTI AL/PL ATELE T neutrophils (absolute) 3.4 x10e3 /uL 1.4-7. 0 normal Not Available [facility] ([facility]) [address] [place], [address], 03/25/2025 09:07:03 03/24/20 25 03/25/2025 CBC WITH DIFFE RENTI AL/PL ATELE T lymphs (absolute) 1.5 x10e3 /uL 0.7-3. 1 normal Not Available [facility] ([facility]) [address] [facility], [place], [address], 03/25/2025 09:07:03 03/24/20 25 03/25/2025 CBC WITH DIFFE RENTI AL/PL ATELE T monocytes(ab solute) 0.4 x10e3 /uL 0.1-0. 9 normal Not Available [facility] ([facility]) [address] [facility], [place], [address], 03/25/2025 09:07:03 03/24/20 25 03/25/2025 CBC WITH DIFFE RENTI AL/PL ATELE T eos (absolute) 0.1 x10e3 /uL 0.0-0. 4 normal Not Available [facility] ([facility]) [address] [facility], [place], [address], 03/25/2025 09:07:03 03/24/2003/25/2025 CBC WITH DIFFE RENTI AL/PL ATELE T baso (absolute) 0.1 x10e3 /uL 0.0-0. 2 normal Not Available [facility] ([facility]) [address] [facility], [place], [address], 03/25/2025 09:07:03 03/24/2003/25/2025 CBC WITH DIFFE RENTI AL/PL ATELE T immature granulocytes 0 % not estab. Not Available [facility] ([facility]) [address] [facility], [place], [address], 03/25/2025 09:07:03 03/24/20 25 03/25/2025 CBC WITH DIFFE RENTI AL/PL ATELE T immature grans (abs) 0.0 x10e3 /uL 0.0-0. 1 Not Available [facility] ([facility]) [address], [place], [address], 03/25/2025 09:07:03 03/24/20 25 03/25/2025 CBC WITH DIFFE RENTI AL/PL ATELE T NRBC B2B SALES PROFESSIONAL Not Available [facility] ([facility]) [address], [place], [address], 03/25/2025 09:07:03 03/24/20 25 03/25/2025 CBC WITH DIFFE RENTI AL/PL ATELE T hematology comments: B2B SALES PROFESSIONAL Not Available [facility] ([facility]) [address], [place], [address], 03/25/2025 09:07:03 03/24/20 25 03/25/2025 COMP. METAB OLIC PANEL (14) glucose 100 mg/dL 70-99 above high normal Not Available [facility] ([facility]) [address], [place], [address], 03/25/2025 09:07:04 03/24/20 25 03/25/2025 COMP. METAB OLIC PANEL (14) BUN 14 mg/dL 8-27 normal Not Available [facility] ([facility]) [address] [place], [address], 03/25/2025 09:07:04 03/24/20 25 03/25/2025 COMP. METAB OLIC PANEL (14) creatinine 0.87 mg/dL 0.57-1 .00 normal Not Available [facility] ([facility]) [address] [place], [address], 03/25/2025 09:07:04 03/24/20 25 03/25/2025 COMP. METAB OLIC PANEL (14) eGFR 74 mL/mi n/1.7 3 >59 normal Not Available [facility] ([facility]) [address] [place], [address], 03/25/2025 09:07:04 03/24/20 25 03/25/2025 COMP. METAB OLIC PANEL (14) BUN/creatini ne ratio 16 12-28 normal Not Available [facility] ([facility]) [address] [place], [address], 03/25/2025 09:07:04 03/24/20 25 03/25/2025 COMP. METAB OLIC PANEL (14) sodium 137 mmol/ L 134-14 4 normal Not Available [facility] ([facility]) [address] [place], [address], 03/25/2025 09:07:04 03/24/20 25 03/25/2025 COMP. METAB OLIC PANEL (14) potassium 4.5 mmol/ L 3.5-5. 2 normal Not Available [facility] ([facility]) [address] [place], [address], 03/25/2025 09:07:04 03/24/20 25 03/25/2025 COMP. METAB OLIC PANEL (14) chloride 101 mmol/ L 96-106 normal Not Available [facility] ([facility]) [address] [place], [address], 03/25/2025 09:07:04 03/24/20 25 03/25/2025 COMP. METAB OLIC PANEL (14) carbon dioxide, total 22 mmol/ L 20-29 normal Not Available [facility] ([facility]) [address] [place], [address], 03/25/2025 09:07:04 03/24/20 25 03/25/2025 COMP. METAB OLIC PANEL (14) calcium 9.2 mg/dL 8.7-10 .3 normal Not Available [facility] ([facility]) [address] [place], [address], 03/25/2025 09:07:04 03/24/20 25 03/25/2025 COMP. METAB OLIC PANEL (14) protein, total 6.9 g/dL 6.0-8. 5 normal Not Available [facility] ([facility]) [address] [place], [address], 03/25/2025 09:07:04 03/24/20 25 03/25/2025 COMP. METAB OLIC PANEL (14) albumin 4.4 g/dL 3.9-4. 9 normal Not Available [facility] ([facility]) [address] [place], [address], 03/25/2025 09:07:04 03/24/20 25 03/25/2025 COMP. METAB OLIC PANEL (14) globulin, total 2.5 g/dL 1.5-4. 5 Not Available [facility] ([facility]) [address] [place], [address], 03/25/2025 09:07:04 03/24/20 25 03/25/2025 COMP. METAB OLIC PANEL (14) bilirubin, total 0.5 mg/dL 0.0-1. 2 normal Not Available [facility] ([facility]) [address] [place], [address], 03/25/2025 09:07:04 03/24/20 25 03/25/2025 COMP. METAB OLIC PANEL (14) alkaline phosphatase 154 IU/L 44-121 above high normal Not Available [facility] ([facility]) [address] [place], [address], 03/25/2025 09:07:04 03/24/20 25 03/25/2025 COMP. METAB OLIC PANEL (14) AST (SGOT) 17 IU/L 0-40 normal Not Available [facility] ([facility]) [address] [place], [address], 03/25/2025 09:07:04 03/24/20 25 03/25/2025 COMP. METAB OLIC PANEL (14) ALT (SGPT) 22 IU/L 0-32 normal Not Available [facility] ([facility]) [address] [place], [address], 03/25/2025 09:07:04 03/24/20 25 03/25/2025 LIPID PANEL cholesterol, total 156 mg/dL 100-19 9 normal Not Available [facility] ([facility]) [address] [place], [address], 03/25/2025 09:07:05 03/24/20 25 03/25/2025 LIPID PANEL triglyceride s 182 mg/dL 0-149 above high normal Not Available [facility] ([facility]) [address] [place], [address], 03/25/2025 09:07:05 03/24/20 25 03/25/2025 LIPID PANEL HDL cholesterol 41 mg/dL >39 normal Not Available [facility] ([facility]) [address] [place], [address], 03/25/2025 09:07:05 03/24/20 25 03/25/2025 LIPID PANEL VLDL cholesterol mark 31 mg/dL 5-40 Not Available [facility] ([facility]) [address] [place], [address], 03/25/2025 09:07:05 03/24/20 25 03/25/2025 LIPID PANEL LDL chol calc ([facility]) 84 mg/dL 0-99 Not Available [facility] ([facility]) [address] [place], [address], 03/25/2025 09:07:05 03/24/20 25 03/25/2025 LIPID PANEL LDL calc comment: B2B SALES PROFESSIONAL Not Available [facility] ([facility]) [address] [place], [address], 03/25/2025 09:07:05 03/24/20 25 03/25/2025 VITAM IN B12 AND FOLAT E vitamin B12 413 pg/mL 232-12 45 normal Not Available [facility] ([facility]) [address] [facility], [place], [address], 03/25/2025 09:07:06 03/24/20 25 03/25/2025 VITAM IN B12 AND FOLAT E folate (folic acid), serum 5.4 NG/mL >3.0 normal A serum folat e becky ntrat ion of less than 3.1 ng/mL is consi dered to repre sent clini mark defic iency . Not Available [facility] ([facility]) [address] [facility], [place], [address], 03/25/2025 09:07:06 03/24/2003/25/2025 HEMOG LOBIN A1C hemoglobin A1C 6.2 % 4.8-5. 6 above high normal Predi abete s: 5.7 - 6.4 Diabe nigel: >6.4 Glyce judy contr ol for adult s with diabe nigel: <7.0 Not Available [facility] ([facility]) [address] [facility], [place], [address], 03/25/2025 09:07:07 03/24/20 25 03/25/2025 VITAM IN [...] and D. Daniela brooks [place]: [facility] . 2. Ulises MARTEL, Tahir camacho [place], Shakila off-F errar i JOE, et al. Evalu ation , treat ment, and preve ntion of vitam in D defic iency : an Endoc rine Socie ty clini mark pract ice guide line. JCEM. 2010; 96(7) :1911 -30. Not Available [facility] ([facility]) [address], [place], [address], 03/25/2025 09:07:08 05/14/20 24 LDCT, chest , for lung cance r scree gume No observ ation record ed. [email or web address] [facility] [address] [facility] [address], [place], [address], 05/26/2024 17:00:55 12/12/19 25 12/11/2024 MAMMO , scree gume, digit al, bilat eral No observ ation record ed. [email or web address], [place], [address], 12/16/2024 15:33:28 12/12/19 25 12/12/2024 - scn dig breas t tomos yn nicki [facility] Name: ANTON LEDBETTER [address] [place], [place] [address]a [facility] Phys: Iveth lima APRN, [place] [address] : 1959 Age: 64 Sex: F Acct: [id number] Loc: G.MAMM PHONE #: Exam Date: 2024 Status : DEP CLI FAX #: Rad# [id number] Unit# [id number] Admit Date: 2024 EXAMS: CPT CODE: [id number] SCN DIG BREAST TOMOSY N NICKI [id number] BILATE RAL DIGITA L SCREEN ING MAMMOG [...] vijaya. PAGE 1 Signed Report (MARY NUED) [facility] Name: ANTON LEDBETTER [facility] Phys: Iveth lima APRN, [place] [address] : 1959 Age: 64 Sex: F Acct: [id number] Loc: G.MAMM PHONE #: Exam Date: 2024 Status : DEP CLI FAX #: Rad# [id number] Unit# [id number] Admit Date: 2024 EXAMS: CPT CODE: [id number] SCN DIG BREAST TOMOSY N NICKI 10601 Electr onical ly Signed by Perla Small on 2024 at 0827 Report ed and signed by: DEB Small M.D. CC: Alliso n Landre th FINANCE OFFICER Dictat ed Date/T ezekiel: 2024 (826) Techno [...] Provid er: LANDRE TH ALLISO N [email or web address] [address] , [place], [address], 12/17/2024 09:43:49 03/26/20 25 03/25/2025 imagi ng/di agnos tic resul t No observ ation record ed. [address], [place], [address], 03/26/2025 14:48:22 03/26/20 25 03/25/2025 imagi ng/di agnos tic resul t No observ ation record ed. [address], [place], [address], 03/26/2025 14:48:16 04/04/20 25 03/25/2025 stres s echoc ardio gram No observ ation record ed. [email or web address], [place], [address], 04/08/2025 12:25:16 04/06/20 25 04/06/2025 MRI, brain , w/o contr ast No observ ation record ed. [address], [place], [address], 04/07/2025 15:41:59 05/11/20 25 04/27/2025 MRI, heart funct ion and morph ology , w/wo contr ast No observ ation record ed. [address], [place], [address], 05/12/2025 14:04:08 Result Notes Documentation Provider Name and Address Organization Details Recorded Time Mammo, Screening, Digital, Bilateral : Mammogram Mammogram Context: mammogram date: (12/11/24) Right: normal Left: normal Conclusion: Conclusions: Bi-Rads 1 - Negative Debra Jackson, BINA [address], [place], [address], [place] - [facility] 12/16/2024 15:33:28 Problems Name Problem SNOMED Code Status Onset Date Resolution Date Notes Provider Name and Address Organization Details Recorded Time Hyperlipi demia 26254158 Active 2016 Layla stinson, [place] - [facility] 3 08:37:12 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 68814840 Active Laurence Vásquez MD [address], [place], [address], [place] - [facility] 2 12:20:06 Preinfarc tion syndrome 9101342 Active Laurence Vásquez MD [address], [place], [address], [place] [facility] 2 12:20:06 Urinary tract infectiou s disease 27395451 Active Laurence Vásquez MD [address], [place], [address], [place] [facility] 2 12:20:06 Herniated urinary bladder 531542415 Active Laurence Vásquez MD [address], [place], [address], [place] [facility] 2 12:20:06 Vaginal hematoma 30509245 Completed 05/07/2019 Laurence Vásquez MD [address], [place], [address], [place] [facility] 2 12:20:06 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 31612217 Active Laurence Vásquez MD [address], [place], [address], [place] [facility] 2 12:20:06 Vaginal bleeding 746511471 Completed 05/07/2019 Laurence Vásquez MD [address], [place], [address], [place] [facility] 2 12:20:06 History of cardiac catheteri zation 464128676582 00 Active Laurence Vásquez MD [address], [place], [address], [place] [facility] 2 12:20:06 Urinary incontine nce 370893295 Active Laurence Vásquez MD [address], [place], [address], [place] [facility] 2 12:20:06 Disorder of coronary artery 776350504 Active 2017 Layla Hawthorne [place], [place] - [facility] 3 08:37:12 Gastroeso phageal reflux disease 783667198 Active Layla Hawthorne [place], [place] - [facility] 3 08:37:12 Hypertens nicky disorder 19223336 Active Layla Dummitt [place], [place] - [facility] 3 08:37:12 Vaginal hematoma 90331761 Active Laurence Vásquez MD [address], [place], [address], [place] [facility] 2 12:20:06 Vaginal bleeding 265064635 Active Laurence Vásquez MD [address], [place], [address], [place] [facility] 2 12:20:06 Vitamin D deficienc y 99696095 Active 2019 Layla Hawthorne [place], [place] - [facility] 3 08:37:12 Mammogram declined 803305872 Active 2020 Layla Hawthorne [place], [place] - [facility] 3 08:37:12 Prediabet es 451863103 Active 2020 Layla Hawthorne [place], [place] - [facility] 3 08:37:12 Diastolic heart failure 861135515 Active 2020 Layla Hawthorne [place], [place] - [facility] 3 08:37:12 Influenza vaccinati on declined 045504718 Active 2020 Layla Hawthorne [place], [place] - [facility] 3 08:37:12 Gastroeso phageal reflux disease without esophagit is 568565700 Active 2020 Layla Hawthorne [place], [place] - [facility] 3 08:37:12 Disorder of vitamin B12 892457812 Active 2021 Layla Hawthorne [place] - [facility] 3 08:37:12 Mixed hyperlipi demia 954468874 Active 2021 Layla Hawthorne [place] - [facility] 3 08:37:12 History of polyp of colon 381053842 Active 2021 Layla Hawthorne [place] - [facility] 3 08:37:12 Screening for malignant neoplasm of colon Active 2021 Layla Hawthorne [place] - [facility] 3 08:37:12 Internal hemorrhoi ds 82007533 Active 2022 Layla Hawthorne [place] - [facility] 3 08:37:12 Diverticu losis of colon 671877887 Active 2022 Layla Hawthorne [place] - [facility] 3 08:37:12 Heart disease 30364126 Active Layla Hawthorne [place] - [facility] 3 08:37:12 Postmenop ausal state 07581441 Active Layla Hawthorne [place] - [facility] 3 08:37:12 Vitamin deficienc y 72918922 Active Layla Hawthorne [place] - [facility] 3 08:37:12 Persisten t insomnia 339020614 Active 2023 Debra Jackson, FINANCE OFFICER [address], [place], [address], [place] - [facility] 4 10:20:01 History of cerebrova scular accident 724820124 Active 2024 Debra Jackson, FINANCE OFFICER [address], [place], [address], [place] [facility] 5 11:04:04 Tinnitus of left ear 651187804816 6 Active 2024 Debra Jackson, FINANCE OFFICER [address], [place], [address], [place] - [facility] 5 11:35:22 Problem [...] Name and Address Organization Details Recorded Time 41018 Lipitor medicatio n arthralgi a (joint pain) Not available Not available 06/25/2017 68354 5 RxNorm Renetta Kenyonp null, [place] - [...] daily transderm al patch 08/28 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 Completi on: 10/17/20 09;Print ed: 10/22/20 [...] blood by Pulse oximetry Respiratory rate Systolic And Diastolic Provider Name and Address Organization Details Last Updated DateTime 5 175.26 cm 32.5 kg/m2 27816.3 2 g 82 /min 98 % 98 % 16 /min 142/76 mm[Hg] Jaci Cade [place] - [facility] 5 10:58:58 Date Recorded Body height Body mass index (BMI) Body weight Heart rate Oxygen saturation Oxygen saturation in Arterial blood by Pulse oximetry Respiratory rate Systolic And Diastolic Provider Name and Address Organization Details Last Updated DateTime 5 175.26 cm 32.8 kg/m2 732669. 51 g 82 /min 95 % 95 % 18 /min 136/78 mm[Hg] Jaci Cade [place] - [facility] 5 11:29:28 Date Recorded Body height Body mass index (BMI) Body weight Body temperature Heart rate Oxygen saturation Oxygen saturation in Arterial blood by Pulse oximetry Respiratory rate Provider Name and Address Organization Details Last Updated DateTime 4 175.26 cm 31.6 kg/m2 70236.7 7 g 98.1 [degF] 76 /min 93 % 93 % 20 /min Vonnie Luke [place] - [facility] 4 10:07:17 Date Recorded Body height Body mass index (BMI) Body weight Heart rate Oxygen saturation Oxygen saturation in Arterial blood by Pulse oximetry Respiratory rate Systolic And Diastolic Provider Name and Address Organization Details Last Updated DateTime 5 175.26 cm 33.4 kg/m2 450473. 88 g 80 /min 95 % 95 % 18 /min 164/90 mm[Hg] Jaci Cade [place] - [facility] 5 10:07:49 Date Recorded Body height Body mass index (BMI) Body weight Heart rate Oxygen saturation Oxygen saturation in Arterial blood by Pulse oximetry Respiratory rate Systolic And Diastolic Provider Name and Address Organization Details Last Updated DateTime 4 175.26 cm 32 kg/m2 96074.5 4 g 80 /min 96 % 96 % 18 /min 144/80 mm[Hg] Jaci Cade [place] - [facility] 4 11:35:17 Social History Question Answer Notes LastModified by Organizat ion Details LastModified Time Tobacco Smoking Status Current Every Day Smoker Beatriz stinson [facility] 10/05/2016 11:02:47 Do You Have An Advance Directive? No [email or web address] Information not available 10/05/2016 Are You Blind Or Do You Have Difficulty Seeing? No [email or web address] Information not available 10/05/2016 Is Blood Transfusion Acceptable In An Emergency? Yes [email or web address] Information not available 10/05/2016 What Is Your Level Of Caffeine Consumption? Occasional Information not available 10/05/2016 How Much Tobacco Do You Chew? None [email or web address] Information not available 10/05/2016 Are You Deaf Or Do You Have Serious Difficulty Hearing? No [email or web address] Information not available 10/05/2016 What Type Of Diet Are You Following? REGULAR [email or web address] Information not available 10/05/2016 Which Illicit Or Recreational Drugs Have You Used? None [email or web address] Information not available 10/05/2016 How Many Days Of Moderate To Strenuous Exercise, Like A Brisk Walk, Did You Do In The Last 7 Days? 1 Information not available 05/07/2019 On Those Days That You Engage In Moderate To Strenuous Exercise, How Many Minutes, On Average, Do You Exercise? 1 [email or web address] Information not available 05/07/2019 How Hard Is It For You To Pay For The Very Basics Like Food, Housing, Medical Care, And Heating? 1 [email or web address] Information not available 05/07/2019 Live Alone Or With Others? With Others [email or web address] Information not available 10/05/2016 Do You Have A Medical Power Of Rn First Assistant? No Information not available 04/28/2024 What Was The Date Of Your Most Recent Tobacco Screening? 04/28/2025 [email or web address] Information not available 04/28/2025 How Many Children Do You Have? 3 Information not available 12/21/2016 Performs Monthly Self-breast Exam? Yes [email or web address] Information no t available 10/05/2016 What Is Your Relationship Status? [email or web address] Information not available 10/05/2016 Seat Belts Used Routinely Yes [email or web address] Information not available 10/05/2016 Are You Sexually Active? Yes [email or web address] Information not available 10/05/2016 How Much Tobacco Do You Smoke? 0.5 PPD Information not available 12/21/2016 General Stress Level Medium [email or web address] Information not available 10/05/2016 Do You Use Sunscreen Routinely? Yes [email or web address] Information not available 10/05/2016 Has Tobacco Cessation Counseling Been Provided? Yes Information not available 04/28/2024 On What Date Was Tobacco Cessation Counseling Provided? 04/28/2024 Information not available 04/28/2024 Do You Have Difficulty Walking Or Climbing Stairs? No [email or web address] Information not available 10/05/2016 Sex: Female Functional Status Question Answer Note LastModified by Organizat ion Details LastModified Time Do you use any illicit or recreational drugs? No Information not available 04/28/2024 What is your level of alcohol consumption? None [email or web address] Information not available 10/05/2016 Are you currently employed? No Information not available 12/21/2016 Do you have transportation difficulties? No Information not available 04/28/2024 Are you able to walk? YESWOREST [email or web address] Information not available 05/07/2019 Do you have difficulty doing errands alone? No Information not available 04/28/2024 Are you able to care for yourself? Yes Information not available 12/21/2016 Do you have difficulty dressing or bathing? No [email or web address] Information not available 10/05/2016 What is your exercise level? None [email or web address] Information not available 10/05/2016 Mental Status Question Answer Note LastModified by Organization D etails LastModified Time Do you feel stressed (tense, restless, nervous, or anxious, or unable to sleep at night)? 1 [email or web address] Information not available 05/07/2019 Do you have [...] dose or 50 mcg/0.25mL dose 01/26/2021 completed [facility] [place] [facility] 07/27/2023 08:37:23 Past Encounters Encounter ID Performer Location Encounter Start Date Encounter Closed Date Diagnosis/Indication Diagnosis SNOMED-CT Code Diagnosis ICD10 Code Diagnosis Note [id number] [facility] [address] [place] [address] 08/20/2007 00:00:00 [id number] [facility] [address] [address] 5 10/22/2008 00:00:00 [id number] [facility] [address] [address] 05/25/2010 00:00:00 [id number] [facility] [address] [address] 05/25/2010 00:00:00 [id number] [facility] [address] [address] 05/31/2011 00:00:00 [id number] [facility] [address] [address] 09/21/2011 00:00:00 [id number] [facility] [address] [address] 07/12/2012 00:00:00 [id number] [facility] [address] [address] 11/22/2012 00:00:00 [id number] [facility] [address] [address] 5 12/18/2012 00:00:00 [id number] [facility] [address] [address] 5 09/29/2015 00:00:00 [id number] [facility] [address] [place] [address] 10/11/2015 00:00:00 [id number] [facility] [address] [place] [address] 10/26/2015 00:00:00 [id number] [facility] [address] [place] [address] 12/02/2015 00:00:00 [id number] [facility] [address] [place] [address] 5 06/07/2016 00:00:00 [id number] [facility] [address] [place] [address] 5 06/20/2016 00:00:00 [id number] [facility] [address] [place] [address] 09/09/2013 00:00:00 [id number] [facility] [address] [place] [address] 02/25/2015 00:00:00 [id number] [facility] [address] [place] [address] 05/26/2015 00:00:00 [id number] [facility] [address] [place] [address] 06/16/2015 00:00:00 [id number] [facility] [address] [place] [address] 07/21/2015 00:00:00 [id number] [facility] [address] [place] [address] 09/08/2015 00:00:00 [id number] [facility] [address] [place] [address] 2015 00:00:00 [id number] [facility] [address] [place] [address] 09/27/2015 00:00:00 [id number] [facility] [address] [place] [address] 09/29/2015 00:00:00 [id number] DO Itz Nguyễn TECHNICAL SERVICES ASSISTANT [address] [facility] [address] [address] 10/05/2016 10:25:47 10/05/2016 11:19:22 Midline cystocele 363565715 N81.11 Urge incon tinence of urine 59296487 N39.41 Smoker 68054015 F17.409 [id number] DO Itz Nguyễn TECHNICAL SERVICES ASSISTANT [address] [place] [address] [address] [address] 7 10/26/2016 09:04:55 10/26/2016 09:47:57 Postoperative visit 443940303 Z09 Body mass index 25-29 - overweight 765504964 Z68.27 Postoperat nicky retention of urine 378224248 R33.8 [id number] DO Grecia [place] TECHNICAL SERVICES ASSISTANT [address] [place] [address] [address] [address] 7 10/30/2016 09:51:00 10/30/2016 10:29:27 Postoperative retention of urine 032819761 R33.8 [id number] DO Itz Nguyễn TECHNICAL SERVICES ASSISTANT [address] [place] [address] [place] [address] 7 11/09/2016 13:51:08 11/09/2016 15:19:04 Surgical follow-up 890538694 Z09 Body mass index 25-29 - overweight 630732572 Z68.27 Vaginal discharge 783158 006 N89.8 [id number] DO Grecia [place] TECHNICAL SERVICES ASSISTANT [address] [place] [address] [place] [address] 11/15/2016 10:24:55 11/15/2016 11:44:29 Surgical follow-up 649909448 Z09 Body mass index 25-29 - overweight 343842210 Z68.27 [id number] DO Itz Nguyễn TECHNICAL SERVICES ASSISTANT [address] [place] [address] [place] [address] 7 12/04/2016 10:59:13 12/04/2016 11:44:48 Surgical follow-up 051300289 Z09 released from pelvic rest Body mass index 25-29 - overweight 781407341 Z68.27 [id number] Jessica Mack APRN [address] [place] [address] 12/21/2016 09:03:24 12/21/2016 10:45:42 Vitamin deficiency 55985971 E56.9 Heart disease 53740426 I 51.9 Tobacco user 699937318 Z 72.0 Vitamin D deficiency 347 73191 E55.9 Fatigue 04704183 R53.83 [id number] Jessica Mack APRN [address] [place] [address] 03/26/2017 09:27:44 03/26/2017 10:22:33 Vitamin deficiency 69057819 E56.9 Body mass index 25-29 - overweight 850104315 Z68.29 Long-term drug therapy 255306182 Z79.899 Postmenopausal state 764 84261 Z78.0 Heart disease 09819388 I 51.9 Fatigue 06264397 R53.83 [id number] Jessica Mack APRN [address] [place] [address] 06/25/2017 13:03:56 06/25/2017 13:23:29 Heart disease 83319811 I51.9 Vitamin D deficiency 347 87375 E55.9 Nicotine dependence 5629 4008 F17.200 Vitamin deficiency 29443 002 E56.9 Hyperlipidemia 97083169 E78.5 Essential hypertension 05776427 I10 [id number] Jessica Mack APRN [address] [place] [address] 7 09/25/2017 08:54:48 09/25/2017 10:26:01 Heart disease 60991608 I51.9 Screening for malignant neoplasm of breast 337735166 Z12.31 Hypothyroidism 84344929 E03.9 Vitamin D deficiency 347 61164 E55.9 [id number] Jessica Mack FINANCE OFFICER [address] [place] [address] 7 07/03/2018 13:19:36 07/03/2018 14:23:31 Vitamin D deficiency 13486526 E55.9 Essential hypertension 28692674 I10 Fatigue 52240246 R53.83 Dysfunctio n of eustachian tube 81004544 H69.90 [id number] Jessica Mack APRN [address] [place] [address] 7 08/14/2018 12:37:47 08/14/2018 13:36:42 Essential hypertension 61835085 I10 [id number] Jessica Mack APRN [address] [place] [address] 08/28/2018 13:25:54 08/28/2018 14:32:17 Essential hypertension 49035920 I10 Dysfunctio n of eustachian tube 09830056 H69.90 [id number] Jessica Mack APRN [address] [place] [address] 7 09/16/2018 09:57:48 09/16/2018 12:22:55 Vertigo 984904001 R42 Headache 82965328 R51 Lightheadedness 04086840 8 R42 Numbness of hand 3749865 04 R20.0 Dizzy spells 128660309 R 42 [id number] Jessica Mack APRN [address] [place] [address] 02/04/2019 15:25:52 02/04/2019 16:19:17 Hyperlipidemia 45518283 E78.5 Essential hypertension 07338570 I10 Vertigo 921246285 R42 Disorder o f coronary artery 680470504 I77.9 Heart disease 38914782 I 51.9 Gastroesop hageal reflux disease 241571950 K21.9 [id number] Jessica Mack APRN [address] [place] [address] 7 03/31/2019 13:01:21 03/31/2019 13:38:58 Basal ganglia degeneration with calcification 985444943 G23.8 Essential hypertension 62550701 I10 [id number] DO Grecia [place] TECHNICAL SERVICES ASSISTANT [address] [place] [address] [place] [address] 05/07/2019 11:25:15 05/07/2019 12:08:45 Routine gynecologic examination done 0233429008 9101 Z01.419 Depression screening 171 734789 Z13.89 Diet education 88409524 Z71.3 Counseling 584648708 Z71 .82 Exercise counselerendira gallo Patient encouraged to exercise 30 minutes 5 days a week. Examinatio n of blood pressure 004320267 Z01.30 History of total hysterectomy 284532875 Z90.710 Body mass index 25-29 - overweight 205080269 Z68.29 [id number] Jessica Mack FINANCE OFFICER [address] [place] [address] 08/18/2019 10:24:45 08/18/2019 11:17:41 Persistent insomnia 130644399 G47.09 Heart disease 58571237 I 51.9 Hypertensive disorder 38 503776 I10 Hyperlipidemia 03502543 E78.5 [id number] Jessica Mack FINANCE OFFICER [address] [place] [address] 7 09/02/2019 11:35:28 09/02/2019 14:05:08 Disorder of coronary artery 367320780 I77.9 Heart disease 62694166 I 51.9 [id number] Jessica Mack FINANCE OFFICER [address] [place] [address] 7 12/08/2019 15:27:36 12/08/2019 15:51:36 Essential hypertension 01255899 I10 Hyperlipidemia 23571052 E78.5 Persistent insomnia 1919 95878 G47.09 Finger joint locking 299 144616 M24.606 [id number] Laurence Vásquez MD [address] [place] [address] 03/01/2020 09:45:29 03/01/2020 10:20:03 Dysfunction of bilateral eustachian tubes 3754446308 935596 H69.93 [id number] Laurence Vásquez MD [address] [place] [address] 03/15/2020 14:22:58 03/15/2020 15:12:52 Dysfunction of bilateral eustachian tubes 0129086697 966304 H69.93 [id number] DO Itz Nguyễn TECHNICAL SERVICES ASSISTANT [address] [place] [address] [place] [address] 7 05/24/2020 14:47:24 05/24/2020 15:40:13 Routine gynecologic examination done 1836369879 9101 Z01.419 Depression screening 171 064024 Z13.89 Diet education 85618404 Z71.3 Counseling 332055850 Z71 .82 Exercise counselerendira gallo Patient encouraged to exercise 30 minutes 5 days a week. Examinatio n of blood pressure 583110086 Z01.30 Vaccine de clined by patient 2562559111 02 Z28.21 Screening mammography 24 163441 Z12.31 Mixed urin vijaya incontinence 457245965 N39.46 Discussed possible side effects of medication , questions answered. [id number] DO Grecia [place] TECHNICAL SERVICES ASSISTANT [address] [place] [address] [place] [address] 7 07/20/2020 11:48:01 07/20/2020 12:17:05 Increased frequency of urination 191074551 R35.0 Nocturia 597381714 R35.1 [id number] Laurence Vásquez MD [address] [place] [address] 10/20/2020 15:54:43 10/20/2020 17:26:44 Persistent insomnia 968824289 G47.09 Unintentio nal weight gain 0623608149 96770 R63.5 Fatigue 02605621 R53.83 Vitamin D deficiency 347 21254 E55.9 [id number] Laurence Vásquez MD [address] [place] [address] 7 01/26/2021 13:37:58 01/26/2021 14:23:58 Mammogram declined 109774670 Z53.20 Vitamin D deficiency 347 06141 E55.9 Blood gluc ose outside reference range 467690256 R73.09 [id number] Laurence Vásquez MD [address] [place] [address] 04/27/2021 13:51:49 04/27/2021 14:21:38 Gastroesophageal reflux disease 768466279 K21.9 Vitamin D deficiency 347 51494 E55.9 Hypertensive disorder 38 930413 I10 Hyperlipidemia 14822117 E78.5 Mammogram declined 27822 5004 Z53.20 Prediabetes 778576671 R7 3.03 Hypertensi ve heart disease 47294999 I11.9 Persistent insomnia 1919 87766 G47.09 Body mass index 30+ - obesity 903774883 Z68.31 [id number] Laurence Vásquez MD [address] [place] [address] 08/10/2021 11:23:41 08/10/2021 12:16:06 Diastolic heart failure 143805590 I50.30 Hypertensive disorder 38 919898 I10 Disorder o f coronary artery 396971839 I77.9 Hyperlipidemia 45148709 E78.5 Prediabetes 095171709 R7 3.03 Influenza vaccination declined 402561204 Z28.21 Blood gluc ose outside reference range 414062282 R73.09 Vitamin D deficiency 347 80755 E55.9 Gastroesop hageal reflux disease without esophagitis 476844485 K21.9 [id number] Laurence Vásquez MD [address] [place] [address] 07/11/2022 11:37:52 07/11/2022 12:45:30 Vitamin D deficiency 94318909 E55.9 Persistent insomnia 1919 82336 G47.09 Blood gluc ose outside reference range 279682429 R73.09 Mixed hyperlipidemia 267 753464 E78.2 Disorder o f vitamin B12 888913664 E53.8 Prediabetes 273270049 R7 3.03 Gastroesop hageal reflux disease without esophagitis 113354445 K21.9 Hypertensive disorder 38 985318 I10 Hemorrhoids 90557835 K64 .9 discussed fiber and hydration History of polyp of colon 010923499 Z86.080 [id number] Laurence Vásquez MD [address] [place] [address] 03/06/2023 11:56:17 03/06/2023 12:50:53 Internal hemorrhoids 29086902 K64.8 Diverticul osis of colon 473802926 K57.30 Painless r ectal bleeding 322870236 K62.5 Hypertensive disorder 38 923903 I10 Mixed hyperlipidemia 267 704468 E78.2 Vitamin D deficiency 347 67730 E55.9 Blood gluc ose outside reference range 956821719 R73.09 Prediabetes 914815535 R7 3.03 [id number] Debra Jackson APRN [address] [place] [address] 04/28/2024 09:51:23 04/28/2024 10:36:07 Persistent insomnia 015512385 G47.09 Well-contr olled Vitamin D deficiency 347 69015 E55.9 Well-contr olled Gastroesop hageal reflux disease 289943190 K21.9 Well-contr olled Hypertensive disorder 38 180992 I10 Well-contr olled Disorder o f vitamin B12 783986458 E53.8 Hyperlipidemia 04634543 E78.5 Prediabetes 253543769 R7 3.03 Screening for malignant neoplasm of respiratory tract 440385996 Z12.2 30+ pack year history Nicotine d ependence with current use 894266971 F17.210 Current tobacco user Screening mammography 24 771398 Z12.31 Abnormalit y of nail of toe 549637511 L60.8 Referred General ex amination of patient 301137018 Z00.00 Exercises education, guidance, and counseling 829776056 Z71.82 The patient was advised to continue a healthy diet and exercise regularly. Dietary ma nagement surveillance 568681152 Z71.3 Body mass index 30+ - obesity 330759895 Z68.31 Obesity 017159734 E66.9 [id number] Debra Jackson APRN [address] [place] [address] 10/27/2024 11:22:18 10/27/2024 13:05:57 Gastroesophageal reflux disease 393684608 K21.9 Well-contr olled Mixed hyperlipidemia 267 697636 E78.[address] Carlson Vitamin D deficiency 347 70610 E55.9 Well-contr olled Hypertensive disorder 38 324323 I10 Uncontroll ed, increase Lisinopril to 20mg until gets in to see Cardiology . Disorder o f vitamin B12 550962481 E53.8 History of polyp of colon 823404549 Z86.0100 Heart disease 89567141 I 51.9 Persistent insomnia 9 99216 G47.09 Well-contr olled Tinnitus of left ear 642 3330073 106 H93.12 Try Flonase - discussed referral to Audiologis t for hearing test or ENT if no improvemen t Prediabetes 680196904 R7 3.03 Will call with results, last A1C 6.2 Body mass index 30+ - obesity 656354310 Z68.32 Obesity 600129234 E66.9 [id number] Debra Jackson APRN [address] [place] [address] 11/27/2024 10:50:38 11/27/2024 11:09:26 History of cerebrovascular accident 251374298 Z86.73 Referred to Neuro as requested Headache 76441522 G44.52 MRI ordered for further evaluation due to previous CVA and new onset of daily headaches [id number] Debra Jackson APRN [address] [place] [address] 03/24/2025 11:16:36 03/24/2025 12:17:50 Gastroesophageal reflux disease 247006114 K21.9 Well-contr olled Mixed hyperlipidemia 267 825982 E78.[address] Carlson History of cerebrovascular accident 516288513 Z86.73 Referred to Neuro previously as requested and has appt. later this month; also new MRI ordered to [facility] also as requested Hypertensive disorder 38 589008 I10 Well-contr olled Vitamin D deficiency 347 71252 E55.9 Well-contr olled Disorder o f vitamin B12 397665128 E53.8 Diastolic heart failure 209614819 I50.30 Follows with Cardiology Prediabetes 069210114 R7 3.03 Will call with results, last A1C 6.3 on 10/27/24 Tinnitus of left ear 027 5129330 106 H93.12 Well-contr olled Persistent insomnia 1918 07071 G47.09 Well-contr olled [id number] Debra Jackson APRN [address] [place] [address] 04/28/2025 09:44:40 04/28/2025 10:44:52 General examination of patient 153057431 Z00.00 Screening for cardiovascular system disease 758540971 Z13.6 Endocrine/ metabolic screening 605069223 Z13.228 Well-contr olled Screening mammography 24 646804 Z12.31 Last Mammo 12/11/24 Exercises education, guidance, and counseling 411315996 Z71.82 The patient was advised to continue a healthy diet and exercise regularly. Dietary ma nagement surveillance 189024579 Z71.3 Chronic cough 46596915 R 05.3 Discussed needs CXR/PFT to evaluate for COPD - refuses both at this time but willing to trial using inhaler and have LDCT that is due end of April 2025 Chronic ob structive pulmonary disease 65598828 J44.9 Start Symbicort for maintenanc e - refuses PFT - advised due for LDCT 05/14/25 - will order LDCT today Hypertensive disorder 38 886405 I10 Uncontroll ed, advised on trying 1/2 of Losartan 50mg until follow-up with Cardiology Body mass index 30+ - obesity 850676564 Z68.33 Obesity 284414105 E66.9 Screening for malignant neoplasm of respiratory tract 018872740 Z12.2 30+ pack year history Nicotine d ependence with current use 771398826 F17.210 Current tobacco user Health Concerns Section Related Observation LastModified by Organization Detai ls LastModified Time None Recorded Concern Status LastModified by Organization Details LastModified Time None Recorded Advance Directives Directive N: Payers Insurance Date Sequence Insurance Name Policy Number Policy Ware Covered Member ID Ware Member ID Guarantor Name 04/28/2025 [place] [id number] Sariah Ledbetter [id number] Sariah Ledbetter 04/28/2025 1 [place] [id number] Sariah Ledbetter [id number] Sariah Ledbetter 11/01/2016 1 [place] [id number] Inder Ledbetter [id number] Sariah Ledbetter 07/02/2018 1 [place] [id number] Inder Ledbetter [id number] Sariah Ledbetter 04/28/2025 1 [place] [facility] Sariah Ledbetter [id number] Sariah Ledbetter 08/12/2018 1 [employer] (POS) Inder Ledbetter [id number] Sariah Ledbetter 04/28/2025 1 [employer] [employer] [place]MEDICA[place]MO[place] [id number] Ledbetter [id number] Sariah Ledbetter 05/05/2025 1 [place] [employer] [place] Sariah Ledbetter [id number] Sariah Ledbetter 04/28/2025 1 [employer] ADDISKALLI Ledbetter [id number] Sariah Ledbetter 04/28/2025 1 [place] [id number] Sariah Ledbetter [id number] Sariah Ledbetter 03/04/2021 1 [employer] ADDISKALLI Ledbetter [id number] Sariah Ledbetter 04/28/2025 2 [place] [id number] Sariah Ledbetter [id number] Sariah Ledbetter 04/28/2025 1 [facility] (PPO) Sariah Ledbetter [id number] Sariah Ledbetter 08/28/2018 1 *SELF PAY* Chris Ledbetter 04/28/2025 [id number] Sariah Ledbetter [id number] Sariah Ledbetter 04/28/2025 1 [facility] [place] - [place] [id number] Sariah Ledbetter [id number] Sariah Ledbetter Notes Date Note Type Note [...] 2017). Debra Jackson APRN [address], [place], [address], [facility] 04/28/2024 10:32:43 10/27/2024 text/html Sariah [...] dizziness. Debra Jackson APRN [address], [place], [address], [facility] 10/27/2024 11:52:56 11/27/2024 text/html Sariah [...] the back of her head. Debra Jackson APRN [address], [place], [address], [facility] - [facility] 11/27/2024 11:07:58 03/24/2025 text/html Sariah [...] a new order for a MRI to [facility] due to insurance - she states she never got a call from [facility] likely due to insurance not accepted there. [...] as pending/ordered MRI of brain. Debra Jackson, FINANCE OFFICER [address], [place], [address], [place] [facility] 03/24/2025 11:46:17 04/28/2025 text/html Annual [...] time and will discuss this with the Jig And Fixture Maker at that appt. She states she did take it once and got very lightheaded/dizzy feels the dose may be too high. She complains of a cough. The Jig And Fixture Maker stopped the Lisinopril due to the cough. She is a smoker. Her BP is high in the office today - discussed risks of cardiac event (heart attack/stroke) due to this. She states she continues with a cough even with being off the Lisinopril. She states when she smokes a cigarette it will cause her to cough. Debra Jackson, FINANCE OFFICER [address], [place], [address], [facility] 04/28/2025 10:31:57 OBGyn Episode No OBEpisode recorded.
--- OUTSIDE RECORDS SUMMARY | 2025-05-18 07:47 | XMS_ITS | Continuity of Care Document ---
Author Organization [facility] Address [address] [place] [address] Care Team Providers Care Alumni Relations Officer Name Role Phone ISMAEL GUO Laundry Pricing Clerk Unavailable TITA AVILA Saxophone Teacher Assessment Encounter Date Assessment Date Assessment LastModified [...] for lung cancer screening [email or web address] [facility], [address] [place] [address], [id number], 07:31:06 Medication Orders Symbicort 160 mcg-4.5 mcg/actuat ion HFA aerosol inhaler 2024 025 [place] [facility], [address] [place] [address], [place], [address], 10:28:24 Patient TargetsNo targets recorded. Patient Instructions Encounter Date Encounter Id Patient Instructions Last Modified By Organization Details Last Modified Time 04/28/2025 [id number] Well Visit, Ages 18 to 65: Care Instructions Not available 04/28/2025 10:28:22 eating healthy foods: [email or web address] Not available 04/28/2025 10:28:23 smoking cessatio n [...] ardio gram No observ ation record ed. [address], [place], [id number], 04/08/2025 12:25:16 04/06/20 25 04/06/2025 MRI, brain , w/o contr ast No observ ation record ed. [address], [place], [address], 04/07/2025 15:41:59 05/11/20 25 04/27/2025 MRI, heart funct ion and morph ology , w/wo contr ast No observ ation record ed. [address], [place], [id number], 05/12/2025 14:04:08 Result Notes None recorded. 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 09338330 Active Laurence Vásquez MD [address], [place], [address], [place] - [facility] 12:20:06 Preinfarc tion syndrome 1258975 Active Laurence Vásquez MD [address], [place], [address], [place] [facility] 12:20:06 Urinary tract infectiou s disease 95753637 Active Laurence Vásquez MD [address], [place], [address], [place] [facility] 12:20:06 Herniated urinary bladder 840876922 Active Laurence Vásquez MD [address], [place], [address], [place] [facility] 12:20:06 Vaginal hematoma 99385767 Completed 05/07/2019 Laurence Vásquez MD [address], [place], [address], [place] [facility] 12:20:06 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 54553845 Active Laurence Vásquez MD [address], [place], [address], [place] [facility] 12:20:06 Vaginal bleeding 133549635 Completed 05/07/2019 Laurence Vásquez MD [address], [place], [address], [place] [facility] 12:20:06 History of cardiac catheteri zation 184462262836 00 Active Laurence Vásquez MD [address], [place], [address], [place] [facility] 12:20:06 Urinary incontine nce 895082921 Active Laurence Vásquez MD [address], [place], [address], [place] [facility] 12:20:06 Disorder of coronary artery 727297685 Active 2017 Layla Hawthorne null[place] [facility] 08:37:12 Gastroeso phageal reflux disease 240232052 Active Layla Haw[place] [facility] 08:37:12 Hypertens nicky disorder 74637070 Active Layla [place] [facility] 08:37:12 Vaginal hematoma 92893362 Active Laurence Vásquez MD [address], [place], [address], [place] [facility] 12:20:06 Vaginal bleeding 143262565 Active Laurence Vásquez MD [address], [place], [address], [place] [facility] 12:20:06 Vitamin D deficienc y 33758909 Active 2019 Layla Hawth[place] [facility] 08:37:12 Mammogram declined 245390393 Active 2020 Layla [place] [facility] 08:37:12 Prediabet es 673110434 Active 2020 Layla [place] [facility] 08:37:12 Diastolic heart failure 121550565 Active 2020 Layla [place] [facility] 08:37:12 Influenza vaccinati on declined 316336041 Active 2020 Layla [place] [facility] 08:37:12 Gastroeso phageal reflux disease without esophagit is 059128407 Active 2020 Layla [place] [facility] 08:37:12 Disorder of vitamin B12 212054621 Active 2021 Layla [place] [facility] 08:37:12 Mixed hyperlipi demia 594523516 Active 2021 Layla [place] [facility] 08:37:12 History of polyp of colon 653695337 Active 2021 Layla [place] [facility] 08:37:12 Screening for malignant neoplasm of colon Active 2021 Layla [place] [facility] 08:37:12 Internal hemorrhoi ds 62750948 Active 2022 Layla [place] [facility] 08:37:12 Diverticu losis of colon 835197028 Active 2022 Layla [place] [facility] 08:37:12 Heart disease 05981867 Active Layla [place] [facility] 08:37:12 Postmenop ausmi state 93337222 Active Layla [place] [facility] 08:37:12 Vitamin deficienc y 90167000 Active Layla [place] [facility] 08:37:12 Persisten t insomnia 063450124 Active 2023 Debra Jackson, DESIGN SPECIALIST [address], [place], [address], [place] [facility] 10:20:01 History of cerebrova scular accident 826695366 Active 2024 Debra Jackson, DESIGN SPECIALIST [address], [place], [address], [place] [facility] 11:04:04 Tinnitus of left ear 810697764123 6 Active 2024 Debra Jackson, DESIGN SPECIALIST [address], [place], [address], [place] [facility] 11:35:22 [...] Name and Address Organization Details Recorded Time 99221 Lipitor medicatio n arthralgi a (joint pain) Not available Not available 06/25/2017 [address]91 5 RxNorm Renetta stinson [place] - [facility] [...] daily transderm al patch 08/28 completed DIDN'T CHECK WEIGHER Not Available Not Available Not Available nitroglyc [...] Available Not Available Nasonex 50 mcg/actua tion Eagle Nest Eagle Nest 2 sprays every day by intranas al [...] Disconti nued on: 05/25/20 10 1:35PM;U ser: [facility];E st. Completi on: 10/17/20 09;Print ed: [...] Updated DateTime 5 175.26 cm 33.4 kg/m2 334231. 88 g 80 /min 95 % 95 % 18 /min 164/90 mm[Hg] Jaci Cade [place] - [facility] 10:07:49 Social History Question Answer Notes LastModified by Organizat ion Details LastModified Time Tobacco Smoking Status Current Every Day Smoker Beatriz [place], [place] - [facility] 10/05/2016 11:02:47 Do You Have An Advance Directive? No Information not available 10/05/2016 Are You Blind Or Do You Have Difficulty Seeing? No Information not available 10/05/2016 Is Blood Transfusion Acceptable In An Emergency? Yes [email or web address] Information not available 10/05/2016 What Is Your Level Of Caffeine Consumption? Occasional [email or web address] Information not available 10/05/2016 How Much Tobacco Do You Chew? None Information not available 10/05/2016 Are You Deaf Or Do You Have Serious Difficulty Hearing? No [email or web address] Information not available 10/05/2016 What Type Of Diet Are You Following? REGULAR [email or web address] Information not available 10/05/2016 Which Illicit Or Recreational Drugs Have You Used? None [email or web address] Information not available 10/05/2016 How Many Days Of Moderate To Strenuous Exercise, Like A Brisk Walk, Did You Do In The Last 7 Days? 1 [email or web address] Information not available 05/07/2019 On Those Days That You Engage In Moderate To Strenuous Exercise, How Many Minutes, On Average, Do You Exercise? 1 [email or web address] Information not available 05/07/2019 How Hard Is It For You To Pay For The Very Basics Like Food, Housing, Medical Care, And Heating? 1 [email or web address] Information not available 05/07/2019 Live Alone Or With Others? With Others [email or web address] Information not available 10/05/2016 Do You Have A Medical Power Of Electrical Panel Builder? No Information not available 04/28/2024 What Was The Date Of Your Most Recent Tobacco Screening? 04/28/2025 [email or web address] Information not available 04/28/2025 How Many Children Do You Have? 3 Information not available 12/21/2016 Performs Monthly Self-breast Exam? Yes [email or web address] Information no t available 10/05/2016 What Is Your Relationship Status? [email or web address] Information not available 10/05/2016 Seat Belts Used Routinely Yes [email or web address] Information not available 10/05/2016 Are You Sexually Active? Yes [email or web address] Information not available 10/05/2016 How Much Tobacco Do You Smoke? 0.5 PPD Information not available 12/21/2016 General Stress Level Medium Information not available 10/05/2016 Do You Use Sunscreen Routinely? Yes [email or web address] Information not available 10/05/2016 Has Tobacco Cessation Counseling Been Provided? Yes Information not available 04/28/2024 On What Date Was Tobacco Cessation Counseling Provided? 04/28/2024 Information not available 04/28/2024 Do You Have Difficulty Walking Or Climbing Stairs? No [email or web address] Information not available 10/05/2016 Sex: Female Functional Status Question Answer Note LastModified by Organizat ion Details LastModified Time Do you use any illicit or recreational drugs? No Information not available 04/28/2024 What is your level of alcohol consumption? None Information not available 10/05/2016 Are you currently employed? No Information not available 12/21/2016 Do you have transportation difficulties? No Information not available 04/28/2024 Are you able to walk? YESWOREST [email or web address] Information not available 05/07/2019 Do you have difficulty doing errands alone? No Information not available 04/28/2024 Are you able to care for yourself? Yes Information not available 12/21/2016 Do you have difficulty dressing or bathing? No Information not available 10/05/2016 What is your exercise level? None [email or web address] Information not available 10/05/2016 Mental Status Question Answer Note LastModified by Organization D etails LastModified Time Do you feel stressed (tense, restless, nervous, or anxious, or unable to sleep at night)? 1 [email or web address] Information not available 05/07/2019 Do you have difficulty concentrating, remembering or making decisions? No [email or web address] Information no t available 10/05/2016 Family History [...] Time Tdap 02/17/2017 completed Layla Hawthorne null, [place] - [...] SNOMED-CT Code Diagnosis ICD10 Code Diagnosis Note [id number] Debra Jackson APRN [address] [place] [address] 04/28/2025 09:44:40 04/28/2025 10:44:52 General examination of patient 902570678 Z00.00 Screening for cardiovascular system disease 905971627 Z13.6 Endocrine/ metabolic screening 513180293 Z13.228 Well-contr olled Screening mammography 24 183994 Z12.31 Last Mammo 12/11/24 Exercises education, guidance, and counseling 390925060 Z71.82 The patient was advised to continue a healthy diet and exercise regularly. Dietary sue hercules surveillance 300754010 Z71.3 Chronic cough 62599233 R 05.3 Discussed needs CXR/PFT to evaluate for COPD - refuses both at this time but willing to trial using inhaler and have LDCT that is due end of April 2025 Chronic ob structive pulmonary disease 34759870 J44.9 Start Symbicort for maintenanc e - refuses PFT - advised due for LDCT 05/14/25 - will order LDCT today Hypertensive disorder 38 453350 I10 Uncontroll ed, advised on trying 1/2 of Losartan 50mg until follow-up with Cardiology Body mass index 30+ - obesity 410431756 Z68.33 Obesity 480163795 E66.9 Screening for malignant neoplasm of respiratory tract 594314048 Z12.2 30+ pack year history Nicotine d ependence with current use 513428032 F17.210 Current tobacco user Health Concerns Section Related Observation LastModified by Organization Detai ls LastModified Time None Recorded Concern Status LastModified by Organization Details LastModified Time None Recorded Payers Encounter Date Sequence Insurance Name Policy Number Policy Ware Covered Member ID Ware Member ID Guarantor Name 04/28/2025 1 CHRIS - AMBETTER OF [employer] [facility] ([facility] Sariah Ledbetter [id number] Sariah Ledbetter Notes Date Note Type [...] time and will discuss this with the Saxophone Teacher at that appt. She states she did take it once and got very lightheaded/dizzy feels the dose may be too high. She complains of a cough. The Saxophone Teacher stopped the Lisinopril due to the cough. She is a smoker. Her BP is high in the office today - discussed risks of cardiac event (heart attack/stroke) due to this. She states she continues with a cough even with being off the Lisinopril. She states when she smokes a cigarette it will cause her to cough. Debra Jackson, DESIGN SPECIALIST [address], [place], [address], [facility] - [facility] 04/28/2025 10:31:57 OBGyn Episode No OBEpisode recorded.
--- OUTSIDE RECORDS SUMMARY | 2025-05-18 07:47 | XMS_ITS | Clinical Summary ---
Author Organization [facility] Address [address] [place] [address] Phone Care Team Providers Care Apple Thinner Name Role Phone Unavailable Primary Care Provider [...]
--- OUTSIDE RECORDS SUMMARY | 2025-05-18 07:47 | XMS_ITS | Clinical Summary ---
Author Organization Healthcare Address [address] [id number] Care Team Providers Care Front Desk Representative Name Role Phone Jessica Mack APRN Primary [...] 2010 UKY-Zoster Vaccines (1 of 2) 2010 [id number] Vaccine (1 - 20 24-25 season) 2024 [...] age to complete this topic Care Teams Front Desk Representative Relationship Specialty Start Date End Date Jessica Mack, EXTERNAL AUDITOR [address] [place] [address] PCP - General 04/01/21
--- OUTSIDE RECORDS SUMMARY | 2025-05-18 07:47 | XMS_ITS | Encounter Summary ---
Author Organization Healthcare Address [address] [place] [address] Care Team Providers Care Mainframe Consultant Name Role Phone Jessica Mack SCANNER SUPERVISOR Primary Care Provider + Reason for Referral * Consultation (Routine) - Authorized Specialty Diagnoses / Procedures Referred By Contac t Referred To Contact Neurology Diagnoses Personal history of TIA (transient ischemic attack) Debra Jackson APRN [address] [place] [address] [place] [address] Phone: tel: fax: Referral ID Status Reason Start Date Expiration Date Visits Requested Visits Authorized [id number] Authorized Specialty Services Required 11/27/2024 05/29/2026 1 1 Encounter Details Date Type Department Care Team (Late st Contact Info) Description 11/27/2024 Community Orders Community Practice [address] [place] [address] Debra Jackson APRN [address] [place] [address] [place] [address] Personal history of TIA (transient [...] deficits documented in this encounter Care Teams Mainframe Consultant Relationship Specialty Start Date End Date Jessica Mack, SCANNER SUPERVISOR [address] [place] [address] PCP - General 04/01/21 documented as of this encounter
--- OUTSIDE RECORDS SUMMARY | 2025-05-18 07:48 | XMS_ITS | Clinical Summary ---
Author Organization [facility] Address [address] [place] [address] Care Team Providers Care Asphalt Patcher Name Role Phone Unavailable Primary Care Provider [...] therelease of HIV test results or diagnoses. [id number] Social History Tobacco Use Types Packs/Day [...]
--- OUTSIDE RECORDS SUMMARY | 2025-05-18 07:48 | XMS_ITS | Continuity of Care Document ---
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 Plan of Treatment Reminders Order Date Submit Date Provider Last Modified By Organization Details Last Modified Time Details Appointments None recorded. Lab lipid panel, serum 2024 025 ALFREDITO [facility], [address], [place], [place], [address], 5 09:07:05 CBC w/ auto diff 2024 025 ALFREDITO [facility], [address], [place], [place], [address], 5 09:07:03 TSH + free T4, serum 2024 025 ALFREDITO [facility], [address], [place] [address], [place], [address], 5 09:07:02 HbA1c (hemoglobin A1c), blood 2024 025 ALFREDITO [facility], [address], [place], [place], [address], 5 09:07:07 CMP, serum or plasma 2024 025 ALFREDITO [facility], [address], [place] [address], [place], [address], 5 09:07:04 vitamin D, 25-hydroxy, total, serum 2024 025 ALFREDITO [facility], [address], [place] [address], [place], [address], 5 09:07:08 cobalamin and folate panel, serum 2024 025 ALFREDITO [facility], [address], [place], [place], [address], 5 09:07:06 Referral None recorded. Procedures None recorded. Surgeries None recorded. Imaging MRI, brain, w/wo contrast [email or web address] ([facility]), [address], [place], [address], 5 20:02:55 Medication Orders atorvastati n 80 mg tablet 2024 025 [facility], [address] [place] [address], [place], [address], 5 11:42:33 hydrochloro thiazide 25 mg tablet 2024 025 [facility], [address] [place] [address], [place], [address], 5 11:42:34 isosorbide mononitrate ER 30 mg tablet,exte nded release 24 hr [address], [place], [address], 5 11:42:34 lisinopril 20 mg tablet [address], [place], [address], 5 14:37:16 pantoprazol e 40 mg tablet,mariusz yed release [address], [place], [address], 5 11:42:32 fluticasone propionate 50 mcg/actuati on nasal spray,suspe nsion [address], [place], [address], 5 11:42:35 meclizine 25 mg chewable tablet [address], [place], [address], 5 10:44:14 cholecalcif janel (vitamin D3) 50 mcg (2,000 unit) capsule [address], [place], [address], 5 11:42:32 melatonin 10 mg tablet [address], [place], [address], 5 11:42:35 mirtazapine 30 mg tablet [address], [place], [address], 5 11:42:33 Patient TargetsNo targets recorded. Patient InstructionsNo instructions recorded. Reason for Referral None Reported. Results Created Date Observation Date Name Description Value Unit Range Abnormal Flag Note LastModifiedBy Organization Detail LastModifiedTime 03/26/20 25 03/25/2025 imagi ng/thiago agnos tic resul t No observ ation record ed. [email or web address] [facility] [address], [place], [address], 03/26/2025 14:48:22 03/26/20 25 03/25/2025 imagi ng/di agnos tic resul t No observ ation record ed. [email or web address] [facility] [address], [place], [address], 03/26/2025 14:48:16 04/04/20 25 03/25/2025 stres s echoc ardio gram No observ ation record ed. [address], [place], [address], 04/08/2025 12:25:16 04/06/20 25 04/06/2025 MRI, brain , w/o contr ast No observ ation record ed. [address], [place], [address], 04/07/2025 15:41:59 05/11/20 25 04/27/2025 MRI, heart funct ion and morph ology , w/wo contr ast No observ ation record ed. [address], [place], [address], 05/12/2025 14:04:08 Result Notes None recorded. 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 92985937 Active Laurence Vásquez MD [address], [place], [address], [place] - [facility] 2 12:20:06 Preinfarc tion syndrome 5038382 Active Laurence Vásquez MD [address], [place], [address], [place] - [facility] 2 12:20:06 Urinary tract infectiou s disease 94990574 Active Laurence Vásquez MD [address], [place], [address], [place] - [facility] 2 12:20:06 Herniated urinary bladder 780961812 Active Laurence Vásquez MD [address], [place], [address], [place] [facility] 2 12:20:06 Vaginal hematoma 44511623 Completed 05/07/2019 Laurence Vásquez MD [address], [place], [address], [place] [facility] 2 12:20:06 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 43005648 Active Laurence Vásquez MD [address], [place], [address], [place] [facility] 2 12:20:06 Vaginal bleeding 524796699 Completed 05/07/2019 Laurence Vásquez MD [address], [place], [address], [place] - [facility] 2 12:20:06 History of cardiac catheteri zation 970847969888 00 Active Laurence Vásquez MD [address], [place], [address], [place] [facility] 2 12:20:06 Urinary incontine nce 371385943 Active Laurence Vásquez MD [address], [place], [address], [place] [facility] 2 12:20:06 Disorder of coronary artery 810223110 Active 2017 Layla Dummitt [place], [place] - [facility] 3 08:37:12 Gastroeso phageal reflux disease 075399078 Active Layla Dumshannen [place], [place] - [facility] 3 08:37:12 Hypertens nicky disorder 11337752 Active Layla Dumshannen [place] - [facility] 3 08:37:12 Vaginal hematoma 65932954 Active Laurence Vásquez MD [address], [place], [address], [place] [facility] 2 12:20:06 Vaginal bleeding 075150191 Active Laurence Vásquez MD [address], [place], [address], [place] - [facility] 2 12:20:06 Vitamin D deficienc y 48796003 Active 2019 Layla Hawthorne [place], [place] - [facility] 3 08:37:12 Mammogram declined 706170939 Active 2020 Layla Hawthorne [place] - [facility] 3 08:37:12 Prediabet es 239335037 Active 2020 Layla Hawthorne [place], [place] - [facility] 3 08:37:12 Diastolic heart failure 602433464 Active 2020 Layla Hawthorne [place] - [facility] 3 08:37:12 Influenza vaccinati on declined 727394676 Active 2020 Layla Hawthorne [place] - [facility] 3 08:37:12 Gastroeso phageal reflux disease without esophagit is 189790611 Active 2020 Layla Hawthorne [place] - [facility] 3 08:37:12 Disorder of vitamin B12 169187402 Active 2021 Layla Hawthorne [place] - [facility] 3 08:37:12 Mixed hyperlipi demia 380345610 Active 2021 Layla Hawthorne [place] - [facility] 3 08:37:12 History of polyp of colon 624056955 Active 2021 Layla Hawthorne [place] - [facility] 3 08:37:12 Screening for malignant neoplasm of colon Active 2021 Layla Hawthorne [place] - [facility] 3 08:37:12 Internal hemorrhoi ds 66048802 Active 2022 Layla Hawthorne [place] - [facility] 3 08:37:12 Diverticu losis of colon 825232651 Active 2022 Layla Hawthorne [place] [facility] 3 08:37:12 Heart disease 40075989 Active Layla Hawthorne [place] [facility] 3 08:37:12 Postmenop ausal state 80543838 Active Layla Hawthorne [place] - [facility] 3 08:37:12 Vitamin deficienc y 90730088 Active Layla stinson, [place] - [facility] 3 08:37:12 Persisten t insomnia 649391833 Active 2023 Debra Jackson, [employer] [address], [place], [address], [place] - [facility] 4 10:20:01 History of cerebrova scular accident 532602004 Active 2024 Debra Jackson, [employer] ENG[employer] [address], [place], [address], [place] - [facility] 5 11:04:04 Tinnitus of left ear 880252297822 6 Active 2024 Debra Jackson APRN [address], [place], [address], [place] - [facility] 5 11:35:22 Problem [...] Name and Address Organization Details Recorded Time 99093 Lipitor medicatio n arthralgi a (joint pain) Not available Not available 06/25/2017 27782 5 RxNorm Renetta Feliciano null, [place] - [...] daily transderm al patch 08/28 completed 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;P rinted: 05/25/20 10 Not Available Not Available [...] Available Not Available Nasonex 50 mcg/actua tion [place] 2 sprays every day by intranas al [...] Updated DateTime 5 175.26 cm 32.8 kg/m2 126001. 51 g 82 /min 95 % 95 % 18 /min 136/78 mm[Hg] Jaci Cade [place] - [facility] 5 11:29:28 Social History Question Answer Notes LastModified by Organizat ion Details LastModified Time Tobacco Smoking Status Current Every Day Smoker Beatriz Dubois [place], [place] - [facility] 10/05/2016 11:02:47 Do You Have An Advance Directive? No [email or web address] Information not available 10/05/2016 Are You Blind Or Do You Have Difficulty Seeing? No [email or web address] Information not available 10/05/2016 Is Blood Transfusion Acceptable In An Emergency? Yes [email or web address] Information not available 10/05/2016 What Is Your Level Of Caffeine Consumption? Occasional [email or web address] Information not available 10/05/2016 How Much Tobacco Do You Chew? None [email or web address] Information not available 10/05/2016 Are You Deaf Or Do You Have Serious Difficulty Hearing? No [email or web address] Information not available 10/05/2016 What Type Of Diet Are You Following? REGULAR Information not available 10/05/2016 Which Illicit Or Recreational Drugs Have You Used? None [email or web address] Information not available 10/05/2016 How Many Days Of Moderate To Strenuous Exercise, Like A Brisk Walk, Did You Do In The Last 7 Days? 1 [email or web address] Information not available 05/07/2019 On Those Days That You Engage In Moderate To Strenuous Exercise, How Many Minutes, On Average, Do You Exercise? 1 [email or web address] Information not available 05/07/2019 How Hard Is It For You To Pay For The Very Basics Like Food, Housing, Medical Care, And Heating? 1 [email or web address] Information not available 05/07/2019 Live Alone Or With Others? With Others [email or web address] Information not available 10/05/2016 Do You Have A Medical Power Of Sales Director? No Information not available 04/28/2024 What Was The Date Of Your Most Recent Tobacco Screening? 04/28/2025 [email or web address] Information not available 04/28/2025 How Many Children Do You Have? 3 Information not available 12/21/2016 Performs Monthly Self-breast Exam? Yes [email or web address] Information no t available 10/05/2016 What Is Your Relationship Status? [email or web address] Information not available 10/05/2016 Seat Belts Used Routinely Yes [email or web address] Information not available 10/05/2016 Are You Sexually Active? Yes [email or web address] Information not available 10/05/2016 How Much Tobacco Do You Smoke? 0.5 PPD Information not available 12/21/2016 General Stress Level Medium [email or web address] Information not available 10/05/2016 Do You Use Sunscreen Routinely? Yes [email or web address] Information not available 10/05/2016 Has Tobacco Cessation Counseling Been Provided? Yes Information not available 04/28/2024 On What Date Was Tobacco Cessation Counseling Provided? 04/28/2024 Information not available 04/28/2024 Do You Have Difficulty Walking Or Climbing Stairs? No [email or web address] Information not available 10/05/2016 Sex: Female Functional Status Question Answer Note LastModified by Organizat ion Details LastModified Time Do you use any illicit or recreational drugs? No Information not available 04/28/2024 What is your level of alcohol consumption? None [email or web address] Information not available 10/05/2016 Are you currently [...] you have difficulty dressing or bathing? No [email or web address] Information not available 10/05/2016 What is your exercise level? None Information not available 10/05/2016 Mental Status Question Answer Note LastModified by Organization D etails LastModified Time Do you feel stressed (tense, restless, nervous, or anxious, or unable to sleep at night)? 1 [email or web address] Information not available 05/07/2019 Do you have difficulty concentrating, remembering or making decisions? No [email or web address] Information no t available 10/05/2016 Family History [...] Hep B, unspecified formulation 02/17/2017 completed Layla stinson, [place] - [facility] 07/27/2023 08:37:23 COVID-19, mRNA, LNP-S, PF, 100 mcg/0.5mL dose or 50 mcg/0.25mL dose 12/24/2020 completed Layla stinson, [place] - [facility] 07/27/2023 08:37:23 COVID-19, mRNA, LNP-S, PF, 100 mcg/0.5mL dose or 50 mcg/0.25mL dose 01/26/2021 completed Layla stinson, [place] - [facility] 07/27/2023 08:37:23 Past Encounters Encounter ID Performer Location Encounter Start Date Encounter Closed Date Diagnosis/Indication Diagnosis SNOMED-CT Code Diagnosis ICD10 Code Diagnosis Note [id number] Debra Jackson APRN [address] [place] [address] 03/24/2025 11:16:36 03/24/2025 12:17:50 Gastroesophageal reflux disease 770958076 K21.9 Well-contr olled Mixed hyperlipidemia 267 953690 E78.[address] Carlson History of cerebrovascular accident 773669565 Z86.73 Referred to Neuro previously as requested and has appt. later this month; also new MRI ordered to [facility] also as requested Hypertensive disorder 38 391395 I10 Well-contr olled Vitamin D deficiency 347 70609 E55.9 Well-contr olled Disorder o f vitamin B12 724791571 E53.8 Diastolic heart failure 198961397 I50.30 Follows with Cardiology Prediabetes 784041736 R7 3.03 Will call with results, last A1C 6.3 on 10/27/24 Tinnitus of left ear 256 3368761 106 H93.12 Well-contr olled Persistent insomnia 1919 28840 G47.09 Well-contr olled Health Concerns Section Related Observation LastModified by Organization Detai ls LastModified Time None Recorded Concern Status LastModified by Organization Details LastModified Time None Recorded Payers Encounter Date Sequence Insurance Name Policy Number Policy Ware Covered Member ID Ware Member ID Guarantor Name 03/24/2025 1 [facility] - [employer] [facility] Sariah Ledbetter [id number] Sariah Ledbetter Notes Date Note Type [...] a new order for a MRI to [facility] due to insurance - she states she never got a call from [place] likely due to insurance not accepted there. [...] as pending/ordered MRI of brain. Debra Jackson, [employer] ENGINEER [address], [place], [address], [facility] - [facility] 03/24/2025 11:46:17 OBGyn Episode No OBEpisode recorded.
--- OUTSIDE RECORDS SUMMARY | 2025-05-18 07:48 | XMS_ITS | Data Portability ---
Author Organization [place] [facility] Address [address] [place] [address] Assessment Encounter Date Assessment Date Assessment LastModified [...] activity. - This note was dictated using Votigo software. If something is unclear, or does not make sense, please do not hesitate to contact our office at [phone] for clarification. Not available 08/02/2023 15:17:06 09/24/2023 [...] activity. - This note was dictated using Votigo software. If something is unclear, or does not make sense, please do not hesitate to contact our office at [phone] for clarification. Not available 09/24/2023 18:08:23 01/01/2024 [...] activity. - This note was dictated using Votigo software. If something is unclear, or does not make sense, please do not hesitate to contact our office at [phone] for clarification. Not available 01/01/2024 13:08:40 01/05/2025 [...] activity. - This note was dictated using Votigo software. If something is unclear, or does not make sense, please do not hesitate to contact our office at [phone] for clarification. Not available 01/05/2025 11:17:16 Plan of Treatment Reminders Order Date Submit Date Provider Last Modified By Organization Details Last Modified Time Details Appointments None recorded. Lab None recorded. Referral None recorded. Procedures colonoscop y procedure (PROC) - PHYSICIAN ORDERS 1. Ensure patient is NPO and bowel prep complete. 0.9% normal saline @kvo preferably in right arm; IV patent to gravity. 3. Verify consent. Colonoscop y with possible biopsy with possible polypectom y. 4. On-Call to Endoscopy. 5. If prep not clear, give large volume enema and report results. 6. Draw pt/inr if patient on Coumadin Hold 2022 023 erin Ledbetter (Outpatient Surgery), [address], [place], [address], 3 10:50:59 Surgeries None recorded. Imaging nuclear stress test 2024 025 antonette Ledbetter (Centralized Scheduling), [address], [place], [address], 5 07:56:26 US, duplex, carotid artery 2024 025 antonette Ledbetter (Centralized Scheduling), [address], [place], [address], 5 07:29:45 electrocar diogram 2024 025 [email or web address] [facility], [address], [place], [address], 5 11:02:57 US, echocardio gram, transthora cic, complete, w/ color flow 2024 025 antonette Ledbetter (Centralized Scheduling), [address], [place], [address], 5 07:29:38 electrocar diogram 2022 023 [email or web address] [facility], [address], [place], [address], 3 07:43:10 nuclear stress test 2022 023 [facility] (Centralized Scheduling), [address] [place] [address] Gabrielle Arteaga, [place], [address], 3 14:50:35 US, echocardio gram, transthora cic, complete, w/ color flow 2022 023 [facility] (Centralized Scheduling), [address] [place] [address] Gabrielle Arteaga, [place], [address], 3 14:50:35 US, duplex, carotid artery 2022 023 [facility] (Centralized Scheduling), [address] [place] [address] Gabrielle Arteaga, [place], [address], 3 14:50:35 Medication Orders nitroglyce rin 0.4 mg sublingual tablet 2024 025 [facility], [address] [place] [address], [address], 5 11:04:36 pantoprazo le 40 mg tablet,del ayed release 2023 024 [facility] - [address], [address], 4 13:08:34 metoprolol succinate ER 25 mg tablet,ext ended release 24 hr 2023 024 [facility], [address] [place] [address], [address], 4 13:08:33 lisinopril 10 mg tablet 2023 024 [email or web address] [facility] - [address], [address], 17/202 5 10:25:52 nitroglyce rin 0.4 mg sublingual tablet 2023 024 [facility], [address] [place] [address], [address], 4 13:08:32 isosorbide mononitrat e ER 30 mg tablet,ext ended release 24 hr [address], [address], 4 13:08:36 hydrochlor othiazide 25 mg tablet [address], [address], 4 13:08:31 atorvastat in 80 mg tablet [address], [address], 4 13:08:34 aspirin 81 mg tablet,del ayed release [address], [address], 4 13:08:31 metoprolol succinate ER 25 mg tablet,ext ended release 24 hr [address], [address], 3 18:30:21 lisinopril 10 mg tablet [email or web address] [place] [address], [address], 5 10:25:52 Golytely 236 gram-22.74 gram-6.74 gram-5.86 gram oral solution 2022 023 [email or web address] [facility], [address] [place] [address], [place], [address], 14:19:40 Patient TargetsNo targets recorded. Patient InstructionsNo instructions recorded. Reason for Referral None Reported. Results Created Date Observation Date Name Description Value Unit Range Abnormal Flag Note LastModifiedBy Organization Detail LastModifiedTime 09/24/2009/24/2023 elect rocar diogr am No observ ation record ed. [email or web address] Not Available 2022 08:47:17 09/24/2009/25/2023 elect rocar diogr am No observ ation record ed. ALFREDITO Perla [address]zana, [place], [address], 09/25/2023 07:43:10 10/16/20 elect rocar diogr am No observ ation record ed. Not Available 2022 08:25:47 05/26/20 24 05/13/2024 LDCT, chest , for lung cance r scree gume No observ ation record ed. [facility] [address] [place] [address] , [place], [address], 08/04/2024 08:41:32 01/05/20 elect rocar diogr am No observ ation record ed. ALFREDITO Perla [address], [place], [address], 01/05/2025 10:34:15 01/05/20 25 01/05/2025 elect rocar diogr am No observ ation record ed. [email or web address] Not Available 12:12:03 02/10/20 25 02/09/2025 elect rocar diogr am inter preta tion* No observ ation record ed. [email or web address] Not Available 2024 12:42:56 Result Notes None recorded. Problems Name Problem SNOMED Code Status Onset Date Resolution Date Notes Provider Name and Address Organization Details Recorded Time Left bundle branch block 17044435 Active 2024 BROOKS MORFIN NP, S [address] [place] [address],[address], [address] , [place] - & [place] 5 11:06:09 Heart disease 79626412 Active Jennifer stinson, [place] - [place] & [place] 3 14:17:57 Disorder of coronary artery 996965659 Active 2017 Jennifer stinson, [place] & [place] 3 14:17:56 Prediabet es 888066513 Active 2020 Jennifer stinson[place] & [place] 3 14:17:57 Mixed hyperlipi demia 544944063 Active 2021 Jennifer stinson[place] 3 14:17:56 Vitamin D deficienc y 11755534 Active 2019 Jennifer stinson[place] & [place] 3 14:17:56 Disorder of vitamin B12 017958395 Active 2021 Jennifer stinson[place] & [place] 3 14:17:56 Gastroeso phageal reflux disease without esophagit is 546948139 Active 2020 Jennifer stinson, [place] & [place] 3 14:17:56 History of cardiac catheteri zation 96145954248 100 Active Jennifer stinson[place] & [place] 3 14:17:57 Palpitati ons 37625498 Active 2017 Palpitati ons Jennifer stinson, [place] & [place] 3 14:17:57 Hypertens nicky disorder 47879715 Active 2014 Hypertens ion Hyper tension Jennifer stinson, [place] [facility] & [place] 3 14:17:56 Tobacco user 365397644 Active 2015 Jennifer stinson, [place] - [facility] - [facility] & [place] 3 14:17:56 Retention of urine 580152767 Active 2015 Jennifer stinson, [place] - [place] - & [place] 3 14:17:56 Diastolic heart failure 026105372 Active 2020 Jennifer stinson, [place] - [place] - & [place] 3 14:17:57 Disorder of carotid artery 983271757 Active 2019 Jennifer stinson, [place] - [place] - & [place] 3 14:17:56 History of surgery 803878675 Active 2015 Jennifer stinson, [place] - [facility] - [facility] & [place] 3 14:17:56 Second degree atriovent ricular block 685751240 Active 2019 Second degree atriovent ricular block Jennifer stinson[place] 3 14:17:56 Preinfarc tion syndrome 4456485 Active 2017 Not Available [facility] 2 23:32:21 Dizziness 922396121 Active 2017 Dizziness Jennifer stinson, [place] - [place] - [facility] & [place] 3 14:17:56 Centriaci mary emphysema 06904063 Active 2019 Centrilob ular emphysema Jennifer stinson, [place] [facility] & [place] 3 14:17:57 Abnormal results of cardiovas cular function studies 918152768 Active 2019 Jennifer stinson[place] [facility] & [place] 3 14:17:56 Tympanosc lerosis involving tympanic membrane only 41080872 Active 2019 Jennifer stinson[place] & [place] 3 14:17:56 Urinary tract infectiou s disease 39096182 Active 2015 Urinary tract infectiou s disease Not Available [facility] 2 23:32:21 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 14075015 Active 2014 Not Available [facility] 2 23:32:21 Gastroeso phageal reflux disease 132142900 Active 2019 Gastroeso phageal reflux disease Jennifer stinson, [place] [facility] & [place] 3 14:17:56 Electroca rdiogram abnormal 597277496 Active 2015 Jennifer stinson, [place] [facility] & [place] 3 14:17:56 Mild intermitt ent asthma 009246130 Active 2019 Mild intermitt ent asthma Jennifer stinson, [place] [facility] & [place] 3 14:17:57 Angina pectoris 233944401 Active 2015 Jennifer [place]inson[place] [facility] & [place] 3 14:17:56 Smoker 84348790 Active 2019 Smoker Jennifer stinson[place] [facility] & [place] 3 14:17:57 Chest pain 12465622 Active 2017 Chest pain Jennifer stinson, [place] [facility] & [place] 3 14:17:56 Urethral stenosis 504913229 Active 2014 Jennifer stinson[place] [facility] & [place] 3 14:17:56 Bilateral carotid artery occlusion 894049802 Active 2019 Jennifer [place] [facility] & [place] 3 14:17:57 Dyspnea 504607189 Active 2019 Jennifer Jimenez null, [place] [facility] & [place] 3 14:17:56 Cystocele 692885789 Active 2014 Jennifer Barbara stinson[place] [facility] & [place] 3 14:17:56 Acute cystitis 69884028 Active 2015 Jennifer [place] [facility] & [place] 3 14:17:57 Ventricul ar premature beats 04316211 Active 2017 Jennifer stinson[place] & 3 14:17:56 Coronary arteriosc lerosis in [place] artery 75384386852 07 Active 2018 Jennifer stinson[place] & [place] 3 14:17:56 Ventricul ar tachycard ia 60398143 Active 2019 Ventricul ar tachycard ia Jennifer stinson[place] 3 14:17:56 Hyperlipi demia 95444483 Active 2016 Jennifer stinson[place] & [place] 3 14:17:57 Urge incontine nce of urine 82451522 Active 2014 Jennifer stinson[place] 3 14:17:57 Hypertens nicky heart disease 09548421 Active 2019 Jennifer stinson[place] & [place] 3 14:17:57 Rectal hemorrhag e 47466991 Active 2022 Jennifer stinson[place] & [place] 3 14:17:56 Chronic constipat ion 308959659 Active 2022 Jennifer stinson[place] 3 14:17:56 Essential hypertens ion 34383914 Active 2022 Jennifer stinson[place] 3 14:17:57 Urinary incontine nce 188410408 Active [place]inson[place] & 3 14:17:56 Vaginal bleeding 659208875 Active Jennifer [place]inson[place] 3 14:17:56 Herniated urinary bladder 403750300 Active Jennifer [place]inson[place] & [place] 3 14:17:56 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 Procedures Surgical History Date Name Laterality Status Provider Name and Address Organization Details Recorded Time 023 Colonoscopy completed Mckenna Vergara [place] & [place] 09/24/2023 08:41:04 020 cardiac catheterization completed Beatriz Orourke [place] & [place] 07/12/2023 08:22:00 019 Colonoscopy completed Beatriz Orourke [place] & [place] 07/11/2023 14:33:56 018 mammography completed Beatriz FONG - [place] - [place] & [place] 07/11/2023 14:33:01 016 perineorrhaphy completed Beatriz FONG - [place] - [place] & [place] 07/11/2023 14:26:00 013 sampling of vagina for Papanicolaou smear completed Beatriz FONG - [facility] - [place] & [place] 07/11/2023 14:33:36 002 Other completed bhavna beck [place] & [place] 07/11/2023 16:49:54 997 Other completed bhavna beck [place] & [place] 07/11/2023 16:49:54 Cystourethroscopy completed Beatriz FONG - [facility] - [place] & [place] 07/11/2023 14:25:32 hysterectomy completed Marcos FONG - [facility] - [place] & [place] 08/17/2022 15:24:53 Carpal tunnel surgery completed Marcos FONG - [facility] - [place] & [place] 08/17/2022 15:25:02 Imaging Results None recorded. Procedure Notes None recorded. Medical Equipment None Reported. Allergies Allergen ID Allergen Name Allergen Category Reaction Reaction Severity Criticality Documentation Date Start Date Code Code System Note Provider Name and Address Organization Details Recorded Time 39134 Lipitor medicatio n Not available Not available Not available 07/10/2023 57955 5 RxNorm Beatriz Orourke [facility], [place] - [place] - [place] & [place] 3 12:44:06 Medications Name Sig Start Date [...] Updated DateTime 4 167.64 cm 33.7 kg/m2 24842.8 1 g 93 % 93 % 89 /min 150 mm[Hg] 98 mm[Hg] [facility] [place] & [place] 4 10:14:57 Date Recorded Body height Body mass index (BMI) Body weight Oxygen saturation Oxygen saturation in Arterial blood by Pulse oximetry Heart rate Systolic blood pressure Diastolic blood pressure Provider Name and Address Organization Details Last Updated DateTime 5 167.64 cm 36.3 kg/m2 397054 g 95 % 95 % 84 /min 158 mm[Hg] 94 mm[Hg] Alla Witt [facility] & [place] 5 10:23:00 Date Recorded Body height Body mass index (BMI) Body weight Body temperature Heart rate Respiratory rate Systolic blood pressure Diastolic blood pressure Provider Name and Address Organization Details Last Updated DateTime 3 167.64 cm 33.4 kg/m2 13081.6 2 g 97.6 [degF] 63 /min 20 /min 180 mm[Hg] 104 mm[Hg] Beatriz Orourke [facility] & [place] 3 12:55:35 Date Recorded Body height Body mass index (BMI) Body weight Oxygen saturation Oxygen saturation in Arterial blood by Pulse oximetry Heart rate Systolic blood pressure Diastolic blood pressure Provider Name and Address Organization Details Last Updated DateTime 3 167.64 cm 33 kg/m2 12773 g 96 % 96 % 57 /min 120 mm[Hg] 72 mm[Hg] Jennifer Barbara [facility] & [place] 3 14:17:17 Date Recorded Body height Body mass index (BMI) Body weight Oxygen saturation Oxygen saturation in Arterial blood by Pulse oximetry Heart rate Systolic blood pressure Diastolic blood pressure Provider Name and Address Organization Details Last Updated DateTime 3 167.64 cm 32.7 kg/m2 08260.1 g 93 % 93 % 54 /min 122 mm[Hg] 80 mm[Hg] Mckenna Jai [facility] & [place] 3 08:40:35 Social History Question Answer Notes [...] Are You Passively Exposed To Smoke? Yes Information not available 02/13/2023 How Much Tobacco Do You Smoke? 0.5 PPD [email or web address] Information not available 02/13/2023 How Many Years Have You Smoked Tobacco? 40 Information not available 09/24/2023 Sex: Unknown Functional Status Question Answer Note LastModified by Organizat ion Details LastModified Time Do you use any illicit or recreational drugs? No Information not available 07/11/2023 What is your level of alcohol consumption? None [email or web address] Information not available 07/11/2023 Do you or [...] Jennifer Jimenez null, [place] & [place] 08/02/2023 14:18:09 COVID-19, mRNA, LNP-S, PF, 100 mcg/0.5mL dose or 50 mcg/0.25mL dose 01/26/2021 completed Jennifer Jimenez null, [place] 08/02/2023 14:18:09 Tdap 02/17/2017 completed Jennifer Jimenez null[place] 08/02/2023 14:18:09 Hep B, unspecified formulation 01/17/2017 completed Jennifer Jimenez null[place] 08/02/2023 14:18:09 Hep B, unspecified formulation 02/17/2017 completed Jennifer Jimenez null[place] 08/02/2023 14:18:09 Past Encounters Encounter ID Performer Location Encounter Start Date Encounter Closed Date Diagnosis/Indication Diagnosis SNOMED-CT Code Diagnosis ICD10 Code Diagnosis Note [id number] BROOKS MORFIN NP, S [place]ATR[place] [address] [place] [id number] 08/17/2022 12:56:01 08/17/2022 13:22:35 Coronary arteriosclerosis 89417321 I25.10 Essential hypertension 61196555 I10 Hyperlipidemia 00060514 E78.5 Ventricula r premature complex 800765174 I49.3 Carotid ar alyson stenosis 04859294 I65.23 Mitral clare ve regurgitation 44347286 I34.0 [id number] BROOKS MORFIN NP, S [address] [place] [id number] 02/13/2023 12:51:37 02/13/2023 13:40:07 Coronary arteriosclerosis 33002230 I25.10 Essential hypertension 51881835 I10 Hyperlipidemia 60662449 E78.5 Ventricula r premature complex 008357624 I49.3 Carotid ar alyson stenosis 34455852 I65.23 Mitral clare ve regurgitation 00824417 I34.0 Angina pectoris 66482207 0 I20.9 Dyspnea on exertion 6084 5006 R06.09 [id number] Haris Carlson MD [address]Z [address] [place] [id number] 03/08/2023 08:27:49 03/08/2023 08:28:21 Essential hypertension 31247864 I10 EKG INTERPRETA TION: EKG dated 02/13/23 revealed sinus bradycardi a with heart rate 58. Nonspecifi c ST abnormalit y. Abnormal ECG. [id number] Micah Figueroa MD [facility] Gastroent erology [address] [place] [address],[facility] [address] [place] [address] 07/12/2023 12:19:51 07/12/2023 14:05:55 History of polyp of colon 034813718 Z86.010 Patient with history of colonic polyps, most recent colonoscop y in 2019 demonstrat ed poor prep. Clearly overdue for surveillan ce purposes schedule colonoscop y, with GoLYTELY prep given last prep was suboptimal . Rectal hemorrhage 358022 02 K62.5 The patient's rectal bleeding certainly could be associated with the hemorrhoid al disease the patient had described at her last colonoscop y, however given the patient's prep at that time was poor and there was a inflammat ory appearing mass again pathology is not been received yet other source of blood loss certainly can not be excluded. Chronic constipation 236 316622 K59.09 we have instructed the patient to take fiber supplement ation on a scheduled basis we recommend 2 capsules once a day continue on this regimen at till her colonoscop y so we can see how this either helps or does not help with her constipati on [id number] BROOKS MORFIN NP, S [address]Z [address] [place] [id number] 08/02/2023 13:41:05 08/02/2023 14:43:59 Essential hypertension 49788750 I10 Coronary arteriosclerosis 41988590 I25.10 Hyperlipidemia 20402198 E78.5 Ventricula r premature complex 271075703 I49.3 Carotid ar alyson stenosis 43792062 I65.23 Mitral clare ve regurgitation 72323657 I34.0 Angina pectoris 30027502 0 I20.9 Dyspnea on exertion 6084 5006 R06.09 [id number] BROOKS MORFIN NP, S [place] [address]Z [address] [place] [id number] 09/24/2023 08:18:06 09/24/2023 09:27:18 Essential hypertension 86721831 I10 Coronary arteriosclerosis 90739793 I25.10 Hyperlipidemia 84906862 E78.5 Ventricula r premature complex 527872920 I49.3 Carotid ar alyson stenosis 28473309 I65.23 Mitral clare ve regurgitation 52002553 I34.0 [id number] BROOKS MORFIN NP, S [address] [place] [id number] 01/01/2024 09:42:47 01/01/2024 10:37:56 Essential hypertension 47448867 I10 Coronary arteriosclerosis 74054062 I25.10 Hyperlipidemia 67155108 E78.5 Ventricula r premature complex 147487210 I49.3 Carotid ar alyson stenosis 79213370 I65.23 Mitral clare ve regurgitation 13943014 I34.0 Gastroesop hageal reflux disease 141770337 K21.9 [id number] BROOKS MORFIN NP, S [place] [address] [place] [id number] 01/05/2025 10:09:51 01/05/2025 11:04:28 Essential hypertension 25346621 I10 Dyspnea on exertion 6084 5006 R06.09 Atypical angina 78969043 2 I20.89 Left bundl e branch block 75018328 I44.7 Dizziness 560380226 R42 Coronary arteriosclerosis 90815611 I25.10 Cigarette smoker 6184379 7 F17.210 Hyperlipidemia 38731668 E78.5 Ventricula r premature complex 008584062 I49.3 Carotid ar alyson stenosis 89684642 I65.23 Mitral clare ve regurgitation 45874631 I34.0 Gastroesop hageal reflux disease 256797480 K21.9 Health Concerns Section Related Observation LastModified [...] Ledbetter 09/24/2023 1 [employer] Ledbetter [id number] Sariah Ledbetter 09/24/2023 1 [place] [facility] CHOICES - FFS/TRADITION AL Sariah Ledbetter [id number] Sariah Ledbetter 09/24/2023 1 [employer] [place] [employer] [place]MEDICA[place] - HMO) DIDIER Ledbetter [id number] Sariah Ledbetter 01/05/2025 1 *SELF PAY* Chris Ledbetter 07/26/2023 1 [employer]IER Ledbetter [id number] Sariah Ledbetter 09/24/2023 1 [facility] (MEDICAID REPLACEMENT - HMO) [id number] Sariah Ledbetter [id number] Sariah Ledbetter 09/24/2023 1 [place] [id number] Sariah Ledbetter [id number] Sariah Ledbetter 01/01/2024 1 [employer] [facility] [id number] Sariah Ledbetter [id number] Sariah Ledbetter 09/24/2023 [place] [facility] - FFS/TRADITION AL Sariah Ledbetter [id number] Sariah Ledbetter 01/05/2025 1 [place] [id number] Sariah Ledbetter [id number] Sariah Ledbetter 09/24/2023 1 [facility] Sariah Ledbetter [id number] Sariah Ledbetter 01/05/2025 1 [place] [id number] Sariah Ledbetter [id number] Sariah Ledbetter 09/24/2023 2 [facility] Sariah Ledbetter [id number] Sariah Ledbetter 09/24/2023 1 [facility] Sariah Ledbetter [id number] Sariah Ledbetter Notes Date Note Type Note [...] defecation. Has known diverticulosis. Micah Figueroa MD [address] [place] [address],[address], [place], [address], [facility] - [place] - [place] & [place] 07/12/2023 13:25:29 08/02/2023 text/html Mame is a [...] to 80 diastolic. BROOKS MORFIN NP, S [address] [place] [address],[address], [place], [address], [facility] 08/02/2023 15:17:40 09/24/2023 text/html Mame is a [...] our last visit. BROOKS MORFIN NP, S [address] [place] [address],[address], [place], [address], [facility] & [place] 09/24/2023 18:30:39 01/01/2024 text/html Mame is a [...] complaints or concerns. BROOKS MORFIN NP, S [address] [place] [address],[address], [place], [address], [place] [facility] [facility] & [place] 01/01/2024 13:10:37 01/05/2025 text/html Mame is a [...] [facility],[address], [place], [address], [place] [facility] & [place] 01/05/2025 16:39:25 OBGyn Episode No OBEpisode recorded.
--- NOTE | 2025-05-18 08:00 | NM_ITS ---
APPROVED REPORT Sales And Marketing Manager: Procedure: 99mTc-PYP Cardiac Amyloidosis Imaging Clinical Indication: Heart failure, increased LV wall thickness Protocol: The patient received 27.5 mCi 99mTc-PYP intravenously. Planar and SPECT imaging was performed approximately 3 hours post injection. Planar images included anterior, left lateral and RUBIA-[id number] projections. Findings: Visual interpretation: Planar and SPECT images were reviewed The overall quality of the study was good. Semi quantitative SPECT findings showed a grade 0. Planar imaging demonstrates a heart to contralateral ratio of 1.04 (normal<1.5, equivocal=1.2-1.4, abnormal>1.5). Impression: 1. Overall, the quality of the study was good. 2. Semi quantitative SPECT findings showed grade 0. 3. Overall interpretation of the findings is not suggestive of ATTR amyloidosis. This study and report were reviewed and signed by Sam Orourke MD (professional nursing tutor). Conclusion Electronically signed by : Jemma Orourke MD 05/21/2025 15:03:23
[2025-05-18] MEDS: SODIUM CHLORIDE 0.9% 10ML SYR (RAD ONLY) 10 ML IV (10:27)
[2025-05-18] MEDS: PYROPHOSPHATE CARDIAC (PYP);1 DOSE VIAL IV (10:27)
== END 2025-05-18 23:59 | disposition home or self-care (01) ==
LOC: RAD 07:45
PROVIDERS: PCP Nurse Practitioner Family; Visit Provider Internal Medicine
DX: I11.0 Hypertensive heart disease with heart failure (principal); I50.9 Heart failure, unspecified; I63.9 Cerebral infarction, unspecified; I25.10 Atherosclerotic heart disease of native coronary artery without angina pectoris; R93.1 Abnormal findings on diagnostic imaging of heart and coronary circulation
CPT/HCPCS: 78803

== ENCOUNTER 2025-07-22 12:22 | Outpatient (CLI) | payer OTHER, SELFPAY ==
--- OUTSIDE RECORDS SUMMARY | 2025-07-22 12:24 | XMS_ITS | Clinical Summary ---
Author Organization [facility] Address [address] [place] [id number] Care Team Providers Care Repair Servicer Name Role Phone Frederick Jessicafabiola Valadez APRN Primary Care Provider + Allergies No known active allergies Medications aspirin 81 MG EC tablet Take 81 mg by mouth Daily. Active losartan-hydroch lorothiazide (HYZAAR) 50-12.5 MG per tablet Take 1 tablet by mouth Daily. Active atorvastatin (LIPITOR) 80 MG tablet Take 80 mg by mouth Daily. Active metoprolol tartrate (LOPRESSOR) 25 MG tablet Take 25 mg by mouth 2 (Two) Times a Day. Active meclizine (ANTIVERT) 25 MG tablet Take 25 mg by mouth 3 (Three) Times a Day As Needed for dizziness. Active raNITIdine (ZANTAC) 150 MG tablet Take 150 mg by mouth 2 (Two) Times a Day. Active Family History Medical History Relation Name Comments Heart disease Father Cancer Mother Relation Name Status Comments Father Mother Social History Tobacco Use Types Packs/Day Years Used Date Smoking Tobacco: Every Day Cigarettes Smokeless Tobacco: Never Alcohol Use Standard Drinks/Week Comments Yes 0 (1 standard drink = 0.6 oz pur e alcohol) Abuse Screen Answer Date Recorded Unsafe at Home or Work/School Not on file Feels Threatened by Someone? Not on file 10/2023 Does Anyone Keep You from Co ntacting Others or Doint Things Outside the Home? Not on file 08/30/2023 Physical Sign of Abuse Present Not on file 1 Housing Stability Answer Date Recorded Current Living Arrangements Not on file 08/19 Potentially Unsafe Housing Conditions Not on lonnie e 08/30/2023 Family and Community Support Answer Karlo e Recorded Help with Day-to-Day Activities Not on file 08/30/2023 Lonely or Isolated Not on file 08/30/2023 Employment Answer Date Recorded Do you want help finding or keeping work or a fred b? Not on file 08/30/2023 Disabilities Answer Date Recorded Concentrating, Remembering, or Making Decisions Difficulty Not on file 08/30/2023 Doing Errands Independently Difficulty Not on fi le 08/30/2023 Education Answer Date Recorded Help with school or training? Not on file Preferred Language Not on file 08/30/2023 Comments Unknown Sex and Gender Information Value Date Recorded Sex Assigned at Not on file Legal Sex Female 10:36 AM EDT Gender Identity Not on file Sexual Orientation Not on file Last Filed Vital Signs Vital Sign Reading Time Taken Comments Blood Pressure 130/90 03/19/2019 12:26 PM EDT Pulse - - Temperature 36.9 C (98.4 F) 03/19/2019 12:26 PM EDT Respiratory Rate - - Oxygen Saturation - - Inhaled Oxygen Concentration - - Weight 91.1 kg (200 lb 12.8 oz) 019 12:26 PM EDT Height 167.6 cm (5' 6 ) 03/19/2019 12:2 6 PM EDT Body Mass Index 32.41 03/19/2019 12:26 PM EDT Plan of Treatment Health Maintenance Due Date Last Done Comments Annual Gynecologic Pelvic and Breast Exam 1960 TDAP/TD VACCINES (1 - Tdap) 1979 MAMMOGRAM 2000 COLOGUARD 2005 COLON CANCER SCREENING 5 YEAR SIGMOIDOSCOPY 2005 COLONOSCOPY 2005 [address] CANCER SCREENING 2005 CT COLONOGRAPHY 2005 FECAL OCCULT BLOOD TEST 2005 FIT Testing (1 year) 2005 Pneumococcal Vaccine 50+ (1 of 1 - PCV) 2010 ZOSTER VACCINE (1 of 2) 2010 ANNUAL PHYSICAL 03/18/2019 HEPATITIS C SCREENING 03/18/2019 COVID-19 Vaccine ( - season) 2024 INFLUENZA VACCINE 08/19/2025 Insurance Care Teams Repair Servicer Relationship Specialty Start Date End Date Jessica Mack, FUNCTIONAL ARCHITECT [address] [place] [address] [place] [address] PCP - General Nurse Practitioner 03/05/19
--- OUTSIDE RECORDS SUMMARY | 2025-07-22 12:24 | XMS_ITS | Encounter Summary ---
Author Organization Healthcare Address [address] [place] [address] Care Team Providers Care Abrasive Sawyer Name Role Phone Jessica Mack APRN Primary Care Provider + Encounter Details Date Type Department Care Team (Late st Contact Info) Description 05/26/2025 Telephone [place] [facility] [address], [address] [place] [address] [facility], Physician, [address] [place] [address] Social History Tobacco Use Types Packs/Day Years Used Date Smoking Tobacco: Never Assessed Comments Unknown Sex and Gender Information Value Date Recorded Sex Assigned at Not on file Legal Sex Female 7:15 PM EDT Gender Identity Not on file Sexual Orientation Not on file documented as of this encounter Plan of Treatment Not on file documented as of this encounter Visit Diagnoses Not on filedocumented in this encounter Care Teams Abrasive Sawyer Relationship Specialty Start Date End Date Jessica Mack APRN [address] [place] [id number] PCP - General 04/01/21 documented as of this encounter
--- OUTSIDE RECORDS SUMMARY | 2025-07-22 12:24 | XMS_ITS | Encounter Summary ---
Author Organization Healthcare Address [address] [place] [address] Care Team Providers Care Trauma Nurse Name Role Phone Jessica Mack PROGRAM SPECIALIST Primary Care Provider + Reason for Referral * Consultation (Routine) - Authorized Specialty Diagnoses / Procedures Referred By Contac t Referred To Contact Neurology Diagnoses Personal history of TIA (transient ischemic attack) Debra Jackson APRN [address] [place] [address] [place] [address] Phone: tel: fax: Referral ID Status Reason Start Date Expiration Date Visits Requested Visits Authorized [id number] Authorized Specialty Services Required 11/27/2024 05/29/2026 1 1 Encounter Details Date Type Department Care Team (Late st Contact Info) Description 11/27/2024 Community Orders [facility] [address] [place] [address] Debra Jackson APRN [address] [place] [address] [place] [address] Personal history of TIA (transient [...] deficits documented in this encounter Care Teams Trauma Nurse Relationship Specialty Start Date End Date Jessica Mack, PROGRAM SPECIALIST [address] [place] [address] PCP - General 04/01/21 documented as of this encounter
--- OUTSIDE RECORDS SUMMARY | 2025-07-22 12:24 | XMS_ITS | Clinical Summary ---
Author Organization [facility] Address [address] [place] [address] Phone Care Team Providers Care Data Warehouse Administrator Name Role Phone Unavailable Primary Care Provider [...] COVID-19 Vaccine (1 - 2023-2 5 season) 2025 Influenza Vaccine (#1) 2025 Hepatitis B Vaccine Aged Out No longe r eligible based on patient's age to complete this topic Meningococcal B Vaccine Aged Out No l onger eligible based on patient's age to complete this topic Insurance
--- OUTSIDE RECORDS SUMMARY | 2025-07-22 12:25 | XMS_ITS | Clinical Summary ---
Author Organization [facility] Address [address] [place] [address] Care Team Providers Care Christian Science Healer Name Role Phone Unavailable Primary Care Provider [...] therelease of HIV test results or diagnoses. [id number] Social History Tobacco Use Types Packs/Day [...] Zoster (1 of 2) 2010 Immunization: COVID-19 (3 - season) 2025 01/26/2021, 12/24/2020 Immunization: Influenza (MyChart) (#1) 2025 Immunization: RSV (Adult) (1 - 1-dose 75+ series) 2035
--- OUTSIDE RECORDS SUMMARY | 2025-07-22 12:25 | XMS_ITS | Clinical Summary ---
Author Organization Healthcare Address [address] [place] [address] Care Team Providers Care Enrollment Counselor Name Role Phone Jessica Mack APRN Primary Care Provider + Encounters Date Type Department Care Team Description 06/29/2025 Telephone [facility] [address] [place] [address] [facility], Physician, 05/26/2025 Telephone [place] [facility] [address] [place] [address] [facility], PhysicianMD from Last 3 Months Social History Tobacco [...] 2010 [facility]-Zoster Vaccines (1 of 2) 2010 [id number] Vaccine (1 - 20 24-25 season) 2024 [facility]-Influenza Vaccine (#1) 2025 [facility]-RSV Vaccine: 60+ Years o r [...] age to complete this topic Care Teams Enrollment Counselor Relationship Specialty Start Date End Date Jessica Mack APRN [address] [place] [address] PCP - General 04/01/21
--- OUTSIDE RECORDS SUMMARY | 2025-07-22 12:25 | XMS_ITS | Encounter Summary ---
Author Organization Healthcare Address [address] [place] [address] Care Team Providers Care Entry Level Business Analyst Name Role Phone Jessica Mack APRN Primary Care Provider + Encounter Details Date Type Department Care Team (Late st Contact Info) Description 06/29/2025 Telephone [place] [facility] [address] [place] [address] [facility], Physician, [address] [place] [address] Social History Tobacco Use Types Packs/Day Years [...] on filedocumented in this encounter Care Teams Entry Level Business Analyst Relationship Specialty Start Date End Date Jessica Mack APRN [address] [place] [address] PCP - General 04/01/21 documented as of this encounter
[2025-07-22] MEDS: ALBUTEROL 0.083% 2.5 MG/3 ML NEB IH (13:17)
--- NOTE | 2025-07-22 13:17 | PC.NURSE ---
Pt completed PFT and 6 Minute Walk test without incident. Albuterol 0.083% given via HHN, per written protocol, PT tolerated tx well.
== END 2025-07-22 23:59 | disposition home or self-care (01) ==
LOC: RT 12:23
PROVIDERS: PCP Nurse Practitioner Family; Visit Provider Specialist
DX: G47.33 Obstructive sleep apnea (adult) (pediatric) (principal); G47.34 Idiopathic sleep related nonobstructive alveolar hypoventilation; I10 Essential (primary) hypertension; I25.10 Atherosclerotic heart disease of native coronary artery without angina pectoris; R51.9 Headache, unspecified; Z72.0 Tobacco use
CPT/HCPCS: 94010; 94618; 94727; 94729

== ENCOUNTER 2025-10-07 14:08 | Outpatient (CLI) | payer MEDICARE, OTHER, SELFPAY ==
--- OUTSIDE RECORDS SUMMARY | 2025-10-07 15:26 | XMS_ITS | Continuity of Care Document ---
Author Organization [facility] Address [address] [place] [address] Care Team Providers Care Deputy Court Name Role Phone ISMAEL GUO President Practicing Urologist Unavailable TITA AVILA Marine Fitter Assessment Encounter Date Assessment Date Assessment LastModified by Organization Details LastModified Time 10/06/2025 10/06/2025 The patient was advised to continue a healthy diet and exercise regularly. She also was advised to: HAVE A DEXA SCAN Labs will be sent to evaluate blood count, renal function lipids and vitamin D. Not available 10/06/2025 11:32:47 Plan of Treatment Reminders Order Date Submit Date Provider Last Modified By Organization Details Last Modified Time Details Appointments Follow Up 20 2025 10:20A M Debra Jackson APRN Not available Not available Not available Lab CMP, serum or plasma 2024 025 [facility], [address], [place] [address], [place], [address], 10/06/2025 11:32:34 HbA1c (hemoglob in A1c), blood 2024 025 [facility], [address], [place], [place], [address], 10/06/2025 11:32:31 TSH + free T4, serum 2024 025 [facility], [address], [place], [place], [address], 10/06/2025 11:32:36 cobalamin and folate panel, serum 2024 025 [facility], [address], [place], [place], [address], 10/06/2025 11:32:33 Hepatitis C IgG Ab, qual, serum 2024 025 [facility], [address], [place], [place], [address], 10/06/2025 11:32:35 vitamin D, 25-hydrox y, total, serum 2024 025 [facility], [address], [place], [place], [address], 10/06/2025 11:32:33 lipid panel, serum 2024 025 [facility], [address], [place], [place], [address], 10/06/2025 11:32:32 CBC w/ auto diff 2024 025 [facility], [address], [place], [place], [address], 10/06/2025 11:32:37 Referral None recorded. Procedures None recorded. Surgeries None recorded. Imaging XR, hip + pelvis, bilateral , 3 or 4 view 2024 025 [email or web address], [address] [facility] , [place], [address], 10/07/2025 11:29:55 DEXA [address] (Centralized Scheduling), [address] [place] [address] , [place], [address], 10/06/2025 11:37:30 Medication Orders Symbicort 160 mcg-4.5 mcg/actua tion HFA aerosol inhaler [address], [place], [address], 10/06/2025 11:32:21 atorvasta tin 80 mg tablet [address], [address], 10/06/2025 11:32:22 hydrochlo rothiazid e 25 mg tablet [address], [address], 10/06/2025 11:32:19 isosorbid e mononitra te ER 30 mg tablet,ex tended release 24 hr [address], [address], 10/06/2025 11:32:20 pantopraz ole 40 mg tablet,de layed release [address], [address], 10/06/2025 11:32:20 cholecalc iferol (vitamin D3) 50 mcg (2,000 unit) capsule [address], [address], 10/06/2025 11:32:19 mirtazapi ne 30 mg tablet [address], [address], 10/06/2025 11:32:21 Patient TargetsNo targets recorded. Patient Instructions Encounter Date Encounter Id Patient Instructions Last Modified By Organization Details Last Modified Time 10/06/2025 [id number] smoking cessatio n counseling, greater than 3 minutes up to 10 minutes Not available 10/06/2025 11:32:16 Learning About Benefits of Quitting Smoking Not available 10/06/2025 11:32:16 Quitting Tobacco : Care Instructions Not available 10/06/2025 11:32:16 Well Visit, Ages 18 to 65: Care Instructions Not available 10/06/2025 11:32:16 eating healthy foods: care instructions Not available 10/06/2025 11:32:16 walking for exercise: care instructions Not available 10/06/2025 11:32:16 Reason for Referral None Reported. Problems Name Problem SNOMED Code Status Onset Date Resolution Date Notes Provider Name and Address Organization Details Recorded Time Female urinary stress incontine nce 85936652 Active Laurence Vásquez MD [address], [place], [address], [place] - [facility] 12:20:06 Preinfarc tion syndrome 4725468 Active Laurence Vásquez MD [address], [place], [address], [place] - [facility] 12:20:06 Urinary tract infectiou s disease 73883729 Active Laurence Vásquez MD [address], [place], [address], [place] [facility] 12:20:06 Herniated urinary bladder 796806648 Active Laurence Vásquez MD [address], [place], [address], [place] [facility] 12:20:06 Vaginal hematoma 31844747 Completed 05/07/2019 Laurence Vásquez MD [address], [place], [address], [place] [facility] 12:20:06 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 41919461 Active Laurence Vásquez MD [address], [place], [address], [place] [facility] 12:20:06 Vaginal bleeding 703352924 Completed 05/07/2019 Laurence Vásquez MD [address], [place], [address], [place] - [facility] 12:20:06 History of cardiac catheteri zation 594627536957 00 Active Laurence Vásquez MD [address], [place], [address], [place] [facility] 2 12:20:06 Urinary incontine nce 522217779 Active Laurence Vásquez MD [address], [place], [address], [place] - [facility] 12:20:06 Hypertens nicky disorder 31999009 Active Layla Hightowershannen null, [place] - [facility] 3 08:37:12 Vaginal hematoma 99814445 Active Laurence Vásquez MD [address], [place], [address], [place] [facility] 12:20:06 Vaginal bleeding 310173293 Active Laurence Vásquez MD [address], [place], [address], [place] [facility] 2 12:20:06 Heart disease 69768215 Active Layla Hawthorne null, [place] - [facility] 3 08:37:12 Postmenop ausal state 06694142 Active Layla Hawthorne null, [place] - [facility] 3 08:37:12 Vitamin deficienc y 36211990 Active Layla Hawthorne null, [place] - [facility] 3 08:37:12 Hyperlipi demia 16844544 Active 2016 Layla Hawthorne null, [place] - [facility] 3 08:37:12 Disorder of coronary artery 876939646 Active 2017 Layla Hawthorne null, [place] - [facility] 3 08:37:12 Vitamin D deficienc y 33863451 Active 2019 Layla Hawthorne null, [place] - [facility] 3 08:37:12 Mammogram declined 567073724 Active 2020 Layla Hawthorne null, [place] - [facility] 3 08:37:12 Prediabet es 176045588 Active 2020 Layla Hawthorne null, [place] - [facility] 3 08:37:12 Diastolic heart failure 593608895 Active 2020 Layla Hawthorne null, [place] - [facility] 08:37:12 Influenza vaccinati on declined 326854838 Active 2020 Layla Hawthorne null, [place] - [facility] 08:37:12 Gastroeso phageal reflux disease without esophagit is 379760507 Active 2020 Layla Hawthorne null[place] - [facility] 08:37:12 Disorder of vitamin B12 556914060 Active 2021 Layla Hawthorne null, [place] - [facility] 08:37:12 Mixed hyperlipi demia 930806271 Active 2021 Layla Hawthorne null, [place] - [facility] 08:37:12 History of polyp of colon 248226473 Active 2021 Layla Hawthorne null, [place] - [facility] 08:37:12 Screening for malignant neoplasm of colon Active 2021 Layla Hawthorne null, [place] - [facility] 08:37:12 Internal hemorrhoi ds 09251931 Active 2022 Layla Hawthorne null, [place] - [facility] 08:37:12 Diverticu losis of colon 037518421 Active 2022 Layla Hawthorne null, [place] - [facility] 08:37:12 Persisten t insomnia 813524275 Active 2023 Debra Jackson APRN [address], [place], [address], [place] - [facility] 10:20:01 History of cerebrova scular accident 402664634 Active 2024 Debra Jackson APRN [address], [place], [address], [place] - [facility] 11:04:04 Tinnitus of left ear 272023450629 6 Active 2024 Debra Jackson APRN [address], [place], [address], [place] [facility] 11:35:22 Dependenc e on nocturnal oxygen therapy 712802711701 08 Active 2024 Debra Jackson, CRANE ENGINEER [address], [place], [address], [place] - [facility] 5 11:29:24 Pain of hip region 12576649 Active 2024 Debra Jackson, CRANE ENGINEER [address], [place], [address], [place] - [facility] 5 11:29:25 Problem Notes None recorded. Procedures Surgical History [...] Name and Address Organization Details Recorded Time 36522 Lipitor medicatio n arthralgi a (joint pain) Not available Not available 06/25/2017 17580 5 RxNorm Renetta Kenyonp null, [place] - [facility] 7 13:14:17 Medications Name Sig Start Date Stop Date Status Note LastModified by Organization Details LastModified Time losartan 50 mg tablet TAKE 0.5 TABLET BY MOUTH EVERY DAY active Not Available Not Available No t Available atorvasta tin 80 mg tablet TAKE 1 TABLET BY MOUTH EVERY DAY in the evening 2024 active Not Available Not Available Not Avai lable oxybutyni n chloride ER 15 mg tablet,ex tended release 24 hr 06/25 completed Not Available Not Available Not Available nicotine 14 mg/24 hr daily transderm al patch 08/28 completed DIDN'T CASTING ROOM HELPER Not Available Not Available Not Available nitroglyc [...] 30 mg tablet,ex tended release 24 hr ONE (1) TABLET IN THE MORNING ONCE A DAY ORALLY 2024 active Not Available Not Available Not Avai lable valsartan 160 mg-hydroc hlorothia zide 12.5 mg [...] nued on: 06/20/20 16 9:10AM;U ser: suzie peterson;EstKevan Completi on: 06/17/20 16;Pharm acCele ied: 06/07/20 [...] Disconti nued on: 12/18/19 13 2:44PM;U ser: [email or web address]; Miteshti on: Skin Rash - (16.7821 00);Prin [...] Disconti nued on: 05/31/20 11 2:38PM;U ser: [facility];P rinted: 05/25/20 10 Not Available Not Available Not Available amitripty line 10 mg tablet TAKE ONE (1) TABLET BY MOUTH EVERY NIGHT AT BEDTIME - MAY INCREASE TO TWO (2) TABLETS IF HEADACHE SYMPTOMS NOT IMPROVED active Not Available Not Available No t Available meclizine 25 mg tablet Take 1 tablet 3 times a day by oral route. 05/07 completed Not Available Not Available Not Available pantopraz ole 40 mg tablet,de layed release TAKE ONE (1) TABLET ONCE A DAY ORALLY 2024 active Not Available Not Available Not Avai lable mirtazapi ne 30 mg tablet TAKE ONE (1) TABLET BY MOUTH EVERY DAY AT BEDTIME 2024 active Not Available Not Available Not Avai lable ranitidin e 150 mg tablet Take 1 [...] Available hydrochlo rothiazid e 25 mg tablet Take 1 tablet every day by oral route for 90 days. 2024 active Not Available Not Available Not Avai lable furosemid e 20 mg tablet TAKE 1 [...] Available Not Available Nasonex 50 mcg/actua tion [place] 2 sprays every day by intranas al [...] TAKE 1 TABLET BY MOUTH EVERY DAY 10/06 completed Not Available Not Available Not Available fluticaso ne propionat e 50 mcg/actua tion nasal spray,du pension INSTILL ONE (1) SPRAY IN EACH NOSTRIL EVERY DAY 10/06 completed Not Available Not Available Not Available Vistaril 50 mg capsule take 1 [...] Disconti nued on: 05/25/20 10 1:35PM;U ser: [email or web address];E st. Completi on: 10/17/20 09;Print ed: 10/22/20 [...] completed Not Available Not Available Not Available Symbicort 160 mcg-4.5 mcg/actua tion HFA aerosol inhaler Inhale 2 puffs twice a day by inhalati on route. 2024 active Not Available Not Available Not Avai lable peg 3350-elec trolytes 236 gram-22.7 4 gram-6.74 gram-5.86 gram solution TAKE DIRECTED 04/28 completed Not Available Not Available Not Available cholecalc iferol (vitamin D3) 50 mcg (2,000 unit) capsule TAKE 1 CAPSULE BY MOUTH EVERY DAY 2024 active Not Available Not Available Not Avai lable Gavilax 17 gram/dose oral powder 08/18 completed [...] Arterial blood by Pulse oximetry Respiratory rate Pain severity - 0-10 verbal numeric rating [Score] - Reported Systolic And Diastolic Provider Name and Address Organization Details Last Updated DateTime 5 175.26 cm 34 kg/m2 572151. 25 g 86 /min 96 % 96 % 18 /min 3 148/92 mm[Hg] Jaci Cade [place] - [facility] 5 11:13:53 Social History Question Answer Notes LastModified by Organizat ion Details LastModified Time Tobacco Smoking Status Current Every Day Smoker Beatriz Dubois null, [place] - [facility] 10/05/2016 11:02:47 Do You Have An Advance Directive? No [email or web address] Information not available 10/05/2016 Are You Blind Or Do You Have Difficulty Seeing? No [email or web address] Information not available 10/05/2016 Is Blood Transfusion Acceptable In An Emergency? Yes [email or web address] Information not available 10/05/2016 What Is Your Level Of Caffeine Consumption? Occasional [email or web address] Information not available 10/05/2016 How Much Tobacco Do You Chew? None [email or web address] Information not available 10/05/2016 Are You Deaf Or Do You Have Serious Difficulty Hearing? No [email or web address] Information not available 10/05/2016 What Type Of Diet Are You Following? REGULAR [email or web address] Information not available 10/05/2016 Which Illicit Or Recreational Drugs Have You Used? None [email or web address] Information not available 10/05/2016 How Many Days Of Moderate To Strenuous Exercise, Like A Brisk Walk, Did You Do In The Last 7 Days? 1 [email or web address] Information not available 05/07/2019 On Those Days That You Engage In Moderate To Strenuous Exercise, How Many Minutes, On Average, Do You Exercise? 1 [email or web address] Information not available 05/07/2019 How Hard Is It For You To Pay For The Very Basics Like Food, Housing, Medical Care, And Heating? 1 [email or web address] Information not available 05/07/2019 Live Alone Or With Others? With Others [email or web address] Information not available 10/05/2016 Do You Have A Medical Power Of Licensed Psychologist Director? No Information not available 04/28/2024 What Was The Date Of Your Most Recent Tobacco Screening? 10/06/2025 [email or web address] Information not available 10/06/2025 How Many Children Do You Have? 3 Information not available 12/21/2016 Performs Monthly Self-breast Exam? Yes Information no t available 10/05/2016 What Is Your Relationship Status? [email or web address] Information not available 10/05/2016 Seat Belts Used Routinely Yes [email or web address] Information not available 10/05/2016 Are You Sexually Active? Yes [email or web address] Information not available 10/05/2016 How Much Tobacco Do You Smoke? 0.5 PPD Information not available 12/21/2016 General Stress Level Medium [email or web address] Information not available 10/05/2016 Do You Use Sunscreen Routinely? Yes [email or web address] Information not available 10/05/2016 Has Tobacco Cessation Counseling Been Provided? Yes Information not available 04/28/2024 On What Date Was Tobacco Cessation Counseling Provided? 04/28/2024 Information not available 04/28/2024 Do You Have Difficulty Walking Or Climbing Stairs? No [email or web address] Information not available 10/05/2016 Sex: Female Functional [...] not available 04/28/2024 Are you able to walk independently without assistance or assistive devices? YESWOREST [email or web address] Information not available 05/07/2019 Do you have difficulty doing errands alone? No Information not available 04/28/2024 Are you able to care for yourself independently? Yes Information not available 12/21/2016 Do you have difficulty dressing, bathing, grooming, or toileting? No [email or web address] Information not available 10/05/2016 What is your exercise level? None [email or web address] Information not available 10/05/2016 Mental Status Question Answer Note LastModified by Organization D etails LastModified Time Do you feel stressed (tense, restless, nervous, or anxious, or unable to sleep at night)? 1 [email or web address] Information not available 05/07/2019 Do you have difficulty concentrating, remembering or making decisions? No [email or web address] Information no t available 10/05/2016 Family History [...] Immunizations Vaccine Type Date Status Note Provider Name and Address Organization Details Recorded Time Tdap 02/18/20 completed Layla stinson, [place] - [facility] 07/27/2023 08:37:23 Hep B, unspecified formulation 01/18/20 17 completed Layla stinson, [facility] 07/27/2023 08:37:23 Hep B, unspecified formulation 02/18/20 17 completed Layla stinson, [facility] 07/27/2023 08:37:23 Pneumococcal conjugate PCV20, polysaccharide CBY420 conjugate, adjuvant, PF 10/06/20 25 cancelled patient objection Debra Jcakson APRN [address], [place], [address], [facility] - [facility] 10/06/2025 11:32:49 zoster recombinant 10/06/20 25 cancelled patient objection Debra Jackson APRN [address], [place], [address], [facility] - [facility] 10/06/2025 11:33:49 COVID-19, mRNA, LNP-S, PF, 100 mcg/0.5mL dose or 50 mcg/0.25mL dose 12/24/19 21 completed Layla stinson, [facility] 07/27/2023 08:37:23 COVID-19, mRNA, LNP-S, PF, 100 mcg/0.5mL dose or 50 mcg/0.25mL dose 01/27/20 21 completed Layla stinson, [facility] 07/27/2023 08:37:23 Past Encounters Encounter ID Performer Location Encounter Start Date Encounter Closed Date Diagnosis/Indication Diagnosis SNOMED-CT Code Diagnosis ICD10 Code Diagnosis IMO Codes Diagnosis Note [id number] Debra Jackson APRN [address] [place] [address] 10/06/2025 10:50:37 10/06/2025 11:37:30 General examination of patient 548612566 Z00.00 Screening for cardiovascular system disease 261513575 Z13.6 Endocrine/ metabolic screening 178349596 Z13.228 Well-contr olled Screening mammography 24 888193 Z12.31 Last Mammo 12/11/24 - up to date Exercises education, guidance, and counseling 444389164 Z71.82 The patient was advised to continue a healthy diet and exercise regularly. Dietary ma nagement surveillance 383301118 Z71.3 Tobacco user 896432079 Z 72.0 Postmenopa usal osteoporosis 950611956 M81.0 2201 Immunization due 3471974 08 Z23 6643494 Viral scre ening status 206159816 Z11.59 322121 Vitamin D deficiency 347 18795 E55.9 35760 Well-contr olled Mixed hyperlipidemia 267 115153 E78.[address] Carlson Chronic ob structive pulmonary disease 69373582 J44.9 Follows with Pulmonolog y - Refills today Hypertensive disorder 38 021497 I10 Uncontroll ed, has appt. upcoming with Cardiology in October - advised to start checking BP regularly and home and keep log to bring back to F/U visit with me as well as Cardiology - restart taking full tablet 50mg of Losartan if remaining elevated - patient verbalized understand ing. Persistent insomnia 1919 39188 G47.09 Well-contr olled Gastroesop hageal reflux disease 464155112 K21.9 Well-contr olled Dependence on nocturnal oxygen therapy 7448166380 9108 Z99.81 61005377 Pulmonolog y started on noctural O2 which she is benefiting from Pain of hip region 90902 002 M25.551 M25.552 [id number] Will call with results - discussed Ortho referral pending results Health Concerns Section Related Observation LastModified by Organization Detai ls LastModified Time None Recorded Concern Status LastModified by Organization Details LastModified Time None Recorded Payers Encounter Date Sequence Insurance Name Policy Number Policy Ware Covered Member ID Ware Member ID Guarantor Name 10/06/2025 1 [place] [employer] OF [facility] [place] Sariah Khloe [id number] 1 Sariah Ledbetter Notes Date Note Type Note Provider Name and Address Organization Details Recorded Time 10/06/2025 text/html Annual WellnessReported by Patient Sariah is a 65 year old female who presents today for an Annual Wellness Exam. She is fasting for labs and needs medication refills. She has a history of HTN, CAD, HLD, prediabetes, Vitamin D deficiency, B12 deficiency, GERD, urinary incontinence and insomnia. Chronic conditions reviewed with patient and chronic conditions remain stable. She reports that she had to stop the Losartan due to feeling like she was walking on a cloud or light-headedness. She restarted the losartan 1 week ago at 0.5 tablets of a 50 mg. It is elevated in office today. She does have a BP cuff at home but states it is not working properly. She has not taken her BP medication yet today - states she takes at 1PM every day. Denies chest pain, shortness of breath, edema or headaches. She complains of pain in bilateral hips - states even short distance walks cause pain and she has to sit down. Due for:- DEXA- Shingrix/Prevnar (if desired) Debra Jackson, CRANE ENGINEER [address], [place], [address], [facility] - [facility] 10/06/2025 11:37:54 OBGyn Episode No OBEpisode recorded.
--- OUTSIDE RECORDS SUMMARY | 2025-10-07 15:26 | XMS_ITS | Encounter Summary ---
Author Organization Healthcare Address [address] [place] [address] Care Team Providers Care In Home Tutor Name Role Phone Jessica Mack DISPLAY DEPARTMENT MANAGER Primary Care Provider + Reason for Referral * Consultation (Routine) - Authorized Specialty Diagnoses / Procedures Referred By Contac t Referred To Contact Neurology Diagnoses Personal history of TIA (transient ischemic attack) Debra Jackson APRN [address] [place] [address] [place] [address] Phone: tel: fax: Referral ID Status Reason Start Date Expiration Date Visits Requested Visits Authorized [id number] Authorized Specialty Services Required 11/27/2024 05/29/2026 1 1 Encounter Details Date Type Department Care Team (Late st Contact Info) Description 11/27/2024 Community Orders Community Practice [address] [place] [address] Debra Jackson APRN [address] [place] [address] [place] [address] Personal history of TIA (transient [...] deficits documented in this encounter Care Teams In Home Tutor Relationship Specialty Start Date End Date Jessica Mack, DISPLAY DEPARTMENT MANAGER [address] [place] [address] PCP - General 04/01/21 documented as of this encounter
--- OUTSIDE RECORDS SUMMARY | 2025-10-07 15:26 | XMS_ITS | Clinical Summary ---
Author Organization [facility] Address [address] [place] [id number] Care Team Providers Care Bait Digger Name Role Phone Frederick Jessicafabiola Valadez APRN [...] Health Maintenance Due Date Last Done Comments DXA SCAN 1960 TDAP/TD VACCINES (1 - Tdap) 1979 MAMMOGRAM 2000 COLOGUARD 2005 COLON CANCER SCREENING 5 YEAR SIGMOIDOSCOPY 2005 COLONOSCOPY [address]CER SCREENING [address] COLONOGRAPHY 2005 FECAL OCCULT BLOOD TEST 2005 FIT Testing (1 year) 2005 Pneumococcal Vaccine 50+ (1 of 1 - PCV) 2010 ZOSTER VACCINE (1 of 2) 2010 ANNUAL PHYSICAL 03/18/2019 HEPATITIS C SCREENING 03/18/2019 INFLUENZA VACCINE 06/19/2025 COVID-19 Vaccine ( - 2023- season) [address] [place] [address] Care Teams Bait Digger Relationship Specialty Start Date End Date Jessica Mack, HOUSE BUILDER [address] [place] [address] [address] [facility] [address] PCP - General Nurse Practitioner 03/05/19
--- OUTSIDE RECORDS SUMMARY | 2025-10-07 15:26 | XMS_ITS | Clinical Summary ---
Author Organization [facility] Address [address] [place] [address] Phone Care Team Providers Care Bottle Labeler Name Role Phone Unavailable Primary Care Provider [...] of 2) 2010 COVID-19 Vaccine (1 - 2024-2 6 season) 2025 Influenza Vaccine (#1) 2025 Bone Density Screening 2025 Hepatitis B Vaccine Aged Out No longe r eligible based on patient's age to complete this topic Meningococcal B Vaccine Aged Out No l onger eligible based on patient's age to complete this topic Insurance [employer]
--- OUTSIDE RECORDS SUMMARY | 2025-10-07 15:27 | XMS_ITS ---
Author Organization Unknown ENCOUNTERS Encounter Performer Location Date Diagnosis Diagnosis Status Emergency [address] [place] [address] [id number] Pre Admit [address] [place] [address] [id number] Outpatient Employee [address] [place] [address] [id number] Outpatient [address] [place] [address] [id number] Outpatient Employee [address] [place] [address] [id number] *Note: Encounters from your own facility or health system may be excluded. Allergies, Adverse Reactions, Alerts Allergen Type Severity Identification Date Medications Name Date Quantity Days Supplied GPI Number
--- OUTSIDE RECORDS SUMMARY | 2025-10-07 15:27 | XMS_ITS | Clinical Summary ---
Author Organization [facility] Address [address] [place] [id number] Care Team Providers Care Masonry Teacher Name Role Phone Unavailable Primary Care Provider [...] therelease of HIV test results or diagnoses. [id number] Social History Tobacco Use Types Packs/Day [...] Alcohol Misuse Screening 1978 Depression Screening 1978 Immunization: DTaP/Tdap/Td (1 - Tdap) 1979 Cervical Cancer Screening/Pa p Smear (MyChart) 1990 Mammogram (MyChart) 2000 Cologuard (FIT-DNA) 2005 Colonoscopy 2005 Colorectal Cancer Screening (MyChart) 2005 Stool Testing (gFOBT) 2005 Immunization: Pneumococcal (1 of 1 - PCV) 2010 Immunization: Zoster (1 of 2) 2010 Osteoporosis Screening (DXA Scan) 2010 Immunization: COVID-19 ( season) 2025 01/26/2021, 12/24/2020 Immunization: Influenza (MyChart) (#1) 2025 Immunization: RSV (Adult) (1 - 1-dose 75+ series) 2035
--- OUTSIDE RECORDS SUMMARY | 2025-10-07 15:27 | XMS_ITS | Clinical Summary ---
Author Organization [facility] Address [address] [id number] Care Team Providers Care Territory Sales Manager Name Role Phone Jessica Mack APRN Primary [...] Health Maintenance Due Date Last Done Comments [facility]-Bone Density Scan 1960 [facility]-Depression Screening 1960 [facility]-/Child/Adol SDOH Screenings 1960 [...] 2010 [facility]-Zoster Vaccines (1 of 2) 2010 [id number] Vaccine (1 - 20 25-26 season) 2025 [facility]-Influenza Vaccine (#1) 2025 [facility]-RSV Vaccine: 60+ [...] age to complete this topic Care Teams Territory Sales Manager Relationship Specialty Start Date End Date Jessica Mack, DIGITAL ACCOUNT EXECUTIVE [address] [place] [address] PCP - General 04/01/21
--- OUTSIDE RECORDS SUMMARY | 2025-10-07 15:27 | XMS_ITS | Data Portability ---
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 Labs will be sent to evaluate blood count, renal function lipids and vitamin D. [email or web address] Not available 04/28/2025 10:21:39 10/06/2025 10/06/2025 The patient was advised to [...] ALFREDITO [facility], [address], Anthony F, [place], [address], 10/06/2025 11:32:34 HbA1c (hemoglob in A1c), blood 2024 025 AL[facility]EDITO [facility], [address], Anthony [address], [place], [address], 10/06/2025 11:32:31 TSH + free T4, serum 2024 025 ALFREDITO [facility], [address], Nathony F, [place], [address], 10/06/2025 11:32:36 cobalamin and folate panel, serum 2024 025 AL[facility]EDITO [facility], [address], Anthony [address], [place], [address], 10/06/2025 11:32:33 Hepatitis C IgG Ab, qual, serum 2024 025 AL[facility]O [facility], [address], [place] F, [place], [address], 10/06/2025 11:32:35 vitamin D, 25-hydrox y, total, serum 2024 025 [facility]O [facility], [address], [place] F, [place], [address], 10/06/2025 11:32:33 lipid panel, serum 2024 025 [facility]O [facility], [address], [place] F, [place], [address], 10/06/2025 11:32:32 CBC w/ auto diff 2024 025 AL[facility]O [facility], [address], [place] [address], [place], [address], 10/06/2025 11:32:37 lipid panel, serum 2024 025 AL[facility]O [facility], [address], Anthony [address], [place], [address], 03/25/2025 09:07:05 CBC w/ auto diff 2024 025 [facility]O [facility], [address], [place] F, [place], [address], 03/25/2025 09:07:03 TSH + free T4, serum 2024 025 [facility]O [facility], [address], [place] [address], [place], [address], 03/25/2025 09:07:02 HbA1c (hemoglob in A1c), blood 2024 025 [facility]O [facility], [address], [place] [address], [place], [address], 03/25/2025 09:07:07 CMP, serum or plasma 2024 025 AL[facility]EDITO [facility], [address], Anthony F, [place], [address], 03/25/2025 09:07:04 vitamin D, 25-hydrox y, total, serum 2024 025 AL[facility]O [facility], [address], Anthony F, [place], [address], 03/25/2025 09:07:08 cobalamin and folate panel, serum 2024 025 AL[facility]O [facility], [address], [place] F, [place], [address], 03/25/2025 09:07:06 lipid panel, serum 2023 024 [facility]O [facility], [address], [place] F, [place], [address], 10/28/2024 07:14:28 CMP, serum or plasma 2023 024 AL[facility]O [facility], [address], Anthony [address], [place], [address], 10/28/2024 07:14:27 HbA1c (hemoglob in A1c), blood 2023 024 [facility]O [facility], [address], Anthony F, [place], [address], 10/28/2024 07:14:30 vitamin D, 25-hydrox y, total, serum 2023 024 AL[facility]EDITO [facility], [address], Anthony F, [place], [address], 10/28/2024 07:14:31 cobalamin and folate panel, serum 2023 024 AL[facility]O [facility], [address], [place] [address], [place], [address], 10/28/2024 07:14:[address] referral 2024 025 [email or web address] Neurology Updated, [address] [facility], [address], [place], [address], 05/11/2025 08:38:07 Procedures None recorded. Surgeries None recorded. Imaging XR, hip + pelvis, bilateral , 3 or 4 view 2024 025 [email or web address] 10 [facility], [address] [place] [address] , [place], [address], 10/07/2025 11:29:55 DEXA [address] (Centralized Scheduling), [address] [place] [address] [place], [address], 10/06/2025 11:37:30 LDCT, chest, for lung cancer screening 2024 025 [facility], [address] [facility], [place], [address], 07/14/2025 08:00:22 MRI, brain, w/wo contrast 2024 025 [email or web address] [facility] (Scheduling), [address], [place], [address], 04/20/2025 20:02:55 MRI, brain, w/o contrast - approved auth # [id number] good 12/09/24- 01/07/252024 025 [email or web address] [facility], [address] [place], [address], 03/09/2025 01:02:17 Medication Orders Symbicort 160 mcg-4.5 mcg/actua tion HFA aerosol inhaler 2024 025 [facility], [address] [place] [address], [address], 10/06/2025 11:32:21 atorvasta tin 80 mg tablet [address], [address], 10/06/2025 11:32:22 hydrochlo rothiazid e 25 mg tablet [address], [address], 10/06/2025 11:32:19 isosorbid e mononitra te ER 30 mg tablet,ex tended release 24 hr 2024 025 [facility], [address] [place] [address], [address], 10/06/2025 11:32:20 pantopraz ole 40 mg tablet,de layed release [address], [address], 10/06/2025 11:32:20 cholecalc iferol (vitamin D3) 50 mcg (2,000 unit) capsule [address], [address], 10/06/2025 11:32:19 mirtazapi ne 30 mg tablet 2024 025 [facility], [address] [place] [address], [address], 10/06/2025 11:32:21 Symbicort 160 mcg-4.5 mcg/actua tion HFA aerosol inhaler [address], [address], 04/28/2025 10:28:24 atorvasta tin 80 mg tablet [address], [address], 03/24/2025 11:42:33 hydrochlo rothiazid e 25 mg tablet [address], [address], 03/24/2025 11:42:34 isosorbid e mononitra te ER 30 mg tablet,ex tended release 24 hr [address], [address], 03/24/2025 11:42:34 lisinopri l 20 mg tablet [address], [address], 04/28/2025 14:37:16 pantopraz ole 40 mg tablet,de layed release [address], [address], 03/24/2025 11:42:32 fluticaso ne propionat e 50 mcg/actua tion nasal spray,du pension [address], [address], 10/06/2025 11:31:24 meclizine 25 mg chewable tablet [address], [address], 04/28/2025 10:44:14 cholecalc iferol (vitamin D3) 50 mcg (2,000 unit) capsule [address], [address], 03/24/2025 11:42:32 melatonin 10 mg tablet [address], [address], 03/24/2025 11:42:35 mirtazapi ne 30 mg tablet [address], [address], 03/24/2025 11:42:33 atorvasta tin 80 mg tablet [address], [address], 10/27/2024 11:51:28 isosorbid e mononitra te ER 30 mg tablet,ex tended release 24 hr [address], [address], 10/27/2024 11:51:29 hydrochlo rothiazid e 25 mg tablet 2023 024 ALFREDITO [facility] [address], [address], 10/27/2024 11:51:25 lisinopri l 20 mg tablet [email or web address], [place], [address], 04/28/2025 09:59:57 pantopraz ole 40 mg tablet,de layed release [address], [address], 10/27/2024 11:51:28 fluticaso ne propionat e 50 mcg/actua tion nasal spray,du pension [email or web address] [place] [address], [address], 10/06/2025 11:09:59 cholecalc iferol (vitamin D3) 50 mcg (2,000 unit) capsule [address], [address], 10/27/2024 11:51:26 melatonin 10 mg tablet [address], [address], 10/27/2024 11:51:25 mirtazapi ne 30 mg tablet [address], [address], 10/27/2024 11:51:27 Patient TargetsNo targets recorded. Patient Instructions Encounter Date Encounter Id Patient Instructions Last Modified By Organization Details Last Modified Time 10/27/2024 [id number] learning about healthy weight Not available 10/27/2024 11:52:20 body mass index: care instructions Not available 10/27/2024 11:52:20 04/28/2025 [id number] Well Visit, Ages 18 to 65: Care [...] lung cancer screening Not available 04/28/2025 10:31:01 10/06/2025 [id number] smoking cessatio n counseling, greater than 3 [...] Not available 10/06/2025 11:32:16 Reason for Referral Neurologist Referral for His tory of cerebrovascular accident Referring Physician: Debra Jackson, Family Medicine, Encounter Date: 11/27/2024 Results Created Date Observation Date Name Description Value Unit Range Abnormal Flag Note LastModifiedBy Organization Detail LastModifiedTime 10/27/20 24 10/28/2024 COMP. METAB OLIC PANEL (14) glucose 104 mg/dL 70-99 above high normal Not Available [facility] ([facility]) [address] [facility], [place], [address], 10/28/2024 07:14:27 10/27/20 24 10/28/2024 COMP. METAB OLIC PANEL (14) BUN 15 mg/dL 8-27 normal Not Available [facility] ([facility]) [address] [facility], [place], [address], 10/28/2024 07:14:27 10/27/20 24 10/28/2024 COMP. METAB OLIC PANEL (14) creatinine 0.72 mg/dL 0.57-1 .00 normal Not Available [facility] ([facility]) [address] [facility] [place], [address], 10/28/2024 07:14:27 10/27/20 24 10/28/2024 COMP. METAB OLIC PANEL (14) eGFR 93 mL/mi n/1.7 3 >59 normal Not Available [facility] ([facility]) [address] [facility], [place], [address], 10/28/2024 07:14:27 10/27/20 24 10/28/2024 COMP. METAB OLIC PANEL (14) BUN/creatini ne ratio 21 12-28 normal Not Available [facility] ([facility]) [address] [facility], [place], [address], 10/28/2024 07:14:27 10/27/20 24 10/28/2024 COMP. METAB OLIC PANEL (14) sodium 140 mmol/ L 134-14 4 normal Not Available [facility] ([facility]) [address] [facility] [place], [address], 10/28/2024 07:14:27 10/27/20 24 10/28/2024 COMP. METAB OLIC PANEL (14) potassium 4.0 mmol/ L 3.5-5. 2 normal Not Available [facility] ([facility]) [address] [facility], [place], [address], 10/28/2024 07:14:27 10/27/20 24 10/28/2024 COMP. METAB OLIC PANEL (14) chloride 103 mmol/ L 96-106 normal Not Available [facility] ([facility]) [address] [facility] [place], [address], 10/28/2024 07:14:27 10/27/20 24 10/28/2024 COMP. METAB OLIC PANEL (14) carbon dioxide, total 23 mmol/ L 20-29 normal Not Available [facility] ([facility]) [address] [facility], [place], [address], 10/28/2024 07:14:27 10/27/20 24 10/28/2024 COMP. METAB OLIC PANEL (14) calcium 8.9 mg/dL 8.7-10 .3 normal Not Available [facility] ([facility]) [address] [facility] [place], [address], 10/28/2024 07:14:27 10/27/20 24 10/28/2024 COMP. METAB OLIC PANEL (14) protein, total 6.6 g/dL 6.0-8. 5 normal Not Available [facility] ([facility]) [address] [facility] [place], [address], 10/28/2024 07:14:27 10/27/20 24 10/28/2024 COMP. METAB OLIC PANEL (14) albumin 4.0 g/dL 3.9-4. 9 normal Not Available [facility] ([facility]) [address] [facility] [place], [address], 10/28/2024 07:14:27 10/27/20 24 10/28/2024 COMP. METAB OLIC PANEL (14) globulin, total 2.6 g/dL 1.5-4. 5 Not Available [facility] ([facility]) [address] [facility], [place], [address], 10/28/2024 07:14:27 10/27/20 24 10/28/2024 COMP. METAB OLIC PANEL (14) bilirubin, total 0.5 mg/dL 0.0-1. 2 normal Not Available [facility] ([facility]) [address] [facility] [place], [address], 10/28/2024 07:14:27 10/27/20 24 10/28/2024 COMP. METAB OLIC PANEL (14) alkaline phosphatase 152 IU/L 44-121 above high normal Not Available [facility] ([facility]) [address] [facility] [place], [address], 10/28/2024 07:14:27 10/27/20 24 10/28/2024 COMP. METAB OLIC PANEL (14) AST (SGOT) 16 IU/L 0-40 normal Not Available [facility] ([facility]) [address] [facility] [place], [address], 10/28/2024 07:14:27 10/27/20 24 10/28/2024 COMP. METAB OLIC PANEL (14) ALT (SGPT) 19 IU/L 0-32 normal Not Available [facility] ([facility]) [address] [facility] [place], [address], 10/28/2024 07:14:27 10/27/20 24 10/28/2024 LIPID PANEL cholesterol, total 156 mg/dL 100-19 9 normal Not Available [facility] ([facility]) [address] [facility] [place], [address], 10/28/2024 07:14:28 10/27/20 24 10/28/2024 LIPID PANEL triglyceride s 160 mg/dL 0-149 above high normal Not Available [facility] ([facility]) [address] [facility] [place], [address], 10/28/2024 07:14:28 10/27/20 24 10/28/2024 LIPID PANEL HDL cholesterol 42 mg/dL >39 normal Not Available [facility] ([facility]) [address] [facility] [place], [address], 10/28/2024 07:14:28 10/27/20 24 10/28/2024 LIPID PANEL VLDL cholesterol mark 28 mg/dL 5-40 Not Available [facility] ([facility]) [address] [facility], [place], [address], 10/28/2024 07:14:28 10/27/20 24 10/28/2024 LIPID PANEL LDL chol calc ([facility]) 86 mg/dL 0-99 Not Available [facility] ([facility]) [address] [facility], [place], [address], 10/28/2024 07:14:28 10/27/20 24 10/28/2024 LIPID PANEL LDL calc comment: SENIOR SALES ENGINEER Not Available [facility] ([facility]) [address] [facility], [place], [address], 10/28/2024 07:14:28 10/27/20 24 10/28/2024 VITAM IN B12 AND FOLAT E vitamin B12 399 pg/mL 232-12 45 normal Not Available [facility] ([facility]) [address] [facility], [place], [address], 10/28/2024 07:14:29 10/27/20 24 10/28/2024 VITAM IN B12 AND FOLAT E folate (folic acid), serum 6.5 NG/mL >3.0 normal A serum folat e becky ntrat ion of less than 3.1 ng/mL is consi dered to repre sent clini mark defic iency . Not Available [facility] ([facility]) [address] [facility], [place], [address], 10/28/2024 07:14:29 10/27/20 24 10/28/2024 HEMOG LOBIN A1C hemoglobin A1C 6.3 % 4.8-5. 6 above high normal Predi abete s: 5.7 - 6.4 Diabe nigel: >6.4 Glyce judy contr ol for adult s with diabe nigel: <7.0 Not Available [facility] ([facility]) [address] [facility], [place], [address], 10/28/2024 07:14:30 10/27/20 24 10/28/2024 VITAM IN [...] Medic ine). 2010. Dieta ry refer ence intuche es for calci um and D. Daniela brooks [place]: [facility] . 2. Ulises kaminski MF, Tahir camacho [place], Shakila off-F errar i JOE, et al. Evalu ation , treat ment, and preve ntion of vitam in D defic iency : an Endoc rine Socie ty clini mark pract ice guide line. JCEM. 2010; 96(7) :1911 -30. Not Available [facility] ([facility]) [address] [facility], [place], [address], 10/28/2024 07:14:31 03/24/20 25 03/25/2025 TSH+F REE T4 TSH 1.800 uIU/m L 0.450- 4.500 normal Not Available [facility] ([facility]) [address] [place], [address], 03/25/2025 09:07:02 03/24/20 25 03/25/2025 TSH+F REE T4 T4,free(dire ct) 1.28 NG/dL 0.82-1 .77 normal Not Available [facility] ([facility]) [address] [place], [address], 03/25/2025 09:07:02 03/24/20 25 03/25/2025 CBC WITH DIFFE RENTI AL/PL ATELE T WBC 5.5 x10e3 /uL 3.4-10 .8 normal Not Available [facility] ([facility]) [address] [place], [address], 03/25/2025 09:07:03 03/24/20 25 03/25/2025 CBC WITH DIFFE RENTI AL/PL ATELE T RBC 4.51 x10e6 /uL 3.77-5 .28 normal Not Available [facility] ([facility]) [address] [place], [address], 03/25/2025 09:07:03 03/24/20 25 03/25/2025 CBC WITH DIFFE RENTI AL/PL ATELE T hemoglobin 14.4 g/dL 11.1-1 5.9 normal Not Available [facility] ([facility]) [address] [place], [address], 03/25/2025 09:07:03 03/24/2003/25/2025 CBC WITH DIFFE RENTI AL/PL ATELE T hematocrit 42.3 % 34.0-4 6.6 normal Not Available [facility] ([facility]) [address] [place], [address], 03/25/2025 09:07:03 03/24/2003/25/2025 CBC WITH DIFFE RENTI AL/PL ATELE T MCV 94 fL 79-97 normal Not Available [facility] ([facility]) [address] [place], [address], 03/25/2025 09:07:03 03/24/2003/25/2025 CBC WITH DIFFE RENTI AL/PL ATELE T MCH 31.9 pg 26.6-3 3.0 normal Not Available [facility] ([facility]) [address] [place], [address], 03/25/2025 09:07:03 03/24/20 25 03/25/2025 CBC WITH DIFFE RENTI AL/PL ATELE T MCHC 34.0 g/dL 31.5-3 5.7 normal Not Available [facility] ([facility]) [address] [facility], [place], [address], 03/25/2025 09:07:03 03/24/20 25 03/25/2025 CBC WITH DIFFE RENTI AL/PL ATELE T RDW 13.4 % 11.7-1 5.4 Not Available [facility] ([facility]) [address] [facility], [place], [address], 03/25/2025 09:07:03 03/24/20 25 03/25/2025 CBC WITH DIFFE RENTI AL/PL ATELE T platelets 234 x10e3 /uL 150-45 0 normal Not Available [facility] ([facility]) [address] [facility], [place], [address], 03/25/2025 09:07:03 03/24/20 25 03/25/2025 CBC WITH DIFFE RENTI AL/PL ATELE T neutrophils 62 % not estab. normal Not Available [facility] ([facility]) [address] [facility], [place], [address], 03/25/2025 09:07:03 03/24/20 25 03/25/2025 CBC WITH DIFFE RENTI AL/PL ATELE T lymphs 28 % not estab. normal Not Available [facility] ([facility]) [address] [place], [address], 03/25/2025 09:07:03 03/24/20 25 03/25/2025 CBC WITH DIFFE RENTI AL/PL ATELE T monocytes 7 % not estab. normal Not Available [facility] ([facility]) [address] [place], [address], 03/25/2025 09:07:03 03/24/20 25 03/25/2025 CBC WITH DIFFE RENTI AL/PL ATELE T eos 2 % not estab. normal Not Available [facility] ([facility]) [address] [place], [address], 03/25/2025 09:07:03 03/24/20 25 03/25/2025 CBC WITH DIFFE RENTI AL/PL ATELE T basos 1 % not estab. normal Not Available [facility] ([facility]) [address] [place], [address], 03/25/2025 09:07:03 03/24/20 25 03/25/2025 CBC WITH DIFFE RENTI AL/PL ATELE T immature cells SENIOR SALES ENGINEER Not Available [facility] ([facility]) [address] [place], [address], 03/25/2025 09:07:03 03/24/20 25 03/25/2025 CBC WITH DIFFE RENTI AL/PL ATELE T neutrophils (absolute) 3.4 x10e3 /uL 1.4-7. 0 normal Not Available [facility] ([facility]) [address] [place], [address], 03/25/2025 09:07:03 03/24/20 25 03/25/2025 CBC WITH DIFFE RENTI AL/PL ATELE T lymphs (absolute) 1.5 x10e3 /uL 0.7-3. 1 normal Not Available [facility] ([facility]) [address] [place], [address], 03/25/2025 09:07:03 03/24/20 25 03/25/2025 CBC WITH DIFFE RENTI AL/PL ATELE T monocytes(ab solute) 0.4 x10e3 /uL 0.1-0. 9 normal Not Available [facility] ([facility]) [address] [place], [address], 03/25/2025 09:07:03 03/24/20 25 03/25/2025 CBC WITH DIFFE RENTI AL/PL ATELE T eos (absolute) 0.1 x10e3 /uL 0.0-0. 4 normal Not Available [facility] ([facility]) [address] [facility], [place], [address], 03/25/2025 09:07:03 03/24/20 25 03/25/2025 CBC WITH DIFFE RENTI AL/PL ATELE T baso (absolute) 0.1 x10e3 /uL 0.0-0. 2 normal Not Available [facility] ([facility]) [address] [facility], [place], [address], 03/25/2025 09:07:03 03/24/20 25 03/25/2025 CBC WITH DIFFE RENTI AL/PL ATELE T immature granulocytes 0 % not estab. Not Available [facility] ([facility]) [address] [facility], [place], [address], 03/25/2025 09:07:03 03/24/20 25 03/25/2025 CBC WITH DIFFE RENTI AL/PL ATELE T immature grans (abs) 0.0 x10e3 /uL 0.0-0. 1 Not Available [facility] ([facility]) [address] [facility], [place], [address], 03/25/2025 09:07:03 03/24/20 25 03/25/2025 CBC WITH DIFFE RENTI AL/PL ATELE T NRBC SENIOR SALES ENGINEER Not Available [facility] ([facility]) [address] [facility], [place], [address], 03/25/2025 09:07:03 03/24/20 25 03/25/2025 CBC WITH DIFFE RENTI AL/PL ATELE T hematology comments: SENIOR SALES ENGINEER Not Available [facility] ([facility]) [address] [place], [address], 03/25/2025 09:07:03 03/24/20 25 03/25/2025 COMP. METAB OLIC PANEL (14) glucose 100 mg/dL 70-99 above high normal Not Available [facility] ([facility]) [address] [place] [place], [address], 03/25/2025 09:07:04 03/24/20 25 03/25/2025 COMP. METAB OLIC PANEL (14) BUN 14 mg/dL 8-27 normal Not Available [facility] ([facility]) [address] [place] [place], [address], 03/25/2025 09:07:04 03/24/20 25 03/25/2025 COMP. METAB OLIC PANEL (14) creatinine 0.87 mg/dL 0.57-1 .00 normal Not Available [facility] ([facility]) [address] [place] [place], [address], 03/25/2025 09:07:04 03/24/20 25 03/25/2025 COMP. METAB OLIC PANEL (14) eGFR 74 mL/mi n/1.7 3 >59 normal Not Available [facility] ([facility]) [address] [place], [address], 03/25/2025 09:07:04 03/24/20 25 03/25/2025 COMP. METAB OLIC PANEL (14) BUN/creatini ne ratio 16 12-28 normal Not Available [facility] ([facility]) [address] [place] [place], [address], 03/25/2025 09:07:04 03/24/20 25 03/25/2025 COMP. METAB OLIC PANEL (14) sodium 137 mmol/ L 134-14 4 normal Not Available [facility] ([facility]) [address] [place] [place], [address], 03/25/2025 09:07:04 03/24/20 25 03/25/2025 COMP. METAB OLIC PANEL (14) potassium 4.5 mmol/ L 3.5-5. 2 normal Not Available [facility] ([facility]) [address] [facility] [place], [address], 03/25/2025 09:07:04 03/24/20 25 03/25/2025 COMP. METAB OLIC PANEL (14) chloride 101 mmol/ L 96-106 normal Not Available [facility] ([facility]) [address] [facility] [place], [address], 03/25/2025 09:07:04 03/24/20 25 03/25/2025 COMP. METAB OLIC PANEL (14) carbon dioxide, total 22 mmol/ L 20-29 normal Not Available [facility] ([facility]) [address] [facility] [place], [address], 03/25/2025 09:07:04 03/24/20 25 03/25/2025 COMP. METAB OLIC PANEL (14) calcium 9.2 mg/dL 8.7-10 .3 normal Not Available [facility] ([facility]) [address] [place] [place], [address], 03/25/2025 09:07:04 03/24/20 25 03/25/2025 COMP. METAB OLIC PANEL (14) protein, total 6.9 g/dL 6.0-8. 5 normal Not Available [facility] ([facility]) [address] [place] [place], [address], 03/25/2025 09:07:04 03/24/20 25 03/25/2025 COMP. METAB OLIC PANEL (14) albumin 4.4 g/dL 3.9-4. 9 normal Not Available [facility] ([facility]) [address] [place] [place], [address], 03/25/2025 09:07:04 03/24/20 25 03/25/2025 COMP. METAB OLIC PANEL (14) globulin, total 2.5 g/dL 1.5-4. 5 Not Available [facility] ([facility]) [address] [place] [place], [address], 03/25/2025 09:07:04 03/24/20 25 03/25/2025 COMP. METAB OLIC PANEL (14) bilirubin, total 0.5 mg/dL 0.0-1. 2 normal Not Available [facility] ([facility]) [address] [facility] [place], [address], 03/25/2025 09:07:04 03/24/20 25 03/25/2025 COMP. METAB OLIC PANEL (14) alkaline phosphatase 154 IU/L 44-121 above high normal Not Available [facility] ([facility]) [address] [place] [place], [address], 03/25/2025 09:07:04 03/24/20 25 03/25/2025 COMP. METAB OLIC PANEL (14) AST (SGOT) 17 IU/L 0-40 normal Not Available [facility] ([facility]) [address] [place] [place], [address], 03/25/2025 09:07:04 03/24/20 25 03/25/2025 COMP. METAB OLIC PANEL (14) ALT (SGPT) 22 IU/L 0-32 normal Not Available [facility] ([facility]) [address] [place], [address], 03/25/2025 09:07:04 03/24/20 25 03/25/2025 LIPID PANEL cholesterol, total 156 mg/dL 100-19 9 normal Not Available [facility] ([facility]) [address] [facility] [place], [address], 03/25/2025 09:07:05 03/24/20 25 03/25/2025 LIPID PANEL triglyceride s 182 mg/dL 0-149 above high normal Not Available [facility] ([facility]) [address] [place], [address], 03/25/2025 09:07:05 03/24/20 25 03/25/2025 LIPID PANEL HDL cholesterol 41 mg/dL >39 normal Not Available [facility] ([facility]) [address] [place] [place], [address], 03/25/2025 09:07:05 03/24/20 25 03/25/2025 LIPID PANEL VLDL cholesterol mark 31 mg/dL 5-40 Not Available [facility] ([facility]) [address] [place] [place], [address], 03/25/2025 09:07:05 03/24/20 25 03/25/2025 LIPID PANEL LDL chol calc ([facility]) 84 mg/dL 0-99 Not Available [facility] ([facility]) [address] [facility], [place], [address], 03/25/2025 09:07:05 03/24/20 25 03/25/2025 LIPID PANEL LDL calc comment: SENIOR SALES ENGINEER Not Available [facility] ([facility]) [address] [facility], [place], [address], 03/25/2025 09:07:05 03/24/20 25 03/25/2025 VITAM IN B12 AND FOLAT E vitamin B12 413 pg/mL 232-12 45 normal Not Available [facility] ([facility]) [address] [place] [place], [address], 03/25/2025 09:07:06 03/24/20 25 03/25/2025 VITAM IN B12 AND FOLAT E folate (folic acid), serum 5.4 NG/mL >3.0 normal A serum folat e becky ntrat ion of less than 3.1 ng/mL is consi dered to repre sent clini mark defic iency . Not Available [facility] ([facility]) [address] [place] [place], [address], 03/25/2025 09:07:06 03/24/20 25 03/25/2025 HEMOG LOBIN A1C hemoglobin A1C 6.2 % 4.8-5. 6 above high normal Predi abete s: 5.7 - 6.4 Diabe nigel: >6.4 Glyce judy contr ol for adult s with diabe nigel: <7.0 Not Available [facility] ([facility]) [address] [facility], [place], [address], 03/25/2025 09:07:07 03/24/2003/25/2025 VITAM IN D, 25-HY DROXY vitamin D, [...] um and D. Daniela brooks [place]: [facility] Press . 2. Ulises kaminski MF, Tahir camacho [place], Shakila off-F errar i JOE, et al. Evalu ation , treat ment, and preve ntion of vitam in D defic iency : an Endoc rine Socie ty clini mark pract ice guide line. JCEM. 2010; 96(7) :1911 -30. Not Available [facility] ([facility]) [address] [facility], [place], [address], 03/25/2025 09:07:08 12/12/19 25 12/11/2024 MAMMO jordana, digit al, bilat eral No observ ation record ed. [email or web address] [address] , [place], [address], 12/16/2024 15:33:28 12/12/19 25 12/12/2024 - scn dig breas t tomos yn nicki [facility] Name: ANTON LEDBETTER [employer] Phys: [place] [address] : 1959 Age: 64 Sex: F Acct: [id number] Loc: G.MAMM PHONE #: Exam Date: 2024 Status : DEP CLI FAX #: Rad# [id number] Unit# [id number] Admit Date: 2024 EXAMS: CPT CODE: [id number] SCN DIG BREAST TOMOSY N NICKI 90375 BILATE RAL DIGITA L SCREEN ING MAMMOG [...] not hesita te to call for murphy avalos when necess vijaya. PAGE 1 Signed Report (MARY NUED) [facility] Name: ANTON LEDBETTER [employer] Phys: [place] [address] : 1959 Age: 64 Sex: F Acct: [id number] Loc: G.MAMM PHONE #: [phone] Exam Date: 2024 Status : DEP CLI FAX #: Rad# [id number] Unit# [id number] Admit Date: 2024 EXAMS: CPT CODE: [id number] SCN DIG BREAST TOMOSY N NICKI 79995 Electr onical ly Signed by Perla Avalos on 2024 at 0827 Report ed and signed by: DEB Avalos M.D. CC: Clemente lima APRN Dictat ed Date/T ezekiel: 2024 (826) Techno logist : TATIANNA BECKET T Transc ribed Date/T ezekiel: 2024 (826) Transc riptio nist: DR.HAR BACH Electr onic Signat ure Date/T ezekiel: 2024 (826) Printe d Date/T ezekiel: 2024 (828) BATCH NO: N/A PAGE 2 Signed Report CC'ed Logic: Orderi ng Provid er: LANDRE IVANNA ALLISO N Attend ing Provid er: LANDRE TH ALLISO N Referr ing Provid er: LANDRE TH ALLISO N Consul ting Provid er: LANDRE TH ALLISO N [email or web address] [place] [id number] , [place], [address], 12/17/2024 09:43:49 03/26/20 25 03/25/2025 imagi ng/di agnos tic resul t No observ ation record ed. [address], [place], [place], [address], 03/26/2025 14:48:22 03/26/20 25 03/25/2025 imagi ng/di agnos tic resul t No observ ation record ed. [address], [place], [place], [address], 03/26/2025 14:48:16 04/04/20 25 03/25/2025 stres s echoc ardio gram No observ ation record ed. [address], [place], [place], [address], 04/08/2025 12:25:16 04/06/20 25 04/06/2025 MRI, brain , w/o contr ast No observ ation record ed. [address], [place], [place], [address], 04/07/2025 15:41:59 05/11/20 25 04/27/2025 MRI, heart funct ion and morph ology , w/wo contr ast No observ ation record ed. [address], [place], [place], [address], 05/12/2025 14:04:08 05/21/20 25 05/18/2025 imagi ng/di agnos tic resul t No observ ation record ed. [address], [place], [address], 05/27/2025 09:40:23 07/14/20 LDCT, chest , for lung damián dunaway No observ ation record ed. [email or web address] [address], [place], [address], 07/15/2025 10:24:56 Result Notes Documentation Provider Name and Address Organization Details Recorded Time Mammo, Screening, Digital, Bilateral : Mammogram Mammogram Context: mammogram date: (12/11/24) Right: normal Left: normal Conclusion: Conclusions: Bi-Rads 1 - Negative Debra Jackson, MANGLE ROLL OPERATOR [address], [place], [address], [place] - [facility] 12/16/2024 15:33:28 Problems Name Problem SNOMED Code Status Onset Date Resolution Date Notes Provider Name and Address Organization Details Recorded Time Female urinary stress incontine nce 54572727 Active Laurence Vásquez MD [address], [place], [address], [place] - [facility] 2 12:20:06 Preinfarc tion syndrome 3379733 Active Laurence Vásquez MD [address], [place], [address], [place] [facility] 2 12:20:06 Urinary tract infectiou s disease 34137980 Active Laurence Vásquez MD [address], [place], [address], [place] [facility] 2 12:20:06 Herniated urinary bladder 088166737 Active Laurence Vásquez MD [address], [place], [address], [place] [facility] 2 12:20:06 Vaginal hematoma 50718337 Completed 05/07/2019 Laurence Vásquez MD [address], [place], [address], [place] [facility] 2 12:20:06 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 60882847 Active Laurence Vásquez MD [address], [place], [address], [place] [facility] 2 12:20:06 Vaginal bleeding 328793298 Completed 05/07/2019 Laurence Vásquez MD [address], [place], [address], [place] [facility] 2 12:20:06 History of cardiac catheteri zation 411097130140 00 Active Laurence Vásquez MD [address], [place], [address], [place] - [facility] 2 12:20:06 Urinary incontine nce 783580718 Active Laurence Vásquez MD [address], [place], [address], [place] [facility] 2 12:20:06 Hypertens nicky disorder 29229801 Active Layla Hightowershannen null, [place] - [facility] 3 08:37:12 Vaginal hematoma 77367501 Active Laurence Vásquez MD [address], [place], [address], [place] - [facility] 2 12:20:06 Vaginal bleeding 008385000 Active Laurence Vásquez MD [address], [place], [address], [place] [facility] 2 12:20:06 Heart disease 76092291 Active Layla Hawthorne null, [place] - [facility] 3 08:37:12 Postmenop ausal state 52231886 Active Layla Hawthorne null, [place] - [facility] 3 08:37:12 Vitamin deficienc y 83817227 Active Layla Marine null, [place] - [facility] 3 08:37:12 Hyperlipi demia 83460530 Active 2016 Layla Hightowershannen null, [place] - [facility] 3 08:37:12 Disorder of coronary artery 795609297 Active 2017 Layla Katjashannen null, [place] - [facility] 3 08:37:12 Vitamin D deficienc y 17167267 Active 2019 Layla Hawthorne null, [place] - [facility] 3 08:37:12 Mammogram declined 193073037 Active 2020 Layla Katjashannen null, [place] - [facility] 3 08:37:12 Prediabet es 420224171 Active 2020 Layla Hawthorne null, [place] - [facility] 3 08:37:12 Diastolic heart failure 017332133 Active 2020 Layla Hightowershannen null, [place] - [facility] 3 08:37:12 Influenza vaccinati on declined 132653490 Active 2020 Layla Katjashannen null, [place] - [facility] 3 08:37:12 Gastroeso phageal reflux disease without esophagit is 812840707 Active 2020 Layla Hightowershannen [place], [place] - [facility] 3 08:37:12 Disorder of vitamin B12 613589070 Active 2021 Layla Hawthorne [place], [place] - [facility] 3 08:37:12 Mixed hyperlipi demia 955726701 Active 2021 Layla Hawthorne [place], [place] - [facility] 3 08:37:12 History of polyp of colon 295715222 Active 2021 Layla Hawthorne [place] - [facility] 3 08:37:12 Screening for malignant neoplasm of colon Active 2021 Layla Hawthorne [place] - [facility] 3 08:37:12 Internal hemorrhoi ds 09316006 Active 2022 Layla Hightowershannen [place], [place] - [facility] 3 08:37:12 Diverticu losis of colon 002302795 Active 2022 Layal Hawthorne null, [place] - [facility] 3 08:37:12 Persisten t insomnia 084541918 Active 2023 Debra Jackson, MANGLE ROLL OPERATOR [address], [place], [address], [place] [facility] 4 10:20:01 History of cerebrova scular accident 111773452 Active 2024 Debra Jackson, MANGLE ROLL OPERATOR [address], [place], [address], [place] [facility] 5 11:04:04 Tinnitus of left ear 699906778594 6 Active 2024 Debra Jackson APRN [address], [place], [address], [place] - [facility] 5 11:35:22 Dependenc e on nocturnal oxygen therapy 851113032353 08 Active 2024 Debra Jackson APRN [address], [place], [address], [place] - [facility] 5 11:29:24 Pain of hip region 75581815 Active 2024 Debra Jackson APRN [address], [place], [address], [place] - [facility] 5 11:29:25 Problem [...] Name and Address Organization Details Recorded Time 56414 Lipitor medicatio n arthralgi a (joint pain) Not available Not available 06/25/2017 [address]78 5 [facility] [place] - [facility] 7 [...] daily transderm al patch 08/28 completed DIDN'T OCC MED PHYSICIAN Not Available Not Available Not Available nitroglyc [...] Disconti nued on: 05/31/20 11 2:38PM;U ser: grant;P rinted: 05/25/20 10 Not Available Not Available [...] Available Not Available Nasonex 50 mcg/actua tion [place] 2 sprays every day by intranas al route. 10/10/ 2018 06/19 /2019 completed Not Available Not Available Not Available [...] Updated DateTime 5 175.26 cm 32.5 kg/m2 52621.3 2 g 82 /min 98 % 98 % 16 /min 0 142/76 mm[Hg] [employer] - [facility] 5 10:58:58 Date Recorded Body height Body mass index (BMI) Body weight Heart rate Oxygen saturation Oxygen saturation in Arterial blood by Pulse oximetry Respiratory rate Pain severity - 0-10 verbal numeric rating [Score] - Reported Systolic And Diastolic Provider Name and Address Organization Details Last Updated DateTime 5 175.26 cm 32.8 kg/m2 120561. 51 g 82 /min 95 % 95 % 18 /min 0 136/78 mm[Hg] [employer] - [facility] 5 11:29:28 Date Recorded Body height Body mass index (BMI) Body weight Heart rate Oxygen saturation Oxygen saturation in Arterial blood by Pulse oximetry Respiratory rate Pain severity - 0-10 verbal numeric rating [Score] - Reported Systolic And Diastolic Provider Name and Address Organization Details Last Updated DateTime 5 175.26 cm 33.4 kg/m2 532246. 88 g 80 /min 95 % 95 % 18 /min 0 164/90 mm[Hg] Jaci FONG [facility] 5 10:07:49 Date Recorded Body height Body mass index (BMI) Body weight Heart rate Oxygen saturation Oxygen saturation in Arterial blood by Pulse oximetry Respiratory rate Pain severity - 0-10 verbal numeric rating [Score] - Reported Systolic And Diastolic Provider Name and Address Organization Details Last Updated DateTime 5 175.26 cm 34 kg/m2 118652. 25 g 86 /min 96 % 96 % 18 /min 3 148/92 mm[Hg] Jaci FONG [facility] 5 11:13:53 Date Recorded Body height Body mass index (BMI) Body weight Heart rate Oxygen saturation Oxygen saturation in Arterial blood by Pulse oximetry Respiratory rate Pain severity - 0-10 verbal numeric rating [Score] - Reported Systolic And Diastolic Provider Name and Address Organization Details Last Updated DateTime 4 175.26 cm 32 kg/m2 38976.5 4 g 80 /min 96 % 96 % 18 /min 0 144/80 mm[Hg] Jaci FONG [facility] 4 11:35:17 Social History Question Answer Notes LastModified by Organizat ion Details LastModified Time Tobacco Smoking Status Current Every Day Smoker Beatriz stinson [facility] 10/05/2016 11:02:47 Do You Have An Advance Directive? No [email or web address] Information not available 10/05/2016 Are You Blind Or Do You Have Difficulty Seeing? No [email or web address] Information not available 10/05/2016 Is Blood Transfusion Acceptable In An Emergency? Yes [email or web address] Information not available 10/05/2016 What Is Your Level Of Caffeine Consumption? Occasional [email or web address] Information not available 10/05/2016 How Much Tobacco Do You Chew? None [email or web address] Information not available 10/05/2016 Are You Deaf Or Do You Have Serious Difficulty Hearing? No [email or web address] Information not available 10/05/2016 What Type Of Diet Are You Following? REGULAR [email or web address] Information not available 10/05/2016 Which Illicit Or Recreational Drugs Have You Used? None [email or web address] Information not available 10/05/2016 How Many Days Of Moderate To Strenuous Exercise, Like A Brisk Walk, Did You Do In The Last 7 Days? 1 [email or web address] Information not available 05/07/2019 On Those Days That You Engage In Moderate To Strenuous Exercise, How Many Minutes, On Average, Do You Exercise? 1 [email or web address] Information not available 05/07/2019 How Hard Is It For You To Pay For The Very Basics Like Food, Housing, Medical Care, And Heating? 1 [email or web address] Information not available 05/07/2019 Live Alone Or With Others? With Others [email or web address] Information not available 10/05/2016 Do You Have A Medical Power Of Chemistry Manager? No Information not available 04/28/2024 What Was The Date Of Your Most Recent Tobacco Screening? 10/06/2025 [email or web address] Information not available 10/06/2025 How Many Children Do You Have? 3 Information not available 12/21/2016 Performs Monthly Self-breast Exam? Yes [email or web address] Information no t available 10/05/2016 What Is Your Relationship Status? [email or web address] Information not available 10/05/2016 Seat Belts Used Routinely Yes [email or web address] Information not available 10/05/2016 Are You Sexually Active? Yes [email or web address] Information not available 10/05/2016 How Much Tobacco Do You Smoke? 0.5 PPD Information not available 12/21/2016 General Stress Level Medium [email or web address] Information not available 10/05/2016 Do You Use Sunscreen Routinely? Yes [email or web address] Information not available 10/05/2016 Has Tobacco Cessation Counseling Been Provided? Yes Information not available 04/28/2024 On What Date Was Tobacco Cessation Counseling Provided? 04/28/2024 Information not available 04/28/2024 Do You Have Difficulty Walking Or Climbing Stairs? No [email or web address] Information not available 10/05/2016 Sex: Female Functional [...] independently without assistance or assistive devices? YESWOREST [email or web address] Information not available 05/07/2019 Do you have difficulty doing errands alone? No Information not available 04/28/2024 Are you able to care for yourself independently? Yes Information not available 12/21/2016 Do you have difficulty dressing, bathing, grooming, or toileting? No [email or web address] Information not available 10/05/2016 What is your exercise level? None [email or web address] Information not available 10/05/2016 Mental Status Question Answer Note LastModified by Organization D etails LastModified Time Do you feel stressed (tense, restless, nervous, or anxious, or unable to sleep at night)? 1 [email or web address] Information not available 05/07/2019 Do you have [...] Address Organization Details Recorded Time Tdap 02/18/20 17 completed Layla stinson, [place] - [facility] 07/27/2023 08:37:23 Hep B, unspecified formulation 01/18/20 17 completed Layla Hawthorne null, [facility] 07/27/2023 08:37:23 Hep B, unspecified formulation 02/18/20 17 completed Layla Hawthorne milad, [facility] 07/27/2023 08:37:23 Pneumococcal conjugate PCV20, polysaccharide [id number] conjugate, adjuvant, PF 10/06/20 25 cancelled patient objection Debra Jackson, MANGLE ROLL OPERATOR [address], [place], [address], [facility] 10/06/2025 11:32:49 zoster recombinant 10/06/20 25 cancelled patient objection Debra Jackson, MANGLE ROLL OPERATOR [address], [place], [address], [facility] 10/06/2025 11:33:49 COVID-19, mRNA, LNP-S, PF, 100 mcg/0.5mL dose or 50 mcg/0.25mL dose 12/24/19 21 completed Layla stinson, [facility] 07/27/2023 08:37:23 COVID-19, mRNA, LNP-S, PF, 100 mcg/0.5mL dose or 50 mcg/0.25mL dose 01/27/20 21 completed Layla Hawthorne milad, [facility] 07/27/2023 08:37:23 Past Encounters Encounter ID Performer Location Encounter Start Date Encounter Closed Date Diagnosis/Indication Diagnosis SNOMED-CT Code Diagnosis ICD10 Code Diagnosis IMO Codes Diagnosis Note [id number] [facility] [address] [address] 08/20/2007 00:00:00 [id number] [facility] [address] [place] [address] 10/22/2008 00:00:00 [id number] [facility] [address] [place] [address] 05/25/2010 00:00:00 [id number] [facility] [address] [place] [address] 05/25/2010 00:00:00 [id number] [facility] [address] [place], [place] [address] 05/31/2011 00:00:00 [id number] [facility] [address] [place], [place] [address] 09/21/2011 00:00:00 [id number] [facility] [address] [place] [address] [address] 07/12/2012 00:00:00 [id number] [facility] [address] [place] [address] 11/22/2012 00:00:00 [id number] [facility] [address] [place] [address] 12/18/2012 00:00:00 [id number] [facility] [address] [place] [address] 09/29/2015 00:00:00 [id number] [facility] [address] [place] [address] 10/11/2015 00:00:00 [id number] [facility] [address] [place] [address] 10/26/2015 00:00:00 [id number] [facility] [address] [place] [address] 12/02/2015 00:00:00 [id number] [facility] [address] [place] [address] 06/07/2016 00:00:00 [id number] [facility] [address] [address] 06/20/2016 00:00:00 [id number] [facility] [address] [place] [address] 09/09/2013 00:00:00 [id number] [facility] [address] [place] [address] 02/25/2015 00:00:00 [id number] [facility] [address] [place] [address] 05/26/2015 00:00:00 [id number] [facility] [address] [place] [address] [address] 06/16/2015 00:00:00 [id number] [facility] [address] [address] [address] 07/21/2015 00:00:00 [id number] [facility] [address] [place] [address] [address] 09/08/2015 00:00:00 [id number] [facility] [address] [address] [address] 2015 00:00:00 [id number] [facility] [address] [address] [address] 09/27/2015 00:00:00 [id number] [facility] [address] [place] [address] [address] 09/29/2015 00:00:00 [id number] DO Itz Nguyễn BUSINESS FUNCTIONAL ANALYST [address] [place] [address] [place] [address] 10/05/2016 10:25:47 10/05/2016 11:19:22 Midline cystocele 876863602 N81.11 Urge incon tinence of urine 16887001 N39.41 Smoker 06214923 F17.817 [id number] DO Itz Nguyễn BUSINESS FUNCTIONAL ANALYST [address] [place] [address] [place] [address] 10/26/2016 09:04:55 10/26/2016 09:47:57 Postoperative visit 454611193 Z09 Body mass index 25-29 - overweight 139518547 Z68.27 Postoperat nicky retention of urine 023057464 R33.8 [id number] DO Itz Nguyễn BUSINESS FUNCTIONAL ANALYST [address] [place] [address] [place] [address] 10/30/2016 09:51:00 10/30/2016 10:29:27 Postoperative retention of urine 012523642 R33.8 [id number] DO Grecia [place] BUSINESS FUNCTIONAL ANALYST [address] [place] [address] [place] [address] 11/09/2016 13:51:08 11/09/2016 15:19:04 Surgical follow-up 478771224 Z09 Body mass index 25-29 - overweight 149060503 Z68.27 Vaginal discharge 856614 006 N89.8 [id number] DO Grecia [place] BUSINESS FUNCTIONAL ANALYST [address] [place] [address] [place] [address] 11/15/2016 10:24:55 11/15/2016 11:44:29 Surgical follow-up 831282582 Z09 Body mass index 25-29 - overweight 852804477 Z68.27 [id number] DO Grecia [place] BUSINESS FUNCTIONAL ANALYST [address] [place] [address] [place] [address] 12/04/2016 10:59:13 12/04/2016 11:44:48 Surgical follow-up 724033157 Z09 released from pelvic rest Body mass index 25-29 - overweight 174733784 Z68.27 [id number] Jessica Mack APRN [address] [place] [address] 12/21/2016 09:03:24 12/21/2016 10:45:42 Vitamin deficiency 27834493 E56.9 Heart disease 40351671 I 51.9 Tobacco user 495051401 Z 72.0 Vitamin D deficiency 347 63525 E55.9 Fatigue 95810991 R53.83 [id number] Jessica Mack [address] [place] [address] 03/26/2017 09:27:44 03/26/2017 10:22:33 Vitamin deficiency 33825533 E56.9 Body mass index 25-29 - overweight 117965956 Z68.29 Long-term drug therapy 275277366 Z79.899 Postmenopausal state 764 61798 Z78.0 Heart disease 84333615 I 51.9 Fatigue 29801214 R53.83 [id number] Jessica Mack APRN [address] [place] [address] 06/25/2017 13:03:56 06/25/2017 13:23:29 Heart disease 62454085 I51.9 Vitamin D deficiency 347 52470 E55.9 Nicotine dependence 5629 4008 F17.200 Vitamin deficiency 64314 002 E56.9 Hyperlipidemia 63939050 E78.5 Essential hypertension 95163328 I10 [id number] Jessica Mack [address] [place] [address] 09/25/2017 08:54:48 09/25/2017 10:26:01 Heart disease 63372545 I51.9 Screening for malignant neoplasm of breast 446012406 Z12.31 Hypothyroidism 29403323 E03.9 Vitamin D deficiency 347 24719 E55.9 [id number] Jessica Mack MANGLE ROLL OPERATOR [address] [place] [address] 07/03/2018 13:19:36 07/03/2018 14:23:31 Vitamin D deficiency 12799267 E55.9 Essential hypertension 51962239 I10 Fatigue 50424991 R53.83 Dysfunctio n of eustachian tube 18607189 H69.90 [id number] Jessica Mack MANGLE ROLL OPERATOR [address] [place] [address] 08/14/2018 12:37:47 08/14/2018 13:36:42 Essential hypertension 60016512 I10 [id number] Jessica Mack MANGLE ROLL OPERATOR [address] [place] [address] 08/28/2018 13:25:54 08/28/2018 14:32:17 Essential hypertension 10188654 I10 Dysfunctio n of eustachian tube 84936996 H69.90 [id number] Jessica Mack MANGLE ROLL OPERATOR [place] [address] [place] [address] 09/16/2018 09:57:48 09/16/2018 12:22:55 Vertigo 010428957 R42 Headache 51538628 R51 Lightheadedness 82547889 8 R42 Numbness of hand 5961934 04 R20.0 Dizzy spells 277677377 R 42 [id number] Jessica Mack APRN [address] [place] [address] 02/04/2019 15:25:52 02/04/2019 16:19:17 Hyperlipidemia 87845021 E78.5 Essential hypertension 88792574 I10 Vertigo 092332445 R42 Disorder o f coronary artery 067129556 I77.9 Heart disease 28830119 I 51.9 Gastroesop hageal reflux disease 652813618 K21.9 [id number] Jessica Mack APRN [address] [place] [address] 7 03/31/2019 13:01:21 03/31/2019 13:38:58 Basal ganglia degeneration with calcification 104117830 G23.8 Essential hypertension 00816559 I10 [id number] DO Grecia [place] BUSINESS FUNCTIONAL ANALY[employer] [address] [place] [address] [place] [address] 05/07/2019 11:25:15 05/07/2019 12:08:45 Routine gynecologic examination done 0756527109 9101 Z01.419 Depression screening 171 795892 Z13.89 Diet education 36870530 Z71.3 Counseling 928876780 Z71 .82 Exercise counsellin g. Patient encouraged to exercise 30 minutes 5 days a week. Examinatio n of blood pressure 990304889 Z01.30 History of total hysterectomy 889125511 Z90.710 Body mass index 25-29 - overweight 740937172 Z68.29 [id number] [address] [place] [address] 7 08/18/2019 10:24:45 08/18/2019 11:17:41 Persistent insomnia 042717047 G47.09 Heart disease 27800412 I 51.9 Hypertensive disorder 38 382493 I10 Hyperlipidemia 21158203 E78.5 [id number] Jessica Mack APRN [address] [place] [address] 7 09/02/2019 11:35:28 09/02/2019 14:05:08 Disorder of coronary artery 441572977 I77.9 Heart disease 78778301 I 51.9 [id number] Jessica Mack APRN [address] [place] [address] 7 12/08/2019 15:27:36 12/08/2019 15:51:36 Essential hypertension 68512149 I10 Hyperlipidemia 09847269 E78.5 Persistent insomnia 1919 23554 G47.09 Finger joint locking 299 967911 M24.722 [id number] Laurence Vásquez MD [address] [place] [address] 03/01/2020 09:45:29 03/01/2020 10:20:03 Dysfunction of bilateral eustachian tubes 2044138883 772768 H69.93 [id number] Laurence Vásquez MD [address] [place] [address] 7 03/15/2020 14:22:58 03/15/2020 15:12:52 Dysfunction of bilateral eustachian tubes 2332148559 371746 H69.93 [id number] DO Itz Nguyễn BUSINESS FUNCTIONAL ANALYST [address] [place] [address] [place] [address] 05/24/2020 14:47:24 05/24/2020 15:40:13 Routine gynecologic examination done 4211222792 9101 Z01.419 Depression screening 171 683599 Z13.89 Diet education 74434585 Z71.3 Counseling 301742054 Z71 .82 Exercise counselerendira gKevan Patient encouraged to exercise 30 minutes 5 days a week. Examinatio n of blood pressure 448501409 Z01.30 Vaccine de clined by patient 4448394147 02 Z28.21 Screening mammography 24 181761 Z12.31 Mixed urin vijaya incontinence 954271759 N39.46 Discussed possible side effects of medication , questions answered. [id number] DO Itz Nguyễn BUSINESS FUNCTIONAL ANALYST [address] [place] [address] [place] [address] 07/20/2020 11:48:01 07/20/2020 12:17:05 Increased frequency of urination 709220856 R35.0 Nocturia 041220950 R35.1 [id number] Laurence Vásquez MD [address] [place] [address] 10/20/2020 15:54:43 10/20/2020 17:26:44 Persistent insomnia 255391881 G47.09 Unintentio nal weight gain 6852815912 08327 R63.5 Fatigue 33307565 R53.83 Vitamin D deficiency 347 88104 E55.9 [id number] Laurence Vásquez MD [address] [place] [address] 01/26/2021 13:37:58 01/26/2021 14:23:58 Mammogram declined 008208906 Z53.20 Vitamin D deficiency 347 23891 E55.9 Blood gluc ose outside reference range 732911533 R73.09 [id number] Laurence Vásquez MD [address] [place] [address] 04/27/2021 13:51:49 04/27/2021 14:21:38 Gastroesophageal reflux disease 984769477 K21.9 Vitamin D deficiency 347 88679 E55.9 Hypertensive disorder 38 448022 I10 Hyperlipidemia 41161963 E78.5 Mammogram declined 12594 5004 Z53.20 Prediabetes 485929145 R7 3.03 Hypertensi ve heart disease 11852772 I11.9 Persistent insomnia 1919 19741 G47.09 Body mass index 30+ - obesity 408512163 Z68.31 [id number] Laurence Vásquez MD [address] [place] [address] 08/10/2021 11:23:41 08/10/2021 12:16:06 Diastolic heart failure 669068389 I50.30 Hypertensive disorder 38 400030 I10 Disorder o f coronary artery 731915876 I77.9 Hyperlipidemia 12785526 E78.5 Prediabetes 190517557 R7 3.03 Influenza vaccination declined 644202191 Z28.21 Blood gluc ose outside reference range 647739183 R73.09 Vitamin D deficiency 347 42885 E55.9 Gastroesop hageal reflux disease without esophagitis 270714286 K21.9 [id number] Laurence Vásquez MD [address] [place] [address] 07/11/2022 11:37:52 07/11/2022 12:45:30 Vitamin D deficiency 09606608 E55.9 Persistent insomnia 1919 95973 G47.09 Blood gluc ose outside reference range 026726081 R73.09 Mixed hyperlipidemia 267 111031 E78.2 Disorder o f vitamin B12 369036669 E53.8 Prediabetes 008112060 R7 3.03 Gastroesop hageal reflux disease without esophagitis 219662550 K21.9 Hypertensive disorder 38 668020 I10 Hemorrhoids 51314218 K64 .9 discussed fiber and hydration History of polyp of colon 272140418 Z86.756 [id number] Laurence Vásquez MD [address] [place] [address] 03/06/2023 11:56:17 03/06/2023 12:50:53 Internal hemorrhoids 52047205 K64.8 Diverticul osis of colon 865256782 K57.30 Painless r ectal bleeding 454361385 K62.5 Hypertensive disorder 38 295144 I10 Mixed hyperlipidemia 267 696791 E78.2 Vitamin D deficiency 347 14850 E55.9 Blood gluc ose outside reference range 401451840 R73.09 Prediabetes 333840383 R7 3.03 [id number] Debra Jackson APRN [address] [place] [address] 04/28/2024 09:51:23 04/28/2024 10:36:07 Persistent insomnia 040207053 G47.09 Well-contr olled Vitamin D deficiency 347 45549 E55.9 Well-contr olled Gastroesop hageal reflux disease 885426839 K21.9 Well-contr olled Hypertensive disorder 38 985085 I10 Well-contr olled Disorder o f vitamin B12 493962901 E53.8 Hyperlipidemia 32404900 E78.5 Prediabetes 822783152 R7 3.03 Screening for malignant neoplasm of respiratory tract 257781302 Z12.2 30+ pack year history Nicotine d ependence with current use 549754449 F17.210 Current tobacco user Screening mammography 24 108955 Z12.31 Abnormalit y of nail of toe 370928651 L60.8 Referred General ex amination of patient 569078955 Z00.00 Exercises education, guidance, and counseling 060991826 Z71.82 The patient was advised to continue a healthy diet and exercise regularly. Dietary ma nagement surveillance 648806185 Z71.3 Body mass index 30+ - obesity 991158754 Z68.31 Obesity 438222541 E66.9 [id number] Debra Jackson APRN [address] [place] [address] 10/27/2024 11:22:18 10/27/2024 13:05:57 Gastroesophageal reflux disease 948940681 K21.9 Well-contr olled Mixed hyperlipidemia 267 102941 E78.[address] Carlson Vitamin D deficiency 347 07548 E55.9 Well-contr olled Hypertensive disorder 38 694467 I10 Uncontroll ed, increase Lisinopril to 20mg until gets in to see Cardiology . Disorder o f vitamin B12 069538013 E53.8 History of polyp of colon 203753241 Z86.0100 Heart disease 91257069 I 51.9 Persistent insomnia 1919 90585 G47.09 Well-contr olled Tinnitus of left ear 696 0411704 106 H93.12 Try Flonase - discussed referral to Audiologis t for hearing test or ENT if no improvemen t Prediabetes 077190710 R7 3.03 Will call with results, last A1C 6.2 Body mass index 30+ - obesity 064860385 Z68.32 Obesity 441925685 E66.9 [id number] Debra Jackson APRN [address] [place] [address] 11/27/2024 10:50:38 11/27/2024 11:09:26 History of cerebrovascular accident 809685576 Z86.73 Referred to Neuro as requested Headache 98694579 G44.52 MRI ordered for further evaluation due to previous CVA and new onset of daily headaches [id number] Debra Jackson APRN [place] [address] [facility] [place] [address] 03/24/2025 11:16:36 03/24/2025 12:17:50 Gastroesophageal reflux disease 046996437 K21.9 Well-contr olled Mixed hyperlipidemia 267 026075 E78.[address] Carlson History of cerebrovascular accident 996347204 Z86.73 Referred to Neuro previously as requested and has appt. later this month; also new MRI ordered to [facility] also as requested Hypertensive disorder 38 542848 I10 Well-contr olled Vitamin D deficiency 347 52158 E55.9 Well-contr olled Disorder o f vitamin B12 992659077 E53.8 Diastolic heart failure 801745677 I50.30 Follows with Cardiology Prediabetes 488512908 R7 3.03 Will call with results, last A1C 6.3 on 10/27/24 Tinnitus of left ear 656 9146972 106 H93.12 Well-contr olled Persistent insomnia 1919 52826 G47.09 Well-contr olled [id number] Debra Jackson APRN [address] [place] [address] 04/28/2025 09:44:40 04/28/2025 10:44:52 General examination of patient 181344285 Z00.00 Screening for cardiovascular system disease 028722781 Z13.6 Endocrine/ metabolic screening 149093298 Z13.228 Well-contr olled Screening mammography 24 769270 Z12.31 Last Mammo 12/11/24 Exercises education, guidance, and counseling 559592034 Z71.82 The patient was advised to continue a healthy diet and exercise regularly. Dietary ma nagement surveillance 617453532 Z71.3 Chronic cough 65022632 R 05.3 36480 Discussed needs CXR/PFT to evaluate for COPD - refuses both at this time but willing to trial using inhaler and have LDCT that is due end of April 2025 Chronic ob structive pulmonary disease 95696309 J44.9 232928103 Start Symbicort for maintenanc e - refuses PFT - advised due for LDCT 05/14/25 - will order LDCT today Hypertensive disorder 38 216309 I10 Uncontroll ed, advised on trying 1/2 of Losartan 50mg until follow-up with Cardiology Body mass index 30+ - obesity 013580471 Z68.33 423430 Obesity 811794596 E66.9 Screening for malignant neoplasm of respiratory tract 610029850 Z12.2 30+ pack year history Nicotine d ependence with current use 762971214 F17.210 Current tobacco user [id number] Debra Jackson APRN [address] [place] [address] 10/06/2025 10:50:37 10/06/2025 11:37:30 General examination of patient 519991385 Z00.00 Screening for cardiovascular system disease 667701948 Z13.6 Endocrine/ metabolic screening 358039114 Z13.228 Well-contr olled Screening mammography 24 699039 Z12.31 Last Mammo 12/11/24 - up to date Exercises education, guidance, and counseling 259611077 Z71.82 The patient was advised to continue a healthy diet and exercise regularly. Dietary ma nagement surveillance 507387629 Z71.3 Tobacco user 866052344 Z 72.0 Postmenopa usal osteoporosis 539959574 M81.0 2201 Immunization due 9040922 08 Z23 6364349 Viral scre ening status 623304753 Z11.59 280048 Vitamin D deficiency 347 13062 E55.9 41990 Well-contr olled Mixed hyperlipidemia 267 815304 E78.[address] Carlson Chronic ob structive pulmonary disease 66288888 J44.9 Follows with Pulmonolog y - Refills today Hypertensive disorder 38 072148 I10 Uncontroll ed, has appt. upcoming with Cardiology in October - advised to start checking BP regularly and home and keep log to bring back to F/U visit with me as well as Cardiology - restart taking full tablet 50mg of Losartan if remaining elevated - patient verbalized understand ing. Persistent insomnia 1919 44978 G47.09 Well-contr olled Gastroesop hageal reflux disease 482639403 K21.9 Well-contr olled Dependence on nocturnal oxygen therapy 8418905900 9108 Z99.81 08388774 Pulmonolog y started on noctural O2 which she is benefiting from Pain of hip region 89306 002 M25.551 M25552 [id number] Will call with results - discussed Ortho referral pending results Health Concerns Section Related Observation LastModified by Organization Detai ls LastModified Time None Recorded Concern Status LastModified by Organization Details LastModified Time None Recorded Advance Directives Directive N: Payers Insurance Date Sequence Insurance Name Policy Number Policy Ware Covered Member ID Ware Member ID Guarantor Name 09/21/2025 [place] DIDIER Ledbetter [id number] Sariah Ledbetter 04/28/2025 1 [place] [id number] Sariah Ledbetter [id number] Sariah Ledbetter 11/01/2016 1 [place] [id number] Inder Ledbetter [id number] Sariah Ledbetter 07/02/2018 1 [place] [id number] Inder Ledbetter [id number] Sariah Ledbetter 04/28/2025 1 [employer] [facility] Sariah Ledbetter [id number] Sariah Ledbetter 08/12/2018 1 [employer] (POS) Inder Ledbetter [id number] Sariah Ledbetter 04/28/2025 1 [employer] [place] [employer] [place]MEDICA[place] - [place]MO[place] DIDIER eLdbetter [id number] Sariah Ledbetter 10/03/2025 1 [employer] [facility] [place] ([place] Sariah Ledbetter [id number] Sariah Ledbetter 04/28/2025 1 [employer] DIDIER Ledbetter [id number] Sariah Ledbetter 04/28/2025 1 [place] [id number] Sariah Ledbetter [id number] Sariah Ledbetter 03/04/2021 1 [employer] DIDIER Ledbetter [id number] Sariah Ledbetter 04/28/2025 2 [place] [id number] Sariah Ledbetter [id number] Sariah Ledbetter 04/28/2025 1 [employer] [facility] (PPO) Sariah Ledbetter [id number] Sariah Ledbetter 08/28/2018 1 *SELF PAY* Pa marcy Ledbetter 10/03/2025 [place] LORENZO Ledbetter [id number] Sariah Ledbetter 04/28/2025 1 [facility] - [place] LORENZO Ledbetter [id number] Sariah Ledbetter Notes Date Note Type Note Provider Name and Address Organization Details Recorded Time 10/27/2024 text/html ROS as noted in the HPI Sariah is a 64 year old female [...] dizziness. Debra Jackson APRN [address], [place], [address], [facility] - [facility] 10/27/2024 11:52:56 11/27/2024 text/html ROS as noted in the HPI Sariah is a 64 year old female [...] head. Debra Jackson APRN [address], [place], [address], [facility] - [facility] 11/27/2024 11:07:58 03/24/2025 text/html ROS as noted in the HPI Sariah is a 64 year old female who is here for a followup on multiple chronic problems. Chronic conditions reviewed with patient and overall chronic conditions remain stable. She is fasting today. She is scheduled for a stress test tomorrow and has a scheduled appt. with Neurology at a later date this month. She is needing a new order for a MRI to [facility] due to insurance - she states she never got a call from [facility] likely due to insurance not accepted there. [...] as pending/ordered MRI of brain. Debra Jackson, [employer] [address], [place], [address], [place] - [facility] 03/24/2025 11:46:17 04/28/2025 text/html Annual WellnessReported by PatientSocial/Behavior al HistoryFor additional lifestyle factors, patient reportstobacco usebut reportsno alcohol intake. For diet and nutrition, patient reportshealthy diet. For fracture risk, patient reportsno history of fractures,no recent explained fracture,no sudden unexplained fractures, andno previous musculoskeletal injuries. For physical activity, patient reportsgood physical condition.Mental Status:For depression risk, patient reportsnever feels sad, empty, or tearful,no loss of interest in activities,no significant changes in weight,no sleep disturbances or insomnia,no agitation,no loss of energy,no feelings of worthlessness or guilt,no thoughts of suicide,no history of depression, andno history of mood disorders.Functional AbilityFor hearing, patient reportsno loss of hearing. For vision, (wears corrective lens- last eye exam 4-5 years ago). Sariah is a 64 year old female [...] time and will discuss this with the Electrical Solderer at that appt. She states she did take it once and got very lightheaded/dizzy feels the dose may be too high. She complains of a cough. The Electrical Solderer stopped the Lisinopril due to the cough. She is a smoker. Her BP is high in the office today - discussed risks of cardiac event (heart attack/stroke) due to this. She states she continues with a cough even with being off the Lisinopril. She states when she smokes a cigarette it will cause her to cough. Debra Jackson APRN [address], [place], [address], [facility] 04/28/2025 10:31:57 10/06/2025 text/html Annual WellnessReported by Patient Sariah [...] Due for:- DEXA- Shingrix/Prevnar (if desired) Debra Jackson APRN [address], [place], [address], [facility] - [facility] 10/06/2025 11:37:54 OBGyn Episode No OBEpisode recorded.
== END 2025-10-07 23:59 | disposition home or self-care (01) ==
LOC: RT 14:08
PROVIDERS: PCP Nurse Practitioner Family; Visit Provider Internal Medicine Pulmonary Disease
DX: J45.909 Unspecified asthma, uncomplicated (principal)

== ENCOUNTER 2025-10-09 12:03 | Outpatient (CLI) | payer MEDICARE, OTHER, SELFPAY ==
--- OUTSIDE RECORDS SUMMARY | 2025-10-09 12:06 | XMS_ITS | Clinical Summary ---
Author Organization [facility] Address [address] [place] [address] Phone Care Team Providers Care Dishwasher Name Role Phone Unavailable Primary Care Provider [...]
--- OUTSIDE RECORDS SUMMARY | 2025-10-09 12:06 | XMS_ITS | Continuity of Care Document ---
Author Organization [facility] Address [address] [place] [address] Care Team Providers Care Marketing Administrative Assistant Name Role Phone ISMAEL GUO Manager Shell Unavailable TITA AVILA Food General Manager Assessment Encounter Date Assessment Date Assessment LastModified [...] [facility], [address], Anthony [address], [place], [address], 10/06/2025 11:32:34 HbA1c (hemoglob in A1c), blood 2024 025 [facility], [address], [place] [address], [place], [address], 10/06/2025 11:32:31 TSH + free T4, serum 2024 025 [facility], [address], [place], [place], [address], 10/06/2025 11:32:36 cobalamin and folate panel, serum 2024 025 [facility], [address], [place] [address], [place], [address], 10/06/2025 11:32:33 Hepatitis C IgG Ab, qual, serum 2024 [facility], [address], [place], [place], [address], 10/06/2025 11:32:35 vitamin D, 25-hydrox y, total, serum 2024 025 [facility], [address], [place] [address], [place], [address], 10/06/2025 11:32:33 lipid panel, serum 2024 025 [facility], [address], [place] [address], [place], [address], 10/06/2025 11:32:32 CBC w/ auto diff 2024 [facility], [address], [place] [address], [place], [address], 10/06/2025 11:32:37 Referral None recorded. Procedures None recorded. Surgeries None recorded. Imaging XR, hip + pelvis, bilateral , 3 or 4 view 2024 [facility], [address] [place] [address] , [place], [address], 10/08/2025 16:43:51 [address]A [address] (Centralized Scheduling), [address] [place] [address] [place], [address], 10/06/2025 11:37:30 Medication Orders Symbicort 160 mcg-4.5 mcg/actua tion HFA aerosol inhaler 2024 025 [facility], [address] [place] [address], [address], 10/06/2025 11:32:21 atorvasta tin 80 mg tablet [address], [address], 10/06/2025 11:32:22 hydrochlo rothiazid e 25 mg tablet [address], [address], 10/06/2025 11:32:19 isosorbid e mononitra te ER 30 mg tablet,ex tended release 24 hr [address], [address], 10/06/2025 11:32:20 pantopraz ole 40 mg tablet,de layed release [address], [address], 10/06/2025 11:32:20 cholecalc iferol (vitamin D3) 50 mcg (2,000 unit) capsule [address], [address], 10/06/2025 11:32:19 mirtazapi ne 30 mg tablet [address], [address], 10/06/2025 11:32:21 Patient TargetsNo targets recorded. Patient Instructions Encounter Date Encounter Id Patient Instructions Last Modified By Organization Details Last Modified Time 10/06/2025 [id number] smoking cessatio n counseling, greater than 3 [...] 10/06/2025 11:32:16 Reason for Referral None Reported. Results Created Date Observation Date Name Description Value Unit Range Abnormal Flag Note LastModifiedBy Organization Detail LastModifiedTime 10/08/20 25 XR, hip + pelvi s, bilat eral, 3 or 4 view No observ ation record ed. [email or web address] [address] , [place], [address], 10/08/2025 16:43:51 Result Notes None recorded. Problems Name Problem SNOMED Code Status Onset Date Resolution Date Notes Provider Name and Address Organization Details Recorded Time Female urinary stress incontine nce 08292370 Active Laurence Vásquez MD [address], [place], [address], [place] - [facility] 12:20:06 Preinfarc tion syndrome 2097690 Active Laurence Vásquez MD [address], [place], [address], [place] [facility] 12:20:06 Urinary tract infectiou s disease 11365153 Active Laurence Vásquez MD [address], [place], [address], [place] [facility] 12:20:06 Herniated urinary bladder 432227665 Active Laurence Vásquez MD [address], [place], [address], [place] [facility] 12:20:06 Vaginal hematoma 07457916 Completed 05/07/2019 Laurence Vásquez MD [address], [place], [address], [place] [facility] 12:20:06 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 06373575 Active Laurence Vásquez MD [address], [place], [address], [place] - [facility] 12:20:06 Vaginal bleeding 630429260 Completed 05/07/2019 Laurence Vásquez MD [address], [place], [address], [place] [facility] 12:20:06 History of cardiac catheteri zation 464059067758 00 Active Laurence Vásquez MD [address], [place], [address], [place] [facility] 12:20:06 Urinary incontine nce 220288099 Active Laurence Vásquez MD [address], [place], [address], [place] [facility] 12:20:06 Hypertens nicky disorder 47105491 Active Layla Hawthorne null[place] [facility] 08:37:12 Vaginal hematoma 42189763 Active Laurence Vásquez MD [address], [place], [address], [place] [facility] 12:20:06 Vaginal bleeding 088531382 Active Laurence Vásquez MD [address], [place], [address], [place] [facility] 12:20:06 Heart disease 69127533 Active Layla Dumshannen null[place] [facility] 08:37:12 Postmenop ausal state 97554430 Active Layla Dummitt [place] [facility] 08:37:12 Vitamin deficienc y 11704974 Active Layla Dum[place] [facility] 08:37:12 Hyperlipi demia 65048055 Active 2016 Layla Dum[place] [facility] 08:37:12 Disorder of coronary artery 208962964 Active 2017 Layla Dum[place] [facility] 08:37:12 Vitamin D deficienc y 11959669 Active 2019 Layla Hawthorne [place] [facility] 08:37:12 Mammogram declined 691716061 Active 2020 Layla Hawth[place] [facility] 08:37:12 Prediabet es 283660116 Active 2020 Layla Marine null[place] [facility] 08:37:12 Diastolic heart failure 585762321 Active 2020 Layla Hawth[place] [facility] 08:37:12 Influenza vaccinati on declined 659080713 Active 2020 Layla Hawth[place] [facility] 08:37:12 Gastroeso phageal reflux disease without esophagit is 953033273 Active 2020 Layla [place]th[place] [facility] 08:37:12 Disorder of vitamin B12 807653075 Active 2021 Layla Hightowershannen [place] [facility] 08:37:12 Mixed hyperlipi demia 629669270 Active 2021 Layla [place]th[place] [facility] 08:37:12 History of polyp of colon 042573631 Active 2021 Layla Hawth[place] [facility] 08:37:12 Screening for malignant neoplasm of colon Active 2021 Layla Hawth[place] [facility] 08:37:12 Internal hemorrhoi ds 08878862 Active 2022 Layla Hightowershannen null[place] [facility] 08:37:12 Diverticu losis of colon 307966150 Active 2022 Layla Katjashannen null[place] [facility] 08:37:12 Persisten t insomnia 176289804 Active 2023 Debra Jackson, GLASS CLEANER [address], [place], [address] , [place] [facility] 10:20:01 History of cerebrova scular accident 322996955 Active 2024 Debra Jackson, GLASS CLEANER [address], [place], [address], [place] [facility] 11:04:04 Tinnitus of left ear 741941240510 6 Active 2024 Debra Jackson, GLASS CLEANER [address], [place], [address], [place] [facility] 11:35:22 Dependenc e on nocturnal oxygen therapy 490964718012 08 Active 2024 Debra Jackson, GLASS CLEANER [address], [place], [address], [place] [facility] 11:29:24 Pain of hip region 15400481 Active 2024 Debra Jackson, GLASS CLEANER [address], [place], [address], [place] [facility] 11:29:25 Notes:Some problems listed i n Document: #[id number] could not be added to this patient's chart. Please review this document and add these problems to the patient's chart manually as needed. Problem Notes None recorded. Procedures Surgical History [...] 09/28/2016 10:14:44 Unlisted px foot/toes completed Leigha Snowdens [place] - [facility] 09/28/2016 10:15:06 Hysterectomy, Vaginal completed Beatriz Dubois [place] - [facility] 05/07/2019 11:31:05 Imaging Results None recorded. Procedure Notes None recorded. Medical Equipment None Reported. Allergies Allergen ID Allergen Name Allergen Category Reaction Reaction Severity Criticality Documentation Date Start Date Code Code System Note Provider Name and Address Organization Details Recorded Time 29224 Lipitor medicatio n arthralgi a (joint pain) Not available Not available 06/25/2017 69927 5 RxNorm Renetta Feliciano milad [place] - [facility] 13:14:17 Medications Name [...] daily transderm al patch 08/28 completed DIDN'T PIPER INSTALLER Not Available Not Available Not Available nitroglyc [...] Disconti nued on: 06/07/20 16 8:54AM;U ser: korin; Est. Completi on: 12/25/19 16;Indic ation: Urinary [...] Available Not Available Nasonex 50 mcg/actua tion [place] 2 sprays every day by intranas al [...] Disconti nued on: 05/25/20 10 1:35PM;U ser[facility];E st. Completi on: 10/17/20 09;Print [...] completed Not Available Not Available Not [facility] 75 mg disintegr ating tablet DISSOLVE ONE (1) TABLET IN MOUTH ONCE NEEDED FOR HEADACHE active Not Available Not Available No t Available Vitals Date Recorded Body height Body mass index (BMI) Body weight Heart rate Oxygen saturation Respiratory rate Pain severity - 0-10 verbal numeric rating [Score] - Reported Systolic And Diastolic Provider Name and Address Organization Details Last Updated DateTime 5 175.26 cm 34 kg/m2 001384. 25 g 86 /min 96 % 18 /min 3 148/92 mm[Hg] Jaci Cade [place] - [facility] 11:13:53 Social History Question Answer Notes LastModified by Organizat ion Details LastModified Time Tobacco Smoking Status Current Every Day Smoker Beatriz Dubois null, [place] - [facility] 10/05/2016 11:02:47 Do You Have An Advance Directive? No [email or web address] Information not available 10/05/2016 Are You Blind Or Do You Have Difficulty Seeing? No Information not available 10/05/2016 Is Blood Transfusion Acceptable In An Emergency? Yes [email or web address] Information not available 10/05/2016 What Is Your Level Of Caffeine Consumption? Occasional [email or web address] Information not available 10/05/2016 How Much Tobacco Do You Chew? None [email or web address] Information not available 10/05/2016 Are You Deaf Or Do You Have Serious Difficulty Hearing? No [email or web address] Information not available 10/05/2016 What Type Of Diet Are You Following? REGULAR [email or web address] Information not available 10/05/2016 Which Illicit Or Recreational Drugs Have You Used? None [email or web address] Information not available 10/05/2016 How Many Days Of Moderate To Strenuous Exercise, Like A Brisk Walk, Did You Do In The Last 7 Days? 1 Information not available 05/07/2019 On Those Days That You Engage In Moderate To Strenuous Exercise, How Many Minutes, On Average, Do You Exercise? 1 [email or web address] Information not available 05/07/2019 How Hard Is It For You To Pay For The Very Basics Like Food, Housing, Medical Care, And Heating? 1 [email or web address] Information not available 05/07/2019 Live Alone Or With Others? With Others Information not available 10/05/2016 Do You Have A Medical Power Of Bit Grinder? No Information not available 04/28/2024 What Was The Date Of Your Most Recent Tobacco Screening? 10/06/2025 [email or web address] Information not available 10/06/2025 How Many Children Do You Have? 3 Information not available 12/21/2016 Performs Monthly Self-breast Exam? Yes Information no t available 10/05/2016 What Is Your Relationship Status? [email or web address] Information not available 10/05/2016 Seat Belts Used Routinely Yes [email or web address] Information not available 10/05/2016 Are You Sexually Active? Yes [email or web address] Information not available 10/05/2016 How Much Tobacco Do You Smoke? 0.5 PPD Information not available 12/21/2016 General Stress Level Medium [email or web address] Information not available 10/05/2016 Do You Use Sunscreen Routinely? Yes [email or web address] Information not available 10/05/2016 Has Tobacco Cessation Counseling Been Provided? Yes Information not available 04/28/2024 On What Date Was Tobacco Cessation Counseling Provided? 04/28/2024 Information not available 04/28/2024 Do You Have Difficulty Walking Or Climbing Stairs? No [email or web address] Information not available 10/05/2016 Sex: Female Functional [...] independently without assistance or assistive devices? YESWOREST [email or web address] Information not available 05/07/2019 Do you have difficulty doing errands alone? No Information not available 04/28/2024 Are you able to care for yourself independently? Yes Information not available 12/21/2016 Do you have difficulty dressing, bathing, grooming, or toileting? No [email or web address] Information not available 10/05/2016 What is your exercise level? None [email or web address] Information not available 10/05/2016 Mental Status Question Answer Note LastModified by Organization D etails LastModified Time Do you feel stressed (tense, restless, nervous, or anxious, or unable to sleep at night)? 1 [email or web address] Information not available 05/07/2019 Do you have difficulty concentrating, remembering or making decisions? No [email or web address] Information no t available 10/05/2016 Family History [...] Recorded Time Tdap 02/18/20 17 completed Layla Hawth[place] null[place] [facility] 07/27/2023 08:37:23 Hep B, unspecified formulation 01/18/20 17 completed Layla [place] [facility] 07/27/2023 08:37:23 Hep B, unspecified formulation 02/18/20 17 completed Layla [place] [facility] 07/27/2023 08:37:23 Pneumococcal conjugate PCV20, polysaccharide [id number] conjugate, adjuvant, PF 10/06/20 25 cancelled patient objection Debra Jackson APRN [address], [place], [address], [place] [facility] 10/06/2025 11:32:49 zoster recombinant 10/06/20 25 cancelled patient objection Debra Jackson APRN [address], [place], [address], [place] [facility] 10/06/2025 11:33:49 COVID-19, mRNA, LNP-S, PF, 100 mcg/0.5mL dose or 50 mcg/0.25mL dose 12/24/19 21 completed Layla [place], [place] - [facility] 07/27/2023 08:37:23 COVID-19, mRNA, LNP-S, PF, 100 mcg/0.5mL dose or 50 mcg/0.25mL dose 01/27/20 21 completed Layla Hawthorne null[place] [facility] 07/27/2023 08:37:23 Past Encounters Encounter ID Performer Location Encounter Start Date Encounter Closed Date Diagnosis/Indication Diagnosis SNOMED-CT Code Diagnosis ICD10 Code Diagnosis IMO Codes Diagnosis Note [id number] Debra Jackson APRN [address] [place] [address] 10/06/2025 10:50:37 10/06/2025 11:37:30 General examination of patient 137236562 Z00.00 Screening for cardiovascular system disease 827782879 Z13.6 Endocrine/ metabolic screening 975497631 Z13.228 Well-contr olled Screening mammography 24 216424 Z12.31 Last Mammo 12/11/24 - up to date Exercises education, guidance, and counseling 778965210 Z71.82 The patient was advised to continue a healthy diet and exercise regularly. Dietary ma nagement surveillance 834917808 Z71.3 Tobacco user 038886014 Z 72.0 Postmenopa usal osteoporosis 328830068 M81.0 2201 Immunization due 5681150 08 Z23 1231090 Viral scre ening status 816392531 Z11.59 460044 Vitamin D deficiency 347 57098 E55.9 06015 Well-contr olled Mixed hyperlipidemia 267 195594 E78.[address] Carlson Chronic ob structive pulmonary disease 66341054 J44.9 Follows with Pulmonolog y - Refills today Hypertensive disorder 38 035170 I10 Uncontroll ed, has appt. upcoming with Cardiology in October - advised to start checking BP regularly and home and keep log to bring back to F/U visit with me as well as Cardiology - restart taking full tablet 50mg of Losartan if remaining elevated - patient verbalized understand ing. Persistent insomnia 1919 38991 G47.09 Well-contr olled Gastroesop hageal reflux disease 446640951 K21.9 Well-contr olled Dependence on nocturnal oxygen therapy 7404965482 9108 Z99.81 44720029 Pulmonolog y started on noctural O2 which she is benefiting from Pain of hip region 79015 002 M25.551 M25.552 [id number] Will call with results - discussed Ortho referral pending results Health Concerns Section Related Observation LastModified by Organization Detai ls LastModified Time None Recorded Concern Status LastModified by Organization Details LastModified Time None Recorded Payers Encounter Date Sequence Insurance Name Policy Number Policy Ware Covered Member ID Ware Member ID Guarantor Name 10/06/2025 1 [employer] [facility] [place] Sariah Ledbetter [id number] Sariah Ledbetter Notes Date Note Type [...] for:- DEXA- Shingrix/Prevnar (if desired) Debra Jackson, BINA [address], [place], [address], [facility] - [facility] 10/06/2025 11:37:54 OBGyn Episode No OBEpisode recorded.
--- OUTSIDE RECORDS SUMMARY | 2025-10-09 12:06 | XMS_ITS | Clinical Summary ---
Author Organization [facility] Address [address] [place] [id number] Care Team Providers Care Lye Machine Operator Name Role Phone Frederick Jessicafabiola Valadez APRN [...] Vaccine ( - 2023- season) [address] [place] [address] [address] Care Teams Lye Machine Operator Relationship Specialty Start Date End Date Jessica Mack, REGISTERED RESPIRATORY TECHNICIAN [address] [place] [address] [place] [address] PCP - General Nurse Practitioner 03/05/19
--- OUTSIDE RECORDS SUMMARY | 2025-10-09 12:06 | XMS_ITS | Encounter Summary ---
Author Organization Healthcare Address [address] [place] [address] Care Team Providers Care Sorter Lumber Straightener Name Role Phone Jessica Mack RADIOISOTOPE TECHNICIAN Primary Care Provider + Reason for Referral * Consultation (Routine) - Authorized Specialty Diagnoses / Procedures Referred By Contac t Referred To Contact Neurology Diagnoses Personal history of TIA (transient ischemic attack) Debra Jackson APRN [address] [place] [address] [place] [address] Phone: tel: fax: Referral ID Status Reason Start Date Expiration Date Visits Requested Visits Authorized [id number] Authorized Specialty Services Required 11/27/2024 05/29/2026 1 1 Encounter Details Date Type Department Care Team (Late st Contact Info) Description 11/27/2024 Community Orders Community Practice [address] [place] [address] Debra Jackson APRN [address] [place] [address] [place] [address] Personal history of TIA (transient [...] deficits documented in this encounter Care Teams Sorter Lumber Straightener Relationship Specialty Start Date End Date Jessica Mack, RADIOISOTOPE TECHNICIAN [address] [place] [address] PCP - General 04/01/21 documented as of this encounter
--- OUTSIDE RECORDS SUMMARY | 2025-10-09 12:07 | XMS_ITS | Clinical Summary ---
Author Organization Healthcare Address [address] [place] [id number] Care Team Providers Care Electrical Systems Drafter Name Role Phone Jessica Mack APRN Primary [...] 2010 UKY-Zoster Vaccines (1 of 2) 2010 [id number] Vaccine (1 - 20 25-26 season) 2025 [...] age to complete this topic Care Teams Electrical Systems Drafter Relationship Specialty Start Date End Date Jessica Mack, FOREST PRODUCTS GATHERER [address] [place] [address] PCP - General 04/01/21
--- OUTSIDE RECORDS SUMMARY | 2025-10-09 12:07 | XMS_ITS | Clinical Summary ---
Author Organization [facility] Address [address] [place] [address] Care Team Providers Care Director Of Catering Sales Name Role Phone Unavailable Primary Care Provider [...] therelease of HIV test results or diagnoses. [id number] Social History Tobacco Use Types Packs/Day [...]
--- OUTSIDE RECORDS SUMMARY | 2025-10-09 12:07 | XMS_ITS | Data Portability ---
Author Organization [facility] Address [address] [place] [address] Care Team Providers Care Field Ring Assembler Name Role Phone AVIS POLLOCK Senior Professional Services Consultant Unavailable TITA AVILA Drop Count Associate Assessment Encounter Date Assessment Date Assessment LastModified [...] ALFREDITO [facility], [address], Anthony F, [place], [address], 10/06/2025 11:32:34 HbA1c (hemoglob in A1c), blood 2024 025 ALFREDITO [facility], [address], [place] [address], [place], [address], 10/06/2025 11:32:31 TSH + free T4, serum 2024 025 ALFREDITO [facility], [address], [place] [address], [place], [address], 10/06/2025 11:32:36 cobalamin and folate panel, serum 2024 025 ALFREDITO [facility], [address], [place] [address], [place], [address], 10/06/2025 11:32:33 Hepatitis C IgG Ab, qual, serum 2024 025 ALFREDITO [facility], [address], [place] [address], [place], [address], 10/06/2025 11:32:35 vitamin D, 25-hydrox y, total, serum 2024 025 ALFREDITO [facility], [address], [place] [address], [place], [address], 10/06/2025 11:32:33 lipid panel, serum 2024 025 ALFREDITO [facility], [address], [place] [address], [place], [address], 10/06/2025 11:32:32 CBC w/ auto diff 2024 025 ALFREDITO [facility], [address], [place] [address], [place], [address], 10/06/2025 11:32:37 lipid panel, serum 2024 025 ALFREDITO [facility], [address], [address], [place], [address], 03/25/2025 09:07:05 CBC w/ auto diff 2024 025 ALFREDITO [facility], [address], [place] [address], [place], [address], 03/25/2025 09:07:03 TSH + free T4, serum 2024 025 ALFREDITO [facility], [address], [place] [address], [place], [address], 03/25/2025 09:07:02 HbA1c (hemoglob in A1c), blood 2024 025 ALFREDITO [facility], [address], [place] [address], [place], [address], 03/25/2025 09:07:07 CMP, serum or plasma 2024 025 ALFREDITO [facility], [address], [place] [address], [place], [address], 03/25/2025 09:07:04 vitamin D, 25-hydrox y, total, serum 2024 025 ALFREDITO [facility], [address], [place] [address], [place], [address], 03/25/2025 09:07:08 cobalamin and folate panel, serum 2024 025 ALFREDITO [facility], [address], [place] [address], [place], [address], 03/25/2025 09:07:06 lipid panel, serum 2023 024 ALFREDITO [facility], [address], [place] [address], [place], [address], 10/28/2024 07:14:28 CMP, serum or plasma 2023 024 ALFREDITO [facility], [address], [place] [address], [place], [address], 10/28/2024 07:14:27 HbA1c (hemoglob in A1c), blood 2023 024 ALFREDITO [facility], [address], [place] [address], [place], [address], 10/28/2024 07:14:30 vitamin D, 25-hydrox y, total, serum 2023 024 ALFREDITO [facility], [address], [place] [address], [place], [address], 10/28/2024 07:14:31 cobalamin and folate panel, serum 2023 024 ALINE [facility], [address], [place] [address], [place], [address], 10/28/2024 07:14:[address] referral 2024 025 [email or web address] Neurology Updated, [address] [facility], [address] [facility], [place], [address], 05/11/2025 08:38:07 Procedures None recorded. Surgeries None recorded. Imaging XR, hip + pelvis, bilateral , 3 or 4 view 2024 025 [facility], [address] [place] [address] , [place], [address], 10/08/2025 16:43:51 DEXA [address] (Centralized Scheduling), [address] [place] [address] [place], [address], 10/06/2025 11:37:30 LDCT, chest, for lung cancer screening 2024 025 [facility], [address] [facility], [place], [address], 07/14/2025 08:00:22 MRI, brain, w/wo contrast [facility] [facility] [address] ([facility]), [address], [place], [address], 04/20/2025 20:02:55 MRI, brain, w/o contrast - approved auth # [id number] good 12/09/24- 01/07/252024 025 [email or web address] [facility], [address] [place], [address], 03/09/2025 01:02:17 Medication Orders Symbicort 160 mcg-4.5 mcg/actua tion HFA aerosol inhaler 2024 025 [facility], [address] [place] [address], [address], 10/06/2025 11:32:21 atorvasta tin 80 mg tablet [address], [address], 10/06/2025 11:32:22 hydrochlo rothiazid e 25 mg tablet [address], [address], 10/06/2025 11:32:19 isosorbid e mononitra te ER 30 mg tablet,ex tended release 24 hr 2024 025 [facility], [address] [place] [address], [address], 10/06/2025 11:32:20 pantopraz ole 40 mg tablet,de layed release 2024 025 [facility], [address] [place] [address], [address], 10/06/2025 11:32:20 cholecalc iferol (vitamin D3) 50 mcg (2,000 unit) capsule [address], [address], 10/06/2025 11:32:19 mirtazapi ne 30 mg tablet 2024 025 [facility], [address] [place] [address], [place], [address], 10/06/2025 11:32:21 Symbicort 160 mcg-4.5 mcg/actua tion HFA aerosol inhaler [address], [place], [address], 04/28/2025 10:28:24 atorvasta tin 80 mg tablet [address], [address], 03/24/2025 11:42:33 hydrochlo rothiazid e 25 mg tablet [address], [address], 03/24/2025 11:42:34 isosorbid e mononitra te ER 30 mg tablet,ex tended release 24 hr 2024 025 [facility], [address] [place] [address], [address], 03/24/2025 11:42:34 lisinopri l 20 mg tablet [address], [address], 04/28/2025 14:37:16 pantopraz ole 40 mg tablet,de layed release [address], [address], 03/24/2025 11:42:32 fluticaso ne propionat e 50 mcg/actua tion nasal spray,du pension [address], [address], 10/06/2025 11:31:24 meclizine 25 mg chewable tablet [address], [address], 04/28/2025 10:44:14 cholecalc iferol (vitamin D3) 50 mcg (2,000 unit) capsule [address], [address], 03/24/2025 11:42:32 melatonin 10 mg tablet [address], [address], 03/24/2025 11:42:35 mirtazapi ne 30 mg tablet [address], [address], 03/24/2025 11:42:33 atorvasta tin 80 mg tablet [address], [address], 10/27/2024 11:51:28 isosorbid e mononitra te ER 30 mg tablet,ex tended release 24 hr [address], [address], 10/27/2024 11:51:29 hydrochlo rothiazid e 25 mg tablet [address], [place], [address], 10/27/2024 11:51:25 lisinopri l 20 mg tablet [email or web address], [place], [address], 04/28/2025 09:59:57 pantopraz ole 40 mg tablet,de layed release [address], [address], 10/27/2024 11:51:28 fluticaso ne propionat e 50 mcg/actua tion nasal spray,du pension [email or web address] [place] [address], [address], 10/06/2025 11:09:59 cholecalc iferol (vitamin D3) 50 mcg (2,000 unit) capsule [address], [address], 10/27/2024 11:51:26 melatonin 10 mg tablet [address], [address], 10/27/2024 11:51:25 mirtazapi ne 30 mg tablet [address], [address], 10/27/2024 11:51:27 Patient TargetsNo targets recorded. Patient Instructions Encounter Date Encounter Id Patient Instructions Last Modified By Organization Details Last Modified Time 10/27/2024 [id number] learning about healthy weight Not available 10/27/2024 11:52:20 body mass index: care instructions Not available 10/27/2024 11:52:20 04/28/2025 [id number] Well Visit, Ages 18 to 65: Care [...] cancer screening Not available 04/28/2025 10:31:01 10/06/2025 [id number] smoking cessatio n counseling, greater than 3 [...] 70-99 above high normal Not Available [facility] ([facility]) [address] [facility], [place], [address], 10/28/2024 07:14:27 10/27/20 24 10/28/2024 COMP. METAB OLIC PANEL (14) BUN 15 mg/dL 8-27 normal Not Available [facility] ([facility]) [address] [facility], [place], [address], 10/28/2024 07:14:27 10/27/20 24 10/28/2024 COMP. METAB OLIC PANEL (14) creatinine 0.72 mg/dL 0.57-1 .00 normal Not Available [facility] ([facility]) [address] [facility] [place] [place], [address], 10/28/2024 07:14:27 10/27/20 24 10/28/2024 COMP. METAB OLIC PANEL (14) eGFR 93 mL/mi n/1.7 3 >59 normal Not Available [facility] ([facility]) [address] [facility], [place], [address], 10/28/2024 07:14:27 10/27/20 24 10/28/2024 COMP. METAB OLIC PANEL (14) BUN/creatini ne ratio 21 12-28 normal Not Available [facility] ([facility]) [address] [facility], [place], [address], 10/28/2024 07:14:27 10/27/20 24 10/28/2024 COMP. METAB OLIC PANEL (14) sodium 140 mmol/ L 134-14 4 normal Not Available [facility] ([facility]) [address] [facility], [place], [address], 10/28/2024 07:14:27 10/27/20 24 10/28/2024 COMP. METAB OLIC PANEL (14) potassium 4.0 mmol/ L 3.5-5. 2 normal Not Available [facility] ([facility]) [address] [facility], [place], [address], 10/28/2024 07:14:27 10/27/20 24 10/28/2024 COMP. METAB OLIC PANEL (14) chloride 103 mmol/ L 96-106 normal Not Available [facility] ([facility]) [address] [facility] [place] [place], [address], 10/28/2024 07:14:27 10/27/20 24 10/28/2024 COMP. METAB OLIC PANEL (14) carbon dioxide, total 23 mmol/ L 20-29 normal Not Available [facility] ([facility]) [address] [facility] [place] [place], [address], 10/28/2024 07:14:27 10/27/20 24 10/28/2024 COMP. METAB OLIC PANEL (14) calcium 8.9 mg/dL 8.7-10 .3 normal Not Available [facility] ([facility]) [address] [facility] [place] [place], [address], 10/28/2024 07:14:27 10/27/20 24 10/28/2024 COMP. METAB OLIC PANEL (14) protein, total 6.6 g/dL 6.0-8. 5 normal Not Available [facility] ([facility]) [address] [facility] [place] [place], [address], 10/28/2024 07:14:27 10/27/20 24 10/28/2024 COMP. METAB OLIC PANEL (14) albumin 4.0 g/dL 3.9-4. 9 normal Not Available [facility] ([facility]) [address] [facility] [place] [place], [address], 10/28/2024 07:14:27 10/27/20 24 10/28/2024 COMP. METAB OLIC PANEL (14) globulin, total 2.6 g/dL 1.5-4. 5 Not Available [facility] ([facility]) [address] [facility] [place] [place], [address], 10/28/2024 07:14:27 10/27/20 24 10/28/2024 COMP. METAB OLIC PANEL (14) bilirubin, total 0.5 mg/dL 0.0-1. 2 normal Not Available [facility] ([facility]) [address] [facility] [place], [address], 10/28/2024 07:14:27 10/27/20 24 10/28/2024 COMP. METAB OLIC PANEL (14) alkaline phosphatase 152 IU/L 44-121 above high normal Not Available [facility] ([facility]) [address] [place], [address], 10/28/2024 07:14:27 10/27/20 24 10/28/2024 COMP. METAB OLIC PANEL (14) AST (SGOT) 16 IU/L 0-40 normal Not Available [facility] ([facility]) [address] [facility] [place], [address], 10/28/2024 07:14:27 10/27/20 24 10/28/2024 COMP. METAB OLIC PANEL (14) ALT (SGPT) 19 IU/L 0-32 normal Not Available [facility] ([facility]) [address] [facility] [place], [address], 10/28/2024 07:14:27 10/27/20 24 10/28/2024 LIPID PANEL cholesterol, total 156 mg/dL 100-19 9 normal Not Available [facility] ([facility]) [address] [facility] [place] [place], [address], 10/28/2024 07:14:28 10/27/20 24 10/28/2024 LIPID PANEL triglyceride s 160 mg/dL 0-149 above high normal Not Available [facility] ([facility]) [address] [facility] [place] [place], [address], 10/28/2024 07:14:28 10/27/20 24 10/28/2024 LIPID PANEL HDL cholesterol 42 mg/dL >39 normal Not Available [facility]) [address] [facility] [place] [place], [address], 10/28/2024 07:14:28 10/27/20 24 10/28/2024 LIPID PANEL VLDL cholesterol mark 28 mg/dL 5-40 Not Available [facility] ([facility]) [address] [facility], [place], [address], 10/28/2024 07:14:28 10/27/20 24 10/28/2024 LIPID PANEL LDL chol calc ([facility]) 86 mg/dL 0-99 Not Available [facility]) [address] [facility], [place], [address], 10/28/2024 07:14:28 10/27/20 24 10/28/2024 LIPID PANEL LDL calc comment: FLASH DRIER OPERATOR Not Available [facility] ([facility]) [address] [facility], [place], [address], 10/28/2024 07:14:28 10/27/20 24 10/28/2024 VITAM IN B12 AND FOLAT E vitamin B12 399 pg/mL 232-12 45 normal Not Available [facility] ([facility]) [address] [facility], [place], [address], 10/28/2024 07:14:29 10/27/20 24 10/28/2024 VITAM IN B12 AND FOLAT E folate (folic acid), serum 6.5 NG/mL >3.0 normal A serum folat e becky ntrat ion of less than 3.1 ng/mL is consi dered to repre sent clini mark defic iency . Not Available [facility] ([facility]) [address] [facility], [place], [address], 10/28/2024 07:14:29 10/27/20 24 10/28/2024 HEMOG LOBIN A1C hemoglobin A1C 6.3 % 4.8-5. 6 above high normal Predi abete s: 5.7 - 6.4 Diabe nigel: >6.4 Glyce judy contr ol for adult s with diabe nigel: <7.0 Not Available [facility] ([facility]) [address] [facility], [place], [address], 10/28/2024 07:14:30 10/27/20 24 10/28/2024 VITAM IN [...] IOM (Inst itute of Medic ine). 2010. Caty ry refer ence intak es for calci um and D. Daniela brooks [place]: [facility] [employer] . 2. Ulises kaminski MF, Tahir camacho [place], Shakila off-F arlene i JOE, et al. Evalu ation , treat ment, and preve ntion of vitam in D defic iency : an Endoc rine Socie ty clini mark pract ice guide line. JCEM. 2010; 96(7) :1911 -30. Not Available [facility] ([facility]) [address] [facility], [place], [address], 10/28/2024 07:14:31 03/24/20 25 03/25/2025 TSH+F REE T4 TSH 1.800 uIU/m L 0.450- 4.500 normal Not Available [facility] ([facility]) [address] [place], [address], 03/25/2025 09:07:02 03/24/20 25 03/25/2025 TSH+F REE T4 T4,free(dire ct) 1.28 NG/dL 0.82-1 .77 normal Not Available [facility] ([facility]) [address] [place], [address], 03/25/2025 09:07:02 03/24/20 25 03/25/2025 CBC WITH DIFFE RENTI AL/PL ATELE T WBC 5.5 x10e3 /uL 3.4-10 .8 normal Not Available [facility] ([facility]) [address] [place], [address], 03/25/2025 09:07:03 03/24/20 25 03/25/2025 CBC WITH DIFFE RENTI AL/PL ATELE T RBC 4.51 x10e6 /uL 3.77-5 .28 normal Not Available [facility] ([facility]) [address] [place], [address], 03/25/2025 09:07:03 03/24/20 25 03/25/2025 CBC WITH DIFFE RENTI AL/PL ATELE T hemoglobin 14.4 g/dL 11.1-1 5.9 normal Not Available [facility] ([facility]) [address] [place], [address], 03/25/2025 09:07:03 03/24/2003/25/2025 CBC WITH DIFFE RENTI AL/PL ATELE T hematocrit 42.3 % 34.0-4 6.6 normal Not Available [facility] ([facility]) [address] [place], [address], 03/25/2025 09:07:03 03/24/2003/25/2025 CBC WITH DIFFE RENTI AL/PL ATELE T MCV 94 fL 79-97 normal Not Available [facility] ([facility]) [address] [place], [address], 03/25/2025 09:07:03 03/24/2003/25/2025 CBC WITH DIFFE RENTI AL/PL ATELE T MCH 31.9 pg 26.6-3 3.0 normal Not Available [facility] ([facility]) [address] [place], [address], 03/25/2025 09:07:03 03/24/20 25 03/25/2025 CBC WITH DIFFE RENTI AL/PL ATELE T MCHC 34.0 g/dL 31.5-3 5.7 normal Not Available [facility] ([facility]) [address] [place], [address], 03/25/2025 09:07:03 03/24/20 25 03/25/2025 CBC WITH DIFFE RENTI AL/PL ATELE T RDW 13.4 % 11.7-1 5.4 Not Available [facility] ([facility]) [address] [facility], [place], [address], 03/25/2025 09:07:03 03/24/20 25 03/25/2025 CBC WITH DIFFE RENTI AL/PL ATELE T platelets 234 x10e3 /uL 150-45 0 normal Not Available [facility] ([facility]) [address] [facility], [place], [address], 03/25/2025 09:07:03 03/24/20 25 03/25/2025 CBC WITH DIFFE RENTI AL/PL ATELE T neutrophils 62 % not estab. normal Not Available [facility] ([facility]) [address] [place], [address], 03/25/2025 09:07:03 03/24/20 25 03/25/2025 CBC WITH DIFFE RENTI AL/PL ATELE T lymphs 28 % not estab. normal Not Available [facility] ([facility]) [address] [place], [address], 03/25/2025 09:07:03 03/24/20 25 03/25/2025 CBC WITH DIFFE RENTI AL/PL ATELE T monocytes 7 % not estab. normal Not Available [facility] ([facility]) [address] [place], [address], 03/25/2025 09:07:03 03/24/20 25 03/25/2025 CBC WITH DIFFE RENTI AL/PL ATELE T eos 2 % not estab. normal Not Available [facility] ([facility]) [address] [place], [address], 03/25/2025 09:07:03 03/24/20 25 03/25/2025 CBC WITH DIFFE RENTI AL/PL ATELE T basos 1 % not estab. normal Not Available [facility] ([facility]) [address] [facility], [place], [address], 03/25/2025 09:07:03 03/24/20 25 03/25/2025 CBC WITH DIFFE RENTI AL/PL ATELE T immature cells FLASH DRIER OPERATOR Not Available [facility] ([facility]) [address] [place], [address], 03/25/2025 09:07:03 03/24/20 25 03/25/2025 CBC WITH DIFFE RENTI AL/PL ATELE T neutrophils (absolute) 3.4 x10e3 /uL 1.4-7. 0 normal Not Available [facility] ([facility]) [address] [place], [address], 03/25/2025 09:07:03 03/24/20 25 03/25/2025 CBC WITH DIFFE RENTI AL/PL ATELE T lymphs (absolute) 1.5 x10e3 /uL 0.7-3. 1 normal Not Available [facility] ([facility]) [address] [place], [address], 03/25/2025 09:07:03 03/24/20 25 03/25/2025 CBC WITH DIFFE RENTI AL/PL ATELE T monocytes(ab solute) 0.4 x10e3 /uL 0.1-0. 9 normal Not Available [facility] ([facility]) [address] [place], [address], 03/25/2025 09:07:03 03/24/20 25 03/25/2025 CBC WITH DIFFE RENTI AL/PL ATELE T eos (absolute) 0.1 x10e3 /uL 0.0-0. 4 normal Not Available [facility] ([facility]) [address] [facility], [place], [address], 03/25/2025 09:07:03 03/24/20 25 03/25/2025 CBC WITH DIFFE RENTI AL/PL ATELE T baso (absolute) 0.1 x10e3 /uL 0.0-0. 2 normal Not Available [facility] ([facility]) [address] [facility], [place], [address], 03/25/2025 09:07:03 03/24/20 25 03/25/2025 CBC WITH DIFFE RENTI AL/PL ATELE T immature granulocytes 0 % not estab. Not Available [facility] ([facility]) [address] [facility], [place], [address], 03/25/2025 09:07:03 03/24/20 25 03/25/2025 CBC WITH DIFFE RENTI AL/PL ATELE T immature grans (abs) 0.0 x10e3 /uL 0.0-0. 1 Not Available [facility] ([facility]) [address] [facility], [place], [address], 03/25/2025 09:07:03 03/24/20 25 03/25/2025 CBC WITH DIFFE RENTI AL/PL ATELE T NRBC FLASH DRIER OPERATOR Not Available [facility] ([facility]) [address] [facility], [place], [address], 03/25/2025 09:07:03 03/24/20 25 03/25/2025 CBC WITH DIFFE RENTI AL/PL ATELE T hematology comments: FLASH DRIER OPERATOR Not Available [facility] ([facility]) [address] [facility], [place], [address], 03/25/2025 09:07:03 03/24/20 25 03/25/2025 COMP. METAB OLIC PANEL (14) glucose 100 mg/dL 70-99 above high normal Not Available [facility] ([facility]) [address] [facility] [place] [place], [address], 03/25/2025 09:07:04 03/24/20 25 03/25/2025 COMP. METAB OLIC PANEL (14) BUN 14 mg/dL 8-27 normal Not Available [facility] ([facility]) [address] [facility] [place] [place], [address], 03/25/2025 09:07:04 03/24/20 25 03/25/2025 COMP. METAB OLIC PANEL (14) creatinine 0.87 mg/dL 0.57-1 .00 normal Not Available [facility] ([facility]) [address] [facility] [place] [place], [address], 03/25/2025 09:07:04 03/24/20 25 03/25/2025 COMP. METAB OLIC PANEL (14) eGFR 74 mL/mi n/1.7 3 >59 normal Not Available [facility] ([facility]) [address] [place], [address], 03/25/2025 09:07:04 03/24/20 25 03/25/2025 COMP. METAB OLIC PANEL (14) BUN/creatini ne ratio 16 12-28 normal Not Available [facility] ([facility]) [address] [place], [address], 03/25/2025 09:07:04 03/24/20 25 03/25/2025 COMP. METAB OLIC PANEL (14) sodium 137 mmol/ L 134-14 4 normal Not Available [facility] ([facility]) [address] [facility] [place] [place], [address], 03/25/2025 09:07:04 03/24/20 25 03/25/2025 COMP. METAB OLIC PANEL (14) potassium 4.5 mmol/ L 3.5-5. 2 normal Not Available [facility] ([facility]) [address] [facility] [place] [place], [address], 03/25/2025 09:07:04 03/24/20 25 03/25/2025 COMP. METAB OLIC PANEL (14) chloride 101 mmol/ L 96-106 normal Not Available [facility] ([facility]) [address] [facility] [place], [address], 03/25/2025 09:07:04 03/24/20 25 03/25/2025 COMP. METAB OLIC PANEL (14) carbon dioxide, total 22 mmol/ L 20-29 normal Not Available [facility] ([facility]) [address] [facility] [place], [address], 03/25/2025 09:07:04 03/24/20 25 03/25/2025 COMP. METAB OLIC PANEL (14) calcium 9.2 mg/dL 8.7-10 .3 normal Not Available [facility] ([facility]) [address] [facility] [place] [place], [address], 03/25/2025 09:07:04 03/24/20 25 03/25/2025 COMP. METAB OLIC PANEL (14) protein, total 6.9 g/dL 6.0-8. 5 normal Not Available [facility] ([facility]) [address] [facility] [place], [address], 03/25/2025 09:07:04 03/24/20 25 03/25/2025 COMP. METAB OLIC PANEL (14) albumin 4.4 g/dL 3.9-4. 9 normal Not Available [facility] ([facility]) [address] [facility] [place], [address], 03/25/2025 09:07:04 03/24/20 25 03/25/2025 COMP. METAB OLIC PANEL (14) globulin, total 2.5 g/dL 1.5-4. 5 Not Available [facility] ([facility] [facility]) [address] [facility] [place], [address], 03/25/2025 09:07:04 03/24/20 25 03/25/2025 COMP. METAB OLIC PANEL (14) bilirubin, total 0.5 mg/dL 0.0-1. 2 normal Not Available [facility] ([facility]) [address] [facility] [place] [place], [address], 03/25/2025 09:07:04 03/24/20 25 03/25/2025 COMP. METAB OLIC PANEL (14) alkaline phosphatase 154 IU/L 44-121 above high normal Not Available [facility] ([facility]) [address] [facility] [place] [place], [address], 03/25/2025 09:07:04 03/24/20 25 03/25/2025 COMP. METAB OLIC PANEL (14) AST (SGOT) 17 IU/L 0-40 normal Not Available [facility] ([facility]) [address] [facility] [place] [place], [address], 03/25/2025 09:07:04 03/24/20 25 03/25/2025 COMP. METAB OLIC PANEL (14) ALT (SGPT) 22 IU/L 0-32 normal Not Available [facility] ([facility]) [address] [facility] [place], [address], 03/25/2025 09:07:04 03/24/20 25 03/25/2025 LIPID PANEL cholesterol, total 156 mg/dL 100-19 9 normal Not Available [facility] ([facility]) [address] [facility] [place] [place], [address], 03/25/2025 09:07:05 03/24/20 25 03/25/2025 LIPID PANEL triglyceride s 182 mg/dL 0-149 above high normal Not Available [facility] ([facility]) [address] [facility] [place] [place], [address], 03/25/2025 09:07:05 03/24/20 25 03/25/2025 LIPID PANEL HDL cholesterol 41 mg/dL >39 normal Not Available [facility] ([facility]) [address] [facility] [place], [address], 03/25/2025 09:07:05 03/24/20 25 03/25/2025 LIPID PANEL VLDL cholesterol mark 31 mg/dL 5-40 Not Available [facility] ([facility]) [address] [facility], [place], [address], 03/25/2025 09:07:05 03/24/20 25 03/25/2025 LIPID PANEL LDL chol calc ([facility]) 84 mg/dL 0-99 Not Available [facility] [facility]) [address] [facility] [place] [place], [address], 03/25/2025 09:07:05 03/24/20 25 03/25/2025 LIPID PANEL LDL calc comment: FLASH DRIER OPERATOR Not Available [facility] ([facility]) [address] [facility], [place], [address], 03/25/2025 09:07:05 03/24/20 25 03/25/2025 VITAM IN B12 AND FOLAT E vitamin B12 413 pg/mL 232-12 45 normal Not Available [facility] ([facility]) [address] [place], [address], 03/25/2025 09:07:06 03/24/20 25 03/25/2025 VITAM IN B12 AND FOLAT E folate (folic acid), serum 5.4 NG/mL >3.0 normal A serum folat e becky ntrat ion of less than 3.1 ng/mL is consi dered to repre sent clini mark defic iency . Not Available [facility] ([facility]) [address] [place], [address], 03/25/2025 09:07:06 03/24/20 25 03/25/2025 HEMOG LOBIN A1C hemoglobin A1C 6.2 % 4.8-5. 6 above high normal Predi abete s: 5.7 - 6.4 Diabe nigel: >6.4 Glyce judy contr ol for adult s with diabe nigel: <7.0 Not Available [facility] ([facility]) [address] [facility], [place], [address], 03/25/2025 09:07:07 03/24/2003/25/2025 VITAM IN D, 25-HY [...] Medic ine). 2009. Dieta ry refer ence caron es for calci um and D. Daniela brooks [place]: [facility] . 2. Ulises kaminski MF, Tahir camacho [place], Shakila off-F errar i JOE, et al. Evalu ation , treat ment, and preve ntion of vitam in D defic iency : an Endoc rine Socie ty clini mark pract ice guide line. JCEM. 2010; 96(7) :1911 -30. Not Available [facility] ([facility]) [address] [facility], [place], [address], 03/25/2025 09:07:08 12/12/19 25 12/11/2024 MAMMO , macrinae gume, digit al, bilat eral No observ ation record ed. [email or web address] , [place], [address], 12/16/2024 15:33:28 12/12/19 25 12/12/2024 - scn dig breas t tomos yn nicki [facility] Name: ANTON LEDBETTER Write.mya DesignGooroo Phys: [place] [address] : 1959 Age: 64 Sex: F Acct: [id number] Loc: G.MAMM PHONE #: Exam Date: 2024 Status : DEP CLI FAX #: Rad# [id number] Unit# [id number] Admit Date: 2024 EXAMS: CPT CODE: [id number] SCN DIG BREAST TOMOSY N NICKI 41466 BILATE RAL DIGITA L SCREEN ING MAMMOG [...] vijaya. PAGE 1 Signed Report (MARY NUED) [facility] Name: ANTON LEDBETTER [employer] Phys: [place] [address] : 1959 Age: 64 Sex: F Acct: [id number] Loc: G.MAMM PHONE #: Exam Date: 2024 Status : DEP CLI FAX #: [phone] Rad# [id number] Unit# [id number] Admit Date: 2024 EXAMS: CPT CODE: [id number] SCN DIG BREAST TOMOSY N NICKI 57140 Electr onical ly Signed by Perla Avalos [...] Provid er: LANDRE TH ALLISO N [email or web address] [address] [id number] , [place], [address], 12/17/2024 09:43:49 03/26/20 25 03/25/2025 imagi ng/di agnos tic resul t No observ ation record ed. [address], [place], [place], [address], 03/26/2025 14:48:22 03/26/20 25 03/25/2025 imagi ng/di agnos tic resul t No observ ation record ed. [address], [place], [place], [address], 03/26/2025 14:48:16 04/04/20 25 03/25/2025 stres s echoc ardio gram No observ ation record ed. [address], [place], [place], [address], 04/08/2025 12:25:16 04/06/20 25 04/06/2025 MRI, brain , w/o contr ast No observ ation record ed. [address], [place], [place], [address], 04/07/2025 15:41:59 05/11/20 25 04/27/2025 MRI, heart funct ion and morph ology , w/wo contr ast No observ ation record ed. [address], [place], [place], [address], 05/12/2025 14:04:08 05/21/20 25 05/18/2025 imagi ng/di agnos tic resul t No observ ation record ed. [address], [place], [place], [address], 05/27/2025 09:40:23 07/14/20 25 LDCT, chest , for lung cance r jordana dunaway No observ ation record ed. [email or web address] [facility] [address] [facility], [place], [address], 07/15/2025 10:24:56 10/08/20 25 XR, hip + pelvi s, bilat eral, 3 or 4 view No observ ation record ed. [email or web address] [address] , [place], [address], 10/08/2025 16:43:51 Result Notes Documentation Provider Name and Address Organization Details Recorded Time Mammo, Screening, Digital, Bilateral : Mammogram Mammogram Context: mammogram date: (12/11/24) Right: normal Left: normal Conclusion: Conclusions: Bi-Rads 1 - Negative Debra Jackson APRN [address], [place], [address], [place] [facility] 12/16/2024 15:33:28 Problems Name Problem SNOMED Code Status Onset Date Resolution Date Notes Provider Name and Address Organization Details Recorded Time Female urinary stress incontine nce 54408823 Active Laurence Vásquez MD [address], [place], [address], [place] - [facility] 2 12:20:06 Preinfarc tion syndrome 3000562 Active Laurence Vásquez MD [address], [place], [address], [place] [facility] 2 12:20:06 Urinary tract infectiou s disease 76851937 Active Laurence Vásquez MD [address], [place], [address], [place] [facility] 2 12:20:06 Herniated urinary bladder 452149492 Active Laurence Vásquez MD [address], [place], [address], [place] [facility] 2 12:20:06 Vaginal hematoma 94898675 Completed 05/07/2019 Laurence Vásquez MD [address], [place], [address], [place] [facility] 2 12:20:06 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 92555411 Active Laurence Vásquez MD [address], [place], [address], [place] [facility] 2 12:20:06 Vaginal bleeding 229104496 Completed 05/07/2019 Laurecne Vásquez MD [address], [place], [address], [place] [facility] 2 12:20:06 History of cardiac catheteri zation 494269305326 00 Active Laurence Vásquez MD [address], [place], [address], [place] [facility] 2 12:20:06 Urinary incontine nce 826706031 Active Laurence Vásquez MD [address], [place], [address], [place] [facility] 2 12:20:06 Hypertens nicky disorder 22372399 Active Layla Hawthorne null, [place] - [facility] 3 08:37:12 Vaginal hematoma 21337849 Active Laurence Vásquez MD [address], [place], [address], [place] [facility] 2 12:20:06 Vaginal bleeding 410657985 Active Laurence Vásquez MD [address], [place], [address], [place] [facility] 2 12:20:06 Heart disease 75844980 Active Layla Hawthorne null, [place] [facility] 3 08:37:12 Postmenop ausal state 61086879 Active Layla Hightowermitt null, [place] - [facility] 3 08:37:12 Vitamin deficienc y 90642471 Active Layla Dummitt null, [place] - [facility] 3 08:37:12 Hyperlipi demia 96077134 Active 2016 Layla Dummitt null, [place] - [facility] 3 08:37:12 Disorder of coronary artery 482921224 Active 2017 Layla Dummitt [place] - [facility] 08:37:12 Vitamin D deficienc y 54794940 Active 2019 Layla Hightowershannen [place] - [facility] 08:37:12 Mammogram declined 432057183 Active 2020 Layla Hawthorne null[place] - [facility] 3 08:37:12 Prediabet es 098735017 Active 2020 Layla Hightowers[place]annen [place] - [facility] 08:37:12 Diastolic heart failure 902466789 Active 2020 Layla [place]ight[place]ann[place] - [facility] 3 08:37:12 Influenza vaccinati on declined 231765787 Active 2020 Layla Hawthorne [place] - [facility] 3 08:37:12 Gastroeso phageal reflux disease without esophagit is 904065932 Active 2020 Layla [place]ightow[place]annen [place] [facility] 08:37:12 Disorder of vitamin B12 228229871 Active 2021 Layla Hightowers[place]annen [place] [facility] 08:37:12 Mixed hyperlipi demia 108565140 Active 2021 Layla [place]ightowers[place]annen [place] - [facility] 3 08:37:12 History of polyp of colon 343688445 Active 2021 Layla Hightowers[place]annen [place] [facility] 3 08:37:12 Screening for malignant neoplasm of colon Active 2021 Layla [place]ight[place]annen [place] - [facility] 3 08:37:12 Internal hemorrhoi ds 12927430 Active 2022 Layla Hawthorne [place] - [facility] 3 08:37:12 Diverticu losis of colon 571010737 Active 2022 Layla [place]ightowers[place]annen [place] - [facility] 08:37:12 Persisten t insomnia 625637529 Active 2023 Debra Jackson, WORSHIP PASTOR [address], [place], [address] [place] - [facility] 4 10:20:01 History of cerebrova scular accident 303899329 Active 2024 Debra Jackson APRN [address], [place], [address], [place] [facility] 5 11:04:04 Tinnitus of left ear 384142658945 6 Active 2024 Debra Jacksno APRN [address], [place], [address], [place] [facility] 5 11:35:22 Dependenc e on nocturnal oxygen therapy 566393794695 08 Active 2024 Debra Jackson APRN [address], [place], [address], [place] [facility] 5 11:29:24 Pain of hip region 71615828 Active 2024 Debra Jackson APRN [address], [place], [address], [place] [facility] 5 11:29:25 Notes:Some problems listed i n Document: #[id number] could not be added to this patient's [...] Name and Address Organization Details Recorded Time 69588 Lipitor medicatio n arthralgi a (joint pain) Not available Not available 06/25/2017 38761 5 RxNorm [place], [place] - [facility] [...] daily transderm al patch 08/28 completed 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 Completi on: 06/17/20 16;Pharm acyVerif ied: [...] Available Not Available Nasonex 50 mcg/actua tion Saluda Saluda 2 sprays every day by intranas al [...] Disconti nued on: 05/25/20 10 1:35PM;U ser: [facility];E st. Completi on: 10/17/20 09;Print [...] Updated DateTime 5 175.26 cm 32.5 kg/m2 25693.3 2 g 82 /min 98 % 16 /min 0 142/76 mm[Hg] Jaci FONG - [facility] 5 10:58:58 Date Recorded Body height Body mass index (BMI) Body weight Heart rate Oxygen saturation Respiratory rate Pain severity - 0-10 verbal numeric rating [Score] - Reported Systolic And Diastolic Provider Name and Address Organization Details Last Updated DateTime 5 175.26 cm 32.8 kg/m2 226594. 51 g 82 /min 95 % 18 /min 0 136/78 mm[Hg] Jaci FONG - [facility] 5 11:29:28 Date Recorded Body height Body mass index (BMI) Body weight Heart rate Oxygen saturation Respiratory rate Pain severity - 0-10 verbal numeric rating [Score] - Reported Systolic And Diastolic Provider Name and Address Organization Details Last Updated DateTime 5 175.26 cm 33.4 kg/m2 104394. 88 g 80 /min 95 % 18 /min 0 164/90 mm[Hg] Jaci FONG - [facility] 5 10:07:49 Date Recorded Body height Body mass index (BMI) Body weight Heart rate Oxygen saturation Respiratory rate Pain severity - 0-10 verbal numeric rating [Score] - Reported Systolic And Diastolic Provider Name and Address Organization Details Last Updated DateTime 5 175.26 cm 34 kg/m2 982383. 25 g 86 /min 96 % 18 /min 3 148/92 mm[Hg] Jaci FONG - [facility] 5 11:13:53 Date Recorded Body height Body mass index (BMI) Body weight Heart rate Oxygen saturation Respiratory rate Pain severity - 0-10 verbal numeric rating [Score] - Reported Systolic And Diastolic Provider Name and Address Organization Details Last Updated DateTime 4 175.26 cm 32 kg/m2 43185.5 4 g 80 /min 96 % 18 /min 0 144/80 mm[Hg] Jaci FONG - [facility] 4 11:35:17 Social History Question Answer Notes LastModified by Organizat ion Details LastModified Time Tobacco Smoking Status Current Every Day Smoker Beatriz [place] - [facility] 10/05/2016 11:02:47 Do You Have An Advance Directive? No [email or web address] Information not available 10/05/2016 Are You Blind Or Do You Have Difficulty Seeing? No [email or web address] Information not available 10/05/2016 Is Blood Transfusion Acceptable In An Emergency? Yes [email or web address] Information not available 10/05/2016 What Is Your Level Of Caffeine Consumption? Occasional Information not available 10/05/2016 How Much Tobacco Do You Chew? None Information not available 10/05/2016 Are You Deaf Or Do You Have Serious Difficulty Hearing? No [email or web address] Information not available 10/05/2016 What Type Of Diet Are You Following? REGULAR [email or web address] Information not available 10/05/2016 Which Illicit Or Recreational Drugs Have You Used? None [email or web address] Information not available 10/05/2016 How Many Days Of Moderate To Strenuous Exercise, Like A Brisk Walk, Did You Do In The Last 7 Days? 1 Information not available 05/07/2019 On Those Days That You Engage In Moderate To Strenuous Exercise, How Many Minutes, On Average, Do You Exercise? 1 [email or web address] Information not available 05/07/2019 How Hard Is It For You To Pay For The Very Basics Like Food, Housing, Medical Care, And Heating? 1 [email or web address] Information not available 05/07/2019 Live Alone Or With Others? With Others [email or web address] Information not available 10/05/2016 Do You Have A Medical Power Of Order Dispatcher Chief? No Information not available 04/28/2024 What Was The Date Of Your Most Recent Tobacco Screening? 10/06/2025 [email or web address] Information not available 10/06/2025 How Many Children Do You Have? 3 Information not available 12/21/2016 Performs Monthly Self-breast Exam? Yes [email or web address] Information no t available 10/05/2016 What Is Your Relationship Status? [email or web address] Information not available 10/05/2016 Seat Belts Used Routinely Yes [email or web address] Information not available 10/05/2016 Are You Sexually Active? Yes [email or web address] Information not available 10/05/2016 How Much Tobacco Do You Smoke? 0.5 PPD Information not available 12/21/2016 General Stress Level Medium [email or web address] Information not available 10/05/2016 Do You Use Sunscreen Routinely? Yes [email or web address] Information not available 10/05/2016 Has Tobacco Cessation Counseling Been Provided? Yes Information not available 04/28/2024 On What Date Was Tobacco Cessation Counseling Provided? 04/28/2024 Information not available 04/28/2024 Do You Have Difficulty Walking Or Climbing Stairs? No [email or web address] Information not available 10/05/2016 Sex: Female Functional [...] independently without assistance or assistive devices? YESWOREST [email or web address] Information not available 05/07/2019 Do you have difficulty doing errands alone? No Information not available 04/28/2024 Are you able to care for yourself independently? Yes Information not available 12/21/2016 Do you have difficulty dressing, bathing, grooming, or toileting? No Information not available 10/05/2016 What is your exercise level? None [email or web address] Information not available 10/05/2016 Mental Status Question Answer Note LastModified by Organization D etails LastModified Time Do you feel stressed (tense, restless, nervous, or anxious, or unable to sleep at night)? 1 [email or web address] Information not available 05/07/2019 Do you have [...] Time Tdap 02/18/20 17 completed Layla Hawthorne milad, [facility] 07/27/2023 08:37:23 Hep B, unspecified formulation 01/18/20 17 completed Layla Hawthorne milad, [facility] 07/27/2023 08:37:23 Hep B, unspecified formulation 02/18/20 17 completed Layla Hawthorne null, [facility] 07/27/2023 08:37:23 Pneumococcal conjugate PCV20, polysaccharide MVR940 conjugate, adjuvant, PF 10/06/20 25 cancelled patient objection Debra Jackson APRN [address], [place], [address], [facility] 10/06/2025 11:32:49 zoster recombinant 10/06/20 25 cancelled patient objection Debra Jackson APRN [address], [place], [address], [facility] 10/06/2025 11:33:49 COVID-19, mRNA, LNP-S, PF, 100 mcg/0.5mL dose or 50 mcg/0.25mL dose 12/24/19 21 [facility] 08:37:23 COVID-19, mRNA, LNP-S, PF, 100 mcg/0.5mL dose or 50 mcg/0.25mL dose 01/27/20 21 [facility] 07/27/2023 08:37:23 Past Encounters Encounter ID Performer Location Encounter Start Date Encounter Closed Date Diagnosis/Indication Diagnosis SNOMED-CT Code Diagnosis ICD10 Code Diagnosis IMO Codes Diagnosis Note [id number] [facility] [address] [place] [address] 08/20/2007 00:00:00 [id number] [facility] [address] [place] [address] 10/22/2008 00:00:00 [id number] [facility] [address] [place] [address] 05/25/2010 00:00:00 [id number] [facility] [address] [place] [address] 05/25/2010 00:00:00 [id number] [facility] [address] [place] [address] [address] [address] 05/31/2011 00:00:00 [id number] [facility] [address] [place] [address] 09/21/2011 00:00:00 [id number] [facility] [address] [address] [address] 07/12/2012 00:00:00 [id number] [facility] [address] [place] [address] 11/22/2012 00:00:00 [id number] [facility] [address] [address] 12/18/2012 00:00:00 [id number] [facility] [address] [address] 09/29/2015 00:00:00 [id number] [facility] [address] [place] [address] 10/11/2015 00:00:00 [id number] [facility] [address] [address] 10/26/2015 00:00:00 [id number] [facility] [address] [place] [address] 12/02/2015 00:00:00 [id number] [facility] [address] [place] [address] 06/07/2016 00:00:00 [id number] [facility] [address] [place] [address] 06/20/2016 00:00:00 [id number] [facility] [address] [place] [address] 09/09/2013 00:00:00 [id number] [facility] [address] [place] [address] 02/25/2015 00:00:00 [id number] [facility] [address] [place] [address] 05/26/2015 00:00:00 [id number] [facility] [address] [place] [address] 06/16/2015 00:00:00 [id number] [facility] [address] [place] [address] 07/21/2015 00:00:00 [id number] [facility] [address] [place] [address] 09/08/2015 00:00:00 [id number] [facility] [address] [place] [address] 2015 00:00:00 [id number] [facility] [address] [place] [address] 09/27/2015 00:00:00 [id number] [facility] [address] [address] 09/29/2015 00:00:00 [id number] DO Itz Nguyễn MOLD CAPPER HELPER [address] [place] [address] [place] [address] 10/05/2016 10:25:47 10/05/2016 11:19:22 Midline cystocele 179928130 N81.11 Urge incon tinence of urine 62505477 N39.41 Smoker 73920358 F17.656 [id number] DO Itz Nguyễn MOLD CAPPER HELPER [address] [place] [address] [place] [address] 10/26/2016 09:04:55 10/26/2016 09:47:57 Postoperative visit 673284873 Z09 Body mass index 25-29 - overweight 292594792 Z68.27 Postoperat nicky retention of urine 257208804 R33.8 [id number] DO Grecia [place] MOLD CAPPER HELPER [address] [place] [address] [place] [address] 10/30/2016 09:51:00 10/30/2016 10:29:27 Postoperative retention of urine 676412892 R33.8 [id number] DO [place]recia [place] MOLD CAPPER HELPER [address] [place] [address] [place] [address] 11/09/2016 13:51:08 11/09/2016 15:19:04 Surgical follow-up 482916060 Z09 Body mass index 25-29 - overweight 468300485 Z68.27 Vaginal discharge 371221 006 N89.8 [id number] DO Grecia [place] MOLD CAPPER HELPER [address] [place] [address] [place] [address] 11/15/2016 10:24:55 11/15/2016 11:44:29 Surgical follow-up 260933668 Z09 Body mass index 25-29 - overweight 861548574 Z68.27 [id number] DO [place]recia [place] MOLD CAPPER HELPER [address] [place] [address] [place] [address] 12/04/2016 10:59:13 12/04/2016 11:44:48 Surgical follow-up 195576237 Z09 released from pelvic rest Body mass index 25-29 - overweight 775210619 Z68.27 [id number] Jessica Mack APRN [address] [place] [address] 12/21/2016 09:03:24 12/21/2016 10:45:42 Vitamin deficiency 96387811 E56.9 Heart disease 01953888 I 51.9 Tobacco user 020329516 Z 72.0 Vitamin D deficiency 347 36329 E55.9 [facility] 12195405 R53.83 [id number] Jessica Mack APRN [address] [place] [address] 03/26/2017 09:27:44 03/26/2017 10:22:33 Vitamin deficiency 69478694 E56.9 Body mass index 25-29 - overweight 053104572 Z68.29 Long-term drug therapy 624052241 Z79.899 Postmenopausal state 764 79354 Z78.0 Heart disease 73657274 I 51.9 Fatigue 99401729 R53.83 [id number] Jessica Mack WORSHIP PASTOR [address] [place] [address] 06/25/2017 13:03:56 06/25/2017 13:23:29 Heart disease 89022776 I51.9 Vitamin D deficiency 347 73476 E55.9 Nicotine dependence 5629 4008 F17.200 Vitamin deficiency 15888 002 E56.9 Hyperlipidemia 95051761 E78.5 Essential hypertension 04655797 I10 [id number] Jessica Mack WORSHIP PASTOR [address] [place] [address] 09/25/2017 08:54:48 09/25/2017 10:26:01 Heart disease 47617114 I51.9 Screening for malignant neoplasm of breast 862833377 Z12.31 Hypothyroidism 26874194 E03.9 Vitamin D deficiency 347 23338 E55.9 [id number] Jessica Mack WORSHIP PASTOR [address] [place] [address] 07/03/2018 13:19:36 07/03/2018 14:23:31 Vitamin D deficiency 38404362 E55.9 Essential hypertension 63071581 I10 Fatigue 88857285 R53.83 Dysfunctio n of eustachian tube 50398496 H69.90 [id number] Jessica Mack WORSHIP PASTOR [address] [place] [address] 08/14/2018 12:37:47 08/14/2018 13:36:42 Essential hypertension 26618154 I10 [id number] Jessica Mack WORSHIP PASTOR [address] [place] [address] 08/28/2018 13:25:54 08/28/2018 14:32:17 Essential hypertension 00459571 I10 Dysfunctio n of eustachian tube 43583331 H69.90 [id number] Jessica Mack APRN [address] [place] [address] 09/16/2018 09:57:48 09/16/2018 12:22:55 Vertigo 463171755 R42 Headache 88004826 R51 Lightheadedness 75683654 8 R42 Numbness of hand 3057273 04 R20.0 Dizzy spells 575056192 R 42 [id number] Jessica Mack APRN [address] [place] [address] 02/04/2019 15:25:52 02/04/2019 16:19:17 Hyperlipidemia 17471378 E78.5 Essential hypertension 04610172 I10 Vertigo 203669389 R42 Disorder o f coronary artery 639315702 I77.9 Heart disease 98897521 I 51.9 Gastroesop hageal reflux disease 850676502 K21.9 [id number] Jessica Mack APRN [address] [place] [address] 03/31/2019 13:01:21 03/31/2019 13:38:58 Basal ganglia degeneration with calcification 126626041 G23.8 Essential hypertension 79368002 I10 [id number] DO Grecia [place] MOLD CAPPER HELPER [address] [place] [address] [place] [address] 05/07/2019 11:25:15 05/07/2019 12:08:45 Routine gynecologic examination done 7722653223 9101 Z01.419 Depression screening 171 841256 Z13.89 Diet education 56122819 Z71.3 Counseling 368456388 Z71 .82 Exercise counselerendira gKevan Patient encouraged to exercise 30 minutes 5 days a week. Examinatio n of blood pressure 974756225 Z01.30 History of total hysterectomy 148062136 Z90.710 Body mass index 25-29 - overweight 985072788 Z68.29 [id number] Jessica Mack APRN [address] [place] [address] 08/18/2019 10:24:45 08/18/2019 11:17:41 Persistent insomnia 489423816 G47.09 Heart disease 25515852 I 51.9 Hypertensive disorder 38 262380 I10 Hyperlipidemia 95863848 E78.5 [id number] Jessica Mack APRN [address] [place] [address] 09/02/2019 11:35:28 09/02/2019 14:05:08 Disorder of coronary artery 849139942 I77.9 Heart disease 16927443 I 51.9 [id number] Jessica Mack APRN [address] [place] [address] 12/08/2019 15:27:36 12/08/2019 15:51:36 Essential hypertension 80654243 I10 Hyperlipidemia 60192312 E78.5 Persistent insomnia 1919 63877 G47.09 Finger joint locking 299 125044 M24.005 [id number] Laurence Vásquez MD [address] [place] [address] 03/01/2020 09:45:29 03/01/2020 10:20:03 Dysfunction of bilateral eustachian tubes [id number] 499610 H69.93 [id number] Laurence Vásquez MD [address] [place] [address] 03/15/2020 14:22:58 03/15/2020 15:12:52 Dysfunction of bilateral eustachian tubes 3474238179 557115 H69.93 [id number] Avis Pollock DO [place] [employer] [address] [place] [address] [place] [address] 05/24/2020 14:47:24 05/24/2020 15:40:13 Routine gynecologic examination done [id number] 9101 Z01.419 Depression screening 171 891735 Z13.89 Diet education 15037009 Z71.3 Counseling 551173125 Z71 .82 Exercise counselerendira gallo Patient encouraged to exercise 30 minutes 5 days a week. Examinatio n of blood pressure 038132828 Z01.30 Vaccine de clined by patient 3411823047 02 Z28.21 Screening mammography 24 405142 Z12.31 Mixed urin vijaya incontinence 284751623 N39.46 Discussed possible side effects of medication , questions answered. [id number] Avis Pollock DO [place] [employer] [address] [place] [address] [place] [address] 07/20/2020 11:48:01 07/20/2020 12:17:05 Increased frequency of urination 027666702 R35.0 Nocturia 656057626 R35.1 [id number] Laurence Vásquez MD [address] [place] [address] 10/20/2020 15:54:43 10/20/2020 17:26:44 Persistent insomnia 825558058 G47.09 Unintentio nal weight gain 7589302012 34049 R63.5 Fatigue 89634738 R53.83 Vitamin D deficiency 347 43589 E55.9 [id number] Laurence Vásquez MD [address] [place] [address] 01/26/2021 13:37:58 01/26/2021 14:23:58 Mammogram declined 389231699 Z53.20 Vitamin D deficiency 347 83648 E55.9 Blood gluc ose outside reference range 433501828 R73.09 [id number] Laurence Vásquez MD [address] [place] [address] 04/27/2021 13:51:49 04/27/2021 14:21:38 Gastroesophageal reflux disease 661761672 K21.9 Vitamin D deficiency 347 25256 E55.9 Hypertensive disorder 38 177210 I10 Hyperlipidemia 99128727 E78.5 Mammogram declined 44797 5004 Z53.20 Prediabetes 376721964 R7 3.03 Hypertensi ve heart disease 09348967 I11.9 Persistent insomnia 1919 97340 G47.09 Body mass index 30+ - obesity 129946869 Z68.31 [id number] Laurence Vásquez MD [address] [place] [address] 08/10/2021 11:23:41 08/10/2021 12:16:06 Diastolic heart failure 093491972 I50.30 Hypertensive disorder 38 009978 I10 Disorder o f coronary artery 787287858 I77.9 Hyperlipidemia 20539336 E78.5 Prediabetes 398315626 R7 3.03 Influenza vaccination declined 796286795 Z28.21 Blood gluc ose outside reference range 770589052 R73.09 Vitamin D deficiency 347 94123 E55.9 Gastroesop hageal reflux disease without esophagitis 048433238 K21.9 [id number] Laurence Vásquez MD [address] [place] [address] 07/11/2022 11:37:52 07/11/2022 12:45:30 Vitamin D deficiency 98048177 E55.9 Persistent insomnia 1919 15785 G47.09 Blood gluc ose outside reference range 853563893 R73.09 Mixed hyperlipidemia 267 913415 E78.2 Disorder o f vitamin B12 539228498 E53.8 Prediabetes 179217180 R7 3.03 Gastroesop hageal reflux disease without esophagitis 495865721 K21.9 Hypertensive disorder 38 044442 I10 Hemorrhoids 47034819 K64 .9 discussed fiber and hydration History of polyp of colon 147580142 Z86.447 [id number] Laurence Vásquez MD [address] [place] [address] 03/06/2023 11:56:17 03/06/2023 12:50:53 Internal hemorrhoids 10097318 K64.8 Diverticul osis of colon 355454114 K57.30 Painless r ectal bleeding 443219524 K62.5 Hypertensive disorder 38 857855 I10 Mixed hyperlipidemia 267 848779 E78.2 Vitamin D deficiency 347 32216 E55.9 Blood gluc ose outside reference range 426732797 R73.09 Prediabetes 763762438 R7 3.03 [id number] Debra Jackson APRN [address] [place] [address] 04/28/2024 09:51:23 04/28/2024 10:36:07 Persistent insomnia 582663024 G47.09 Well-contr olled Vitamin D deficiency 347 31595 E55.9 Well-contr olled Gastroesop hageal reflux disease 265499544 K21.9 Well-contr olled Hypertensive disorder 38 338118 I10 Well-contr olled Disorder o f vitamin B12 998777572 E53.8 Hyperlipidemia 03579209 E78.5 Prediabetes 097913751 R7 3.03 Screening for malignant neoplasm of respiratory tract 125514268 Z12.2 30+ pack year history Nicotine d ependence with current use 090247487 F17.210 Current tobacco user Screening mammography 24 148855 Z12.31 Abnormalit y of nail of toe 986580142 L60.8 Referred General ex amination of patient 301580760 Z00.00 Exercises education, guidance, and counseling 680466026 Z71.82 The patient was advised to continue a healthy diet and exercise regularly. Dietary ma nagement surveillance 713957345 Z71.3 Body mass index 30+ - obesity 284904071 Z68.31 Obesity 450712588 E66.9 [id number] Debra Jackson APRN [address] [place] [address] 10/27/2024 11:22:18 10/27/2024 13:05:57 Gastroesophageal reflux disease 104224188 K21.9 Well-contr olled Mixed hyperlipidemia 267 030831 E78[address] Carlson Vitamin D deficiency 347 84307 E55.9 Well-contr olled Hypertensive disorder 38 933267 I10 Uncontroll ed, increase Lisinopril to 20mg until gets in to see Cardiology . Disorder o f vitamin B12 083681263 E53.8 History of polyp of colon 913144282 Z86.0100 Heart disease 31804053 I 51.9 Persistent insomnia 1919 46448 G47.09 Well-contr olled Tinnitus of left ear 009 4485361 106 H93.12 Try Flonase - discussed referral to Audiologis t for hearing test or ENT if no improvemen t Prediabetes 614971061 R7 3.03 Will call with results, last A1C 6.2 Body mass index 30+ - obesity 037659385 Z68.32 Obesity 847486891 E66.9 [id number] Debra aJckson APRN [address] [place] [address] 11/27/2024 10:50:38 11/27/2024 11:09:26 History of cerebrovascular accident 211045785 Z86.73 Referred to Neuro as requested Headache 14613309 G44.52 MRI ordered for further evaluation due to previous CVA and new onset of daily headaches [id number] Debra Jackson APRN [address] [place] [address] 03/24/2025 11:16:36 03/24/2025 12:17:50 Gastroesophageal reflux disease 801467419 K21.9 Well-contr olled Mixed hyperlipidemia [address]60[address] Carlson History of cerebrovascular accident 439577436 Z86.73 Referred to Neuro previously as requested and has appt. later this month; also new MRI ordered to [facility] also as requested Hypertensive disorder 38 154878 I10 Well-contr olled Vitamin D deficiency 347 86331 E55.9 Well-contr olled Disorder o f vitamin B12 022101110 E53.8 Diastolic heart failure 926472013 I50.30 Follows with Cardiology Prediabetes 286929112 R7 3.03 Will call with results, last A1C 6.3 on 10/27/24 Tinnitus of left ear 060 9038466 106 H93.12 Well-contr olled Persistent insomnia 1919 75834 G47.09 Well-contr olled [id number] Debra Jackson APRN [address] [place] [address] 04/28/2025 09:44:40 04/28/2025 10:44:52 General examination of patient 911672001 Z00.00 Screening for cardiovascular system disease 981021955 Z13.6 Endocrine/ metabolic screening 435301838 Z13.228 Well-contr olled Screening mammography 24 524027 Z12.31 Last Mammo 12/11/24 Exercises education, guidance, and counseling 420681001 Z71.82 The patient was advised to continue a healthy diet and exercise regularly. Dietary ma nagement surveillance 511565832 Z71.3 Chronic cough 44197676 R 05.3 78921 Discussed needs CXR/PFT to evaluate for COPD - refuses both at this time but willing to trial using inhaler and have LDCT that is due end of April 2025 Chronic ob structive pulmonary disease 39408219 J44.9 586483374 Start Symbicort for maintenanc e - refuses PFT - advised due for LDCT 05/14/25 - will order LDCT today Hypertensive disorder 38 526493 I10 Uncontroll ed, advised on trying 1/2 of Losartan 50mg until follow-up with Cardiology Body mass index 30+ - obesity 202162392 Z68.33 673157 Obesity 063488352 E66.9 Screening for malignant neoplasm of respiratory tract 970571070 Z12.2 30+ pack year history Nicotine d ependence with current use 901454458 F17.210 Current tobacco user [id number] Debra Jackson APRN [address] [place] [address] 10/06/2025 10:50:37 10/06/2025 11:37:30 General examination of patient 018971554 Z00.00 Screening for cardiovascular system disease 153196496 Z13.6 Endocrine/ metabolic screening 261300153 Z13.228 Well-contr olled Screening mammography 24 776243 Z12.31 Last Mammo 12/11/24 - up to date Exercises education, guidance, and counseling 935540261 Z71.82 The patient was advised to continue a healthy diet and exercise regularly. Dietary ma nagement surveillance 450413336 Z71.3 Tobacco user 392843159 Z 72.0 Postmenopa usal osteoporosis 910357292 M81.0 2201 Immunization due 9832774 08 Z23 5319649 Viral scre ening status 610234498 Z11.59 667901 Vitamin D deficiency 347 15538 E55.9 81745 Well-contr olled Mixed hyperlipidemia 267 191409 E78.[address] Carlson Chronic ob structive pulmonary disease 11527403 J44.9 Follows with Pulmonolog y - Refills today Hypertensive disorder 38 286620 I10 Uncontroll ed, has appt. upcoming with Cardiology in October - advised to start checking BP regularly and home and keep log to bring back to F/U visit with me as well as Cardiology - restart taking full tablet 50mg of Losartan if remaining elevated - patient verbalized understand ing. Persistent insomnia 1919 88675 G47.09 Well-contr olled Gastroesop hageal reflux disease 844493676 K21.9 Well-contr olled Dependence on nocturnal oxygen therapy 2430867338 9108 Z99.81 34846597 Pulmonolog y started on noctural O2 which she is benefiting from Pain of hip region 78568 002 M25.551 M25.552 090889 Will call with results - discussed Ortho referral pending results Health Concerns Section Related Observation LastModified by Organization Detai ls LastModified Time None Recorded Concern Status LastModified by Organization Details LastModified Time None Recorded Advance Directives Directive N: Payers Insurance Date Sequence Insurance Name Policy Number Policy Ware Covered Member ID Ware Member ID Guarantor Name 09/21/2025 [place] [facility] (MEDICAID) DIDIER Ledbetter [id number] Sariah Ledbetter 04/28/2025 1 [place] [id number] Sariah Ledbetter [id number] Sariah Ledbetter 11/01/2016 1 [place] [id number] Inder Ledbetter [id number] Sariah Ledbetter 07/02/2018 1 [place] [id number] Inder Ledbetter [id number] Sariah Ledbetter 04/28/2025 1 [facility] Sariah Ledbetter [id number] Sariah Ledbetter 08/12/2018 1 [employer] (POS) Inder Ledbetter [id number] Sariah Ledbetter 04/28/2025 1 [employer] [place] [employer] [place]MEDICA[place] - HMO[place] DIDIER Ledbetter [id number] Sariah Ledbetter 10/03/2025 1 [employer] [place] Sariah Ledbetter [id number] Sariah Ledbetter 04/28/2025 1 [employer] DIDIER Ledbetter [id number] Sariah Ledbetter 04/28/2025 1 [place] [id number] Sariah Ledbetter [id number] Sariah Ledbetter 03/04/2021 1 [employer] DIDIER Ledbetter [id number] Sariah Ledbetter 04/28/2025 2 [place] [id number] Sariah Ledbetter [id number] Sariah Ledbetter 04/28/2025 1 [employer] [facility] (O) Sariah Ledbetter [id number] Sariah Ledbetter 08/28/2018 1 *SELF PAY* Chris Ledbetter 10/03/2025 [place] Sariah Ledbetter [id number] Sariah Ledbetter 04/28/2025 1 [facility] [place] - [place] [facility] Sariah Ledbetter [id number] Sariah Ledbetter Notes Date Note Type Note [...] dizziness. Debra Jackson APRN [address], [place], [address], [place] - [facility] 10/27/2024 11:52:56 11/27/2024 text/html ROS [...] head. Debra Jackson APRN [address], [place], [address], [place] [facility] 11/27/2024 11:07:58 03/24/2025 text/html ROS [...] a new order for a MRI to [facility] due to insurance - she states she never got a call from [facility] likely due to insurance not accepted there. [...] well as pending/ordered MRI of brain. Debra Jackson APRN [address], [place], [address], [facility] - [facility] 03/24/2025 11:46:17 04/28/2025 text/html [...] yesterday with a follow-up with Cardiology on 6/26/25. Previously, she had MRI of head with Neurology and has been placed on medications for migraines as she feels that is what her headaches are related to. She has also been ordered sleep study by Neurology. She reports she is not taking the Losartan at this time and will discuss this with the [employer] [facility] at that appt. She states she did take it once and got very lightheaded/dizzy feels the dose may be too high. She complains of a cough. The [employer] Associate stopped the Lisinopril due to the cough. She is a smoker. Her BP is high in the office today - discussed risks of cardiac event (heart attack/stroke) due to this. She states she continues with a cough even with being off the Lisinopril. She states when she smokes a cigarette it will cause her to cough. Debra Jackson APRN [address], [place], [address], [facility] - [facility] 04/28/2025 10:31:57 10/06/2025 text/html Annual [...] desired) Debra Jackson APRN [address], [place], [address], [place] - [facility] 10/06/2025 11:37:54 OBGyn Episode No OBEpisode recorded.
[2025-10-09] MEDS: METHACHOLINE CHLORIDE 65MG/18ML KIT 64 MG IH (13:00)
[2025-10-09] MEDS: ALBUTEROL 0.083% 2.5 MG/3 ML NEB IH (14:10)
== END 2025-10-09 23:59 | disposition home or self-care (01) ==
LOC: RT 12:03
PROVIDERS: PCP Nurse Practitioner Family; Visit Provider Internal Medicine Pulmonary Disease
DX: J45.909 Unspecified asthma, uncomplicated (principal); R94.2 Abnormal results of pulmonary function studies
CPT/HCPCS: 94070; 94618; 95070; J7674

== ENCOUNTER 2025-10-27 13:40 | Outpatient (CLI) | payer MEDICARE, SELFPAY ==
--- NOTE | 2025-10-27 13:43 | MR_ITS ---
FINAL REPORT CLINICAL HISTORY: SPONDYLOSIS BILATERAL HIP/ THIGH PAIN WHEN WALKING LONG DISTANCES X 2 YEARS FINDINGS: Multiplanar MR imaging of the lumbar spine was performed without contrast. On the sagittal T2-weighted images, there is abnormal decreased signal throughout the lumbar discs. The vertebrae are of normal height. There is grade 1 spondylolisthesis of L4 on 5. L1-2: Mild diffuse disc bulge with mild bilateral neuroforaminal narrowing. L2-3: There is no significant canal stenosis or neural foraminal narrowing. L3-4: Mild diffuse disc bulge with mild to moderate bilateral neuroforaminal narrowing. L4-5: Moderate diffuse disc bulge. Broad-based midline disc protrusion. Mild spinal and bilateral neuroforaminal narrowing. L5-S1: Mild diffuse disc bulge and endplate hypertrophy. Moderate bilateral neuroforaminal narrowing. IMPRESSION: Diffuse disc bulges at L4-5 and L5-S1 with a broad-based midline disc protrusion at L4-5 and mild spinal canal compromise. Reviewed, Interpreted and Dictated by Joey Engle MD Transcribed by Nat Dudley Authenticated and [facility]
== END 2025-10-27 23:59 | disposition home or self-care (01) ==
LOC: RAD 13:40
PROVIDERS: PCP Nurse Practitioner Family; Visit Provider Nurse Practitioner Family
DX: M51.369 Other intervertebral disc degeneration, lumbar region without mention of lumbar back pain or lower extremity pain (principal); M51.379 Other intervertebral disc degeneration, lumbosacral region without mention of lumbar back pain or lower extremity pain; M51.26 Other intervertebral disc displacement, lumbar region; M48.061 Spinal stenosis, lumbar region without neurogenic claudication; M48.07 Spinal stenosis, lumbosacral region; M47.817 Spondylosis without myelopathy or radiculopathy, lumbosacral region
CPT/HCPCS: 72148